=== PATIENT | male | born 1940 | race African-American/Black ===

== ENCOUNTER 2018-05-01 15:00 | Inpatient (IN) | END 2018-05-15 22:10 | DRG 870 ==

== ENCOUNTER 2018-10-30 08:42 | Inpatient (IN) | payer MEDICARE, OTHER ==
[~2018-10-30] VITALS: Ht 180.3 cm; Wt 74.3 kg
[~2018-10-30 08:42] MED LIST: ABIR500T PO; CAR120SR PO; CEFE1FRO IV; CHOL100062 PO; EPLE25TA4 PO; EPO10ESRD SC; HEPA50002 SC; Insulin Glargine SC; Ipratropium 0.02% (Neb) HHN; LEVA1.2523 HHN; METO25TA4 PO; MULTI PO; MUPI22OI2 TOP; Nursing Note XX; Patient Own Medication PO; SCOP1PAT10 TRANSDERM; SENN-120 PO; TERB250T13 PO; VANC750F2 IV; [UNRECOGNIZED DRUG - OTHER] XX
[2018-10-30 08:49] VITALS: Ht 180.3 cm; Wt 74.3 kg
[2018-10-30] MEDS ORDERED: SODIUM CHLORIDE 0.9% 1L BAG IV* STA (08:54)
[2018-10-30] MEDS ORDERED: CEFEPIME 2GM/50 ML (PMX) 50 ML IVPB STA (08:54)
[2018-10-30] MEDS ORDERED: VANCOMYCIN 1 GM (PMX) 250 ML IVPB ONE (09:00)
[2018-10-30] MEDS ORDERED: ACETAMINOPHEN 650MG/20.3ML CUP PEG ONE (09:30)
[2018-10-30] MEDS ORDERED: IBUPROFEN 800 MG TAB PEG ONE (09:30)
[2018-10-30] MEDS ORDERED: GLUC1KIT IJ (10:24)
[2018-10-30] MEDS ORDERED: NOVO3I SC (10:29)
[2018-10-30] MEDS ORDERED: IPRA3AMP29 INHALATION (10:30)
[2018-10-30] MEDS ORDERED: LANT3I SC (10:31)
[2018-10-30] MEDS ORDERED: PANT40TA3 GTB (10:33)
[2018-10-30] MEDS ORDERED: FURO20TA3 GTB (10:33)
[2018-10-30] MEDS ORDERED: PRED5TAB GTB (10:34)
[2018-10-30] MEDS ORDERED: ABIR500T GTB (10:36)
[2018-10-30] MEDS ORDERED: ACET325T45 GTB (10:37)
[2018-10-30] MEDS ORDERED: EPOE3000 SC (10:38)
--- NOTE | 2018-10-30 12:10 | HP ---
Date/Time of Note Date/Time of Note DATE: 10/30/18 TIME: 12:10 Assessment/Plan VTE Prophylaxis Pharmacological prophylaxis: NA/contraindicated Pharm contraindication: anticoag not tolerated Lines/Catheters [facility]from [facility]): Saline Lock Assessment/Plan Hospital Course 78-year-old male with comorbidities including advanced dementia with chronic bedridden status, dysphagia status post G-tube placement, chronic kidney dise ase, diabetes mellitus, osteoarthritis, dyslipidemia, and prostate cancer. The patient lives at a long term facility. The patient was transferred from the SNF because of febrile illness, tachycardia, and tachypnea, who was found to have evidence of underlying sepsis with tachycardia, tachypnea, febrile illness, and lactic acidosis. The patient will be admitted to inpatient setting for fur ther treatment and evaluation. 1. Sepsis with underlying tachypnea, tachycardia, fevers, and lactic acidosis, present on admission, probably secondary to underlying urinary tract infection. Sepsis criteria: tachycardia, tachypnea, fevers, and lactic acidosis. Infectious source: Suspect UTI and aspiration pneumonitis. -Pancultures obtained. -Start empiric antibiotics including coverage for anaerobes because of suspected aspiration. 2. Hypernatremia. -Etiology could free water deficit. -Start free water via G-tube. -Obtain nephrology consult. 3. Acute on chronic kidney injury. -Probably secondary to underlying dehydration. -Nephrology to follow the patient. -Continue IV hydration. 4. Diabetes mellitus type 2. -Continue sliding scale insulin along with basal insulin. -Hemoglobin A1C 6.8. 5. Nomocytic anemia. -Etiology unclear. -Trend H&H. 6. Dysphagia. -Aspiration precautions. 7. Dyslipidemia. -Obtain lipid panel. 8. Prostate cancer. -Continue Zytiga. Plan: The patient will be admitted to inpatient telemetry floor. The patient will be started on G-tube feedings. The patient will be started on DVT prophylaxis . The patient will remain a full code. Activities will be bedrest. The rest of the patient's management will be based on the clinical course, inputs from consultants, and the results of diagnostic studies. Based on the patient's clinical presentation, he most probably requires at least 2 Midnights' stay for further management and evaluation of his clinical presentation. The patient was seen in collaboration with Dr. Trevino Result Diagram: 10/30/18 0900 10/30/18 0900 Results 24hrs Laboratory Tests Test 10/30/18 08:53 10/30/18 08:54 10/30/18 09:00 10/30/18 09:01 POC Venous 2.4 *H Lactate Blood Gas Blood arterial Specimen Source Arterial Blood 10/30/2018 9:54:5 Date Drawn 4 AM Arterial Blood pH 7.464 H (Temp corrected) Arterial Blood 51.7 H pCO2 (Temp correct) Arterial Blood 84.2 pO2 (Temp corrected) Arterial Blood 36.3 H HCO3 Arterial Blood 11.3 H Base Excess Arterial Blood 95.8 Oxygen Saturation Jay Test N/A Arterial Blood LB Gas Puncture Site Arterial 0.3 Blood Carboxyhemo globin Arterial Blood 0.5 Methemoglobin Blood Gas A-a O2 69.0 H Differential Oxyhemoglobin 95.0 Percent Blood Gas 37.0 Temperature Blood Gas NASAL CANNULA Modality FiO2 30.0 Blood Gas MDA Notified Whom Blood Gas 10/30/2018 9:57:2 Notified Time 8 AM White Blood Count 8.1 # Red Blood Count 2.86 L Hemoglobin 7.7 L Hematocrit 26.7 L Mean Corpuscular 93.4 Volume Mean Corpuscular 26.9 L Hemoglobin Mean Corpuscular 28.8 L Hemoglobin Concen t Red Cell 16.4 H Distribution Width Platelet Count 159 # Mean Platelet 13.0 #H Volume Immature 0.500 H Granulocytes % Neutrophils % Lymphocytes % Monocytes % Eosinophils % Basophils % Nucleated Red 0.2 H Blood Cells % Immature 0.040 H Granulocytes # Neutrophils # Lymphocytes # Monocytes # Eosinophils # Basophils # Nucleated Red Blood Cells # Prothrombin Time 15.6 #H Prothrombin Time 1.2 Ratio INR International 1.23 Normalized Ratio Activated 33.3 Partial Thrombopl ast Time Urine Color YELLOW Urine Clarity CLOUDY A Urine pH 5.0 Urine Specific 1.016 [place] Urine Ketones NEGATIVE Urine Nitrite NEGATIVE Urine Bilirubin NEGATIVE Urine 1+ H Urobilinogen Urine Leukocyte 3+ H Esterase Urine Microscopic 16 H RBC Urine Microscopic > 182 H WBC Urine Amorphous FEW A Crystals Urine Bacteria FEW A Urine Hemoglobin 1+ H Urine Glucose NEGATIVE Urine Total 1+ H Protein Sodium Level 162 *H Potassium Level 3.1 L Chloride Level 122 H Carbon Dioxide 38 H Level Anion Gap 2 L Blood Urea 51 H Nitrogen Creatinine 1.52 H Est Glomerular Filtrat Rate mL/min Glucose Level 188 Calcium Level 9.5 Total Bilirubin 0.0 L Direct Bilirubin 0.00 Indirect 0.0 Bilirubin Aspartate Amino 22 Transf (AST/SGOT) Alanine < 6 L Aminotransferase (ALT/SGPT) Alkaline 130 H Phosphatase Troponin I 0.070 Total Protein 7.1 Albumin 3.1 L Globulin 4.00 H Albumin/Globulin 0.77 Ratio Amylase Level 68 Lipase 123 B-Type 866 H Natriuretic Peptide Test 10/30/18 10:54 POC Venous 1.5 Lactate HPI/ROS Admit Date/Time Admit Date/Time Hx of Present Illness This is a 77-year-old male with comorbidities including diabetes mellitus type 2, advanced Alzheimer's dementia, dysphagia status post G-tube placement, dyslipidemia, osteoarthritis, and prostate cancer who is a shelter resident. The patient was recently admitted to [facility], where he was intubated for acute respiratory distress. The patient was brought to the emergency room at [facility] because of fevers and tachypnea at the long term facility. The patient is nonverbal and is unable to obtain meaningful data from the patient. The patient's daughter was at the bedside. The patient's daughter denied any reported nausea, vomiting, or diarrhea. In the emergency room, the patient was noticed to have lactic acidosis; the patient also had underlying tachycardia and tachypnea. The patient was also noticed to be febrile with highest temperature of 101.2 F. The patient's influ kyle A and B screen was negative. The patient's chest x-ray was showing mildly increased interstitial changes in the lung bases along with calcified aorta. The patient was treated with a single dose of IV cefepime and IV vancomycin in the emergency room. ROS Subjective hx not possible: pt non-verbal PMH/Family/Social Past Medical History 1. Diabetes mellitus type 2. 2. Advanced Alzheimer's dementia. 3. Dysphagia status post G-tube placement. 4. Dyslipidemia. 5. Osteoarthritis, and prostate cancer. 6. Chronic bedridden status. 7. Prostate cancer. Coded Allergies: No Known Allergy (Unverified , 10/30/18) Past Surgical History G-tube placement. Family History Significant Family History: no pertinent family hx Social History Alcohol Use: none Smoking Status: Former smoker Drug Use: none Exam/Review of Systems Vital Signs Vitals Vital Signs Date Temp Pulse Resp B/P (MAP) Pulse Ox O2 O2 Flow FiO2 Time Delivery Rate 10/30/18 101 18 102/75 99 Nasal 2.0 10:16 (84) Cannula 10/30/18 101.0 09:21 Exam Exam General: Adequately build 78 year-old male lying in bed in mild to moderate respiratory distress. HEENT: Normocephalic, atraumatic. Eyes: Anicteric sclerae, conjunctivae clear. ENT: Nasal septum midline, oral mucosa is dry. Neck supple. Respiratory: Bilaterally diminished breath sounds. Bilateral coarse breath sounds. Cardiovascular: S1, S2 heard. Tachycardia. Abdomen: Soft, nontender, and nondistended. Bowel sounds positive in all [address] Left upper quadrant G-tube site clean, dry, and intact. Genitourinary: Deferred. Extremities: No cyanosis, no clubbing. Peripheral pulses palpable. Neurologic: The patient is encephalopathic. NADIA SHINE NP Oct 30, 2018 12:10
[2018-10-30] MEDS ORDERED: ACETAMINOPHEN 325 MG TAB PO PRN (12:30)
[2018-10-30] MEDS ORDERED: VANCOMYCIN IV PER PHARMACY XX SCH (12:30)
[2018-10-30] MEDS ORDERED: NACL 0.9% 3 ML SYG IV SCH (12:30)
[2018-10-30] MEDS ORDERED: ONDANSETRON 4 MG INJ IV PRN ×2 (12:30)
--- NOTE | 2018-10-30 14:21 | CONS ---
DATE OF ADMISSION: 10/30/2018 DATE OF CONSULTATION: 10/30/2018 REASON FOR CONSULTATION: Acute kidney injury, hyponatremia. PHYSICIAN REQUESTING CONSULTATION: Dr. Henderson . HISTORY OF PRESENT ILLNESS: This is a 78-year-old male with a past medical history of hypertension, history of diabetes, history of advanced Alzheimer dementia, history of dysphagia, status post PEG, h istory of bedridden state who presents to [facility] Emergency Room with shortness of breath. The patient was sent from a detention facility to [facility]. Up on arrival, the patient had a chest x-ray, which showed findings of increased interstitial changes, c alcified aorta. The patient was also febrile with a temperature of 101. In the emergency room, the patient had laboratory data drawn, which also showed a sodium of 162, BUN of 51, creatinine 1.52. In the emergency room, the patient was started on IV fluids, antibiotic therapy. In terms of the patient's renal history, the patient's previous baseline creatinine in May 2018 was 0.79 mg/dL. The patient, himself, is unable to provide history. History was obtained by reviewi hospital records and speaking to hospital staff. PAST MEDICAL HISTORY: As stated above. 1. Advanced Alzheimer dementia. 2. History of dysphagia. 3. History of anemia. 4. History of diabetes. 5. History of hypertension. PAST SURGICAL HISTORY: Status post PEG placement. FAMILY HISTORY: Unknown. SOCIAL HISTORY: Lives at a skilled nurse facility. MEDICATIONS: The patient's medications have been reviewed. ALLERGIES: NO KNOWN DRUG ALLERGIES. REVIEW OF SYSTEMS: Unable to do adequate review of systems, as patient is altered. Pertinent positi ves as obtained by reviewing medical records, speaking to hospital staff, stated in HPI, otherwise ne gative. PHYSICAL EXAMINATION: VITAL SIGNS: Blood pressure is 115/54, respirations 18, pulse 94, temperature 100.3. GENERAL: The patient is frail, weak, cachectic. HEENT: Head is normocephalic. Pupils are reactive to light. NECK: Supple. HEART: Regular rate. LUNGS: Show diminished breath sounds at the base. ABDOMEN: Soft, nontender to palpation. No rebound or guarding. Positive PEG. EXTREMITIES: Negative for clubbing, cyanosis. No edema. DERMATOLOGIC: No rashes. MUSCULOSKELETAL: No joint effusions. NEUROLOGIC: Limited exam due to lack of patient cooperation. LABORATORY DATA: From 10/30 was reviewed. CBC was reviewed. ASSESSMENT AND PLAN: This is a 78-year-old male who presents with: 1. Nonoliguric acute kidney injury with previously normal baseline creatinine. Etiology of acute ki dney injury (ROBBIE) is secondary to hemodynamics, volume depletion, possible sepsis. The patient's ini tial urinalysis does show evidence of pyuria, hematuria, and proteinuria. Recommendation at this poi nt is to do a full evaluation. We will check a renal ultrasound to rule out obstruction. We will co ntinue the patient on aggressive intravenous (IV) hydration. We will repeat a renal panel. We will follow up urine culture if there is evidence of urinary tract infection (UTI). Otherwise, continue c urrent treatment plan, supportive care, and renally dose all medications. Lower suspicion for acute glomerulonephritis or vasculitis at this time due to patient's clinical presentation. 2. Hypernatremia. The patient has a free water deficit of approximately 4.5 liters. Etiology is li jd due to insensible losses. The possibility of diabetes insipidus is a consideration, although, l ess likely. Plan is to do a full evaluation. We will check urine sodium, urine osmolarity. We will start the patient on free water flushes. We will continue hypertonic fluid and monitor closely. 3. Hypokalemia. Replete with potassium chloride. 4. Metabolic alkalosis. Etiology is likely secondary to acute kidney injury and diuretic use. Plan is to continue the patient on intravenous (IV) fluids. We will monitor bicarbonate levels closely. 5. Anemia. Continue to monitor hemoglobin and hematocrit levels. 6. Mineral bone disorder. Monitor calcium and phosphorus levels. 7. Sepsis, possibly secondary to urinary tract infection (UTI), pneumonia. Continue broad-spectrum antibiotics. Follow up with cultures. Continue pressor support. 8. Dysphagia, status post percutaneous endoscopic gastrostomy (PEG). Continue tube feeding. 9. Acute encephalopathy on advanced Alzheimer dementia. 10. Diabetes. Continue Accu-Cheks, insulin sliding scale. 11. History of prostate cancer. 12. History of dyslipidemia. Thank you, Santiago, for this interesting consult. It will be a pleasure to follow patient with you t hroughout the hospital course. Dictated By: KACY CUETO/NTS Conf#: [id number] DID#: [id number]
[2018-10-30] MEDS: INSULIN ASPART [NOVOLOG] 3 ML PEN SC SCH ×2 (14:30→20:30)
[2018-10-30] MEDS: LEVALBUTEROL (NEB) 0.63 MG/3 ML AMP HHN SCH ×2 (14:32→20:42)
[2018-10-30] MEDS ORDERED: GLUCAGON 1 MG INJ IM PRN (15:00)
[2018-10-30] MEDS ORDERED: GLUCOSE GEL 15 GRAM TUBE PO PRN ×2 (15:00)
[2018-10-30] MEDS ORDERED: DEXTROSE 50% 50 ML SYRINGE IV PRN ×2 (15:00)
[2018-10-30] MEDS ORDERED: GLUCOSE GEL 15 GRAM TUBE BUCCAL PRN (15:00)
[2018-10-30] MEDS: SOD CHLORIDE 0.45% 1,000 ML IV SCH (15:03)
--- NOTE | 2018-10-30 16:41 | CONS ---
DATE OF ADMISSION: 10/30/2018 DATE OF CONSULTATION: 10/30/2018 TYPE OF CONSULTATION: Infectious disease. REASON FOR CONSULTATION: Antibiotic management. HISTORY OF PRESENT ILLNESS: Taran Perez is a 78-year-old male with numerous comorbidities. He has: 1. Advanced dementia. 2. Bedridden status. 3. Dysphagia with G-tube placement. 4. Chronic renal disease. 5. Diabetes mellitus. 6. Osteoarthritis. 7. Dyslipidemia. 8. Prostate cancer. He was transferred from a [facility] facility with febrile illness, tachycardia and tachypnea. He was found to have underlying sepsis with tachycardia, tachypnea, febrile illness. He has a G-tube in place. On admission, his white count 8.1, H and H of 7.7 and 26.7, platelet count is 59,000. BU N and creatinine is 51/1.52. He was recently admitted to the hospital where he was intubated for acu te respiratory distress. He was brought to the emergency room here because of fever and tachycardia. He is nonverbal. In the emergency room, he had lactic acidosis which was elevated. He was tachyca rdic and tachypneic, temperature of 101.2. Influenza A and B was negative. Chest x-ray showed mild increased interstitial changes in the lung bases along with calcified aorta. He was given 1 dose of cefepime and vancomycin. His diagnosis was diabetes with advanced Alzheimer disease with dementia, d ysphagia status post G-tube, prostate cancer, dyslipidemia. PHYSICAL EXAMINATION: GENERAL: He is adequately built 78-year-old male. VITAL SIGNS: T-max 101. SKIN: Without generalized rash. HEENT: Within normal limits. NECK: Supple. LYMPH NODES: None palpable. CHEST: Decreased breath sounds at the bases. HEART: Without murmur or gallop. He is tachycardic. ABDOMEN: Soft, nontender without organosplenomegaly or masses. G-tube in place in the left upper qu adrant, dry and intact. EXTREMITIES: Without cyanosis, clubbing or edema. RECTAL AND GENITAL: Deferred. NEUROLOGIC: No focal neurological abnormality. HOSPITAL COURSE: The patient was also seen by Dr. Xiong for acute kidney injury with a temperature of 101, 100.3. As noted, white count was 8.1. BUN and creatinine was 63/1.47. He was dehydrated w ith a sodium of 161. Microbiology: Influenza A and B are negative. He is on Zosyn. He was on vanc omycin and cefepime. I will dictate my findings to the hospitalist and Dr. Xiong. Dictated By: NIKKIE NÚÑEZ MD, JD/SAMANTHA Conf#: [id number] DID#: [id number] CC: LESLEY RAMIREZ MD;*End*
[2018-10-30] MEDS: PIPER-TAZO 3.375 GM IV (PMX) 100 ML IVPB SCH (17:57)
[2018-10-30 19:19] VITALS: PULSE 82
[2018-10-30 19:46] VITALS: BP 129/63; PULSE 84; RESP 18
[2018-10-30 20:00] VITALS: PULSE 88
[2018-10-30] MEDS ORDERED: INSULIN GLARGINE [LANTus] (100 UNITS/ML) SYG SC SCH (20:00)
[2018-10-30 23:11] VITALS: BP 114/58; PULSE 97; RESP 18
[2018-10-31] VITALS (12 sets, daily range): BP systolic 115–141; BP diastolic 55–77; PULSE 93–105; RESP 18–20
[2018-10-31] MEDS ORDERED: PENDING SANTYL ORDER FOR WOUND CARE XX PRN (01:00)
[2018-10-31] MEDS: PIPER-TAZO 3.375 GM IV (PMX) 100 ML IVPB SCH ×4 (01:02→17:11)
[2018-10-31] MEDS: SOD CHLORIDE 0.45% 1,000 ML IV SCH ×3 (01:03→17:31)
[2018-10-31] MEDS: LEVALBUTEROL (NEB) 0.63 MG/3 ML AMP HHN SCH ×4 (02:33→20:44)
[2018-10-31] MEDS: VANCOMYCIN HCL 1.25 GM in SOD CHLORIDE 0.9% 250 ML IVPB SCH (05:56)
--- NOTE | 2018-10-31 06:10 | ERD ---
ER Documentation Chief Complaint Chief Complaint MILD SOB WITH LOW 02 SATS FROM [facility]. FEVER NO COUGH HPI This is a 78-year-old male that presented to the emergency department from his significant facility, chronic bedbound status, with a known history of diabetes mellitus osteoarthritis dyslipidemia and prostate carcinoma. The patient has a G-tube and indwelling Wynn catheter. He been transferred via EMS today to [facility] after an episode of hypoxia. Nursing staff indicated that the patient's pulse oximetry had dropped to 80%. They also indicated that the patient had been experiencing a fever for the past several hours. The patient is unable to provide any further history. Patient did not receive any antipyretics prior to arrival. ROS All systems reviewed and are negative except as per history of present illness. Medications Home Meds Reported Medications Epoetin freddy* (Epogen*) 3,000 Unit/1 Ml Vial, 6000 UNITS SC Q MON,WED,FRI, VIAL 10/30/18 Acetaminophen* (Acetaminophen*) 325 Mg Tablet, 650 MG GTB Q6H PRN for MILD PAIN(1-3)OR ELEVATED TEMP, #30 TAB 10/30/18 Abiraterone Acetate (Zytiga) 500 Mg Tablet, 1000 MG GTB DAILY, TAB 10/30/18 Prednisone* (Prednisone*) 5 Mg Tab, 5 MG GTB DAILY, TAB 10/30/18 Pantoprazole* (Protonix*) 40 Mg Tablet.dr, 40 MG GTB BID, TAB 10/30/18 Furosemide* (Furosemide*) 20 Mg Tablet, 20 MG GTB DAILY PRN for HOLD FOR SBP<110, #60 TAB 10/30/18 Insulin Glargine* (Lantus*) 100 Unit/Ml Soln, 20 UNIT SC QHS, #1 VIAL 10/30/18 Ipratropium-Albuterol (Ipratropium-Albuterol) 0.5-3 Mg/3 Ml Ampul.neb, 3 ML INHALATION TID, #30 VIAL FOR 10 DAYS,END DATE 11/05/18 10/30/18 Glucagon,Human Recombinant (Glucagon Emergency Kit) 1 Mg Kit, 1 MG IJ NEEDED PRN for IF BLOOD GLUCOSE<70, KIT 10/30/18 Discontinued Reported Medications Insulin Aspart* (Novolog Insulin Pen*) 100 Unit/Ml Soln, 0 SC .SLIDING SCALE AC, EA IF BS<70 CALL MD. IF BS 150-199=2 UNITS, 200-249=3 UNITS, 250-299=5 UNITS, 300-349=7 UNITS, IF BS>349=10 UNITS,IF BS GREATER THAN 400, CALL MD. 10/30/18 Abiraterone Acetate (Zytiga) 500 Mg Tablet, 1000 MG PO DAILY, TAB 05/01/18 Multivitamins* (Theragran*) 1 Tab Tab, 1 TAB PO DAILY, TAB 05/01/18 Metoprolol Tartrate* (Lopressor*) 25 Mg Tablet, 50 MG PO BID, #60 TAB 05/01/18 Eplerenone (EPLERENONE) 25 Mg Tablet, 25 MG PO DAILY, #30 TAB 05/01/18 Diltiazem Hcl (Diltiazem) 120 Mg Capsr, 30 MG PO BID, #30 CAP 05/01/18 Cholecalciferol* (Vitamin D3*) 1,000 Unit Tablet, 1000 UNIT PO DAILY, TAB 05/01/18 Discontinued Scripts [Nursing Note] 1 EA EA No Conflict Check, 1 EA XX NOTE for 30 Days Prov:GARY PETERSON 05/15/18 [* Miscellaneous Pharmacy Order] 1 EA EACH No Conflict Check, 0 EA XX .ONCE for 30 Days Prov:GARY PETERSON 05/15/18 [Patient Own Medication] 1 EA EA No Conflict Check, 2 EA PO DAILY Prov:GARY PETERSON 05/15/18 Mupirocin* (Bactroban*) 2% -22 Gram Oint...g., 1 APPLIC TOP BID for 3 Days Prov:GARY PETERSON 05/15/18 [Insulin Glargine] 100 UNITS/ML SOLN No Conflict Check, 16 UNITS SC DAILY for 30 Days Prov:GARY PETERSON 05/15/18 Scopolamine (Transderm-Scop) 1 Each Patch.td.3, 1 PATCH TRANSDERM Q72H for 30 Days Prov:GARY PETERSON 05/15/18 Sennosides* (Senna Lax*) 8.6 Mg Tablet, 1 TAB PO QHS for 30 Days, TAB Prov:GARY PETERSON 05/15/18 Heparin Sodium,Porcine (Heparin Sodium) 5,000 Unit/1 Ml Vial, 5000 UNIT SC Q8H for 30 Days, VIAL Prov:GARY PETERSON. 05/15/18 Epoetin Freddy (Epogen) 10,000 Units/Ml Soln, 90351 UNITS SC MoWeFr@17 for 30 Days Prov:GARY PETERSON. 05/15/18 Levalbuterol Hcl* (Xopenex*) 1.25 Mg/0.5 Ml Vial.neb, 1.25 MG HHN Q6H RESP THERAPY for 30 Days Prov:GARY PETERSON. 05/15/18 [Ipratropium 0.02% (Neb)] 0.5 MG/2.5 ML NEBU No Conflict Check, 0.5 MG HHN Q4H RESP THERAPY PRN for SHORTNESS OF BREATH for 30 Days Prov:GARY PETERSON . 05/15/18 [Ipratropium 0.02% (Neb)] 0.5 MG/2.5 ML NEBU No Conflict Check, 0.5 MG HHN Q6H RESP THERAPY for 30 Days Prov:GARY PETERSON . 05/15/18 Vancomycin/0.9 % Sod Chloride (Vanco 750 mg/150 ml-0.9% NaCl) 750 Mg/150 Ml Froz.piggy, 750 MG IV Q12 for 12 Days Prov:GARY PETERSON . 05/15/18 Terbinafine Hcl* (Terbinafine Hcl*) 250 Mg Tablet, 250 MG PO BID for 5 Days, TAB Prov:GARY PETERSON. 05/15/18 Cefepime Hcl/Dextrose, Iso-Osm (Cefepime 1 Gm Injection) 1 Gm/50 Ml Froz.piggy, 1 GM IV Q12 for 10 Days Prov:GARY PETERSON. 05/15/18 Allergies Allergies: Coded Allergies: No Known Allergy (Unverified , 10/30/18) PMhx/Soc History of Surgery: Yes (hip replacement, prostate removed) Anesthesia Reaction: No Hx Neurological Disorder: Yes (dementia) Hx Respiratory Disorders: Yes Hx Cardiac Disorders: Yes (hypertension) Hx Psychiatric Problems: No Hx Miscellaneous Medical Probl: No Hx Alcohol Use: No Hx Substance Use: No Hx Tobacco Use: Yes Smoking Status: Former smoker Physical Exam Vitals Vital Signs Date p Pulse Resp B/P (MAP) Pulse Ox O2 O2 Flow FiO2 Time Delivery Rate 10/30/18 100.3 96 18 112/59 99 Nasal 4.0 12:00 (76) Cannula 10/30/18 101 18 102/75 99 Nasal 2.0 10:16 (84) Cannula 10/30/18 3.0 09:59 10/30/18 2.0 09:34 10/30/18 101.0 09:21 10/30/18 101.0 09:16 10/30/18 Nasal 2 09:06 Cannula 10/30/18 101.2 117 24 93/61 (72) 88 08:49 Physical Exam Constitutional:Well-developed. Debilitated bedbound male HEENT:Normocephalic. Atraumatic.Pupils were equal round reactive to light. Very dry mucous membranes.No tonsillar exudates. Neck: No nuchal rigidity. No lymphadenopathy. No posterior cervical spine tenderness or step-offs. Respiratory: Not using accessory muscles of respiration. Diminished breath sounds bilaterally. No rhonchi. No rales. No wheezing. Cardiovascular: Tachycardic with regular rhythm.No murmurs. No rubs were appreciated.S1, S2 normal. Distal pulses are palpable 2+ bilaterally. GI: Abdomen was soft. Nontender. G-tube present non Distended. No pulsatile abdominal masses or bruits. No rebound. No guarding. Bowel sounds were present and normal. Muscle skeletal: Muscle atrophy of the upper and lower extremities bilaterally. Patient unable to move the bilateral lower extremities against gravity this is the patient's baseline Skin: Diaphoretic. Warm to the touch. No petechia, no purpura. No lesions on the palms or the soles of the feet. No maculopapular rash. NEURO: Patient opens eyes spontaneously. Patient does not withdraw to pain. Patient is aphasic Result Diagram: 10/30/18 0900 10/30/18 1259 Results 24 hrs Laboratory Tests Test 10/30/18 08:53 10/30/18 08:54 10/30/18 09:00 10/30/18 09:01 POC Venous 2.4 mmol/L Lactate Blood Gas Blood arterial Specimen Source Arterial Blood 10/30/2018 9:54: Date Drawn 54 AM Arterial Blood 7.464 pH (Temp corrected) Arterial Blood 51.7 mmhg pCO2 (Temp correct) Arterial Blood 84.2 mmHG pO2 (Temp corrected) Arterial Blood 36.3 mmol/L HCO3 Arterial Blood 11.3 mmol/L Base Excess Arterial Blood 95.8 mmHG Oxygen Saturatio n Jay Test N/A Arterial Blood LB Gas Puncture Site Arterial 0.3 % Blood Carboxyhem oglobin Arterial Blood 0.5 % Methemoglobin Blood Gas A-a O2 69.0 mmHg Differential Oxyhemoglobin 95.0 % Percent Blood Gas 37.0 C Temperature Blood Gas NASAL CANNULA Modality FiO2 30.0 % Blood Gas MDA Notified Whom Blood Gas 10/30/2018 9:57: Notified Time 28 AM White Blood 8.1 10^3/ul Count Red Blood Count 2.86 10^6/ul Hemoglobin 7.7 g/dl Hematocrit 26.7 % Mean Corpuscular 93.4 fl Volume Mean Corpuscular 26.9 pg Hemoglobin Mean Corpuscular 28.8 g/dl Hemoglobin Annabelle nt Red Cell 16.4 % Distribution Width Platelet Count 159 10^3/UL Mean Platelet 13.0 fl Volume Immature 0.500 % Granulocytes % Neutrophils % % Lymphocytes % % Monocytes % % Eosinophils % % Basophils % % Nucleated Red 0.2 /100WBC Blood Cells % Immature 0.040 10^3/ul Granulocytes # Neutrophils # 10^3/ul Lymphocytes # 10^3/ul Monocytes # 10^3/ul Eosinophils # 10^3/ul Basophils # 10^3/ul Nucleated Red 10^3/ul Blood Cells # Prothrombin Time 15.6 Sec Prothrombin Time 1.2 Ratio INR 1.23 International Normalized Ratio Activated 33.3 Sec Partial Thrombop last Time Urine Color YELLOW Urine Clarity CLOUDY Urine pH 5.0 Urine Specific 1.016 [place] Urine Ketones NEGATIVE mg/dL Urine Nitrite NEGATIVE mg/dL Urine Bilirubin NEGATIVE mg/dL Urine 1+ mg/dL Urobilinogen Urine Leukocyte 3+ Franc[place]a/ul Esterase Urine 16 /HPF Microscopic RBC Urine > 182 /HPF Microscopic WBC Urine Amorphous FEW /HPF Crystals Urine Bacteria FEW /HPF Urine Hemoglobin 1+ mg/dL Urine Osmolality 422 mOsm/kg Urine Random 76.67 mg/dl Creatinine Urine Random < 13 mmol/L Sodium Urine Glucose NEGATIVE mg/dL Urine Total 39.0 mg/dl Protein Sodium Level 162 mmol/L Potassium Level 3.1 mmol/L Chloride Level 122 mmol/L Carbon Dioxide 38 mmol/L Level Anion Gap 2 Blood Urea 51 mg/dl Nitrogen Creatinine 1.52 mg/dl Est Glomerular mL/min Filtrat Rate mL/min Glucose Level 188 mg/dl Hemoglobin A1c 6.8 % Calcium Level 9.5 mg/dl Magnesium Level 3.0 mg/dl Total Bilirubin 0.0 mg/dl Direct Bilirubin 0.00 mg/dl Indirect 0.0 mg/dl Bilirubin Aspartate Amino 22 IU/L Transf (AST/SGOT ) Alanine < 6 IU/L Aminotransferase (ALT/SGPT) Alkaline 130 IU/L Phosphatase Troponin I 0.070 ng/ml Total Protein 7.1 g/dl Albumin 3.1 g/dl Globulin 4.00 g/dl Albumin/Globulin 0.77 Ratio Amylase Level 68 U/L Lipase 123 U/L B-Type 866 PG/ML Natriuretic Peptide Test 10/30/18 10:54 POC Venous 1.5 mmol/L Lactate Current Medications Medications Dose Sig/Ayesha Start Time Status Last (Trade) Ordered Route PRN Stop Time Admin Dose Reason Admin Sodium 2,230 ml BOLUS OVER 2 10/30/18 DC 10/30/18 Chloride HOURS STAT 08:54 09:16 (NS) IV* 10/30/18 08:56 Cefepime HCl 50 ml @ ONCE STAT 10/30/18 DC 10/30/18 100 mls/hr IVPB 08:54 09:16 10/30/18 09:23 Vancomycin 250 ml @ ONCE ONCE 10/30/18 DC 10/30/18 HCl 125 mls/hr IVPB 09:00 09:22 10/30/18 10:59 650 mg ONCE ONCE 10/30/18 DC 10/30/18 Acetaminophen PEG 09:30 09:16 (Tylenol 10/30/18 09:31 Liquid) Ibuprofen 800 mg ONCE ONCE 10/30/18 DC 10/30/18 (Motrin) PEG 09:30 09:21 10/30/18 09:31 Procedures/MDM Patient's infectious symptoms have not stabilized and the patient is at risk of rapid decompensation. The patient will be admitted for careful hydration, antibiotic therapy, and infectious source control. Severe Sepsis Assessment: Infectious Source:pyleonephritis End organ damage indicated by: Lactate > 2.0 mmol/L Hypotension( SBP < 90 or >40 mmHG drop or MAP < 65) Acute Resp Failure (sat < 92% w/o oxygen) Severe Sepsis Managment: Blood Cultures X 2 before broad spectrum antibiotics initiated within 3 hours of recognition. 30 ml/kg NS bolus Completed Initial Lactate: 2.4 Repeat Lactate pending I considered further perfusion assessment with CVP measurement, SCVO2, bedside ultrasound volume assessment, passive leg raise, trial of further fluid bolus. And preceded with IV fluids. I obtained a 1 view chest radiograph ordered and reviewed by myself and radiologist indicated the following: Mild increased interstitial changes in the lung bases. Calcified aorta consistent with atherosclerotic disease. 12 Lead EKG tracing ordered and reviewed by myself showed: Sinus tachycardia 111 bpm and no arrhythmia. MN interval normal. QRS duration normal. No ST segment elevation No ST segment depression. No changes consistent with acute ischemia. The patient was hyponatremic with a serum sodium of 161 which I felt was a result of severe clinical dehydration will receive IV fluids for correction. The patient was hyperkalemic without ketosis The patient had a urinary tract infection was treated with vancomycin and ceftriaxone. The patient was anemic with hemoglobin of 7.7 but did not experience any active upper or lower gastrointestinal bleeding at this time. Fecal occult blood test was negative. Type and screen was obtained. The patient was given antipyretics when he arrived through his PEG tube. Fever resolved. Patient had acute kidney injury thought to be secondary to prerenal azotemia which will be corrected with IV hydration and the patient did have a consult placed to Dr. Xiong who cannula came to the bedside to evaluate the patient The patient initially arrived he was hypoxic. However this appeared to be worsened by position. The patient was repositioned to sit upright on the gurney and placed on low flow supplemental oxygen 2 L nasal cannula patient improved to 99% pulse oximetry. Patient will be admitted in serious condition to the hospitalist. Patient will go to the telemetry service. Critical Care: Time: 80 minutes Treatments/Evaluations: Close monitoring and treatment of unstable vital signs, cardiorespiratory, and neurologic status, while maintaining tight balance of fluid, respiratory, and cardiac interventions. Time does not include performing any of the above billable procedures. Departure Diagnosis: Primary Impression: Sepsis due to gram-negative UTI Additional Impressions: Hypernatremia Lactic acidosis Condition: Serious LEILA CAZARES MD Oct 31, 2018 06:09
[2018-10-31] MEDS: INSULIN ASPART [NOVOLOG] 3 ML PEN SC SCH ×3 (06:21→17:48)
[2018-10-31] MEDS ORDERED: POTASSIUM CHLORIDE 20 MEQ POWDER FOR ORAL SOLN GTB ONE (10:00)
--- NOTE | 2018-10-31 10:07 | PN ---
DATE: 10/31/2018 SUBJECTIVE: The patient remains confused, lethargic overnight. No other acute events noted. OBJECTIVE: VITAL SIGNS: Blood pressure is 122/77, respiration 18, pulse 99, temperature 98.2. HEENT: Head is normocephalic. NECK: Supple. HEART: Regular rate. LUNGS: Show diminished breath sounds at the base. ABDOMEN: Soft, nontender to palpation without rebound or guarding. EXTREMITIES: Negative for clubbing, cyanosis, no edema. DERMATOLOGIC: No rashes. MUSCULOSKELETAL: No joint effusion. NEUROLOGIC: No change in exam. MEDICATIONS: Reviewed. LABORATORY DATA: Shows sodium of 162, potassium 3.4, BUN 36, creatinine 1.22. White count 6.0, hemo globin 6.9, platelet count is 135. The patient's blood cultures have been reviewed, shows gram-negat gideon rods. ASSESSMENT AND PLAN: 1. Nonoliguric acute kidney injury with previously normal baseline creatinine. Etiology of acute ki dney injury is secondary to volume depletion, sepsis, hemodynamics. The patient's renal function has been improving with IV hydration. Plan is to continue current medical management. Continue aggress gideon IV hydration. Will increase rate of IV fluids to 125 mL per hour. Otherwise, continue current t reatment plan. Continue to renally dose all meds, avoid nephrotoxins. Continue antibiotic therapy. 2. Hypernatremia. The patient has partial diabetes insipidus. The patient's urine osmolarity is in appropriately low for current level of hypernatremia. This may be due to underlying acute kidney inj ury. Plan is to continue free water flushes. We will increase rate to 400 mL q.4h. We will increas e rate of IV hypotonic fluids. We will monitor serial sodium levels closely. If sodium levels do no t improve, will consider giving a course of DDAVP. 3. Hypokalemia. We will replete with potassium chloride. 4. Metabolic alkalosis secondary to acute kidney injury. Continue to monitor. 5. Anemia. Monitor hemoglobin and hematocrit levels. 6. Mineral bone disorder. Monitor calcium and phosphorus levels. 7. Sepsis, secondary to urinary tract infection, bacteremia and pneumonia. Continue broad-spectrum antibiotics. 8. Dysphagia, status post percutaneous endoscopic gastrostomy. Continue tube feeding. Continue stefanie e water flushes. 9. Acute encephalopathy and advanced Alzheimer dementia. 10. Diabetes, continue Accu-Cheks and sliding scale. 11. History of prostate cancer. 12. Dyslipidemia. Dictated By: KACY CUETO/SAMANTHA Conf#: [id number] DID#: [id number]
[2018-10-31] MEDS: ACETAMINOPHEN 325 MG TAB GTB PRN ×2 (13:45→21:23)
--- NOTE | 2018-10-31 13:48 | CONS ---
Assessment/Plan Assessment/Plan Hospital Course (Demo Recall) Patient is lethargic in no distress looks comfortable, family at bedside. Temperature 98.5. T-max yesterday 101.2. WBC 6 H&H 7.6 and 27 platelets 135 neutrophils 83.1 BUN 56 creatinine 1.22 Microbiology: Urine and blood culture growing gram-negative rods Indwelling: PEG, Wynn Antimicrobials: Vancomycin, Zosyn Physical examination: This is a chronically ill wasted elderly -[place] man who is lethargic in no distress. Head atraumatic normocephalic neck is supple chest rise symmetrical breath sounds diminished bases. Heart: S1-S2. Abdomen soft bowel sounds present. Extremities with bilateral feet chronic wounds Assessment: 1. Severe sepsis with gram-negative hanna bacteremia likely secondary to #2 2. Gram-negative hanna UTI 3. Multiple decubitus 4. Acute on chronic encephalopathy 5. Dysphagia 6. Prostate cancer Plan: Patient is clinically stable, fevers resolving, continue on current antibiotics, local wound care and await for final cultures Consultation Date/Type/Reason Admit Date/Time Oct 30, 2018 at 12:17 Initial Consult Date Type of Consult id Date/Time of Note DATE: 10/31/18 TIME: 13:48 Exam/Review of Systems Exam Vitals Vital Signs Date Temp Pulse Resp B/P (MAP) Pulse Ox O2 O2 Flow FiO2 Time Delivery Rate 10/31/18 101 12:04 10/31/18 98.5 20 125/61 96 11:35 (82) 10/31/18 Nasal 4.0 09:28 Cannula 10/30/18 36 20:39 Intake and Output 10/30/18 10/30/18 10/31/18 1414:59 22:59 06:59 IntakeIntake Total 2480 ml 700 ml OutputOutput Total 250 ml 1600 ml BalanceBalance 2230 ml -900 ml Results Result Diagram: 10/31/18 1046 10/31/18 0542 Results 24hrs Laboratory Tests Test 10/30/18 22:31 10/30/18 23:59 10/31/18 03:35 10/31/18 05:42 Bedside Glucose 128 143 142 White Blood Count 6.0 # Red Blood Count 2.57 L Hemoglobin 6.9 *L Hematocrit 24.1 L Mean Corpuscular 93.8 Volume Mean Corpuscular 26.8 L Hemoglobin Mean Corpuscular 28.6 L Hemoglobin Concent Red Cell 16.6 H Distribution Width Platelet Count 135 L Mean Platelet Volume 13.7 H Immature 0.500 H Granulocytes % Neutrophils % 83.1 H Segmented 68 Neutrophils % (Manual) Band Neutrophils % 15 H (Manual) Lymphocytes % 10.1 L Lymphocytes % 10 L (Manual) Monocytes % 3.5 Monocytes % (Manual) 1 Eosinophils % 2.8 Eosinophils % 5 (Manual) Basophils % 0.0 Basophils % (Manual) 1 Nucleated Red Blood 0.0 Cells % Immature 0.030 Granulocytes # Neutrophils # 5.0 Neutrophils # 4.1 (Manual) Band Neutrophils # 0.9 H Lymphocytes (Manual) 0.6 L Lymphocytes # 0.6 L Monocytes # 0.2 L Monocytes # (Manual) 0.0 L Eosinophils # 0.2 Basophils # 0.0 Basophils # (Manual) 0.0 Nucleated Red Blood 0.0 Cells # Pathologist YES Review (Hematology) Platelet Estimate DECREASED Giant Platelets 3 H Polychromasia 3+ Anisocytosis 2+ Microcytosis 2+ Sodium Level 162 *H Potassium Level 3.4 L Chloride Level 120 H Carbon Dioxide Level 36 H Anion Gap 6 Blood Urea Nitrogen 56 H Creatinine 1.22 Est Glomerular Filtrat Rate mL/min Glucose Level 132 # Calcium Level 8.6 Phosphorus Level 2.9 Magnesium Level 2.7 H Triglycerides Level 171 H Cholesterol Level 111 LDL Cholesterol, 52 Calculated HDL Cholesterol 25 L Cholesterol/HDL 4.4 Ratio Test 10/31/18 05:43 10/31/18 05:55 10/31/18 10:46 10/31/18 12:14 Lactic Acid Level 1.1 Bedside Glucose 152 134 Hemoglobin 7.6 L Hematocrit 27.0 L Medications Medication Current Medications Piperacillin Sod/ Tazobactam Sod 100 ml @ 200 mls/hr Q6 IVPB Last administered on 10/31/18at 11:31; Admin Dose 200 MLS/HR; Start 10/30/18 at 18:00 Vancomycin HCl (Vanco Iv Per Pharmacy) VANCOMYCIN PER PHARMACY PER PROTOCOL XX ; Start 10/30/18 at 12:30 IV Flush (NS 3 ml) 3 ml PER PROTOCOL IV ; Start 10/30/18 at 12:30 Ondansetron HCl (Zofran Inj) 4 mg Q6H PRN IV NAUSEA/VOMITING; Start 10/30/18 at 12:30 Acetaminophen (Tylenol Tab) 650 mg Q6H PRN GTB .PAIN 1-3 OR TEMP; Start 10/30/18 at 12:30 Levalbuterol (Xopenex Neb) 0.63 mg Q6H RESP THERAPY HHN Last administered on 10/31/18at 08:16; Admin Dose 0.63 MG; Start 10/30/18 at 14:00 Sodium Chloride 1,000 ml @ 125 mls/hr Q8H IV Last administered on 10/31/18at 11:24; Admin Dose 125 MLS/HR; Start 10/30/18 at 13:30 Miscellaneous Information 1 ea NOTE XX ; Start 10/30/18 at 15:00 Glucose (Glutose) 15 gm Q15M PRN PO DECREASED GLUCOSE; Start 10/30/18 at 15:00 Glucose (Glutose) 22.5 gm Q15M PRN PO DECREASED GLUCOSE; Start 10/30/18 at 15:00 Dextrose (D50w Syringe) 25 ml Q15M PRN IV DECREASED GLUCOSE; Start 10/30/18 at 15:00 Dextrose (D50w Syringe) 50 ml Q15M PRN IV DECREASED GLUCOSE; Start 10/30/18 at 15:00 Glucagon (Glucagen) 1 mg Q15M PRN IM DECREASED GLUCOSE; Start 10/30/18 at 15:00 Glucose (Glutose) 15 gm Q15M PRN BUCCAL DECREASED GLUCOSE; Start 10/30/18 at 15:00 Vancomycin HCl 1.25 gm/Sodium Chloride 250 ml @ 83.333 mls/ hr Q24H IVPB Last administered on 10/31/18at 05:56; Admin Dose 83.333 MLS/HR; Start 10/31/18 at 06:00 [facility]isc[facility] This patient pritchard... PRN PRN XX WOUND CARE; Start 10/31/18 at 01:00 Insulin Aspart (Novolog Insulin Pen) NOVOLOG *MILD* ALGORI... Q6 SC Last administered on 10/31/18at 06:21; Admin Dose 1 UNIT; Start 10/31/18 at 06:00 JAME DAN NP Oct 31, 2018 13:48
--- NOTE | 2018-10-31 17:36 | PN ---
Date/Time of Note Date/Time of Note DATE: 10/31/18 TIME: 17:32 Assessment/Plan VTE Prophylaxis Risk score (from Ns)>0 risk: 10 SCD applied (from Ns): Yes Pharmacological prophylaxis: NA/contraindicated Pharm contraindication: anticoag not tolerated Lines/Catheters IV C[facility]ter Type (from [facility] Saline Lock Urinary Cath still in place: Yes Reason Cath still needed: other (indicate) Assessment/Plan Hospital Course SUBJECTIVE: Remains on low-flow O2. Continues to have significant oral secretions. OBJECTIVE: Physical Exam General: Adequately build 78 year-old male lying in bed in mild to moderate respiratory distress. HEENT: Normocephalic, atraumatic. Eyes: Anicteric sclerae, conjunctivae clear. ENT: Nasal septum midline, oral mucosa is dry. Neck supple. Respiratory: Bilaterally diminished breath sounds. Bilateral coarse breath sounds. Cardiovascular: S1, S2 heard. Tachycardia. Abdomen: Soft, nontender, and nondistended. Bowel sounds positive in all 4 quadrants. Left upper quadrant G-tube site clean, dry, and intact. Genitourinary: Deferred. Extremities: No cyanosis, no clubbing. Peripheral pulses palpable. Neurologic: The patient is awake and alert. Confused. Labs & Vitals per chart ASSESSMENT & PLAN 78-year-old male with comorbidities including advanced dementia with chronic be dridden status, dysphagia status post G-tube placement, chronic kidney disease, diabetes mellitus, osteoarthritis, dyslipidemia, and prostate cancer. The patient lives at a [facility] facility. The patient was transferred from the SNF because of febrile illness, tachycardia, and tachypnea, who was found to have evidence of underlying sepsis with tachycardia, tachypnea, febrile illness, and lactic acidosis. The patient was admitted to inpatient setting for further treatment and evaluation. 1. Sepsis with underlying tachypnea, tachycardia, fevers, and lactic acidosis, present on admission, probably secondary to underlying urinary tract infection. Sepsis criteria: tachycardia, tachypnea, fevers, and lactic acidosis. Infectious source: Suspect UTI and aspiration pneumonitis. -Pancultures obtained. -On empiric antibiotics including coverage for anaerobes because of suspected aspiration. 2. Hypernatremia. -Etiology could free water deficit. -Continue free water via G-tube. -Nephrology following. 3. Acute on chronic kidney injury. -Probably secondary to underlying dehydration. -Nephrology to follow the patient. -Continue IV hydration. 4. Diabetes mellitus type 2. -Continue sliding scale insulin along with basal insulin. -Hemoglobin A1C 6.8. 5. Normocytic anemia. -Etiology unclear. -Trend H&H. 6. Dysphagia. -Aspiration precautions. 7. Dyslipidemia. -Lipid panel noted. 8. Prostate cancer. -Continue Zytiga. 9. Fluids, electrolytes, and nutrition. -G-tube feeds. 10. DVT prophylaxis. -Bilateral SCDs. 11. Plan. -Continue antimicrobials. -Await final cultures. The patient was seen in collaboration with Dr. Trevino Result Diagram: 10/31/18 1046 10/31/18 1416 Results 24hrs Laboratory Tests Test 10/30/18 22:31 10/30/18 23:59 10/31/18 03:35 10/31/18 05:42 Bedside Glucose 128 143 142 White Blood Count 6.0 # Red Blood Count 2.57 L Hemoglobin 6.9 *L Hematocrit 24.1 L Mean Corpuscular 93.8 Volume Mean Corpuscular 26.8 L Hemoglobin Mean Corpuscular 28.6 L Hemoglobin Concent Red Cell 16.6 H Distribution Width Platelet Count 135 L Mean Platelet Volume 13.7 H Immature 0.500 H Granulocytes % Neutrophils % 83.1 H Segmented 68 Neutrophils % (Manual) Band Neutrophils % 15 H (Manual) Lymphocytes % 10.1 L Lymphocytes % 10 L (Manual) Monocytes % 3.5 Monocytes % (Manual) 1 Eosinophils % 2.8 Eosinophils % 5 (Manual) Basophils % 0.0 Basophils % (Manual) 1 Nucleated Red Blood 0.0 Cells % Immature 0.030 Granulocytes # Neutrophils # 5.0 Neutrophils # 4.1 (Manual) Band Neutrophils # 0.9 H Lymphocytes (Manual) 0.6 L Lymphocytes # 0.6 L Monocytes # 0.2 L Monocytes # (Manual) 0.0 L Eosinophils # 0.2 Basophils # 0.0 Basophils # (Manual) 0.0 Nucleated Red Blood 0.0 Cells # Pathologist YES Review (Hematology) Platelet Estimate DECREASED Giant Platelets 3 H Polychromasia 3+ Anisocytosis 2+ Microcytosis 2+ Sodium Level 162 *H Potassium Level 3.4 L Chloride Level 120 H Carbon Dioxide Level 36 H Anion Gap 6 Blood Urea Nitrogen 56 H Creatinine 1.22 Est Glomerular Filtrat Rate mL/min Glucose Level 132 # Calcium Level 8.6 Phosphorus Level 2.9 Magnesium Level 2.7 H Triglycerides Level 171 H Cholesterol Level 111 LDL Cholesterol, 52 Calculated HDL Cholesterol 25 L Cholesterol/HDL 4.4 Ratio Test 10/31/18 05:43 10/31/18 05:55 10/31/18 10:46 10/31/18 12:14 Lactic Acid Level 1.1 Bedside Glucose 152 134 Hemoglobin 7.6 L Hematocrit 27.0 L Test 10/31/18 14:16 10/31/18 17:10 Sodium Level 162 *H Potassium Level 3.4 L Chloride Level 126 H Carbon Dioxide Level 35 H Anion Gap 1 L Blood Urea Nitrogen 45 #H Creatinine 1.36 H Est Glomerular Filtrat Rate mL/min Glucose Level 129 Calcium Level 9.3 Bedside Glucose 136 Exam/Review of Systems Exam Vitals Vital Signs Date Temp Pulse Resp B/P (MAP) Pulse Ox O2 O2 Flow FiO2 Time Delivery Rate 10/31/18 101 16:02 10/31/18 100.3 18 118/57 94 15:20 (77) 10/31/18 4.0 14:50 10/31/18 Nasal 14:50 Cannula 10/30/18 36 20:39 Intake and Output 10/30/18 10/30/18 10/31/18 1515:00 23:00 07:00 IntakeIntake Total 2480 ml 700 ml OutputOutput Total 250 ml 1600 ml BalanceBalance 2230 ml -900 ml Results Results 24hrs Laboratory Tests Test 10/30/18 22:31 10/30/18 23:59 10/31/18 03:35 10/31/18 05:42 Bedside Glucose 128 143 142 White Blood Count 6.0 # Red Blood Count 2.57 L Hemoglobin 6.9 *L Hematocrit 24.1 L Mean Corpuscular 93.8 Volume Mean Corpuscular 26.8 L Hemoglobin Mean Corpuscular 28.6 L Hemoglobin Concent Red Cell 16.6 H Distribution Width Platelet Count 135 L Mean Platelet Volume 13.7 H Immature 0.500 H Granulocytes % Neutrophils % 83.1 H Segmented 68 Neutrophils % (Manual) Band Neutrophils % 15 H (Manual) Lymphocytes % 10.1 L Lymphocytes % 10 L (Manual) Monocytes % 3.5 Monocytes % (Manual) 1 Eosinophils % 2.8 Eosinophils % 5 (Manual) Basophils % 0.0 Basophils % (Manual) 1 Nucleated Red Blood 0.0 Cells % Immature 0.030 Granulocytes # Neutrophils # 5.0 Neutrophils # 4.1 (Manual) Band Neutrophils # 0.9 H Lymphocytes (Manual) 0.6 L Lymphocytes # 0.6 L Monocytes # 0.2 L Monocytes # (Manual) 0.0 L Eosinophils # 0.2 Basophils # 0.0 Basophils # (Manual) 0.0 Nucleated Red Blood 0.0 Cells # Pathologist YES Review (Hematology) Platelet Estimate DECREASED Giant Platelets 3 H Polychromasia 3+ Anisocytosis 2+ Microcytosis 2+ Sodium Level 162 *H Potassium Level 3.4 L Chloride Level 120 H Carbon Dioxide Level 36 H Anion Gap 6 Blood Urea Nitrogen 56 H Creatinine 1.22 Est Glomerular Filtrat Rate mL/min Glucose Level 132 # Calcium Level 8.6 Phosphorus Level 2.9 Magnesium Level 2.7 H Triglycerides Level 171 H Cholesterol Level 111 LDL Cholesterol, 52 Calculated HDL Cholesterol 25 L Cholesterol/HDL 4.4 Ratio Test 10/31/18 05:43 10/31/18 05:55 10/31/18 10:46 10/31/18 12:14 Lactic Acid Level 1.1 Bedside Glucose 152 134 Hemoglobin 7.6 L Hematocrit 27.0 L Test 10/31/18 14:16 10/31/18 17:10 Sodium Level 162 *H Potassium Level 3.4 L Chloride Level 126 H Carbon Dioxide Level 35 H Anion Gap 1 L Blood Urea Nitrogen 45 #H Creatinine 1.36 H Est Glomerular Filtrat Rate mL/min Glucose Level 129 Calcium Level 9.3 Bedside Glucose 136 Medications Medication Current Medications Piperacillin Sod/ Tazobactam Sod 100 ml @ 200 mls/hr Q6 IVPB Last administered on 10/31/18at 17:11; Admin Dose 200 MLS/HR; Start 10/30/18 at 18:00 Vancomycin HCl (Vanco Iv Per Pharmacy) VANCOMYCIN PER PHARMACY PER PROTOCOL XX ; Start 10/30/18 at 12:30 IV Flush (NS 3 ml) 3 ml PER PROTOCOL IV ; Start 10/30/18 at 12:30 Ondansetron HCl (Zofran Inj) 4 mg Q6H PRN IV NAUSEA/VOMITING; Start 10/30/18 at 12:30 Acetaminophen (Tylenol Tab) 650 mg Q6H PRN GTB .PAIN 1-3 OR TEMP Last administered on 10/31/18at 13:45; Admin Dose 650 MG; Start 10/30/18 at 12:30 Levalbuterol (Xopenex Neb) 0.63 mg Q6H RESP THERAPY HHN Last administered on 10/31/18at 14:50; Admin Dose 0.63 MG; Start 10/30/18 at 14:00 Sodium Chloride 1,000 ml @ 125 mls/hr Q8H IV Last administered on 10/31/18at 11:24; Admin Dose 125 MLS/HR; Start 10/30/18 at 13:30 Miscellaneous Information 1 ea NOTE XX ; Start 10/30/18 at 15:00 Glucose (Glutose) 15 gm Q15M PRN PO DECREASED GLUCOSE; Start 10/30/18 at 15:00 Glucose (Glutose) 22.5 gm Q15M PRN PO DECREASED GLUCOSE; Start 10/30/18 at 15:00 Dextrose (D50w Syringe) 25 ml Q15M PRN IV DECREASED GLUCOSE; Start 10/30/18 at 15:00 Dextrose (D50w Syringe) 50 ml Q15M PRN IV DECREASED GLUCOSE; Start 10/30/18 at 15:00 Glucagon (Glucagen) 1 mg Q15M PRN IM DECREASED GLUCOSE; Start 10/30/18 at 15:00 Glucose (Glutose) 15 gm Q15M PRN BUCCAL DECREASED GLUCOSE; Start 10/30/18 at 15:00 Vancomycin HCl 1.25 gm/Sodium Chloride 250 ml @ 83.333 mls/ hr Q24H IVPB Last administered on 10/31/18at 05:56; Admin Dose 83.333 MLS/HR; Start 10/31/18 at 06:00 Miscellaneous Information (Pending [facility] Order For Wound Care) This patient pritchard... PRN PRN XX WOUND CARE; Start 10/31/18 at 01:00 Insulin Aspart (Novolog Insulin Pen) NOVOLOG *MILD* ALGORI... Q6 SC Last administered on 10/31/18at 06:21; Admin Dose 1 UNIT; Start 10/31/18 at 06:00 NADIA SHINE NP Oct 31, 2018 17:36
[2018-11-01] VITALS (11 sets, daily range): BP systolic 128–143; BP diastolic 63–75; PULSE 87–97; RESP 18–23
[2018-11-01] MEDS: PIPER-TAZO 3.375 GM IV (PMX) 100 ML IVPB SCH ×4 (00:28→17:12)
[2018-11-01] MEDS: SOD CHLORIDE 0.45% 1,000 ML IV SCH ×4 (00:42→16:21)
[2018-11-01] MEDS: LEVALBUTEROL (NEB) 0.63 MG/3 ML AMP HHN SCH ×4 (01:21→20:08)
[2018-11-01] MEDS ORDERED: ACCU-CHEK XX SCH (02:00)
[2018-11-01] MEDS: VANCOMYCIN HCL 1.25 GM in SOD CHLORIDE 0.9% 250 ML IVPB SCH (05:28)
[2018-11-01] MEDS: INSULIN ASPART [NOVOLOG] 3 ML PEN SC SCH ×4 (06:00→17:18)
[2018-11-01] MEDS: ACETAMINOPHEN 325 MG TAB GTB PRN (06:47)
[2018-11-01] MEDS ORDERED: POTASSIUM CHLORIDE 20 MEQ POWDER FOR ORAL SOLN GTB ONE ×3 (07:30→21:00)
--- NOTE | 2018-11-01 08:50 | PN ---
Date/Time of Note Date/Time of Note DATE: 11/01/18 TIME: 08:45 Assessment/Plan VTE Pro[place]axis [place] [facility] [place] risk: 9 [place] [facility] [place] Yes Pharmacological prophylaxis: NA/contraindicated Pharm contraindication: anticoag not tolerated Lines/Catheters IV C[facility] Type (from [facility]): Saline Lock Urinary Cath still in place: Yes Reason Cath still needed: other (indicate) Assessment/Plan Hospital Course SUBJECTIVE: Remains on low-flow O2. OBJECTIVE: Physical Exam General: Adequately build 78 year-old male lying in bed in mild to moderate respiratory distress. HEENT: Normocephalic, atraumatic. Eyes: Anicteric sclerae, conjunctivae clear. ENT: Nasal septum midline, oral mucosa is dry. Neck supple. Respiratory: Bilaterally diminished breath sounds. Bilateral coarse breath sounds. Cardiovascular: S1, S2 heard. Tachycardia. Abdomen: Soft, nontender, and nondistended. Bowel sounds positive in all 4 quadrants. Left upper quadrant G-tube site clean, dry, and intact. Genitourinary: Deferred. Extremities: No cyanosis, no clubbing. Peripheral pulses palpable. Neurologic: The patient is awake and alert. Confused. Labs & Vitals per chart ASSESSMENT & PLAN 78-year-old male with comorbidities including advanced dementia with chronic bedridden status, dysphagia status post G-tube placement, chronic kidney disease, diabetes mellitus, osteoarthritis, dyslipidemia, and prostate cancer. The patient lives at a nursing home facility. The patient was transferred from the SNF because of febrile illness, tachycardia, and tachypnea, who was found to have evidence of underlying sepsis with tachycardia, tachypnea, febrile illness, and lactic acidosis. The patient was admitted to inpatient setting for further treatment and evaluation. 1. Sepsis with underlying tachypnea, tachycardia, fevers, and lactic acidosis, present on admission, probably secondary to underlying urinary tract infection. Sepsis criteria: tachycardia, tachypnea, fevers, and lactic acidosis. Infectious source: UTI and suspect aspiration pneumonitis. -Pancultures obtained. -On empiric antibiotics including coverage for anaerobes because of suspected aspiration. 2. UTI. -Urine culture positive for Gram-negative rods with colony count greater than 100,000 CFU per millimeter. -Await final cultures. 3. Gram-negative bacteremia. -Continue empiric antimicrobials -Await final cultures. 4. Hypernatremia. -Etiology could free water deficit. -Continue free water via G-tube. -Nephrology following. 5. Acute on chronic kidney injury. -Probably secondary to underlying dehydration. -Nephrology to follow the patient. -Continue IV hydration. 6. Diabetes mellitus type 2. -Continue sliding scale insulin along with basal insulin. -Hemoglobin A1C 6.8. 7. Normocytic anemia. -Etiology unclear. -Trend H&H. -Obtain stool for OB. -Transfuse blood products as indicated. 8. Dysphagia. -Aspiration precautions. 9. Dyslipidemia. -Lipid panel noted. 10. Prostate cancer. -Continue Zytiga. 11. Fluids, electrolytes, and nutrition. -G-tube feeds. 12. DVT prophylaxis. -Bilateral SCDs. 13. Plan. -Continue antimicrobials. -Await final cultures. -Replete electrolytes. -Repeat H&H. If repeat H&H remains low, transfuse blood products. The patient was seen in collaboration with Dr. rTevino Result Diagram: 11/01/18 0539 11/01/18 0539 Results 24hrs Laboratory Tests Test 10/31/18 10:46 10/31/18 12:14 10/31/18 14:16 10/31/18 17:10 Hemoglobin 7.6 L Hematocrit 27.0 L Bedside Glucose 134 136 Sodium Level 162 *H Potassium Level 3.4 L Chloride Level 126 H Carbon Dioxide Level 35 H Anion Gap 1 L Blood Urea Nitrogen 45 #H Creatinine 1.36 H Est Glomerular Filtrat Rate mL/min Glucose Level 129 Calcium Level 9.3 Test 11/01/18 00:27 11/01/18 05:32 11/01/18 05:39 Bedside Glucose 105 115 White Blood Count 3.5 #L Red Blood Count 2.49 L Hemoglobin 6.6 *L Hematocrit 23.7 L Mean Corpuscular 95.2 Volume Mean Corpuscular 26.5 L Hemoglobin Mean Corpuscular 27.8 L Hemoglobin Concent Red Cell 16.4 H Distribution Width Platelet Count 124 L Mean Platelet Volume 13.7 H Immature 0.600 H Granulocytes % Neutrophils % 61.4 Lymphocytes % 26.5 Monocytes % 6.6 Eosinophils % 4.6 Basophils % 0.3 Nucleated Red Blood 0.0 Cells % Immature 0.020 Granulocytes # Neutrophils # 2.1 Lymphocytes # 0.9 Monocytes # 0.2 L Eosinophils # 0.2 Basophils # 0.0 Nucleated Red Blood 0.0 Cells # Sodium Level 158 H Potassium Level 2.9 *L Chloride Level 121 H Carbon Dioxide Level 33 H Anion Gap 4 L Blood Urea Nitrogen 36 H Creatinine 1.14 Est Glomerular Filtrat Rate mL/min Glucose Level 108 Calcium Level 8.5 Phosphorus Level 2.6 Magnesium Level 2.5 Exam/Review of Systems Exam Vitals Vital Signs Date Temp Pulse Resp B/P (MAP) Pulse Ox O2 O2 Flow FiO2 Time Delivery Rate 11/01/18 89 08:10 11/01/18 98.6 20 135/63 92 07:48 (87) 11/01/18 Nasal 4.0 07:30 Cannula 10/30/18 36 20:39 Intake and Output 10/31/18 10/31/18 11/01/18 1515:00 23:00 07:00 IntakeIntake Total 1500 ml 1500 ml OutputOutput Total 950 ml 800 ml BalanceBalance 550 ml 700 ml Results Results 24hrs Laboratory Tests Test 10/31/18 10:46 10/31/18 12:14 10/31/18 14:16 10/31/18 17:10 Hemoglobin 7.6 L Hematocrit 27.0 L Bedside Glucose 134 136 Sodium Level 162 *H Potassium Level 3.4 L Chloride Level 126 H Carbon Dioxide Level 35 H Anion Gap 1 L Blood Urea Nitrogen 45 #H Creatinine 1.36 H Est Glomerular Filtrat Rate mL/min Glucose Level 129 Calcium Level 9.3 Test 11/01/18 00:27 11/01/18 05:32 11/01/18 05:39 Bedside Glucose 105 115 White Blood Count 3.5 #L Red Blood Count 2.49 L Hemoglobin 6.6 *L Hematocrit 23.7 L Mean Corpuscular 95.2 Volume Mean Corpuscular 26.5 L Hemoglobin Mean Corpuscular 27.8 L Hemoglobin Concent Red Cell 16.4 H Distribution Width Platelet Count 124 L Mean Platelet Volume 13.7 H Immature 0.600 H Granulocytes % Neutrophils % 61.4 Lymphocytes % 26.5 Monocytes % 6.6 Eosinophils % 4.6 Basophils % 0.3 Nucleated Red Blood 0.0 Cells % Immature 0.020 Granulocytes # Neutrophils # 2.1 Lymphocytes # 0.9 Monocytes # 0.2 L Eosinophils # 0.2 Basophils # 0.0 Nucleated Red Blood 0.0 Cells # Sodium Level 158 H Potassium Level 2.9 *L Chloride Level 121 H Carbon Dioxide Level 33 H Anion Gap 4 L Blood Urea Nitrogen 36 H Creatinine 1.14 Est Glomerular Filtrat Rate mL/min Glucose Level 108 Calcium Level 8.5 Phosphorus Level 2.6 Magnesium Level 2.5 Medications Medication Current Medications Piperacillin Sod/ Tazobactam Sod 100 ml @ 200 mls/hr Q6 IVPB Last administered on 11/01/18at 05:28; Admin Dose 200 MLS/HR; Start 10/30/18 at 18:00 Vancomycin HCl (Vanco Iv Per Pharmacy) VANCOMYCIN PER PHARMACY PER PROTOCOL XX ; Start 10/30/18 at 12:30 IV Flush (NS 3 ml) 3 ml PER PROTOCOL IV ; Start 10/30/18 at 12:30 Ondansetron HCl (Zofran Inj) 4 mg Q6H PRN IV NAUSEA/VOMITING; Start 10/30/18 at 12:30 Acetaminophen (Tylenol Tab) 650 mg Q6H PRN GTB .PAIN 1-3 OR TEMP Last administered on 11/01/18at 06:47; Admin Dose 650 MG; Start 10/30/18 at 12:30 Levalbuterol (Xopenex Neb) 0.63 mg Q6H RESP THERAPY HHN Last administered on 11/01/18at 07:45; Admin Dose 0.63 MG; Start 10/30/18 at 14:00 Sodium Chloride 1,000 ml @ 125 mls/hr Q8H IV Last administered on 11/01/18at 00:42; Admin Dose 125 MLS/HR; Start 10/30/18 at 13:30 Miscellaneous Information 1 ea NOTE XX ; Start 10/30/18 at 15:00 Glucose (Glutose) 15 gm Q15M PRN PO DECREASED GLUCOSE; Start 10/30/18 at 15:00 Glucose (Glutose) 22.5 gm Q15M PRN PO DECREASED GLUCOSE; Start 10/30/18 at 15:00 Dextrose (D50w Syringe) 25 ml Q15M PRN IV DECREASED GLUCOSE; Start 10/30/18 at 15:00 Dextrose (D50w Syringe) 50 ml Q15M PRN IV DECREASED GLUCOSE; Start 10/30/18 at 15:00 Glucagon (Glucagen) 1 mg Q15M PRN IM DECREASED GLUCOSE; Start 10/30/18 at 15:00 Glucose (Glutose) 15 gm Q15M PRN BUCCAL DECREASED GLUCOSE; Start 10/30/18 at 15:00 Vancomycin HCl 1.25 gm/Sodium Chloride 250 ml @ 83.333 mls/ hr Q24H IVPB Last administered on 11/01/18at 05:28; Admin Dose 83.333 MLS/HR; Start 10/31/18 at 06:00 Miscellaneous Information (Pending [facility] Order For Wound Care) This patient pritchard... PRN PRN XX WOUND CARE; Start 10/31/18 at 01:00 Insulin Aspart (Novolog Insulin Pen) NOVOLOG *MILD* ALGORI... Q6 SC Last administered on 10/31/18at 06:21; Admin Dose 1 UNIT; Start 10/31/18 at 06:00 Potassium Chloride (Potassium Chloride Pwd/Soln) 40 meq ONCE ONCE GTB ; Start 11/01/18 at 21:00; Stop 11/01/18 at 21:01 NADIA SHINE NP Nov 01, 2018 08:50
[2018-11-01] MEDS ORDERED: METHYLPREDNISOLONE 125 MG INJ IV ONE (10:00)
--- NOTE | 2018-11-01 11:28 | CONS ---
Assessment/Plan Assessment/Plan Assessment/Plan (Daily) 1. Nonoliguric acute kidney injury with previously normal baseline creatinine. Etiology of acute kidney injury (ROBBIE) is secondary to hemodynamics, volume depletion, possible sepsis. Improving with ivf. check LEVI 2. Hypernatremia. The patient has a free water deficit of approximately 4.5 liters. Etiology is likely due to insensible losses. cont hypotonic saline. 3. Hypokalemia. Replete with potassium chloride. 4. Metabolic alkalosis. Etiology is likely secondary to acute kidney injury and diuretic use. Plan is to continue the patient on intravenous (IV) fluids. We will monitor bicarbonate levels closely. 5. Anemia. Continue to monitor hemoglobin and hematocrit levels. 6. Mineral bone disorder. Monitor calcium and phosphorus levels. 7. Sepsis, possibly secondary to urinary tract infection (UTI), pneumonia. Continue broad-spectrum antibiotics. Follow up with cultures. 8. Dysphagia, status post percutaneous endoscopic gastrostomy (PEG). Continue tube feeding. 9. Acute encephalopathy on advanced Alzheimer dementia. 10. Diabetes. Continue Accu-Cheks, insulin sliding scale. 11. History of prostate cancer. 12. History of dyslipidemia. Consultation Date/Type/Reason Admit Date/Time Oct 30, 2018 at 12:17 Initial Consult Date Date/Time of Note DATE: 11/01/18 TIME: 11:25 24 HR Interval Summary Free Text/Dictation overnight events reviewed had low grade fever tolerating ivf d/w rn gen nad cv rrr pulm ctab abd soft, nd, nt +bs ext: no edema Exam/Review of Systems Exam Vitals Vital Signs Date Temp Pulse Resp B/P (MAP) Pulse Ox O2 O2 Flow FiO2 Time Delivery Rate 11/01/18 98.2 93 20 128/68 99 11:24 (88) 11/01/18 Nasal 4.0 07:30 Cannula 10/30/18 36 20:39 Intake and Output 10/31/18 10/31/18 11/01/18 1515:00 23:00 07:00 IntakeIntake Total 1500 ml 1500 ml OutputOutput Total 950 ml 800 ml BalanceBalance 550 ml 700 ml Results Result Diagram: 11/01/18 0539 11/01/18 0539 Results 24hrs Laboratory Tests Test 10/31/18 12:14 10/31/18 14:16 10/31/18 17:10 11/01/18 00:27 Bedside Glucose 134 136 105 Sodium Level 162 *H Potassium Level 3.4 L Chloride Level 126 H Carbon Dioxide Level 35 H Anion Gap 1 L Blood Urea Nitrogen 45 #H Creatinine 1.36 H Est Glomerular Filtrat Rate mL/min Glucose Level 129 Calcium Level 9.3 Test 11/01/18 05:32 11/01/18 05:39 11/01/18 05:40 11/01/18 11:02 Bedside Glucose 115 White Blood Count 3.5 #L Pending Red Blood Count 2.49 L Pending Hemoglobin 6.6 *L Pending Hematocrit 23.7 L Pending Mean Corpuscular 95.2 Pending Volume Mean Corpuscular 26.5 L Pending Hemoglobin Mean Corpuscular 27.8 L Pending Hemoglobin Concent Red Cell 16.4 H Pending Distribution Width Platelet Count 124 L Pending Mean Platelet Volume 13.7 H Pending Immature 0.600 H Granulocytes % Neutrophils % 61.4 Lymphocytes % 26.5 Monocytes % 6.6 Eosinophils % 4.6 Basophils % 0.3 Nucleated Red Blood 0.0 Cells % Immature 0.020 Granulocytes # Neutrophils # 2.1 Lymphocytes # 0.9 Monocytes # 0.2 L Eosinophils # 0.2 Basophils # 0.0 Nucleated Red Blood 0.0 Cells # Sodium Level 158 H Potassium Level 2.9 *L Chloride Level 121 H Carbon Dioxide Level 33 H Anion Gap 4 L Blood Urea Nitrogen 36 H Creatinine 1.14 Est Glomerular Filtrat Rate mL/min Glucose Level 108 Calcium Level 8.5 Phosphorus Level 2.6 Magnesium Level 2.5 Iron Level < 10 L Total Iron Binding 147 L Capacity Percent Iron Saturation Ferritin 1130.0 H Medications Medication Current Medications Piperacillin Sod/ Tazobactam Sod 100 ml @ 200 mls/hr Q6 IVPB Last administered on 11/01/18at 05:28; Admin Dose 200 MLS/HR; Start 10/30/18 at 18:00 Vancomycin HCl (Vanco Iv Per Pharmacy) VANCOMYCIN PER PHARMACY PER PROTOCOL XX ; Start 10/30/18 at 12:30 IV Flush (NS 3 ml) 3 ml PER PROTOCOL IV ; Start 10/30/18 at 12:30 Ondansetron HCl (Zofran Inj) 4 mg Q6H PRN IV NAUSEA/VOMITING; Start 10/30/18 at 12:30 Acetaminophen (Tylenol Tab) 650 mg Q6H PRN GTB .PAIN 1-3 OR TEMP Last administered on 11/01/18at 06:47; Admin Dose 650 MG; Start 10/30/18 at 12:30 Levalbuterol (Xopenex Neb) 0.63 mg Q6H RESP THERAPY HHN Last administered on 11/01/18at 07:45; Admin Dose 0.63 MG; Start 10/30/18 at 14:00 Sodium Chloride 1,000 ml @ 125 mls/hr Q8H IV Last administered on 11/01/18at 00:42; Admin Dose 125 MLS/HR; Start 10/30/18 at 13:30 Miscellaneous Information 1 ea NOTE XX ; Start 10/30/18 at 15:00 Glucose (Glutose) 15 gm Q15M PRN PO DECREASED GLUCOSE; Start 10/30/18 at 15:00 Glucose (Glutose) 22.5 gm Q15M PRN PO DECREASED GLUCOSE; Start 10/30/18 at 15:00 Dextrose (D50w Syringe) 25 ml Q15M PRN IV DECREASED GLUCOSE; Start 10/30/18 at 15:00 Dextrose (D50w Syringe) 50 ml Q15M PRN IV DECREASED GLUCOSE; Start 10/30/18 at 15:00 Glucagon (Glucagen) 1 mg Q15M PRN IM DECREASED GLUCOSE; Start 10/30/18 at 15:00 Glucose (Glutose) 15 gm Q15M PRN BUCCAL DECREASED GLUCOSE; Start 10/30/18 at 15:00 Vancomycin HCl 1.25 gm/Sodium Chloride 250 ml @ 83.333 mls/ hr Q24H IVPB Last administered on 11/01/18at 05:28; Admin Dose 83.333 MLS/HR; Start 10/31/18 at 06:00 Miscellaneous Information (Pending [facility] Order For Wound Care) This patient pritchard... PRN PRN XX WOUND CARE; Start 10/31/18 at 01:00 Insulin Aspart (Novolog Insulin Pen) NOVOLOG *MILD* ALGORI... Q6 SC Last administered on 10/31/18at 06:21; Admin Dose 1 UNIT; Start 10/31/18 at 06:00 Potassium Chloride (Potassium Chloride Pwd/Soln) 40 meq ONCE ONCE GTB ; Start 11/01/18 at 21:00; Stop 11/01/18 at 21:01 MARIAH DASILVA MD Nov 01, 2018 11:28
[2018-11-02] VITALS (11 sets, daily range): BP systolic 130–153; BP diastolic 71–82; PULSE 86–96; RESP 17–22
[2018-11-02] MEDS: PIPER-TAZO 3.375 GM IV (PMX) 100 ML IVPB SCH ×3 (00:04→11:47)
[2018-11-02] MEDS: INSULIN ASPART [NOVOLOG] 3 ML PEN SC SCH ×4 (00:10→16:18)
[2018-11-02] MEDS: LEVALBUTEROL (NEB) 0.63 MG/3 ML AMP HHN SCH ×4 (01:30→20:01)
[2018-11-02] MEDS: SOD CHLORIDE 0.45% 1,000 ML IV SCH ×3 (06:12→16:17)
[2018-11-02] MEDS: VANCOMYCIN HCL 1.25 GM in SOD CHLORIDE 0.9% 250 ML IVPB SCH (07:26)
[2018-11-02] MEDS ORDERED: SOD CHLORIDE 0.9% 250 ML IV* ONE (11:01)
--- NOTE | 2018-11-02 12:30 | CONS ---
Assessment/Plan Assessment/Plan Assessment/Plan (Daily) 1. Nonoliguric acute kidney injury with previously normal baseline creatinine. Etiology of acute kidney injury (ROBBIE) is secondary to hemodynamics, volume depletion, possible sepsis. Improving with ivf. 2. Hypernatremia. The patient has a free water deficit of approximately 4.5 liters. Etiology is likely due to insensible losses. cont hypotonic saline. 3. Hypokalemia. Replaced 4. Metabolic alkalosis. Etiology is likely secondary to acute kidney injury and diuretic use. improving. 5. Anemia. Continue to monitor hemoglobin and hematocrit levels. 6. Mineral bone disorder. Monitor calcium and phosphorus levels. 7. Sepsis, possibly secondary to urinary tract infection (UTI), bacteremia, pneumonia. Continue broad-spectrum antibiotics. Follow up with cultures. 8. Dysphagia, status post percutaneous endoscopic gastrostomy (PEG). Continue tube feeding. 9. Acute encephalopathy on advanced Alzheimer dementia. 10. Diabetes. Continue Accu-Cheks, insulin sliding scale. 11. History of prostate cancer. 12. History of dyslipidemia. Consultation Date/Type/Reason Admit Date/Time Oct 30, 2018 at 12:17 Initial Consult Date Date/Time of Note DATE: 11/02/18 TIME: 12:28 24 HR Interval Summary Free Text/Dictation low grade fever last night d/w rn gen nad cv rrr pulm ctab abd soft, nd, nt +bs ext: no edema Exam/Review of Systems Exam Vitals Vital Signs Date Temp Pulse Resp B/P (MAP) Pulse Ox O2 O2 Flow FiO2 Time Delivery Rate 11/02/18 86 12:00 11/02/18 98.0 22 141/76 100 11:35 (97) 11/02/18 Nasal 3.0 08:00 Cannula 10/30/18 36 20:39 Intake and Output 11/01/18 11/01/18 11/02/18 1515:00 23:00 07:00 IntakeIntake Total 1350 ml 1600 ml OutputOutput Total 980 ml BalanceBalance 1350 ml 620 ml Results Result Diagram: 11/02/18 1034 11/02/18 0526 Results 24hrs Laboratory Tests Test 11/01/18 15:00 11/01/18 16:39 11/01/18 17:12 11/02/18 00:02 Stool Occult Blood NEGATIVE Potassium Level 3.8 Bedside Glucose 217 222 H Test 11/02/18 05:26 11/02/18 06:02 11/02/18 10:34 11/02/18 11:47 White Blood Count 3.9 L 4.6 L Red Blood Count 2.50 L 2.41 L Hemoglobin 6.7 *L 6.4 *L Hematocrit 22.9 L 21.9 L Mean Corpuscular 91.6 90.9 Volume Mean Corpuscular 26.8 L 26.6 L Hemoglobin Mean Corpuscular 29.3 L 29.2 L Hemoglobin Concent Red Cell 15.6 H 15.4 H Distribution Width Platelet Count 134 L 123 L Mean Platelet Volume 13.8 H 12.9 H Immature 0.800 H 0.700 H Granulocytes % Neutrophils % 76.3 Segmented 52 Neutrophils % (Manual) Band Neutrophils % 29 H (Manual) Lymphocytes % 16.1 Lymphocytes % 18 (Manual) Monocytes % 6.7 Monocytes % (Manual) 1 Eosinophils % 0.2 Basophils % 0.0 Nucleated Red Blood 0.0 0.0 Cells % Immature 0.030 0.030 Granulocytes # Neutrophils # 3.5 Neutrophils # 2.1 (Manual) Band Neutrophils # 1.1 H Lymphocytes (Manual) 0.7 L Lymphocytes # 0.7 L Monocytes # 0.3 Monocytes # (Manual) 0.0 L Eosinophils # 0.0 Basophils # 0.0 Nucleated Red Blood 0.0 Cells # Platelet Estimate NORMAL Giant Platelets 3 H Hypochromasia 2+ Anisocytosis 1+ Microcytosis 1+ Sodium Level 152 H Potassium Level 3.7 Chloride Level 119 H Carbon Dioxide Level 28 Anion Gap 5 Blood Urea Nitrogen 29 H Creatinine 0.90 Est Glomerular Filtrat Rate mL/min Glucose Level 160 Calcium Level 9.3 Phosphorus Level 2.6 Magnesium Level 2.3 Vancomycin Level 13.8 Trough Bedside Glucose 182 159 Medications Medication Current Medications Piperacillin Sod/ Tazobactam Sod 100 ml @ 200 mls/hr Q6 IVPB Last administered on 11/02/18at 11:47; Admin Dose 200 MLS/HR; Start 10/30/18 at 18:00 Vancomycin HCl (Vanco Iv Per Pharmacy) VANCOMYCIN PER PHARMACY PER PROTOCOL XX ; Start 10/30/18 at 12:30 IV Flush (NS 3 ml) 3 ml PER PROTOCOL IV ; Start 10/30/18 at 12:30 Ondansetron HCl (Zofran Inj) 4 mg Q6H PRN IV NAUSEA/VOMITING; Start 10/30/18 at 12:30 Acetaminophen (Tylenol Tab) 650 mg Q6H PRN GTB .PAIN 1-3 OR TEMP Last administered on 11/01/18 06:47; Admin Dose 650 MG; Start 10/30/18 at 12:30 Levalbuterol (Xopenex Neb) 0.63 mg Q6H RESP THERAPY HHN Last administered on 11/02/18 07:55; Admin Dose 0.63 MG; Start 10/30/18 at 14:00 Sodium Chloride 1,000 ml @ 125 mls/hr Q8H IV Last administered on 11/02/18 06:12; Admin Dose 125 MLS/HR; Start 10/30/18 at 13:30 Miscellaneous Information 1 ea NOTE XX ; Start 10/30/18 at 15:00 Glucose (Glutose) 15 gm Q15M PRN PO DECREASED GLUCOSE; Start 10/30/18 at 15:00 Glucose (Glutose) 22.5 gm Q15M PRN PO DECREASED GLUCOSE; Start 10/30/18 at 15:00 Dextrose (D50w Syringe) 25 ml Q15M PRN IV DECREASED GLUCOSE; Start 10/30/18 at 15:00 Dextrose (D50w Syringe) 50 ml Q15M PRN IV DECREASED GLUCOSE; Start 10/30/18 at 15:00 Glucagon (Glucagen) 1 mg Q15M PRN IM DECREASED GLUCOSE; Start 10/30/18 at 15:00 Glucose (Glutose) 15 gm Q15M PRN BUCCAL DECREASED GLUCOSE; Start 10/30/18 at 15:00 Vancomycin HCl 1.25 gm/Sodium Chloride 250 ml @ 83.333 mls/ hr Q24H IVPB Last administered on 11/02/18 07:26; Admin Dose 83.333 MLS/HR; Start 10/31/18 at 06:00 Miscellaneous [facility] This patient pritchard... PRN PRN XX WOUND CARE; Start 10/31/18 at 01:00 Insulin Aspart (Novolog Insulin Pen) NOVOLOG *MILD* ALGORI... Q6 SC Last administered on 11/02/18at 11:59; Admin Dose 1 UNIT; Start 10/31/18 at 06:00 MARIAH DASILAV MD Nov 02, 2018 12:30
--- NOTE | 2018-11-02 13:10 | CONS ---
Assessment/Plan Assessment/Plan Hospital Course (Demo Recall) Awake looks comfortable no fevers overnight. T-max 99.5 yesterday. WBC 4.6 H&H 6.4 and 21.9 platelets 123 neutrophils 76.3 BUN 29 creatinine 0.90 Microbiology: Urine culture grew Acinetobacter Melinda and VRE, blood culture growing Morganella and gram-positive cocci Indwelling: PEG, Wynn Antimicrobials: Vancomycin, Zosyn Physical examination: This is a chronically ill wasted elderly -[place] man who is awake in no distress. Head atraumatic normocephalic neck is supple chest rise symmetrical breath sounds diminished bases. Heart: S1-S2. Abdomen soft bowel sounds present. Extremities with bilateral feet chronic wounds Assessment: 1. Severe sepsis with gram-negative hanna bacteremia likely secondary to #2 2. Polymicrobial UTI 3. Multiple decubitus 4. Acute on chronic encephalopathy 5. Dysphagia 6. Prostate cancer Plan: Patient is clinically improving, no fevers, change antibiotics to Zyvox and cefepime, repeat blood cultures, continue local wound care Consultation Date/Type/Reason Admit Date/Time Oct 30, 2018 at 12:17 Initial Consult Date Type of Consult id Date/Time of Note DATE: 11/02/18 TIME: 13:07 Exam/Review of Systems Exam Vitals Vital Signs Date Temp Pulse Resp B/P (MAP) Pulse Ox O2 O2 Flow FiO2 Time Delivery Rate 11/02/18 86 12:00 11/02/18 98.0 22 141/76 100 11:35 (97) 11/02/18 Nasal 3.0 08:00 Cannula 10/30/18 36 20:39 Intake and Output 11/01/18 11/01/18 11/02/18 1515:00 23:00 07:00 IntakeIntake Total 1350 ml 1600 ml OutputOutput Total 980 ml BalanceBalance 1350 ml 620 ml Results Result Diagram: 11/02/18 1034 11/02/18 0526 Results 24hrs Laboratory Tests Test 11/01/18 15:00 11/01/18 16:39 11/01/18 17:12 11/02/18 00:02 Stool Occult Blood NEGATIVE Potassium Level 3.8 Bedside Glucose 217 222 H Test 11/02/18 05:26 11/02/18 06:02 11/02/18 10:34 4/21/19 11:47 White Blood Count 3.9 L 4.6 L Red Blood Count 2.50 L 2.41 L Hemoglobin 6.7 *L 6.4 *L Hematocrit 22.9 L 21.9 L Mean Corpuscular 91.6 90.9 Volume Mean Corpuscular 26.8 L 26.6 L Hemoglobin Mean Corpuscular 29.3 L 29.2 L Hemoglobin Concent Red Cell 15.6 H 15.4 H Distribution Width Platelet Count 134 L 123 L Mean Platelet Volume 13.8 H 12.9 H Immature 0.800 H 0.700 H Granulocytes % Neutrophils % 76.3 Segmented 52 Neutrophils % (Manual) Band Neutrophils % 29 H (Manual) Lymphocytes % 16.1 Lymphocytes % 18 (Manual) Monocytes % 6.7 Monocytes % (Manual) 1 Eosinophils % 0.2 Basophils % 0.0 Nucleated Red Blood 0.0 0.0 Cells % Immature 0.030 0.030 Granulocytes # Neutrophils # 3.5 Neutrophils # 2.1 (Manual) Band Neutrophils # 1.1 H Lymphocytes (Manual) 0.7 L Lymphocytes # 0.7 L Monocytes # 0.3 Monocytes # (Manual) 0.0 L Eosinophils # 0.0 Basophils # 0.0 Nucleated Red Blood 0.0 Cells # Platelet Estimate NORMAL Giant Platelets 3 H Hypochromasia 2+ Anisocytosis 1+ Microcytosis 1+ Sodium Level 152 H Potassium Level 3.7 Chloride Level 119 H Carbon Dioxide Level 28 Anion Gap 5 Blood Urea Nitrogen 29 H Creatinine 0.90 Est Glomerular Filtrat Rate mL/min Glucose Level 160 Calcium Level 9.3 Phosphorus Level 2.6 Magnesium Level 2.3 Vancomycin Level 13.8 Trough Bedside Glucose 182 159 Medications Medication Current Medications Piperacillin Sod/ Tazobactam Sod 100 ml @ 200 mls/hr Q6 IVPB Last administered on 11/02/18at 11:47; Admin Dose 200 MLS/HR; Start 10/30/18 at 18:00 Vancomycin HCl (Vanco Iv Per Pharmacy) VANCOMYCIN PER PHARMACY PER PROTOCOL XX ; Start 10/30/18 at 12:30 IV Flush (NS 3 ml) 3 ml PER PROTOCOL IV ; Start 10/30/18 at 12:30 Ondansetron HCl (Zofran Inj) 4 mg Q6H PRN IV NAUSEA/VOMITING; Start 10/30/18 at 12:30 Acetaminophen (Tylenol Tab) 650 mg Q6H PRN GTB .PAIN 1-3 OR TEMP Last administered on 11/01/18 06:47; Admin Dose 650 MG; Start 10/30/18 at 12:30 Levalbuterol (Xopenex Neb) 0.63 mg Q6H RESP THERAPY HHN Last administered on 11/02/18at 07:55; Admin Dose 0.63 MG; Start 10/30/18 at 14:00 Sodium Chloride 1,000 ml @ 125 mls/hr Q8H IV Last administered on 11/02/18at 06:12; Admin Dose 125 MLS/HR; Start 10/30/18 at 13:30 Miscellaneous Information 1 ea NOTE XX ; Start 10/30/18 at 15:00 Glucose (Glutose) 15 gm Q15M PRN PO DECREASED GLUCOSE; Start 10/30/18 at 15:00 Glucose (Glutose) 22.5 gm Q15M PRN PO DECREASED GLUCOSE; Start 10/30/18 at 15:00 Dextrose (D50w Syringe) 25 ml Q15M PRN IV DECREASED GLUCOSE; Start 10/30/18 at 15:00 Dextrose (D50w Syringe) 50 ml Q15M PRN IV DECREASED GLUCOSE; Start 10/30/18 at 15:00 Glucagon (Glucagen) 1 mg Q15M PRN IM DECREASED GLUCOSE; Start 10/30/18 at 15:00 Glucose (Glutose) 15 gm Q15M PRN BUCCAL DECREASED GLUCOSE; Start 10/30/18 at 15:00 Vancomycin HCl 1.25 gm/Sodium Chloride 250 ml @ 83.333 mls/ hr Q24H IVPB Last administered on 11/02/18at 07:26; Admin Dose 83.333 MLS/HR; Start 10/31/18 at 06:00 Miscellaneous [facility] This patient pritchard... PRN PRN XX WOUND CARE; Start 10/31/18 at 01:00 Insulin Aspart (Novolog Insulin Pen) NOVOLOG *MILD* ALGORI... Q6 SC Last administered on 11/02/18at 11:59; Admin Dose 1 UNIT; Start 10/31/18 at 06:00 JAME DAN NP Nov 02, 2018 13:10
--- NOTE | 2018-11-02 13:20 | PN ---
Date/Time of Note Date/Time of Note DATE: 11/02/18 TIME: 13:17 Assessment/Plan VTE Prophylaxis Risk score (from Ns)>0 risk: 6 SCD applied (from Ns): Yes Pharmacological prophylaxis: NA/contraindicated Pharm contraindication: anticoag not tolerated Lines/Catheters IV C[facility] Type (from [facility] Saline Lock Urinary Cath still in place: Yes Reason Cath still needed: other (indicate) Assessment/Plan Hospital Course SUBJECTIVE: Remains on low-flow O2. Remains afebrile. OBJECTIVE: Physical Exam General: Adequately build 78 year-old male lying in bed in mild to moderate respiratory distress. HEENT: Normocephalic, atraumatic. Eyes: Anicteric sclerae, conjunctivae clear. ENT: Nasal septum midline, oral mucosa is dry. Neck supple. Respiratory: Bilaterally diminished breath sounds. Bilateral coarse breath sounds. Expiratory wheezing. Cardiovascular: S1, S2 heard. Tachycardia. Abdomen: Soft, nontender, and nondistended. Bowel sounds positive in all 4 quadrants. Left upper quadrant G-tube site clean, dry, and intact. Genitourinary: Deferred. Extremities: No cyanosis, no clubbing. Peripheral pulses palpable. Neurologic: The patient is awake and alert. Confused. Labs & Vitals per chart ASSESSMENT & PLAN 78-year-old male with comorbidities including advanced dementia with chronic bedridden status, dysphagia status post G-tube placement, chronic kidney disease, diabetes mellitus, osteoarthritis, dyslipidemia, and prostate cancer. The [facility] a [facility]. The patient was transferred from the SNF because of febrile illness, tachycardia, and tachypnea, who was fou nd to have evidence of underlying sepsis with tachycardia, tachypnea, febrile illness, and lactic acidosis. The patient was admitted to inpatient setting for further treatment and evaluation. 1. Sepsis with underlying tachypnea, tachycardia, fevers, and lactic acidosis, present on admission, probably secondary to underlying urinary tract infection. Sepsis criteria: tachycardia, tachypnea, fevers, and lactic acidosis. Infectious source: UTI and suspect aspiration pneumonitis. -Continue antimicrobials as per ID. 2. UTI. -Urine culture positive for Acinetobacter baumannii and VRE. -Continue antimicrobials as per ID. 3. Morganella morganii bacteremia -Continue antimicrobials as per ID. 4. Hypernatremia. -Etiology could free water deficit. -Continue free water via G-tube. -Nephrology following. 5. Acute on chronic kidney injury. -Probably secondary to underlying dehydration. -Nephrology to follow the patient. -Continue IV hydration. 6. Diabetes mellitus type 2. -Continue sliding scale insulin along with basal insulin. -Hemoglobin A1C 6.8. 7. Normocytic anemia. -Etiology unclear. -Trend H&H. -Obtain stool for OB. -Transfuse blood products as indicated. 8. Dysphagia. -Aspiration precautions. 9. Dyslipidemia. -Lipid panel noted. 10. Prostate cancer. -Continue Zytiga. 11. Fluids, electrolytes, and nutrition. -G-tube feeds. 12. DVT prophylaxis. -Bilateral SCDs. 13. Plan. -Continue antimicrobials as per ID. -Await clinical improvement The patient was seen in collaboration with Dr. Trevino Result Diagram: 11/02/18 1034 11/02/18 0526 Results 24hrs Laboratory Tests Test 11/01/18 15:00 11/01/18 16:39 11/01/18 17:12 11/02/18 00:02 Stool Occult Blood NEGATIVE Potassium Level 3.8 Bedside Glucose 217 222 H Test 11/02/18 05:26 11/02/18 06:02 11/02/18 10:34 11/02/18 11:47 White Blood Count 3.9 L 4.6 L Red Blood Count 2.50 L 2.41 L Hemoglobin 6.7 *L 6.4 *L Hematocrit 22.9 L 21.9 L Mean Corpuscular 91.6 90.9 Volume Mean Corpuscular 26.8 L 26.6 L Hemoglobin Mean Corpuscular 29.3 L 29.2 L Hemoglobin Concent Red Cell 15.6 H 15.4 H Distribution Width Platelet Count 134 L 123 L Mean Platelet Volume 13.8 H 12.9 H Immature 0.800 H 0.700 H Granulocytes % Neutrophils % 76.3 Segmented 52 Neutrophils % (Manual) Band Neutrophils % 29 H (Manual) Lymphocytes % 16.1 Lymphocytes % 18 (Manual) Monocytes % 6.7 Monocytes % (Manual) 1 Eosinophils % 0.2 Basophils % 0.0 Nucleated Red Blood 0.0 0.0 Cells % Immature 0.030 0.030 Granulocytes # Neutrophils # 3.5 Neutrophils # 2.1 (Manual) Band Neutrophils # 1.1 H Lymphocytes (Manual) 0.7 L Lymphocytes # 0.7 L Monocytes # 0.3 Monocytes # (Manual) 0.0 L Eosinophils # 0.0 Basophils # 0.0 Nucleated Red Blood 0.0 Cells # Platelet Estimate NORMAL Giant Platelets 3 H Hypochromasia 2+ Anisocytosis 1+ Microcytosis 1+ Sodium Level 152 H Potassium Level 3.7 Chloride Level 119 H Carbon Dioxide Level 28 Anion Gap 5 Blood Urea Nitrogen 29 H Creatinine 0.90 Est Glomerular Filtrat Rate mL/min Glucose Level 160 Calcium Level 9.3 Phosphorus Level 2.6 Magnesium Level 2.3 Vancomycin Level 13.8 Trough Bedside Glucose 182 159 Exam/Review of Systems Exam Vitals Vital Signs Date Temp Pulse Resp B/P (MAP) Pulse Ox O2 O2 Flow FiO2 Time Delivery Rate 11/02/18 86 12:00 11/02/18 98.0 22 141/76 100 11:35 (97) 11/02/18 Nasal 3.0 08:00 Cannula 10/30/18 36 20:39 Intake and Output 11/01/18 11/01/18 11/02/18 1414:59 22:59 06:59 IntakeIntake Total 1350 ml 1600 ml OutputOutput Total 980 ml BalanceBalance 1350 ml 620 ml Results Results 24hrs Laboratory Tests Test 11/01/18 15:00 11/01/18 16:39 11/01/18 17:12 11/02/18 00:02 Stool Occult Blood NEGATIVE Potassium Level 3.8 Bedside Glucose 217 222 H Test 11/02/18 05:26 11/02/18 06:02 11/02/18 10:34 11/02/18 11:47 White Blood Count 3.9 L 4.6 L Red Blood Count 2.50 L 2.41 L Hemoglobin 6.7 *L 6.4 *L Hematocrit 22.9 L 21.9 L Mean Corpuscular 91.6 90.9 Volume Mean Corpuscular 26.8 L 26.6 L Hemoglobin Mean Corpuscular 29.3 L 29.2 L Hemoglobin Concent Red Cell 15.6 H 15.4 H Distribution Width Platelet Count 134 L 123 L Mean Platelet Volume 13.8 H 12.9 H Immature 0.800 H 0.700 H Granulocytes % Neutrophils % 76.3 Segmented 52 Neutrophils % (Manual) Band Neutrophils % 29 H (Manual) Lymphocytes % 16.1 Lymphocytes % 18 (Manual) Monocytes % 6.7 Monocytes % (Manual) 1 Eosinophils % 0.2 Basophils % 0.0 Nucleated Red Blood 0.0 0.0 Cells % Immature 0.030 0.030 Granulocytes # Neutrophils # 3.5 Neutrophils # 2.1 (Manual) Band Neutrophils # 1.1 H Lymphocytes (Manual) 0.7 L Lymphocytes # 0.7 L Monocytes # 0.3 Monocytes # (Manual) 0.0 L Eosinophils # 0.0 Basophils # 0.0 Nucleated Red Blood 0.0 Cells # Platelet Estimate NORMAL Giant Platelets 3 H Hypochromasia 2+ Anisocytosis 1+ Microcytosis 1+ Sodium Level 152 H Potassium Level 3.7 Chloride Level 119 H Carbon Dioxide Level 28 Anion Gap 5 Blood Urea Nitrogen 29 H Creatinine 0.90 Est Glomerular Filtrat Rate mL/min Glucose Level 160 Calcium Level 9.3 Phosphorus Level 2.6 Magnesium Level 2.3 Vancomycin Level 13.8 Trough Bedside Glucose 182 159 Medications Medication Current Medications IV Flush (NS 3 ml) 3 ml PER PROTOCOL IV ; Start 10/30/18 at 12:30 Ondansetron HCl (Zofran Inj) 4 mg Q6H PRN IV NAUSEA/VOMITING; Start 10/30/18 at 12:30 Acetaminophen (Tylenol Tab) 650 mg Q6H PRN GTB .PAIN 1-3 OR TEMP Last administered on 11/01/18at 06:47; Admin Dose 650 MG; Start 10/30/18 at 12:30 Levalbuterol (Xopenex Neb) 0.63 mg Q6H RESP THERAPY HHN Last administered on 11/02/18at 07:55; Admin Dose 0.63 MG; Start 10/30/18 at 14:00 Sodium Chloride 1,000 ml @ 125 mls/hr Q8H IV Last administered on 11/02/18at 06:12; Admin Dose 125 MLS/HR; Start 10/30/18 at 13:30 Miscellaneous Information 1 ea NOTE XX ; Start 10/30/18 at 15:00 Glucose (Glutose) 15 gm Q15M PRN PO DECREASED GLUCOSE; Start 10/30/18 at 15:00 Glucose (Glutose) 22.5 gm Q15M PRN PO DECREASED GLUCOSE; Start 10/30/18 at 15:00 Dextrose (D50w Syringe) 25 ml Q15M PRN IV DECREASED GLUCOSE; Start 10/30/18 at 15:00 Dextrose (D50w Syringe) 50 ml Q15M PRN IV DECREASED GLUCOSE; Start 10/30/18 at 15:00 Glucagon (Glucagen) 1 mg Q15M PRN IM DECREASED GLUCOSE; Start 10/30/18 at 15:00 Glucose (Glutose) 15 gm Q15M PRN BUCCAL DECREASED GLUCOSE; Start 10/30/18 at 15:00 Miscellaneous Information (Pending [facility] Order For Wound Care) This patient pritchard... PRN PRN XX WOUND CARE; Start 10/31/18 at 01:00 Insulin Aspart (Novolog Insulin Pen) NOVOLOG *MILD* ALGORI... Q6 SC Last administered on 11/02/18at 11:59; Admin Dose 1 UNIT; Start 10/31/18 at 06:00 Cefepime HCl 50 ml @ 100 mls/hr Q12 IVPB ; Start 11/02/18 at 13:30; Status UNV Linezolid (Zyvox) 600 mg BID PO ; Start 11/02/18 at 13:30; Status UNV NADIA SHINE NP Nov 02, 2018 13:20
[2018-11-02] MEDS: ZYVOX 600 MG TAB PO SCH ×2 (14:52→22:04)
[2018-11-02] MEDS: METHYLPREDNISOLONE 40 MG INJ IV SCH ×2 (14:52→22:04)
[2018-11-02] MEDS: CEFEPIME 1GM/50 ML (PMX) 50 ML IVPB SCH ×2 (14:52→21:59)
[2018-11-03] VITALS (12 sets, daily range): BP systolic 134–172; BP diastolic 64–85; PULSE 89–98; RESP 18–20
[2018-11-03] MEDS: SOD CHLORIDE 0.45% 1,000 ML IV SCH (00:33)
[2018-11-03] MEDS: INSULIN ASPART [NOVOLOG] 3 ML PEN SC SCH ×4 (00:46→17:23)
[2018-11-03] MEDS: LEVALBUTEROL (NEB) 0.63 MG/3 ML AMP HHN SCH ×4 (01:37→21:49)
[2018-11-03] MEDS: METHYLPREDNISOLONE 40 MG INJ IV SCH ×2 (06:05→20:18)
--- NOTE | 2018-11-03 07:22 | PN ---
Date/Time of Note Date/Time of Note DATE: 11/03/18 TIME: 07:21 Assessment/Plan VTE Prophylaxis Risk score (from Ns)>0 risk: 7 SCD applied (from Ns): Yes Pharmacological prophylaxis: NA/contraindicated Pharm contraindication: anticoag not tolerated Lines/Catheters IV C[facility]ter Type [facility]from [facility]): Saline Lock Urinary Cath still in place: Yes Reason Cath still needed: other (indicate) Assessment/Plan Hospital Course SUBJECTIVE: Remains on low-flow O2. Remains afebrile. OBJECTIVE: Physical Exam General: Adequately build 78 year-old male lying in bed in mild to moderate respiratory distress. HEENT: Normocephalic, atraumatic. Eyes: Anicteric sclerae, conjunctivae clear. ENT: Nasal septum midline, oral mucosa is dry. Neck supple. Respiratory: Bilaterally diminished breath sounds. Bilateral coarse breath sounds. Expiratory wheezing, minimal. Cardiovascular: S1, S2 heard. Tachycardia. Abdomen: Soft, nontender, and nondistended. Bowel sounds positive in all 4 quadrants. Left upper quadrant G-tube site clean, dry, and intact. Genitourinary: Deferred. Extremities: No cyanosis, no clubbing. Peripheral pulses palpable. Neurologic: The patient is awake and alert. Confused. Labs & Vitals per chart ASSESSMENT & PLAN 78-year-old male with comorbidities including advanced dementia with chronic be dridden status, dysphagia status post G-tube placement, chronic kidney disease, diabetes mellitus, osteoarthritis, dyslipidemia, and prostate cancer. The patient lives at a [facility] facility. The patient was transferred from the SNF because of febrile illness, tachycardia, and tachypnea, who was found to have evidence of underlying sepsis with tachycardia, tachypnea, febrile illness, and lactic acidosis. The patient was admitted to inpatient setting for further treatment and evaluation. 1. Sepsis with underlying tachypnea, tachycardia, fevers, and lactic acidosis, present on admission, probably secondary to underlying urinary tract infection. Sepsis criteria: tachycardia, tachypnea, fevers, and lactic acidosis. Infectious source: UTI and suspect aspiration pneumonitis. -Continue antimicrobials as per ID. 2. UTI. -Urine culture positive for Acinetobacter baumannii and VRE. -Continue antimicrobials as per ID. 3. Morganella morganii bacteremia. -Continue antimicrobials as per ID. 4. Hypernatremia. -Etiology could free water deficit. -Continue free water via G-tube. -Nephrology following. 5. Acute on chronic kidney injury. -Probably secondary to underlying dehydration. -Nephrology to follow the patient. -Continue IV hydration. 6. Diabetes mellitus type 2. -Continue sliding scale insulin along with basal insulin. -Hemoglobin A1C 6.8. 7. Normocytic anemia. -Etiology unclear. -Trend H&H. -Stool for OB X 1 negative. -Transfuse blood products as indicated. 8. Dysphagia. -Aspiration precautions. 9. Dyslipidemia. -Lipid panel noted. 10. Prostate cancer. 11. Moderate protein calorie malnutrition. -Continue tube feeding recommendations as per RD. 12. Fluids, electrolytes, and nutrition. -G-tube feeds. 13. DVT prophylaxis. -Bilateral SCDs. 14. Plan. -Continue antimicrobials as per ID. -Await clinical improvement The patient was seen in collaboration with Dr. Silverman. Result Diagram: 11/03/1861811/03/18618 Results 24hrs Laboratory Tests Test 11/02/18 10:34 11/02/18 11:47 11/02/18 16:18 11/03/18 00:32 White Blood Count 4.6 L Red Blood Count 2.41 L Hemoglobin 6.4 *L Hematocrit 21.9 L Mean Corpuscular 90.9 Volume Mean Corpuscular 26.6 L Hemoglobin Mean Corpuscular 29.2 L Hemoglobin Concent Red Cell 15.4 H Distribution Width Platelet Count 123 L Mean Platelet Volume 12.9 H Immature 0.700 H Granulocytes % Neutrophils % 76.3 Lymphocytes % 16.1 Monocytes % 6.7 Eosinophils % 0.2 Basophils % 0.0 Nucleated Red Blood 0.0 Cells % Immature 0.030 Granulocytes # Neutrophils # 3.5 Lymphocytes # 0.7 L Monocytes # 0.3 Eosinophils # 0.0 Basophils # 0.0 Nucleated Red Blood 0.0 Cells # Bedside Glucose 159 140 259 H Test 11/03/18 06:04 11/03/18 06:19 Bedside Glucose 250 H White Blood Count 5.6 # Red Blood Count 3.28 #L Hemoglobin 8.8 #L Hematocrit 27.9 #L Mean Corpuscular 85.1 Volume Mean Corpuscular 26.8 L Hemoglobin Mean Corpuscular 31.5 L Hemoglobin Concent Red Cell 16.7 H Distribution Width Platelet Count 159 # Mean Platelet Volume 12.9 H Immature 0.400 Granulocytes % Neutrophils % Lymphocytes % Monocytes % Eosinophils % Basophils % Nucleated Red Blood 0.0 Cells % Immature 0.020 Granulocytes # Neutrophils # Lymphocytes # Monocytes # Eosinophils # Basophils # Nucleated Red Blood Cells # Sodium Level 148 H Potassium Level 3.5 Chloride Level 114 H Carbon Dioxide Level 31 Anion Gap 3 L Blood Urea Nitrogen 24 H Creatinine 0.74 Est Glomerular Filtrat Rate mL/min Glucose Level 257 H Calcium Level 9.4 Exam/Review of Systems Exam Vitals Vital Signs Date Temp Pulse Resp B/P (MAP) Pulse Ox O2 O2 Flow FiO2 Time Delivery Rate 11/03/18 98.7 93 19 172/80 100 04:05 (110) 11/03/18 3.0 01:38 11/03/18 Nasal 01:37 Cannula 10/30/18 36 20:39 Intake and Output 11/02/18 11/02/18 11/03/18 1515:00 23:00 07:00 IntakeIntake Total 2000 ml 1600 ml OutputOutput Total 3500 ml 7400 ml BalanceBalance -1500 ml -5800 ml Results Results 24hrs Laboratory Tests Test 11/02/18 10:34 11/02/18 11:47 11/02/18 16:18 11/03/18 00:32 White Blood Count 4.6 L Red Blood Count 2.41 L Hemoglobin 6.4 *L Hematocrit 21.9 L Mean Corpuscular 90.9 Volume Mean Corpuscular 26.6 L Hemoglobin Mean Corpuscular 29.2 L Hemoglobin Concent Red Cell 15.4 H Distribution Width Platelet Count 123 L Mean Platelet Volume 12.9 H Immature 0.700 H Granulocytes % Neutrophils % 76.3 Lymphocytes % 16.1 Monocytes % 6.7 Eosinophils % 0.2 Basophils % 0.0 Nucleated Red Blood 0.0 Cells % Immature 0.030 Granulocytes # Neutrophils # 3.5 Lymphocytes # 0.7 L Monocytes # 0.3 Eosinophils # 0.0 Basophils # 0.0 Nucleated Red Blood 0.0 Cells # Bedside Glucose 159 140 259 H Test 11/03/18 06:04 11/03/18 06:19 Bedside Glucose 250 H White Blood Count 5.6 # Red Blood Count 3.28 #L Hemoglobin 8.8 #L Hematocrit 27.9 #L Mean Corpuscular 85.1 Volume Mean Corpuscular 26.8 L Hemoglobin Mean Corpuscular 31.5 L Hemoglobin Concent Red Cell 16.7 H Distribution Width Platelet Count 159 # Mean Platelet Volume 12.9 H Immature 0.400 Granulocytes % Neutrophils % Lymphocytes % Monocytes % Eosinophils % Basophils % Nucleated Red Blood 0.0 Cells % Immature 0.020 Granulocytes # Neutrophils # Lymphocytes # Monocytes # Eosinophils # Basophils # Nucleated Red Blood Cells # Sodium Level 148 H Potassium Level 3.5 Chloride Level 114 H Carbon Dioxide Level 31 Anion Gap 3 L Blood Urea Nitrogen 24 H Creatinine 0.74 Est Glomerular Filtrat Rate mL/min Glucose Level 257 H Calcium Level 9.4 Medications Medication Current Medications IV Flush (NS 3 ml) 3 ml PER PROTOCOL IV ; Start 10/30/18 at 12:30 Ondansetron HCl (Zofran Inj) 4 mg Q6H PRN IV NAUSEA/VOMITING; Start 10/30/18 at 12:30 Acetaminophen (Tylenol Tab) 650 mg Q6H PRN GTB .PAIN 1-3 OR TEMP Last administered on 11/01/18at 06:47; Admin Dose 650 MG; Start 10/30/18 at 12:30 Levalbuterol (Xopenex Neb) 0.63 mg Q6H RESP THERAPY HHN Last administered on 11/03/18at 01:37; Admin Dose 0.63 MG; Start 10/30/18 at 14:00 Sodium Chloride 1,000 ml @ 125 mls/hr Q8H IV Last administered on 11/03/18at 00:33; Admin Dose 125 MLS/HR; Start 10/30/18 at 13:30 Miscellaneous Information 1 ea NOTE XX ; Start 10/30/18 at 15:00 Glucose (Glutose) 15 gm Q15M PRN PO DECREASED GLUCOSE; Start 10/30/18 at 15:00 Glucose (Glutose) 22.5 gm Q15M PRN PO DECREASED GLUCOSE; Start 10/30/18 at 15:00 Dextrose (D50w Syringe) 25 ml Q15M PRN IV DECREASED GLUCOSE; Start 10/30/18 at 15:00 Dextrose (D50w Syringe) 50 ml Q15M PRN IV DECREASED GLUCOSE; Start 10/30/18 at 15:00 Glucagon (Glucagen) 1 mg Q15M PRN IM DECREASED GLUCOSE; Start 10/30/18 at 15:00 Glucose (Glutose) 15 gm Q15M PRN BUCCAL DECREASED GLUCOSE; Start 10/30/18 at 15:00 Miscellaneous Information (Pending Santyl Order For Wound Care) This patient pritchard... PRN PRN XX WOUND CARE; Start 10/31/18 at 01:00 Insulin Aspart (Novolog Insulin Pen) NOVOLOG *MILD* ALGORI... Q6 SC Last administered on 11/03/18 06:11; Admin Dose 3 UNIT; Start 10/31/18 at 06:00 Cefepime HCl 50 ml @ 100 mls/hr Q12 IVPB Last administered on 11/02/18at 21:59; Admin Dose 100 MLS/HR; Start 11/02/18 at 13:30 Linezolid (Zyvox) 600 mg BID PO Last administered on 11/02/18at 22:04; Admin Dose 600 MG; Start 11/02/18 at 13:30 Methylprednisolone Sodium Succinate (Solu-Medrol) 40 mg Q8 IV Last administered on 11/03/18 06:05; Admin Dose 40 MG; Start 11/02/18 at 14:00 NADIA SHINE NP Nov 03, 2018 07:22
[2018-11-03] MEDS: CEFEPIME 1GM/50 ML (PMX) 50 ML IVPB SCH ×2 (08:22→20:22)
[2018-11-03] MEDS: ZYVOX 600 MG TAB PO SCH ×2 (08:26→20:18)
[2018-11-03] MEDS ORDERED: hydrALAzine 20 MG INJ IV PRN (08:30)
[2018-11-03] MEDS: AMLODIPINE 10 MG TAB GTB SCH (09:22)
--- NOTE | 2018-11-03 09:25 | PN ---
DATE: 11/03/2018 SUBJECTIVE: The patient was noted to have copious amount of urinary output approximately over 3 lite rs. No other events noted. No hemoptysis, hematemesis, hematochezia. OBJECTIVE: VITAL SIGNS: Blood pressure is 166/85, respirations 20, pulse 91, temperature 98.3. I's and O's were reviewed. HEENT: Head is normocephalic. NECK: Supple. HEART: Regular rate. LUNGS: Show diminished breath sounds at the base. ABDOMEN: Soft, nontender to palpation. No rebound or guarding. EXTREMITIES: Negative for clubbing, cyanosis. Trace edema. DERMATOLOGIC: No rashes. MUSCULOSKELETAL: No joint effusion. NEUROLOGIC: No change in exam. MEDICATIONS: Reviewed. LABORATORY DATA: Shows sodium 148, potassium 2.8, BUN 24, creatinine 0.74. White count 5.6, hemoglo bin 8.8, platelet count is 159. ASSESSMENT AND PLAN: 1. Nonoliguric acute kidney injury with previously normal baseline creatinine. Etiology of acute ki dney injury is secondary to hemodynamics, volume depletion, sepsis. Patient's renal function has imp roved with IV fluids. Discontinue IV fluids and continue to monitor closely. 2. Hypernatremia. The patient has a free water deficit approximately 2 liters. The patient's sodiu m levels have been improving with free water flushes. Will continue to monitor closely. Discontinue hypertonic fluid. 3. Hypokalemia. Continue to monitor and replete. 4. Metabolic alkalosis, resolving. 5. Anemia. Monitor hemoglobin and hematocrit levels. 6. Mineral bone disorder, monitor calcium and phosphorus levels. 7. Sepsis, secondary to urinary tract infection, bacteremia and pneumonia. Continue broad-spectrum antibiotics. 8. Dysphagia, status post PEG, continue tube feeding. 9. Acute encephalopathy on advanced Alzheimer dementia. Continue to monitor. 10. Diabetes. Continue current insulin regimen. 11. History of prostate cancer. 12. Dyslipidemia. Dictated By: KACY DILLARD DO NR/NTS Conf#: [id number] DID#: [id number] CC: HIRAM EDEN MD;*EndCC*
--- NOTE | 2018-11-03 14:27 | CONS ---
Assessment/Plan Assessment/Plan Hospital Course (Demo Recall) Patient is laying comfortably in bed no fevers. WBC 5.6 platelets 159 BUN 24 creatinine 0.74 Microbiology: Blood culture growing Morganella morganii and staph aureus, urine culture grew VRE and AcinetobacterIndwelling: PEG, Wynn Antimicrobials: Zyvox, cefepime Physical examination: This is a chronically ill wasted elderly -[place] man who is awake in no distress. Head atraumatic normocephalic neck is supple chest rise symmetrical breath sounds diminished bases. Heart: S1-S2. Abdomen soft bowel sounds present. Extremities with bilateral feet chronic wounds Assessment: 1. Severe sepsis with gram-negative hanna bacteremia likely secondary to #2 2. Polymicrobial UTI 3. Multiple decubitus 4. Acute on chronic encephalopathy 5. Dysphagia 6. Prostate cancer Plan: Patient is stable, WBC trending down, repeat blood cultures pending, will order 2D echo Consultation Date/Type/Reason Admit Date/Time Oct 30, 2018 at 12:17 Initial Consult Date Type of Consult id Date/Time of Note DATE: 11/03/18 TIME: 14:26 Exam/Review of Systems Exam Vitals Vital Signs Date Temp Pulse Resp B/P (MAP) Pulse Ox O2 O2 Flow FiO2 Time Delivery Rate 11/03/18 91 12:00 11/03/18 98.8 20 134/64 98 11:56 (87) 11/03/18 Nasal 3.0 08:07 Cannula 10/30/18 36 20:39 Intake and Output 11/02/18 11/02/18 11/03/18 1515:00 23:00 07:00 IntakeIntake Total 2000 ml 1600 ml OutputOutput Total 3500 ml 7400 ml BalanceBalance -1500 ml -5800 ml Results Result Diagram: 11/03/1861811/03/18618 Results 24hrs Laboratory Tests Test 11/02/18 16:18 11/03/18 00:32 11/03/18 06:04 11/03/18 06:19 Bedside Glucose 140 259 H 250 H White Blood Count 5.6 # Red Blood Count 3.28 #L Hemoglobin 8.8 #L Hematocrit 27.9 #L Mean Corpuscular 85.1 Volume Mean Corpuscular 26.8 L Hemoglobin Mean Corpuscular 31.5 L Hemoglobin Concent Red Cell 16.7 H Distribution Width Platelet Count 159 # Mean Platelet Volume 12.9 H Immature 0.400 Granulocytes % Neutrophils % Segmented 93 H Neutrophils % (Manual) Lymphocytes % Lymphocytes % 6 L (Manual) Monocytes % Monocytes % (Manual) 1 Eosinophils % Basophils % Nucleated Red Blood 1 H Cells % Immature 0.020 Granulocytes # Neutrophils # Lymphocytes (Manual) 0.3 L Lymphocytes # Monocytes # Monocytes # (Manual) 0.0 L Eosinophils # Basophils # Nucleated Red Blood Cells # Platelet Estimate NORMAL Giant Platelets 1 H Polychromasia 3+ Anisocytosis 1+ Microcytosis 1+ Sodium Level 148 H Potassium Level 3.5 Chloride Level 114 H Carbon Dioxide Level 31 Anion Gap 3 L Blood Urea Nitrogen 24 H Creatinine 0.74 Est Glomerular Filtrat Rate mL/min Glucose Level 257 H Calcium Level 9.4 Phosphorus Level 2.9 Magnesium Level 2.1 Test 11/03/18 11:19 Bedside Glucose 239 H Medications Medication Current Medications IV Flush (NS 3 ml) 3 ml PER PROTOCOL IV ; Start 10/30/18 at 12:30 Ondansetron HCl (Zofran Inj) 4 mg Q6H PRN IV NAUSEA/VOMITING; Start 10/30/18 at 12:30 Acetaminophen (Tylenol Tab) 650 mg Q6H PRN GTB .PAIN 1-3 OR TEMP Last administered on 11/01/18at 06:47; Admin Dose 650 MG; Start 10/30/18 at 12:30 Levalbuterol (Xopenex Neb) 0.63 mg Q6H RESP THERAPY HHN Last administered on 11/03/18at 08:07; Admin Dose 0.63 MG; Start 10/30/18 at 14:00 Miscellaneous Information 1 ea NOTE XX ; Start 10/30/18 at 15:00 Glucose (Glutose) 15 gm Q15M PRN PO DECREASED GLUCOSE; Start 10/30/18 at 15:00 Glucose (Glutose) 22.5 gm Q15M PRN PO DECREASED GLUCOSE; Start 10/30/18 at 15:00 Dextrose (D50w Syringe) 25 ml Q15M PRN IV DECREASED GLUCOSE; Start 10/30/18 at 15:00 Dextrose (D50w Syringe) 50 ml Q15M PRN IV DECREASED GLUCOSE; Start 10/30/18 at 15:00 Glucagon (Glucagen) 1 mg Q15M PRN IM DECREASED GLUCOSE; Start 10/30/18 at 15:00 Glucose (Glutose) 15 gm Q15M PRN BUCCAL DECREASED GLUCOSE; Start 10/30/18 at 1 5:00 Miscellaneous Information (Pending [facility] Order For Wound Care) This patient pritchard... PRN PRN XX WOUND CARE; Start 10/31/18 at 01:00 Insulin Aspart (Novolog Insulin Pen) NOVOLOG *MILD* ALGORI... Q6 SC Last administered on 11/03/18at 11:30; Admin Dose 3 UNIT; Start 10/31/18 at 06:00 Cefepime HCl 50 ml @ 100 mls/hr Q12 IVPB Last administered on 11/03/18at 08:22; Admin Dose 100 MLS/HR; Start 11/02/18 at 13:30 Linezolid (Zyvox) 600 mg BID PO Last administered on 11/03/18at 08:26; Admin Dose 600 MG; Start 11/02/18 at 13:30 Hydralazine HCl (Apresoline) 10 mg Q6H PRN IV SBP>160; Start 11/03/18 at 08:30 Amlodipine Besylate (Norvasc) 10 mg DAILY GTB Last administered on 11/03/18at 09:22; Admin Dose 10 MG; Start 11/03/18 at 09:00 Methylprednisolone Sodium Succinate (Solu-Medrol) 40 mg Q12 IV ; Start 11/03/18 at 21:00 JAME DAN NP Nov 03, 2018 14:27
[2018-11-04] VITALS (11 sets, daily range): BP systolic 106–158; BP diastolic 59–89; PULSE 81–101; RESP 19–20
[2018-11-04] MEDS: INSULIN ASPART [NOVOLOG] 3 ML PEN SC SCH ×5 (01:57→23:49)
[2018-11-04] MEDS: LEVALBUTEROL (NEB) 0.63 MG/3 ML AMP HHN SCH ×4 (02:23→20:55)
[2018-11-04] MEDS: METHYLPREDNISOLONE 40 MG INJ IV SCH (08:52)
[2018-11-04] MEDS: CEFEPIME 1GM/50 ML (PMX) 50 ML IVPB SCH ×2 (08:53→20:30)
[2018-11-04] MEDS: AMLODIPINE 10 MG TAB GTB SCH (08:54)
[2018-11-04] MEDS: ZYVOX 600 MG TAB PO SCH ×2 (08:54→20:31)
[2018-11-04] MEDS ORDERED: POTASSIUM CHLORIDE 20 MEQ POWDER FOR ORAL SOLN GTB ONE (09:00)
--- NOTE | 2018-11-04 09:02 | PN ---
DATE: 11/04/2018 SUBJECTIVE: The patient continues to have copious amounts of urinary output, over 3 liters. No othe r events noted. No hemoptysis, hematemesis or hematochezia. OBJECTIVE: VITAL SIGNS: Blood pressure is 158/77, respirations 20, pulse 91, temperature 98.1. HEENT: Head is normocephalic. NECK: Supple. HEART: Regular rate. LUNGS: Show diminished breath sounds at the base. ABDOMEN: Soft, nontender to palpation without rebound or guarding. EXTREMITIES: Negative for clubbing, cyanosis, no edema. DERMATOLOGIC: No rashes. MUSCULOSKELETAL: No joint effusion. NEUROLOGIC: No change in exam. MEDICATIONS: Reviewed. LABORATORY DATA: From 11/04/2018 was reviewed. ASSESSMENT AND PLAN: 1. Nonoliguric acute kidney injury with previously normal baseline creatinine. Etiology of acute ki dney injury is secondary to hemodynamics, volume depletion, and sepsis. The patient's renal function has improved with IV fluids and treatment of underlying sepsis. Continue current treatment plans, s upportive care, renally dose all medicines. 2. Hypernatremia. The patient has a partial diabetes insipidus. Unclear if this is a nephrogenic o r central. The patient has urinary output greater than 3 liters despite severe dehydration. Plan is to give a trial of DDAVP. We will repeat urine sodium, urine osmolarity levels. Continue free wate r flushes and monitor serum sodium levels closely. 3. Hypokalemia. We will replete with potassium chloride. 4. Metabolic alkalosis. Etiology is multifactorial secondary to hypokalemia, acute kidney injury. Plan is to replete with potassium chloride. Continue to monitor closely. 5. Anemia. Monitor hemoglobin and hematocrit levels. 6. Mineral bone disorder. Monitor calcium and phosphorus levels. 7. Sepsis secondary to urinary tract infection, bacteremia and pneumonia. Continue broad-spectrum a ntibiotics. 8. Dysphagia, status post PEG. Continue tube feeding. 9. Acute encephalopathy and advanced Alzheimer's dementia. Continue to monitor. 10. Diabetes. Continue current insulin regimen. We would recommend to obtain euglycemia, which ana cristina l help prevent free water losses. 11. History of prostate cancer. 12. Dyslipidemia. Dictated By: KACY CUETO/SAMANTHA Conf#: [id number] DID#: [id number] CC: NIKKIE NÚÑEZ MD; HIRAM EDEN MD;*End*
[2018-11-04] MEDS ORDERED: DESMOPRESSIN 4 MCG INJ IV ONE (09:30)
--- NOTE | 2018-11-04 11:59 | CONS ---
Assessment/Plan Assessment/Plan Hospital Course (Demo Recall) all noted, no acute events, no fevers Microbiology: Blood culture growing Morganella morganii and staph aureus, urine culture grew VRE and AcinetobacterIndwelling: PEG, Wynn Antimicrobials: Zyvox, cefepime Physical examination: This is a chronically ill wasted elderly -[place] man who is awake in no distress. Head atraumatic normocephalic neck is supple chest rise symmetrical breath sounds diminished bases. Heart: S1-S2. Abdomen soft bowel sounds present. Extremities with bilateral feet chronic wounds Assessment: 1. Severe sepsis with gram-negative hanna bacteremia likely secondary to #2 2. Polymicrobial UTI 3. Multiple decubitus 4. Acute on chronic encephalopathy 5. Dysphagia 6. Prostate cancer Plan: Stable, repeat bld cx neg, continue abx, await for 2D ECHO, renal rec-s noted Consultation Date/Type/Reason Admit Date/Time Oct 30, 2018 at 12:17 Initial Consult Date Type of Consult id Date/Time of Note DATE: 11/04/18 TIME: 11:58 Exam/Review of Systems Exam Vitals Vital Signs Date Temp Pulse Resp B/P (MAP) Pulse Ox O2 O2 Flow FiO2 Time Delivery Rate 11/04/18 98.3 92 20 139/63 100 11:08 (88) 11/04/18 Nasal 3.0 08:04 Cannula 11/04/18 32 02:31 Intake and Output 11/03/18 11/03/18 11/04/18 1515:00 23:00 07:00 IntakeIntake Total 50 ml 1650 ml OutputOutput Total 2400 ml 1100 ml BalanceBalance 50 ml -750 ml -1100 ml Results Result Diagram: 11/04/18 0500 11/04/18 0500 Results 24hrs Laboratory Tests Test 11/03/18 17:13 11/03/18 23:37 11/04/18 05:00 11/04/18 06:52 Bedside Glucose 265 H 235 H 286 H White Blood Count 9.6 # Red Blood Count 3.34 L Hemoglobin 9.0 L Hematocrit 28.5 L Mean Corpuscular 85.3 Volume Mean Corpuscular 26.9 L Hemoglobin Mean Corpuscular 31.6 L Hemoglobin Concent Red Cell 15.8 H Distribution Width Platelet Count 173 Mean Platelet Volume 13.0 H Immature 0.600 H Granulocytes % Neutrophils % 91.2 H Lymphocytes % 5.4 L Monocytes % 2.7 Eosinophils % 0.0 Basophils % 0.1 Nucleated Red Blood 0.0 Cells % Immature 0.060 H Granulocytes # Neutrophils # 8.7 H Lymphocytes # 0.5 L Monocytes # 0.3 Eosinophils # 0.0 Basophils # 0.0 Nucleated Red Blood 0.0 Cells # Sodium Level 149 H Potassium Level 3.4 L Chloride Level 111 H Carbon Dioxide Level 34 H Anion Gap 4 L Blood Urea Nitrogen 26 H Creatinine 0.71 Est Glomerular Filtrat Rate mL/min Glucose Level 255 H Calcium Level 9.5 Phosphorus Level 2.9 Magnesium Level 2.2 Test 11/04/18 09:03 Bedside Glucose 232 H Medications Medication Current Medications IV Flush (NS 3 ml) 3 ml PER PROTOCOL IV ; Start 10/30/18 at 12:30 Ondansetron HCl (Zofran Inj) 4 mg Q6H PRN IV NAUSEA/VOMITING; Start 10/30/18 at 12:30 Acetaminophen (Tylenol Tab) 650 mg Q6H PRN GTB .PAIN 1-3 OR TEMP Last administered on 11/01/18at 06:47; Admin Dose 650 MG; Start 10/30/18 at 12:30 Levalbuterol (Xopenex Neb) 0.63 mg Q6H RESP THERAPY HHN Last administered on 11/04/18at 07:58; Admin Dose 0.63 MG; Start 10/30/18 at 14:00 Miscellaneous Information 1 ea NOTE XX ; Start 10/30/18 at 15:00 Glucose (Glutose) 15 gm Q15M PRN PO DECREASED GLUCOSE; Start 10/30/18 at 15:00 Glucose (Glutose) 22.5 gm Q15M PRN PO DECREASED GLUCOSE; Start 10/30/18 at 15:00 Dextrose (D50w Syringe) 25 ml Q15M PRN IV DECREASED GLUCOSE; Start 10/30/18 at 15:00 Dextrose (D50w Syringe) 50 ml Q15M PRN IV DECREASED GLUCOSE; Start 10/30/18 at 15:00 Glucagon (Glucagen) 1 mg Q15M PRN IM DECREASED GLUCOSE; Start 10/30/18 at 15:00 Glucose (Glutose) 15 gm Q15M PRN BUCCAL DECREASED GLUCOSE; Start 10/30/18 at 15:00 Miscellaneous Information (Pending Santyl Order For Wound Care) This patient pritchard... PRN PRN XX WOUND CARE; Start 10/31/18 at 01:00 Insulin Aspart (Novolog Insulin Pen) NOVOLOG *MILD* ALGORI... Q6 SC Last administered on 11/04/18at 07:11; Admin Dose 4 UNIT; Start 10/31/18 at 06:00 Cefepime HCl 50 ml @ 100 mls/hr Q12 IVPB Last administered on 11/04/18 08:53; Admin Dose 100 MLS/HR; Start 11/02/18 at 13:30 Linezolid (Zyvox) 600 mg BID PO Last administered on 11/04/18 08:54; Admin Dose 600 MG; Start 11/02/18 at 13:30 Hydralazine HCl (Apresoline) 10 mg Q6H PRN IV SBP>160; Start 11/03/18 at 08:30 Amlodipine Besylate (Norvasc) 10 mg DAILY GTB Last administered on 11/04/18at 08:54; Admin Dose 10 MG; Start 11/03/18 at 09:00 Methylprednisolone Sodium Succinate (Solu-Medrol) 40 mg Q12 IV Last administered on 11/04/18 08:52; Admin Dose 40 MG; Start 11/03/18 at 21:00 Insulin Glargine (Lantus) 11 units DAILY@0800 SC ; Start 11/04/18 at 12:00 JAME DAN NP Nov 04, 2018 11:59
[2018-11-04] MEDS: INSULIN GLARGINE [LANTus] (100 UNITS/ML) SYG SC SCH (12:56)
--- NOTE | 2018-11-04 13:02 | RADRPT ---
Echocardiogram Report Patient Name: JULIANA WILLSPatient ID: [id number] : 1940 (78y 6m)Study Date: 11/04/2018 7:46:14 AM Gender: MAccession #: [id number] Tech: Emily Tan RDCS Location: [id number] Ref.Physician: JAME DAN Height(Cm): BSA: Weight(Kg): Quality: AdequateAccount #: Procedures: Echocardiographic Report: Transthoracic echocardiogram with complete 2D, M-Mode, and doppler examination. Indications: R/O vegetations. Measurements: 2D/M Mode Doppler Measurement Value Normal Range Measurement Value Normal Range LVIDd 2D 4.7 [ 4.2 - 5.8 ] cm AV Peak Ron 1.5 [ 100.0 - 170.0 ] cm/sec LVIDs 2D 3.6 [ 2.5 - 4.0 ] cm AV Peak PG 9.0 [ 2.0 - 9.0 ] mmHg LVPWd 2D 1.4 [ 0.6 - 1.0 ] cm AI Peak PG 81.0 mmHg IVSd 2D 1.4 [ 0.6 - 1.0 ] cm AI Peak Ron 4.5 cm/sec AoR Diam 2D 3.5 [ 2.6 - 3.4 ] cm AI PHT 447.0 msec EDV 2D 101.0 [ 62.0 - 150.0 ] ml LVOT Peak Ron 1.0 [ 70.0 - 110.0 ] cm/sec ESV 2D 53.7 [ 21.0 - 61.0 ] ml LVOT Peak PG 4.0 [ 2.0 - 6.0 ] mmHg EF 2D 46.8 [ 52.0 - 72.0 ] percent MV E Peak Ron 0.7 [ 60.0 - 130.0 ] cm/sec LA Dimen 2D 2.9 [ 3.0 - 4.0 ] cm MV A Peak Ron 1.1 [ 100.0 - 120.0 ] cm/sec MV E/A 0.6 [ 0.8 - 1.5 ] ratio MV Decel Time 130 [ 104 - 258 ] msec Lat E` Ron 0.1 [ 10.0 - 15.0 ] cm/sec Lateral E/E` 11.0 [ 1.0 - 2.0 ] ratio MV E/A 0.6 [ 0.8 - 1.5 ] ratio TR Peak Ron 2.6 [ 100.0 - 280.0 ] cm/sec TR Peak PG 26.0 mmHg RVSP 29.0 [ 10.0 - 36.0 ] mmHg RA Pressure 3.0 mmHg Findings: Left Ventricle: Lower limits of normal systolic function. Normal left ventricular cavity size. Mild concentric left ventricular hypertrophy. Ejection fraction is visually estimated at 55 %. Tissue Doppler/Mitral Doppler indices are consistent with impaired relaxation (Stage I diastolic dysfunction). Right Ventricle: Normal right ventricular size. Normal right ventricular systolic function. Left Atrium: The left atrium is normal in size. Right Atrium: The right atrium is normal in size. Mitral Valve: Normal appearance of the mitral valve. Mild mitral valve regurgitation. Aortic Valve: No hemodynamically significant aortic stenosis by doppler. Aortic cusps appear mildly calcified. Mild aortic valve regurgitation. Tricuspid Valve: Normal appearance of the tricuspid valve. Estimated peak PA systolic pressure 29 mmHg. There is trace tricuspid regurgitation. Pulmonic Valve: Pulmonic valve not well visualized. Pericardium: Normal pericardium with no significant pericardial effusion. Aorta: Normal aortic root. IVC: Normal size and normal respiratory collapse consistent with normal right atrial pressure. Conclusions: Lower limits of normal systolic function. Normal left ventricular cavity size. Mild concentric left ventricular hypertrophy. Ejection fraction is visually estimated at 55 %. Tissue Doppler/Mitral Doppler indices are consistent with impaired relaxation (Stage I diastolic dysfunction). Normal right ventricular size. Normal right ventricular systolic function. The left atrium is normal in size. The right atrium is normal in size. No hemodynamically significant aortic stenosis by doppler. Mild aortic valve regurgitation. Mild mitral valve regurgitation. There is trace tricuspid regurgitation. Normal pericardium with no significant pericardial effusion. Electronically Signed By: Seth Carpenter 2018-11-04 13:01:46 PDT
--- NOTE | 2018-11-04 13:47 | PN ---
Date/Time of Note Date/Time of Note DATE: 11/04/18 TIME: 13:42 Assessment/Plan VTE Prophylaxis Risk score (from Ns)>0 risk: 7 SCD applied (from Ns): Yes Pharmacological prophylaxis: heparin Lines/Catheters IV Catheter Type (from Nrsg): Saline Lock Urinary Cath still in place: Yes Reason Cath still needed: urinary retention Assessment/Plan Hospital Course 78 yo male with dementia presented with sepsis, found to have GNR bacteremia, hypernatremia, ROBBIE Hypernatremia: - Appears to have DI - DDAVP, FW per nephrology MRSA and morganella bactermias: - Abx per ID - TTE without evidence of vegetation DMII: - Basal/bolus insulin Anemia of chronic inflammation ROBBIE: - resolved Hypercapneic respiratory failure: - stable Dc plan pending management of sepsis Result Diagram: 11/04/18 0500 11/04/18 0500 Results 24hrs Laboratory Tests Test 11/03/18 17:13 11/03/18 23:37 11/04/18 05:00 11/04/18 06:52 Bedside Glucose 265 H 235 H 286 H White Blood Count 9.6 # Red Blood Count 3.34 L Hemoglobin 9.0 L Hematocrit 28.5 L Mean Corpuscular 85.3 Volume Mean Corpuscular 26.9 L Hemoglobin Mean Corpuscular 31.6 L Hemoglobin Concent Red Cell 15.8 H Distribution Width Platelet Count 173 Mean Platelet Volume 13.0 H Immature 0.600 H Granulocytes % Neutrophils % 91.2 H Lymphocytes % 5.4 L Monocytes % 2.7 Eosinophils % 0.0 Basophils % 0.1 Nucleated Red Blood 0.0 Cells % Immature 0.060 H Granulocytes # Neutrophils # 8.7 H Lymphocytes # 0.5 L Monocytes # 0.3 Eosinophils # 0.0 Basophils # 0.0 Nucleated Red Blood 0.0 Cells # Sodium Level 149 H Potassium Level 3.4 L Chloride Level 111 H Carbon Dioxide Level 34 H Anion Gap 4 L Blood Urea Nitrogen 26 H Creatinine 0.71 Est Glomerular Filtrat Rate mL/min Glucose Level 255 H Calcium Level 9.5 Phosphorus Level 2.9 Magnesium Level 2.2 Test 11/04/18 09:03 11/04/18 12:46 Bedside Glucose 232 H 259 H Subjective 24 Hr Interval Summary Free Text/Dictation HD stable Appears very comfortable Denies complaints Exam/Review of Systems Exam Vitals Vital Signs Date Temp Pulse Resp B/P (MAP) Pulse Ox O2 O2 Flow FiO2 Time Delivery Rate 11/04/18 92 12:00 11/04/18 98.3 20 139/63 100 11:08 (88) 11/04/18 Nasal 3.0 08:04 Cannula 11/04/18 32 02:31 Intake and Output 11/03/18 11/03/18 11/04/18 1414:59 22:59 06:59 IntakeIntake Total 50 ml 1650 ml OutputOutput Total 2400 ml 1100 ml BalanceBalance 50 ml -750 ml -1100 ml Exam Awake and alert, interactive Disoriented, dementia Breathing comfortably No distress RRR G tube No edema Constitutional: alert, oriented, well developed Psych: no complaints, nl mood/affect Head: normocephalic, atraumatic Eyes: nl conjunctiva, EOMI, nl lids, nl sclera, PERRL ENMT: nl external ears & nose, nl lips & teeth, nl nasal mucosa & septum Neck: supple, non-tender Respiratory: clear to auscultation, normal air movement Cardiovascular: regular rate and rhythm, nl pulses Gastrointestinal: soft, nl liver, spleen, non-tender Musculoskeletal: nl extremities to inspection, nl gait and stance Extremities: normal pulses Neurological: PIPE WASHER II-XII intact, nl mental status, nl speech, nl strength Skin: nl turgor; No rash or lesions Lymph: nl lymph nodes Results Results 24hrs Laboratory Tests Test 11/03/18 17:13 11/03/18 23:37 11/04/18 05:00 11/04/18 06:52 Bedside Glucose 265 H 235 H 286 H White Blood Count 9.6 # Red Blood Count 3.34 L Hemoglobin 9.0 L Hematocrit 28.5 L Mean Corpuscular 85.3 Volume Mean Corpuscular 26.9 L Hemoglobin Mean Corpuscular 31.6 L Hemoglobin Concent Red Cell 15.8 H Distribution Width Platelet Count 173 Mean Platelet Volume 13.0 H Immature 0.600 H Granulocytes % Neutrophils % 91.2 H Lymphocytes % 5.4 L Monocytes % 2.7 Eosinophils % 0.0 Basophils % 0.1 Nucleated Red Blood 0.0 Cells % Immature 0.060 H Granulocytes # Neutrophils # 8.7 H Lymphocytes # 0.5 L Monocytes # 0.3 Eosinophils # 0.0 Basophils # 0.0 Nucleated Red Blood 0.0 Cells # Sodium Level 149 H Potassium Level 3.4 L Chloride Level 111 H Carbon Dioxide Level 34 H Anion Gap 4 L Blood Urea Nitrogen 26 H Creatinine 0.71 Est Glomerular Filtrat Rate mL/min Glucose Level 255 H Calcium Level 9.5 Phosphorus Level 2.9 Magnesium Level 2.2 Test 11/04/18 09:03 11/04/18 12:46 Bedside Glucose 232 H 259 H Medications Medication Current Medications IV Flush (NS 3 ml) 3 ml PER PROTOCOL IV ; Start 10/30/18 at 12:30 Ondansetron HCl (Zofran Inj) 4 mg Q6H PRN IV NAUSEA/VOMITING; Start 10/30/18 at 12:30 Acetaminophen (Tylenol Tab) 650 mg Q6H PRN GTB .PAIN 1-3 OR TEMP Last administered on 11/01/18at 06:47; Admin Dose 650 MG; Start 10/30/18 at 12:30 Levalbuterol (Xopenex Neb) 0.63 mg Q6H RESP THERAPY HHN Last administered on 11/04/18at 07:58; Admin Dose 0.63 MG; Start 10/30/18 at 14:00 Miscellaneous Information 1 ea NOTE XX ; Start 10/30/18 at 15:00 Glucose (Glutose) 15 gm Q15M PRN PO DECREASED GLUCOSE; Start 10/30/18 at 15:00 Glucose (Glutose) 22.5 gm Q15M PRN PO DECREASED GLUCOSE; Start 10/30/18 at 15:00 Dextrose (D50w Syringe) 25 ml Q15M PRN IV DECREASED GLUCOSE; Start 10/30/18 at 15:00 Dextrose (D50w Syringe) 50 ml Q15M PRN IV DECREASED GLUCOSE; Start 10/30/18 at 15:00 Glucagon (Glucagen) 1 mg Q15M PRN IM DECREASED GLUCOSE; Start 10/30/18 at 15:00 Glucose (Glutose) 15 gm Q15M PRN BUCCAL DECREASED GLUCOSE; Start 10/30/18 at 15:00 Miscellaneous Information ([facility] This patient pritchard... PRN PRN XX WOUND CARE; Start 10/31/18 at 01:00 Insulin Aspart (Novolog Insulin Pen) NOVOLOG *MILD* ALGORI... Q6 SC Last administered on 11/04/18 12:55; Admin Dose 3 UNIT; Start 10/31/18 at 06:00 Cefepime HCl 50 ml @ 100 mls/hr Q12 IVPB Last administered on 11/04/18 08:53; Admin Dose 100 MLS/HR; Start 11/02/18 at 13:30 Linezolid (Zyvox) 600 mg BID PO Last administered on 11/04/18 08:54; Admin Dose 600 MG; Start 11/02/18 at 13:30 Hydralazine HCl (Apresoline) 10 mg Q6H PRN IV SBP>160; Start 11/03/18 at 08:30 Amlodipine Besylate (Norvasc) 10 mg DAILY GTB Last administered on 11/04/18 08:54; Admin Dose 10 MG; Start 11/03/18 at 09:00 Insulin Glargine (Lantus) 11 units DAILY@0800 SC Last administered on 11/04/18 12:56; Admin Dose 11 UNITS; Start 11/04/18 at 12:00 PATRICIA MUÑOZ MD Nov 04, 2018 13:47
--- NOTE | 2018-11-04 16:53 | CONS ---
Assessment/Plan Assessment/Plan Assessment/Plan (Daily) Diabetic ulcer left lower extremity DM2 with peripheral neuropathy Dry gangrene PAD Knee contractures Dementia Bed bound Plan: Patient was seen and evaluated at bedside. Provided nursing recommendations for daily dressing changes. Daily irrigation with dakins, santyl to wound sites, betadine 4x4 gauze, and wrap with kerlix. Wound cultures to be obtained of left foot ulcer site. Recommend daily offloading with prevelon soft boots and pillows. X-rays and non-invasive studies ordered. Recommend vascular evaluation. Patient with previous positive blood culture of MRSA and morganella. Repeat blood cultures negative. Appreciate abx recommendations per ID. Consultation Date/Type/Reason Admit Date/Time Oct 30, 2018 at 12:17 Date/Time of Note DATE: 11/04/18 TIME: 16:53 Hx of Present Illness 78-year-old male with comorbidities including advanced Alzheimers dementia with chronic bedridden status, dysphagia status post G-tube placement, chronic kidney disease, diabetes mellitus, osteoarthritis, dyslipidemia, and prostate cancer. [facility]. The patient was transferred from the SNF because of febrile illness, tachycardia, and tachypnea, who was found to have evidence of underlying sepsis with tachycardia, tachypnea, febrile illness, and lactic acidosis. Patient is a poor historian unknown period of time of wound presentation. ROS unable to obtain Past Medical History advanced dementia with chronic bedridden status, dysphagia status post G-tube placement, chronic kidney disease, diabetes mellitus, osteoarthritis, dyslipidemia, and prostate cancer. Home Meds Reported Medications Epoetin freddy* (Epogen*) 3,000 Unit/1 Ml Vial, 6000 UNITS SC Q MON,WED,SAT, VIAL 10/30/18 Acetaminophen* (Acetaminophen*) 325 Mg Tablet, 650 MG GTB Q6H PRN for MILD PAIN (1-3)OR ELEVATED TEMP, #30 TAB 10/30/18 Abiraterone Acetate (Zytiga) 500 Mg Tablet, 1000 MG GTB DAILY, TAB 10/30/18 Prednisone* (Prednisone*) 5 Mg Tab, 5 MG GTB DAILY, TAB 10/30/18 Pantoprazole* (Protonix*) 40 Mg Tablet.dr, 40 MG GTB BID, TAB 10/30/18 Furosemide* (Furosemide*) 20 Mg Tablet, 20 MG GTB DAILY PRN for HOLD FOR SBP<110, #60 TAB 10/30/18 Insulin Glargine* (Lantus*) 100 Unit/Ml Soln, 20 UNIT SC QHS, #1 VIAL 10/30/18 Ipratropium-Albuterol (Ipratropium-Albuterol) 0.5-3 Mg/3 Ml Ampul.neb, 3 ML INHALATION TID, #30 VIAL FOR 10 DAYS,END DATE 11/05/18 10/30/18 Glucagon,Human Recombinant (Glucagon Emergency Kit) 1 Mg Kit, 1 MG IJ NEEDED PRN for IF BLOOD GLUCOSE<70, KIT 10/30/18 Discontinued Reported Medications Insulin Aspart* (Novolog Insulin Pen*) 100 Unit/Ml Soln, 0 SC .SLIDING SCALE AC, EA IF BS<70 CALL MD. IF BS 150-199=2 UNITS, 200-249=3 UNITS, 250-299=5 UNITS, 300-349=7 UNITS, IF BS>349=10 UNITS,IF BS GREATER THAN 400, CALL MD. 10/30/18 Abiraterone Acetate (Zytiga) 500 Mg Tablet, 1000 MG PO DAILY, TAB 05/01/18 Multivitamins* (Theragran*) 1 Tab Tab, 1 TAB PO DAILY, TAB 05/01/18 Metoprolol Tartrate* (Lopressor*) 25 Mg Tablet, 50 MG PO BID, #60 TAB 05/01/18 Eplerenone (EPLERENONE) 25 Mg Tablet, 25 MG PO DAILY, #30 TAB 05/01/18 Diltiazem Hcl (Diltiazem) 120 Mg Capsr, 30 MG PO BID, #30 CAP 05/01/18 Cholecalciferol* (Vitamin D3*) 1,000 Unit Tablet, 1000 UNIT PO DAILY, TAB 05/01/18 Discontinued Scripts [Nursing Note] 1 EA EA No Conflict Check, 1 EA XX NOTE for 30 Days Prov:GARY PETERSON 05/15/18 [* Miscellaneous Pharmacy Order] 1 EA EACH No Conflict Check, 0 EA XX .ONCE for 30 Days Prov:GARY PETERSON 05/15/18 [Patient Own Medication] 1 EA EA No Conflict Check, 2 EA PO DAILY Prov:GARY PETERSON 05/15/18 Mupirocin* (Bactroban*) 2% -22 Gram Oint...g., 1 APPLIC TOP BID for 3 Days Prov:GARY PETERSON 05/15/18 [Insulin Glargine] 100 UNITS/ML SOLN No Conflict Check, 16 UNITS SC DAILY for 30 Days Prov:GARY PETERSON 05/15/18 Scopolamine (Transderm-Scop) 1 Each Patch.td.3, 1 PATCH TRANSDERM Q72H for 30 Days Prov:DIXIE PETERSONAbran 05/15/18 Sennosides* (Senna Lax*) 8.6 Mg Tablet, 1 TAB PO QHS for 30 Days, TAB Prov:DIXIE PETERSONAbran 05/15/18 Heparin Sodium,Porcine (Heparin Sodium) 5,000 Unit/1 Ml Vial, 5000 UNIT SC Q8H for 30 Days, VIAL Prov:DIXIE PETERSONAbran 05/15/18 Epoetin Freddy (Epogen) 10,000 Units/Ml Soln, 00346 UNITS SC MoWeFr@17 for 30 Days Prov:DIXIE PETERSONAbran 05/15/18 Levalbuterol Hcl* (Xopenex*) 1.25 Mg/0.5 Ml Vial.neb, 1.25 MG HHN Q6H RESP THERAPY for 30 Days Prov:DIXIE PETERSONAbran 05/15/18 [Ipratropium 0.02% (Neb)] 0.5 MG/2.5 ML NEBU No Conflict Check, 0.5 MG HHN Q4H RESP THERAPY PRN for SHORTNESS OF BREATH for 30 Days Prov:DIXIE PETERSONAbran 05/15/18 [Ipratropium 0.02% (Neb)] 0.5 MG/2.5 ML NEBU No Conflict Check, 0.5 MG HHN Q6H RESP THERAPY for 30 Days Prov:DIXIE PETERSONAbran 05/15/18 Vancomycin/0.9 % Sod Chloride (Vanco 750 mg/150 ml-0.9% NaCl) 750 Mg/150 Ml Froz.piggy, 750 MG IV Q12 for 12 Days Prov:DIXIE PETERSONAbran Cass05/15/18 Terbinafine Hcl* (Terbinafine Hcl*) 250 Mg Tablet, 250 MG PO BID for 5 Days, TAB Prov:GARY PETERSON. 05/15/18 Cefepime Hcl/Dextrose, Iso-Osm (Cefepime 1 Gm Injection) 1 Gm/50 Ml Froz.piggy, 1 GM IV Q12 for 10 Days Prov:GARY PETERSON. 05/15/18 Medications Current Medications IV Flush (NS 3 ml) 3 ml PER PROTOCOL IV ; Start 10/30/18 at 12:30 Ondansetron HCl (Zofran Inj) 4 mg Q6H PRN IV NAUSEA/VOMITING; Start 10/30/18 at 12:30 Acetaminophen (Tylenol Tab) 650 mg Q6H PRN GTB .PAIN 1-3 OR TEMP Last administered on 11/01/18at 06:47; Admin Dose 650 MG; Start 10/30/18 at 12:30 Levalbuterol (Xopenex Neb) 0.63 mg Q6H RESP THERAPY HHN Last administered on 11/04/18at 14:19; Admin Dose 0.63 MG; Start 10/30/18 at 14:00 Miscellaneous Information 1 ea NOTE XX ; Start 10/30/18 at 15:00 Glucose (Glutose) 15 gm Q15M PRN PO DECREASED GLUCOSE; Start 10/30/18 at 15:00 Glucose (Glutose) 22.5 gm Q15M PRN PO DECREASED GLUCOSE; Start 10/30/18 at 15:00 Dextrose (D50w Syringe) 25 ml Q15M PRN IV DECREASED GLUCOSE; Start 10/30/18 at 15:00 Dextrose (D50w Syringe) 50 ml Q15M PRN IV DECREASED GLUCOSE; Start 10/30/18 at 15:00 Glucagon (Glucagen) 1 mg Q15M PRN IM DECREASED GLUCOSE; Start 10/30/18 at 15:00 Glucose (Glutose) 15 gm Q15M PRN BUCCAL DECREASED GLUCOSE; Start 10/30/18 at 15:00 Miscellaneous Information (Pending [facility] Order For Wound Care) This patient pritchard... PRN PRN XX WOUND CARE; Start 10/31/18 at 01:00 Insulin Aspart (Novolog Insulin Pen) NOVOLOG *MILD* ALGORI... Q6 SC Last administered on 11/04/18at 12:55; Admin Dose 3 UNIT; Start 10/31/18 at 06:00 Cefepime HCl 50 ml @ 100 mls/hr Q12 IVPB Last administered on 11/04/18at 08:53; Admin Dose 100 MLS/HR; Start 11/02/18 at 13:30 Linezolid (Zyvox) 600 mg BID PO Last administered on 11/04/18at 08:54; Admin Dose 600 MG; Start 11/02/18 at 13:30 Hydralazine HCl (Apresoline) 10 mg Q6H PRN IV SBP>160; Start 11/03/18 at 08:30 Amlodipine Besylate (Norvasc) 10 mg DAILY GTB Last administered on 11/04/18at 08:54; Admin Dose 10 MG; Start 11/03/18 at 09:00 Insulin Glargine (Lantus) 11 units DAILY@0800 SC Last administered on 11/04/18at 12:56; Admin Dose 11 UNITS; Start 11/04/18 at 12:00 Allergies: Coded Allergies: No Known Allergy (Unverified , 10/30/18) Past Surgical History G-tube placement Family History Significant Family History: no pertinent family hx Social History Alcohol Use: none Smoking Status: Former smoker Drug Use: none Exam/Review of Systems Exam Vitals Vital Signs Date Temp Pulse Resp B/P (MAP) Pulse Ox O2 O2 Flow FiO2 Time Delivery Rate 11/04/18 98.1 96 20 106/59 100 15:28 (75) 11/04/18 Nasal 3.0 14:21 Cannula 11/04/18 32 02:31 Intake and Output 11/03/18 11/03/18 11/04/18 1515:00 23:00 07:00 IntakeIntake Total 50 ml 1650 ml OutputOutput Total 2400 ml 1100 ml BalanceBalance 50 ml -750 ml -1100 ml Exam Unable to palpate pedal pulses Absent protective sensations Left lateral malleolar ulcer 3.5 x 3.5 x 0.3cm with undermining tissue to the periphery. No purulence appreciated to the wound site. No proximal streaking. Unable to probe to bone Left lateral foot with dry gangrene 5 x 2cm with indeterminate depth Mycotic toe nails Knee contractures noted. Results Result Diagram: 11/04/18 0500 11/04/18 1356 Results 24hrs Laboratory Tests Test 11/03/18 17:13 11/03/18 23:37 11/04/18 05:00 11/04/18 06:52 Bedside Glucose 265 H 235 H 286 H White Blood Count 9.6 # Red Blood Count 3.34 L Hemoglobin 9.0 L Hematocrit 28.5 L Mean Corpuscular 85.3 Volume Mean Corpuscular 26.9 L Hemoglobin Mean Corpuscular 31.6 L Hemoglobin Concent Red Cell 15.8 H Distribution Width Platelet Count 173 Mean Platelet Volume 13.0 H Immature 0.600 H Granulocytes % Neutrophils % 91.2 H Lymphocytes % 5.4 L Monocytes % 2.7 Eosinophils % 0.0 Basophils % 0.1 Nucleated Red Blood 0.0 Cells % Immature 0.060 H Granulocytes # Neutrophils # 8.7 H Lymphocytes # 0.5 L Monocytes # 0.3 Eosinophils # 0.0 Basophils # 0.0 Nucleated Red Blood 0.0 Cells # Sodium Level 149 H Potassium Level 3.4 L Chloride Level 111 H Carbon Dioxide Level 34 H Anion Gap 4 L Blood Urea Nitrogen 26 H Creatinine 0.71 Est Glomerular Filtrat Rate mL/min Glucose Level 255 H Calcium Level 9.5 Phosphorus Level 2.9 Magnesium Level 2.2 Test 11/04/18 09:03 11/04/18 12:46 11/04/18 13:56 Bedside Glucose 232 H 259 H Sodium Level 144 Potassium Level 3.8 Chloride Level 110 Carbon Dioxide Level 32 H Anion Gap 2 L Blood Urea Nitrogen 25 H Creatinine 0.67 Est Glomerular Filtrat Rate mL/min Glucose Level 249 H Calcium Level 9.6 Medications Medication Current Medications IV Flush (NS 3 ml) 3 ml PER PROTOCOL IV ; Start 10/30/18 at 12:30 Ondansetron HCl (Zofran Inj) 4 mg Q6H PRN IV NAUSEA/VOMITING; Start 10/30/18 at 12:30 Acetaminophen (Tylenol Tab) 650 mg Q6H PRN GTB .PAIN 1-3 OR TEMP Last administered on 11/01/18at 06:47; Admin Dose 650 MG; Start 10/30/18 at 12:30 Levalbuterol (Xopenex Neb) 0.63 mg Q6H RESP THERAPY HHN Last administered on 11/04/18at 14:19; Admin Dose 0.63 MG; Start 10/30/18 at 14:00 Miscellaneous Information 1 ea NOTE XX ; Start 10/30/18 at 15:00 Glucose (Glutose) 15 gm Q15M PRN PO DECREASED GLUCOSE; Start 10/30/18 at 15:00 Glucose (Glutose) 22.5 gm Q15M PRN PO DECREASED GLUCOSE; Start 10/30/18 at 15:00 Dextrose (D50w Syringe) 25 ml Q15M PRN IV DECREASED GLUCOSE; Start 10/30/18 at 15:00 Dextrose (D50w Syringe) 50 ml Q15M PRN IV DECREASED GLUCOSE; Start 10/30/18 at 15:00 Glucagon (Glucagen) 1 mg Q15M PRN IM DECREASED GLUCOSE; Start 10/30/18 at 15:00 Glucose (Glutose) 15 gm Q15M PRN BUCCAL DECREASED GLUCOSE; Start 10/30/18 at 15:00 Miscellaneous Information (Pending [facility] Order For Wound Care) This patient pritchard... PRN PRN XX WOUND CARE; Start 10/31/18 at 01:00 Insulin Aspart (Novolog Insulin Pen) NOVOLOG *MILD* ALGORI... Q6 SC Last administered on 11/04/18 12:55; Admin Dose 3 UNIT; Start 10/31/18 at 06:00 Cefepime HCl 50 ml @ 100 mls/hr Q12 IVPB Last administered on 11/04/18 08:53; Admin Dose 100 MLS/HR; Start 11/02/18 at 13:30 Linezolid (Zyvox) 600 mg BID PO Last administered on 11/04/18 08:54; Admin Dose 600 MG; Start 11/02/18 at 13:30 Hydralazine HCl (Apresoline) 10 mg Q6H PRN IV SBP>160; Start 11/03/18 at 08:30 Amlodipine Besylate (Norvasc) 10 mg DAILY GTB Last administered on 11/04/18 08:54; Admin Dose 10 MG; Start 11/03/18 at 09:00 Insulin Glargine (Lantus) 11 units DAILY@0800 SC Last administered on 11/04/18 12:56; Admin Dose 11 UNITS; Start 11/04/18 at 12:00 REINA CASEY DPCass Nov 04, 2018 16:53
[2018-11-04] MEDS ORDERED: COLLAGENASE 5 GM (UD JAR) TOP ONE (17:15)
[2018-11-05] VITALS (12 sets, daily range): BP systolic 105–149; BP diastolic 65–79; PULSE 72–101; RESP 18–20
[2018-11-05] MEDS: LEVALBUTEROL (NEB) 0.63 MG/3 ML AMP HHN SCH ×4 (02:02→19:29)
[2018-11-05] MEDS: INSULIN ASPART [NOVOLOG] 3 ML PEN SC SCH ×4 (05:56→23:13)
[2018-11-05] MEDS ORDERED: POTASSIUM CHLORIDE 20 MEQ POWDER FOR ORAL SOLN GTB ONE (08:30)
[2018-11-05] MEDS: COLLAGENASE 5 GM (UD JAR) TOP SCH (08:30)
[2018-11-05] MEDS: ZYVOX 600 MG TAB PO SCH ×2 (08:31→21:12)
[2018-11-05] MEDS: AMLODIPINE 10 MG TAB GTB SCH (08:31)
[2018-11-05] MEDS: CEFEPIME 1GM/50 ML (PMX) 50 ML IVPB SCH ×2 (08:31→21:13)
[2018-11-05] MEDS: DAKINS 0.0125%(1/40) 473 ML SOLUTION TP SCH (08:46)
[2018-11-05] MEDS: INSULIN GLARGINE [LANTus] (100 UNITS/ML) SYG SC SCH (08:48)
--- NOTE | 2018-11-05 08:59 | PN ---
DATE: 11/05/2018 SUBJECTIVE: The patient overnight was noted to be stable. Urinary output improved after being given DDAVP. Sodium levels have been improving. No other events noted. OBJECTIVE: VITAL SIGNS: Blood pressure is 139/71, pulse 87, respirations 20, temperature 98.8. HEENT: Head is normocephalic. NECK: Supple. HEART: Regular rate. LUNGS: Show diminished breath sounds at the base. ABDOMEN: Soft, nontender to palpation. No rebound or guarding. EXTREMITIES: Negative for clubbing, cyanosis, no edema. DERMATOLOGIC: No rashes. MUSCULOSKELETAL: No joint effusion. NEUROLOGIC: No change in exam. MEDICATIONS: The patient's medications have been reviewed. LABORATORY DATA: Reviewed. ASSESSMENT AND PLAN: 1. Nonoliguric acute kidney injury with previously normal baseline creatinine. Etiology of acute ki dney injury is secondary to hemodynamics, volume depletion, sepsis. Renal function has improved with IV fluids and antibiotic therapy. Plan at this point, continue current treatment plan, supportive c are, renally dose all meds. 2. Hypernatremia. Etiology is felt to be impart due to diabetes insipidus, partial. Unclear if thi s is a nephrogenic or central. The patient was given a course of DDAVP yesterday with a decrease in urinary output and improvement in sodium levels. Plan is to continue DDAVP. We will repeat urine st udies, monitor sodium levels closely. 3. Hypokalemia. We will replete with potassium chloride. 4. Metabolic alkalosis secondary to hyperkalemia, acute kidney injury. Continue to monitor. 5. Mineral bone disorder, monitor calcium and phosphorus levels. 6. Anemia. Continue to monitor hemoglobin and hematocrit levels. 7. Sepsis secondary to urinary tract infection, bacteremia, pneumonia. Continue current broad spect rum antibiotics. 8. Dysphagia, status post PEG. Continue tube feeding. 9. Acute encephalopathy on advanced Alzheimer's dementia. Continue to monitor. 10. Diabetes. Continue current insulin regimen. Recommend to obtain euglycemia which will help pre vent urinary free water losses. 11. History of prostate cancer. 12. Dyslipidemia. Dictated By: KACY DILLARD DO NR/NTS Conf#: [id number] DID#: [id number] CC: PATRICIA MUÑOZ MD; HIRAM EDEN MD; NIKKIE NÚÑEZ MD;*EndCC*
--- NOTE | 2018-11-05 10:17 | PN ---
Date/Time of Note Date/Time of Note DATE: 11/05/18 TIME: 10:16 Assessment/Plan VTE Prophylaxis Risk score (from Nsg)>0 risk: 7 SCD applied (from Nsg): Yes Pharmacological prophylaxis: LMWH Lines/Catheters IV Catheter Type (from Nrsg): Peripheral IV Urinary Cath still in place: Yes Reason Cath still needed: other (indicate) Assessment/Plan Hospital Course SUBJECTIVE: No acute overnight episodes. OBJECTIVE: Vital signs-see below PHYSICAL EXAM: Constitutional: Chronically ill looking, elderly male, not in acute distress but HEENT: Head atraumatic and normocephalic. Eyes: Extraocular muscles intact. Anicteric sclerae. Pupils equal bilaterally, reactive to light. NECK: Supple without lymph node. CHEST: Clear and good breath sounds equally. No wheezing. No rhonchi. HEART: S1, S2. Regular rate and rhythm. ABDOMEN: With G-tube. Soft with no rebound tenderness. Bowel sounds were present. EXTREMITIES: Full range of motion in all the extremities. No cyanosis, clubbing or edema. NEUROLOGIC: Alert and oriented x2, mildly confused. No focal deficit. No sensory deficit. PSYCHOSOCIAL: In a good mood. No signs of depression. INTEGUMENTARY: Left foot ulcer/dry gangrene. ASSESSMENT AND PLAN:78 yo male with dementia presented with sepsis, found to have uti, hypernatremia, ROBBIE.. Hypernatremia: - Appears to have DI - DDAVP, FW per nephrology VRE/acinectobacter UTI - Abx per ID S/p sepsis w/MRSA and morganella bactermias: source:UTI - TTE without evidence of vegetation DMII: - Basal/bolus insulin Left lower extremity diabetic ulcer -Arterial study noted, significant stenosis noted on superficial femoral artery. Vascular consult with Dr. Saturnino nowak. -Appreciate podiatry recommendations. -Continue wound care. Anemia of chronic inflammation -H&H now stable. Essential hypertension -Stable. Continue antihypertensives ROBBIE: - resolved s/p Hypercapneic respiratory failure: - stable Dysphagia, G-tube feeding -On appropriate tube feedings Prophylaxis: Lovenox/Prevacid Dc plan pending antibiotics, vascular recommendations. Downgrade to medical surgical floor. Patient was seen in collaboration with Dr. Silverman. Result Diagram: 11/05/18 0510 11/05/18 0510 Results 24hrs Laboratory Tests Test 11/04/18 12:46 11/04/18 13:56 11/04/18 18:11 11/04/18 23:20 Bedside Glucose 259 H 243 H 197 Sodium Level 144 Potassium Level 3.8 Chloride Level 110 Carbon Dioxide Level 32 H Anion Gap 2 L Blood Urea Nitrogen 25 H Creatinine 0.67 Est Glomerular Filtrat Rate mL/min Glucose Level 249 H Calcium Level 9.6 Test 11/05/18 05:10 11/05/18 05:55 11/05/18 08:28 White Blood Count 8.2 Red Blood Count 3.25 L Hemoglobin 8.5 L Hematocrit 27.5 L Mean Corpuscular 84.6 Volume Mean Corpuscular 26.2 L Hemoglobin Mean Corpuscular 30.9 L Hemoglobin Concent Red Cell 15.4 H Distribution Width Platelet Count 188 Mean Platelet Volume 12.4 H Immature 1.500 H Granulocytes % Neutrophils % 73.6 Lymphocytes % 17.9 Monocytes % 6.5 Eosinophils % 0.4 Basophils % 0.1 Nucleated Red Blood 0.0 Cells % Immature 0.120 H Granulocytes # Neutrophils # 6.0 Lymphocytes # 1.5 Monocytes # 0.5 Eosinophils # 0.0 Basophils # 0.0 Nucleated Red Blood 0.0 Cells # Sodium Level 144 Potassium Level 3.3 L Chloride Level 107 Carbon Dioxide Level 34 H Anion Gap 3 L Blood Urea Nitrogen 25 H Creatinine 0.64 Est Glomerular Filtrat Rate mL/min Glucose Level 137 # Calcium Level 9.2 Phosphorus Level 2.4 L Magnesium Level 2.0 Bedside Glucose 140 142 Exam/Review of Systems Exam Vitals Vital Signs Date Temp Pulse Resp B/P (MAP) Pulse Ox O2 O2 Flow FiO2 Time Delivery Rate 11/05/18 86 08:24 11/05/18 18 96 Nasal 3.0 08:22 Cannula 11/05/18 98.8 139/71 07:29 (93) 11/04/18 32 02:31 Intake and Output 11/04/18 11/04/18 11/05/18 1515:00 23:00 07:00 IntakeIntake Total 1600 ml OutputOutput Total 1000 ml 1000 ml BalanceBalance 600 ml -1000 ml Results Results 24hrs Laboratory Tests Test 11/04/18 12:46 11/04/18 13:56 11/04/18 18:11 11/04/18 23:20 Bedside Glucose 259 H 243 H 197 Sodium Level 144 Potassium Level 3.8 Chloride Level 110 Carbon Dioxide Level 32 H Anion Gap 2 L Blood Urea Nitrogen 25 H Creatinine 0.67 Est Glomerular Filtrat Rate mL/min Glucose Level 249 H Calcium Level 9.6 Test 11/05/18 05:10 11/05/18 05:55 11/05/18 08:28 White Blood Count 8.2 Red Blood Count 3.25 L Hemoglobin 8.5 L Hematocrit 27.5 L Mean Corpuscular 84.6 Volume Mean Corpuscular 26.2 L Hemoglobin Mean Corpuscular 30.9 L Hemoglobin Concent Red Cell 15.4 H Distribution Width Platelet Count 188 Mean Platelet Volume 12.4 H Immature 1.500 H Granulocytes % Neutrophils % 73.6 Lymphocytes % 17.9 Monocytes % 6.5 Eosinophils % 0.4 Basophils % 0.1 Nucleated Red Blood 0.0 Cells % Immature 0.120 H Granulocytes # Neutrophils # 6.0 Lymphocytes # 1.5 Monocytes # 0.5 Eosinophils # 0.0 Basophils # 0.0 Nucleated Red Blood 0.0 Cells # Sodium Level 144 Potassium Level 3.3 L Chloride Level 107 Carbon Dioxide Level 34 H Anion Gap 3 L Blood Urea Nitrogen 25 H Creatinine 0.64 Est Glomerular Filtrat Rate mL/min Glucose Level 137 # Calcium Level 9.2 Phosphorus Level 2.4 L Magnesium Level 2.0 Bedside Glucose 140 142 Medications Medication Current Medications IV Flush (NS 3 ml) 3 ml PER PROTOCOL IV ; Start 10/30/18 at 12:30 Ondansetron HCl (Zofran Inj) 4 mg Q6H PRN IV NAUSEA/VOMITING; Start 10/30/18 at 12:30 Acetaminophen (Tylenol Tab) 650 mg Q6H PRN GTB .PAIN 1-3 OR TEMP Last administered on 11/01/18at 06:47; Admin Dose 650 MG; Start 10/30/18 at 12:30 Levalbuterol (Xopenex Neb) 0.63 mg Q6H RESP THERAPY HHN Last administered on 11/05/18at 08:22; Admin Dose 0.63 MG; Start 10/30/18 at 14:00 Miscellaneous Information 1 ea NOTE XX ; Start 10/30/18 at 15:00 Glucose (Glutose) 15 gm Q15M PRN PO DECREASED GLUCOSE; Start 10/30/18 at 15:00 Glucose (Glutose) 22.5 gm Q15M PRN PO DECREASED GLUCOSE; Start 10/30/18 at 15:00 Dextrose (D50w Syringe) 25 ml Q15M PRN IV DECREASED GLUCOSE; Start 10/30/18 at 15:00 Dextrose (D50w Syringe) 50 ml Q15M PRN IV DECREASED GLUCOSE; Start 10/30/18 at 15:00 Glucagon (Glucagen) 1 mg Q15M PRN IM DECREASED GLUCOSE; Start 10/30/18 at 15:00 Glucose (Glutose) 15 gm Q15M PRN BUCCAL DECREASED GLUCOSE; Start 10/30/18 at 15:00 Miscellaneous Information (Pending Santyl Order For Wound Care) This patient pritchard... PRN PRN XX WOUND CARE; Start 10/31/18 at 01:00 Insulin Aspart (Novolog Insulin Pen) NOVOLOG *MILD* ALGORI... Q6 SC Last ad ministered on 11/04/18 23:49; Admin Dose 2 UNIT; Start 10/31/18 at 06:00 Cefepime HCl 50 ml @ 100 mls/hr Q12 IVPB Last administered on 11/05/18 08:31; Admin Dose 100 MLS/HR; Start 11/02/18 at 13:30 Linezolid (Zyvox) 600 mg BID PO Last administered on 11/05/18 08:31; Admin Dose 600 MG; Start 11/02/18 at 13:30 Hydralazine HCl (Apresoline) 10 mg Q6H PRN IV SBP>160; Start 11/03/18 at 08:30 Amlodipine Besylate (Norvasc) 10 mg DAILY GTB Last administered on 11/05/18 08:31; Admin Dose 10 MG; Start 11/03/18 at 09:00 Insulin Glargine (Lantus) 11 units DAILY@0800 SC Last administered on 11/05/18 08:48; Admin Dose 11 UNITS; Start 11/04/18 at 12:00 Collagenase (Santyl) 1 applic DAILY TOP Last administered on 11/05/18 08:30; Admin Dose 1 APPLIC; Start 11/05/18 at 09:00 Sodium Hypochlorite (Dakins Diluted (40)) 1 applic DAILY TP Last administered on 11/05/18 08:46; Admin Dose 1 APPLIC; Start 11/05/18 at 09:00 Desmopressin Acetate (Ddavp) 2 mcg ONCE ONCE IV ; Start 11/05/18 at 10:30; Stop 11/05/18 at 10:31 NARCISO AVILEZ NP Nov 05, 2018 10:17
[2018-11-05] MEDS ORDERED: DESMOPRESSIN 4 MCG INJ IV ONE (10:30)
--- NOTE | 2018-11-05 15:13 | CONS ---
DATE OF ADMISSION: 10/30/2018 DATE OF CONSULTATION: 11/05/2018 TYPE OF CONSULTATION: Vascular. REFERRING PHYSICIAN: Shelby Avilez NP and Goyo Marsh MD REASON FOR CONSULTATION: Left foot ulcerations with peripheral arterial disease. HISTORY OF PRESENT ILLNESS: This is a 78-year-old severely demented gentleman. He has Alzheimer's. He is bedridden. He has been in a group home facility. He has G-tube for feeding. He came in because of fevers and has some evidence of sepsis. He was found to have wounds on the left foot. H e had an arterial duplex done to suggest an SFA stenosis on the left. I was asked to evaluate him. He is unfortunately severely contracted at the knee and hip. He cannot straighten it out at all. He is verbal, but not in a purposeful manner. He does not really respond to questioning. PAST MEDICAL HISTORY: Again significant for advanced dementia. He has some mild chronic kidney dise ase, diabetes, arthritis, hyperlipidemia, prostate cancer. MEDICATIONS PRIOR TO ADMISSION: Consist of: 1. Epogen. 2. Tylenol. 3. Zytiga. 4. Prednisone. 5. Protonix. 6. Lasix. 7. Lantus. 8. Ipratropium and albuterol combination inhaler. 9. insulin. 10. Theragran. 11. Lopressor. 12. Diltiazem. 13. Eplerenone. 14. Vitamin D3. 15. Subcutaneous Lovenox. 16. Prevacid. 17. DDAVP. 18. Dakin's solution applied to the foot. 19. Cefepime intravenous antibiotics. 20. Hydralazine p.r.n. ALLERGIES: HE HAS NO KNOWN DRUG ALLERGIES. SOCIAL HISTORY: Unknown, but from the chart he is actually a former smoker. PAST SURGICAL HISTORY: Significant for a G-tube placement. FAMILY HISTORY: Unavailable. REVIEW OF SYSTEMS: Unavailable currently. He does not able to verbally respond to any purposeful qu estioning. He does not appear to be in any pain. PHYSICAL EXAMINATION: GENERAL: He is an elderly -Spanish gentleman. He is in no distress. He is severely demente d. He is contracted at the knee and hip. I tried straining his legs out and he really cannot get pa ss about 30 degrees at the hip and knee level, so he got severe chronic contracture of the hips and k nees. VITAL SIGNS: He has been afebrile. His blood pressure is 141/72, heart rate is 92, respiratory rate is 20, 95% sat on 2-liter nasal cannula. PERIPHERAL VASCULAR: He has 2+ carotid, radial and brachial pulses bilaterally. LUNGS: Clear. HEART: Regular rate and rhythm. ABDOMEN: Soft, nontender, nondistended. EXTREMITIES: He has 2+ femoral pulses bilaterally. I do not feel popliteal, DP or PT pulses in eith er lower extremity. He has got some extensive necrosis in the left lateral foot I think ____ on one side. I do not see any purulent drainage. There does not appear to be any active necrotizing type o f infection, nothing that would cause sepsis. He has got an open wound on the lateral foot with dry gangrene and the lateral malleolar wound. It is quite large about 3.5 cm, but really nothing. I do not see any pus coming out. There is no odor. The right foot does not appear to have any wounds. Hood alvarado has got some buttock wounds as well. The pictures are in the chart. LABORATORY VALUES: Looked fairly normal. His white count is normal, hemoglobin is 9. Creatinine is 0.6. DIAGNOSTIC DATA: His arterial duplex does show on the left likely has SFA stenosis or occlusion. It is limited study, but the waveforms drop, go from biphasic to monophasic at the mid SFA. Tibial ves sels are to be evaluated. Probably, he has some chronic tibial disease as well. IMPRESSION: Left foot dry gangrene. I did not see anything that would cause sepsis. He is not a ca ndidate for revascularization. He is severely contracted and nonambulatory. There was a concern for sepsis from this necrotic foot being the source, then ____ an above knee amputation. I would not re commend that at present. I think palliative wound care and may be a consideration for hospice placem ent would be more in order. I am available if there are any further issues, but I am not planning an y revascularization at this point. Dictated By: FABIOLA EDOUARD/SAMANTAH Conf#: [id number] DID#: [id number] CC: GOOY MARSH MD; SHELBY AVILEZ NP; REINA CASEY DPM; HIRAM EDEN MD;*EndCC*
--- NOTE | 2018-11-05 15:53 | CONS ---
Assessment/Plan Assessment/Plan Hospital Course (Demo Recall) Awake, noncommunicative, looks comfortable Microbiology: Blood culture growing Morganella morganii and MRSA, urine culture grew VRE and AcinetobacterIndwelling: PEG, Wynn Antimicrobials: Zyvox, cefepime Physical examination: This is a chronically ill wasted elderly -[place]an man who is awake in no distress. Head atraumatic normocephalic neck is supple chest rise symmetrical breath sounds diminished bases. Heart: S1-S2. Abdomen soft bowel sounds present. Extremities with bilateral feet chronic wounds Assessment: 1. Severe sepsis with bacteremia likely secondary to #2,3 2. Polymicrobial UTI 3. Multiple decubitus 4. Acute on chronic encephalopathy 5. Dysphagia 6. Prostate cancer Plan: Remains stable, repeat bld cx neg, no vegetations per 2D ECHO, continue abx to complete 2 weeks Consultation Date/Type/Reason Admit Date/Time Oct 30, 2018 at 12:17 Initial Consult Date Type of Consult id Date/Time of Note DATE: 11/05/18 TIME: 15:51 Exam/Review of Systems Exam Vitals Vital Signs Date Temp Pulse Resp B/P (MAP) Pulse Ox O2 O2 Flow FiO2 Time Delivery Rate 11/05/18 98.0 98 20 125/65 98 15:43 (85) 11/05/18 Nasal 3.0 14:49 Cannula 11/04/18 32 02:31 Intake and Output 11/04/18 11/04/18 11/05/18 1515:00 23:00 07:00 IntakeIntake Total 1600 ml OutputOutput Total 1000 ml 1000 ml BalanceBalance 600 ml -1000 ml Results Result Diagram: 11/05/18 0510 11/05/18 0510 Results 24hrs Laboratory Tests Test 11/04/18 18:11 11/04/18 23:20 11/05/18 05:10 11/05/18 05:55 Bedside Glucose 243 H 197 140 White Blood Count 8.2 Red Blood Count 3.25 L Hemoglobin 8.5 L Hematocrit 27.5 L Mean Corpuscular 84.6 Volume Mean Corpuscular 26.2 L Hemoglobin Mean Corpuscular 30.9 L Hemoglobin Concent Red Cell 15.4 H Distribution Width Platelet Count 188 Mean Platelet Volume 12.4 H Immature 1.500 H Granulocytes % Neutrophils % 73.6 Lymphocytes % 17.9 Monocytes % 6.5 Eosinophils % 0.4 Basophils % 0.1 Nucleated Red Blood 0.0 Cells % Immature 0.120 H Granulocytes # Neutrophils # 6.0 Lymphocytes # 1.5 Monocytes # 0.5 Eosinophils # 0.0 Basophils # 0.0 Nucleated Red Blood 0.0 Cells # Sodium Level 144 Potassium Level 3.3 L Chloride Level 107 Carbon Dioxide Level 34 H Anion Gap 3 L Blood Urea Nitrogen 25 H Creatinine 0.64 Est Glomerular Filtrat Rate mL/min Glucose Level 137 # Calcium Level 9.2 Phosphorus Level 2.4 L Magnesium Level 2.0 Test 11/05/18 08:28 11/05/18 10:45 11/05/18 12:21 Bedside Glucose 142 127 Urine Color STRAW Urine Clarity CLEAR Urine pH 8.0 Urine Specific 1.010 [place] Urine Ketones NEGATIVE Urine Nitrite NEGATIVE Urine Bilirubin NEGATIVE Urine Urobilinogen NEGATIVE Urine Leukocyte TRACE A Esterase Urine Microscopic 10 H RBC Urine Microscopic 9 H WBC Urine Bacteria FEW A Urine Yeast MANY A (Budding) Urine Hemoglobin NEGATIVE Urine Osmolality 396 Urine Random 18.40 L Creatinine Urine Random Sodium 129 H Urine Glucose NEGATIVE Urine Total Protein 56.0 H Medications Medication Current Medications IV Flush (NS 3 ml) 3 ml PER PROTOCOL IV ; Start 10/30/18 at 12:30 Ondansetron HCl (Zofran Inj) 4 mg Q6H PRN IV NAUSEA/VOMITING; Start 10/30/18 at 12:30 Acetaminophen (Tylenol Tab) 650 mg Q6H PRN GTB .PAIN 1-3 OR TEMP Last administered on 11/01/18at 06:47; Admin Dose 650 MG; Start 10/30/18 at 12:30 Levalbuterol (Xopenex Neb) 0.63 mg Q6H RESP THERAPY HHN Last administered on 11/05/18at 14:47; Admin Dose 0.63 MG; Start 10/30/18 at 14:00 Miscellaneous Information 1 ea NOTE XX ; Start 10/30/18 at 15:00 Glucose (Glutose) 15 gm Q15M PRN PO DECREASED GLUCOSE; Start 10/30/18 at 15:00 Glucose (Glutose) 22.5 gm Q15M PRN PO DECREASED GLUCOSE; Start 10/30/18 at 15:00 Dextrose (D50w Syringe) 25 ml Q15M PRN IV DECREASED GLUCOSE; Start 10/30/18 at 15:00 Dextrose (D50w Syringe) 50 ml Q15M PRN IV DECREASED GLUCOSE; Start 10/30/18 at 15:00 Glucagon (Glucagen) 1 mg Q15M PRN IM DECREASED GLUCOSE; Start 10/30/18 at 15:00 Glucose (Glutose) 15 gm Q15M PRN BUCCAL DECREASED GLUCOSE; Start 10/30/18 at 15:00 Miscellaneous Information (Pending Santyl Order For Wound Care) This patient pritchard... PRN PRN XX WOUND CARE; Start 10/31/18 at 01:00 Insulin Aspart (Novolog Insulin Pen) NOVOLOG *MILD* ALGORI... Q6 SC Last administered on 11/04/18 23:49; Admin Dose 2 UNIT; Start 10/31/18 at 06:00 Cefepime HCl 50 ml @ 100 mls/hr Q12 IVPB Last administered on 11/05/18 08:31; Admin Dose 100 MLS/HR; Start 11/02/18 at 13:30 Linezolid (Zyvox) 600 mg BID PO Last administered on 11/05/18 08:31; Admin Dose 600 MG; Start 11/02/18 at 13:30 Hydralazine HCl (Apresoline) 10 mg Q6H PRN IV SBP>160; Start 11/03/18 at 08:30 Amlodipine Besylate (Norvasc) 10 mg DAILY GTB Last administered on 11/05/18 08:31; Admin Dose 10 MG; Start 11/03/18 at 09:00 Insulin Glargine (Lantus) 11 units DAILY@0800 SC Last administered on 11/05/18 08:48; Admin Dose 11 UNITS; Start 11/04/18 at 12:00 Collagenase (Santyl) 1 applic DAILY TOP Last administered on 11/05/18 08:30; Admin Dose 1 APPLIC; Start 11/05/18 at 09:00 Sodium Hypochlorite (Dakins Diluted ()) 1 applic DAILY TP Last administered on 11/05/18 08:46; Admin Dose 1 APPLIC; Start 11/05/18 at 09:00 Enoxaparin Sodium (Lovenox) 40 mg DAILY SC ; Start 11/06/18 at 09:00 Lansoprazole (Prevacid) 15 mg DAILY@06 GTB ; Start 11/06/18 at 06:00 JAME DAN NP Nov 05, 2018 15:53
--- NOTE | 2018-11-05 21:24 | CONS ---
Assessment/Plan Assessment/Plan Assessment/Plan (Daily) Diabetic ulcer left lower extremity DM2 with peripheral neuropathy Dry gangrene PAD Knee contractures Dementia Bed bound Plan: Patient was seen and evaluated at bedside. Provided nursing recommendations for daily dressing changes. Daily irrigation with dakins, santyl to wound sites, betadine 4x4 gauze, and wrap with kerlix. Wound cultures currently showing no growth. Recommend daily offloading with prevelon soft boots and pillows. X-rays did not appreciate signs of osteomyelits and non-invasive studies reviewed. Appreciate vascular evaluation. Patient with previous positive blood culture of MRSA and morganella. Repeat blood cultures negative. Appreciate abx recommendations per ID. Consultation Date/Type/Reason Admit Date/Time Oct 30, 2018 at 12:17 Initial Consult Date Date/Time of Note DATE: 11/05/18 TIME: 21:24 24 HR Interval Summary Free Text/Dictation No acute events overnight. Exam/Review of Systems Exam Vitals Vital Signs Date Temp Pulse Resp B/P (MAP) Pulse Ox O2 O2 Flow FiO2 Time Delivery Rate 11/05/18 Nasal 3.0 20:30 Cannula 11/05/18 98.8 101 20 145/78 97 20:00 (100) 11/04/18 32 02:31 Intake and Output 11/04/18 11/04/18 11/05/18 1515:00 23:00 07:00 IntakeIntake Total 1600 ml OutputOutput Total 1000 ml 1000 ml BalanceBalance 600 ml -1000 ml Exam Unable to palpate pedal pulses Absent protective sensations Left lateral malleolar ulcer 3.5 x 3.5 x 0.3cm with undermining tissue to the periphery. No purulence appreciated to the wound site. No proximal streaking. Unable to probe to bone Left lateral foot with dry gangrene 5 x 2cm with indeterminate depth Mycotic toe nails Knee contractures noted. Non invasive arterial sutdies IMPRESSION: Evidence of a significant stenosis between the left proximal and middle superficial femoral artery with change from biphasic to monophasic waveforms. No evidence of a significant stenosis in the bilateral common femoral artery and right superficial femoral artery. Foot X-ray IMPRESSION: 1. No acute fractures dislocations or erosions or plain imaging evidence of osteomyelitis. 2. Degenerative changes as above. 3. Findings suggestive of disuse osteoporosis. 4. Recommend reference to the left ankle Report same day. Ankle X-ray IMPRESSION: 1. No acute fracture dislocation or plain imaging evidence of osteomyelitis. 2. Soft tissue changes along the lateral left ankle consistent with a wound/ulceration. No foreign body. 3. Disuse osteoporosis. Results Result Diagram: 11/05/18 0510 11/05/18 1550 Results 24hrs Laboratory Tests Test 11/04/18 23:20 11/05/18 05:10 11/05/18 05:55 11/05/18 08:28 Bedside Glucose 197 140 142 White Blood Count 8.2 Red Blood Count 3.25 L Hemoglobin 8.5 L Hematocrit 27.5 L Mean Corpuscular 84.6 Volume Mean Corpuscular 26.2 L Hemoglobin Mean Corpuscular 30.9 L Hemoglobin Concent Red Cell 15.4 H Distribution Width Platelet Count 188 Mean Platelet Volume 12.4 H Immature 1.500 H Granulocytes % Neutrophils % 73.6 Lymphocytes % 17.9 Monocytes % 6.5 Eosinophils % 0.4 Basophils % 0.1 Nucleated Red Blood 0.0 Cells % Immature 0.120 H Granulocytes # Neutrophils # 6.0 Lymphocytes # 1.5 Monocytes # 0.5 Eosinophils # 0.0 Basophils # 0.0 Nucleated Red Blood 0.0 Cells # Sodium Level 144 Potassium Level 3.3 L Chloride Level 107 Carbon Dioxide Level 34 H Anion Gap 3 L Blood Urea Nitrogen 25 H Creatinine 0.64 Est Glomerular Filtrat Rate mL/min Glucose Level 137 # Calcium Level 9.2 Phosphorus Level 2.4 L Magnesium Level 2.0 Test 11/05/18 10:45 11/05/18 12:21 11/05/18 15:50 11/05/18 17:07 Urine Color STRAW Urine Clarity CLEAR Urine pH 8.0 Urine Specific 1.010 [place] Urine Ketones NEGATIVE Urine Nitrite NEGATIVE Urine Bilirubin NEGATIVE Urine Urobilinogen NEGATIVE Urine Leukocyte TRACE A Esterase Urine Microscopic 10 H RBC Urine Microscopic 9 H WBC Urine Bacteria FEW A Urine Yeast MANY A (Budding) Urine Hemoglobin NEGATIVE Urine Osmolality 396 Urine Random 18.40 L Creatinine Urine Random Sodium 129 H Urine Glucose NEGATIVE Urine Total Protein 56.0 H Bedside Glucose 127 127 Sodium Level 143 Potassium Level 3.6 Chloride Level 107 Carbon Dioxide Level 32 H Anion Gap 4 L Blood Urea Nitrogen 23 H Creatinine 0.64 Est Glomerular Filtrat Rate mL/min Glucose Level 123 Calcium Level 9.3 Test 11/05/18 18:13 Bedside Glucose 116 Medications Medication Current Medications IV Flush (NS 3 ml) 3 ml PER PROTOCOL IV ; Start 10/30/18 at 12:30 Ondansetron HCl (Zofran Inj) 4 mg Q6H PRN IV NAUSEA/VOMITING; Start 10/30/18 at 12:30 Acetaminophen (Tylenol Tab) 650 mg Q6H PRN GTB .PAIN 1-3 OR TEMP Last administered on 11/01/18at 06:47; Admin Dose 650 MG; Start 10/30/18 at 12:30 Levalbuterol (Xopenex Neb) 0.63 mg Q6H RESP THERAPY HHN Last administered on 11/05/18at 19:29; Admin Dose 0.63 MG; Start 10/30/18 at 14:00 Miscellaneous Information 1 ea NOTE XX ; Start 10/30/18 at 15:00 Glucose (Glutose) 15 gm Q15M PRN PO DECREASED GLUCOSE; Start 10/30/18 at 15:00 Glucose (Glutose) 22.5 gm Q15M PRN PO DECREASED GLUCOSE; Start 10/30/18 at 15:00 Dextrose (D50w Syringe) 25 ml Q15M PRN IV DECREASED GLUCOSE; Start 10/30/18 at 15:00 Dextrose (D50w Syringe) 50 ml Q15M PRN IV DECREASED GLUCOSE; Start 10/30/18 at 15:00 Glucagon (Glucagen) 1 mg Q15M PRN IM DECREASED GLUCOSE; Start 10/30/18 at 15:00 Glucose (Glutose) 15 gm Q15M PRN BUCCAL DECREASED GLUCOSE; Start 10/30/18 at 15:00 Miscellaneous Information (Pending [facility] Order For Wound Care) This patient pritchard... PRN PRN XX WOUND CARE; Start 10/31/18 at 01:00 Insulin Aspart (Novolog Insulin Pen) NOVOLOG *MILD* ALGORI... Q6 SC Last administered on 11/04/18at 23:49; Admin Dose 2 UNIT; Start 10/31/18 at 06:00 Cefepime HCl 50 ml @ 100 mls/hr Q12 IVPB Last administered on 11/05/18at 21:13; Admin Dose 100 MLS/HR; Start 11/02/18 at 13:30 Linezolid (Zyvox) 600 mg BID PO Last administered on 11/05/18at 21:12; Admin Dose 600 MG; Start 11/02/18 at 13:30 Hydralazine HCl (Apresoline) 10 mg Q6H PRN IV SBP>160; Start 11/03/18 at 08:30 Amlodipine Besylate (Norvasc) 10 mg DAILY GTB Last administered on 11/05/18 08:31; Admin Dose 10 MG; Start 11/03/18 at 09:00 Insulin Glargine (Lantus) 11 units DAILY@0800 SC Last administered on 11/05/18at 08:48; Admin Dose 11 UNITS; Start 11/04/18 at 12:00 Collagenase (Santyl) 1 applic DAILY TOP Last administered on 11/05/18 08:30; Admin Dose 1 APPLIC; Start 11/05/18 at 09:00 Sodium Hypochlorite (Dakins Diluted (1/40)) 1 applic DAILY TP Last administered on 11/05/18 08:46; Admin Dose 1 APPLIC; Start 11/05/18 at 09:00 Enoxaparin Sodium (Lovenox) 40 mg DAILY SC ; Start 11/06/18 at 09:00 Lansoprazole (Prevacid) 15 mg DAILY@06 GTB ; Start 11/06/18 at 06:00 REINA CASEY DPM Nov 05, 2018 21:24
[2018-11-06] MEDS: LEVALBUTEROL (NEB) 0.63 MG/3 ML AMP HHN SCH ×4 (01:53→19:40)
[2018-11-06 02:00] VITALS: BP 132/69; PULSE 97; RESP 20
[2018-11-06] MEDS: LANSOPRAZOLE 15 MG CAP GTB SCH (05:23)
[2018-11-06] MEDS: INSULIN ASPART [NOVOLOG] 3 ML PEN SC SCH ×3 (05:25→18:00)
[2018-11-06 07:53] VITALS: BP 135/81; PULSE 94; RESP 18
[2018-11-06] MEDS: DAKINS 0.0125%(1/40) 473 ML SOLUTION TP SCH (09:00)
[2018-11-06] MEDS: COLLAGENASE 5 GM (UD JAR) TOP SCH (09:00)
[2018-11-06] MEDS: ZYVOX 600 MG TAB GTB SCH ×2 (09:01→20:58)
[2018-11-06] MEDS: AMLODIPINE 10 MG TAB GTB SCH (09:01)
[2018-11-06] MEDS: CEFEPIME 1GM/50 ML (PMX) 50 ML IVPB SCH ×2 (09:01→20:58)
[2018-11-06] MEDS: ENOXAPARIN 40 MG/0.4 ML SYG SC SCH (09:06)
[2018-11-06] MEDS: INSULIN GLARGINE [LANTus] (100 UNITS/ML) SYG SC SCH (09:06)
--- NOTE | 2018-11-06 09:41 | PN ---
DATE: 11/06/2018 SUBJECTIVE: The patient is stable, was transferred from telemetry to med/surg. No other events note d. OBJECTIVE: VITAL SIGNS: Blood pressure is 135/81, respirations 18, pulse 94, temperature 98.4. HEENT: Head is normocephalic. NECK: Supple. HEART: Regular rate. LUNGS: Show diminished breath sounds at the base. ABDOMEN: Soft, nontender to palpation without rebound or guarding. EXTREMITIES: Negative for clubbing, cyanosis, no edema. DERMATOLOGIC: No rashes. MUSCULOSKELETAL: No joint effusion. NEUROLOGIC: No change in exam. MEDICATIONS: Reviewed. LABORATORY DATA: Reviewed. Urine osmolarity and sodium levels have been reviewed. ASSESSMENT AND PLAN: 1. Nonoliguric acute kidney injury with previously normal baseline creatinine. Etiology of acute ki dney injury is secondary to hemodynamics, volume depletion, sepsis. Renal function has improved with IV fluids. At this point, continue current treatment plan, supportive care, renally dose all medici nazia. 2. Hypernatremia, resolved. Etiology was initially felt to be secondary to partial diabetes insipid us, possibly due to acute kidney injury. The patient was given a trial of DDAVP without any signific ant change in urinary osmolarity. This is suggestive of possible central source of diabetes insipidu s. However, the patient has clinically improved. We will hold DDAVP. We will deescalate free water flushes and monitor. 3. Hypokalemia. Continue to monitor and replete as needed. 4. Mineral bone disorder, monitor calcium and phosphorus levels. 5. Anemia. Continue to monitor hemoglobin and hematocrit levels. 6. Sepsis, secondary to urinary tract infection, bacteremia and pneumonia. Continue current antibio tic regimen. 7. Dysphagia, status post PEG. Continue tube feeding. 8. Acute encephalopathy and advanced Alzheimer's dementia. Continue to monitor. 9. Diabetes. Continue current insulin regimen. 10. History of prostate cancer. 11. Dyslipidemia. Dictated By: KACY DILLARD DO NR/NTS Conf#: [id number] DID#: [id number] CC: FABIOLA TORRES MD; HIRAM EDEN MD; PATRICIA MUÑOZ MD;*EndCC*
--- NOTE | 2018-11-06 11:51 | PN ---
Date/Time of Note Date/Time of Note DATE: 11/06/18 TIME: 11:47 Assessment/Plan VTE Prophylaxis Risk score (from Ns)>0 risk: 9 SCD applied (from Nsg): Yes Pharmacological prophylaxis: LMWH Lines/Catheters IV Catheter Type (from Nrsg): Saline Lock Urinary Cath still in place: Yes Reason Cath still needed: other (indicate) Assessment/Plan Hospital Course SUBJECTIVE: No acute overnight episodes. OBJECTIVE: Vital signs-see below PHYSICAL EXAM: Constitutional: Chronically ill looking, elderly male, not in acute distress but HEENT: Head atraumatic and normocephalic. Eyes: Extraocular muscles intact. Anicteric sclerae. Pupils equal bilaterally, reactive to light. NECK: Supple without lymph node. CHEST: Clear and good breath sounds equally. No wheezing. No rhonchi. HEART: S1, S2. Regular rate and rhythm. ABDOMEN: With G-tube. Soft with no rebound tenderness. Bowel sounds were present. EXTREMITIES: CONTRACTED extremities. No cyanosis, clubbing or edema. NEUROLOGIC: Alert and oriented x2, mildly confused. No focal deficit. No sensory deficit. PSYCHOSOCIAL: In a good mood. No signs of depression. INTEGUMENTARY: Left foot ulcer/dry gangrene. ASSESSMENT AND PLAN:78 yo male with dementia presented with sepsis, found to have uti, hypernatremia, ROBBIE.. Hypernatremia: - Appears to have DI -Resolved - DDAVP, FW per nephrology VRE/acinectobacter UTI - Abx per ID S/p sepsis w/MRSA and morganella bactermias: source:UTI -repeat cs negative--needs total 2 weeks IV per ID -TTE without evidence of vegetation DMII: - Basal/bolus insulin Left lower extremity diabetic ulcer -Arterial study noted, significant stenosis noted on superficial femoral artery. Appreciate vascular recommendation, not a surgical / revascularization candidate. -Appreciate podiatry recommendations. -Continue wound care. Anemia of chronic inflammation -H&H now stable. Essential hypertension -Stable. Continue antihypertensives ROBBIE: - resolved s/p Hypercapneic respiratory failure: - stable Dysphagia, G-tube feeding -On appropriate tube feedings Prophylaxis: Lovenox/Prevacid Dc plan to half-way with a total 2 weeks IV abx per ID recs. Patient was seen in collaboration with Dr. Silverman. Result Diagram: 11/06/18 0502 11/06/18 0502 Results 24hrs Laboratory Tests Test 11/05/18 12:21 11/05/18 15:50 11/05/18 17:07 11/05/18 18:13 Bedside Glucose 127 127 116 Sodium Level 143 Potassium Level 3.6 Chloride Level 107 Carbon Dioxide Level 32 H Anion Gap 4 L Blood Urea Nitrogen 23 H Creatinine 0.64 Est Glomerular Filtrat Rate mL/min Glucose Level 123 Calcium Level 9.3 Test 11/05/18 23:13 11/06/18 05:02 11/06/18 05:24 11/06/18 09:00 Bedside Glucose 128 137 133 White Blood Count 8.2 Red Blood Count 3.74 L Hemoglobin 9.8 L Hematocrit 31.5 L Mean Corpuscular 84.2 Volume Mean Corpuscular 26.2 L Hemoglobin Mean Corpuscular 31.1 L Hemoglobin Concent Red Cell 15.6 H Distribution Width Platelet Count 225 Mean Platelet Volume 11.8 H Immature 1.800 H Granulocytes % Neutrophils % 69.7 Lymphocytes % 20.3 Monocytes % 6.6 Eosinophils % 1.5 Basophils % 0.1 Nucleated Red Blood 0.0 Cells % Immature 0.150 H Granulocytes # Neutrophils # 5.7 Lymphocytes # 1.7 Monocytes # 0.5 Eosinophils # 0.1 Basophils # 0.0 Nucleated Red Blood 0.0 Cells # Sodium Level 139 Potassium Level 3.5 Chloride Level 102 Carbon Dioxide Level 33 H Anion Gap 4 L Blood Urea Nitrogen 22 H Creatinine 0.59 L Est Glomerular Filtrat Rate mL/min Glucose Level 116 Calcium Level 9.0 Phosphorus Level 2.7 Magnesium Level 2.0 Exam/Review of Systems Exam Vitals Vital Signs Date Temp Pulse Resp B/P (MAP) Pulse Ox O2 O2 Flow FiO2 Time Delivery Rate 11/06/18 Nasal 3.0 08:00 Cannula 11/06/18 98.4 94 18 135/81 100 07:53 (99) 11/04/18 32 02:31 Intake and Output 11/05/18 11/05/18 11/06/18 1515:00 23:00 07:00 IntakeIntake Total 1600 ml 50 ml 1600 ml OutputOutput Total 300 ml 1200 ml BalanceBalance 1600 ml -250 ml 400 ml Results Results 24hrs Laboratory Tests Test 11/05/18 12:21 11/05/18 15:50 11/05/18 17:07 11/05/18 18:13 Bedside Glucose 127 127 116 Sodium Level 143 Potassium Level 3.6 Chloride Level 107 Carbon Dioxide Level 32 H Anion Gap 4 L Blood Urea Nitrogen 23 H Creatinine 0.64 Est Glomerular Filtrat Rate mL/min Glucose Level 123 Calcium Level 9.3 Test 11/05/18 23:13 11/06/18 05:02 11/06/18 05:24 11/06/18 09:00 Bedside Glucose 128 137 133 White Blood Count 8.2 Red Blood Count 3.74 L Hemoglobin 9.8 L Hematocrit 31.5 L Mean Corpuscular 84.2 Volume Mean Corpuscular 26.2 L Hemoglobin Mean Corpuscular 31.1 L Hemoglobin Concent Red Cell 15.6 H Distribution Width Platelet Count 225 Mean Platelet Volume 11.8 H Immature 1.800 H Granulocytes % Neutrophils % 69.7 Lymphocytes % 20.3 Monocytes % 6.6 Eosinophils % 1.5 Basophils % 0.1 Nucleated Red Blood 0.0 Cells % Immature 0.150 H Granulocytes # Neutrophils # 5.7 Lymphocytes # 1.7 Monocytes # 0.5 Eosinophils # 0.1 Basophils # 0.0 Nucleated Red Blood 0.0 Cells # Sodium Level 139 Potassium Level 3.5 Chloride Level 102 Carbon Dioxide Level 33 H Anion Gap 4 L Blood Urea Nitrogen 22 H Creatinine 0.59 L Est Glomerular Filtrat Rate mL/min Glucose Level 116 Calcium Level 9.0 Phosphorus Level 2.7 Magnesium Level 2.0 Medications Medication Current Medications IV Flush (NS 3 ml) 3 ml PER PROTOCOL IV ; Start 10/30/18 at 12:30 Ondansetron HCl (Zofran Inj) 4 mg Q6H PRN IV NAUSEA/VOMITING; Start 10/30/18 at 12:30 Acetaminophen (Tylenol Tab) 650 mg Q6H PRN GTB .PAIN 1-3 OR TEMP Last administered on 11/01/18at 06:47; Admin Dose 650 MG; Start 10/30/18 at 12:30 Levalbuterol (Xopenex Neb) 0.63 mg Q6H RESP THERAPY HHN Last administered on 11/06/18at 07:46; Admin Dose 0.63 MG; Start 10/30/18 at 14:00 Miscellaneous Information 1 ea NOTE XX ; Start 10/30/18 at 15:00 Glucose (Glutose) 15 gm Q15M PRN PO DECREASED GLUCOSE; Start 10/30/18 at 15:00 Glucose (Glutose) 22.5 gm Q15M PRN PO DECREASED GLUCOSE; Start 10/30/18 at 15:00 Dextrose (D50w Syringe) 25 ml Q15M PRN IV DECREASED GLUCOSE; Start 10/30/18 at 15:00 Dextrose (D50w Syringe) 50 ml Q15M PRN IV DECREASED GLUCOSE; Start 10/30/18 at 15:00 Glucagon (Glucagen) 1 mg Q15M PRN IM DECREASED GLUCOSE; Start 10/30/18 at 15:00 Glucose (Glutose) 15 gm Q15M PRN BUCCAL DECREASED GLUCOSE; Start 10/30/18 at 15:00 Miscellaneous Information (Pending Santyl Order For Wound Care) This patient pritchard... PRN PRN XX WOUND CARE; Start 10/31/18 at 01:00 Insulin Aspart (Novolog Insulin Pen) NOVOLOG *MILD* ALGORI... Q6 SC Last administered on 11/04/18at 23:49; Admin Dose 2 UNIT; Start 10/31/18 at 06:00 Cefepime HCl 50 ml @ 100 mls/hr Q12 IVPB Last administered on 11/06/18 09:01; Admin Dose 100 MLS/HR; Start 11/02/18 at 13:30 Hydralazine HCl (Apresoline) 10 mg Q6H PRN IV SBP>160; Start 11/03/18 at 08:30 Amlodipine Besylate (Norvasc) 10 mg DAILY GTB Last administered on 11/06/18at 09:01; Admin Dose 10 MG; Start 11/03/18 at 09:00 Insulin Glargine (Lantus) 11 units DAILY@0800 SC Last administered on 11/06/18 09:06; Admin Dose 11 UNITS; Start 11/04/18 at 12:00 Collagenase (Santyl) 1 applic DAILY TOP Last administered on 11/06/18at 09:00; Admin Dose 1 APPLIC; Start 11/05/18 at 09:00 Sodium Hypochlorite (Dakins Diluted (40)) 1 applic DAILY TP Last administered on 11/05/18at 08:46; Admin Dose 1 APPLIC; Start 11/05/18 at 09:00 Enoxaparin Sodium (Lovenox) 40 mg DAILY SC Last administered on 11/06/18at 09:06; Admin Dose 40 MG; Start 11/06/18 at 09:00 Lansoprazole (Prevacid) 15 mg DAILY@06 GTB Last administered on 11/06/18at 05:23; Admin Dose 15 MG; Start 11/06/18 at 06:00 Linezolid (Zyvox) 600 mg BID GTB Last administered on 11/06/18at 09:01; Admin Dose 600 MG; Start 11/06/18 at 09:00 NARCISO AVILEZ NP Nov 06, 2018 11:50
--- NOTE | 2018-11-06 14:17 | CONS ---
Assessment/Plan Assessment/Plan Hospital Course (Demo Recall) Awake, noncommunicative, looks comfortable Microbiology: Blood culture growing Morganella morganii and MRSA, urine culture grew VRE and AcinetobacterIndwelling: PEG, Wynn Antimicrobials: Zyvox, cefepime Physical examination: This is a chronically ill wasted elderly -[place] man who is awake in no distress. Head atraumatic normocephalic neck is supple chest rise symmetrical breath sounds diminished bases. Heart: S1-S2. Abdomen soft bowel sounds present. Extremities with bilateral feet chronic wounds Assessment: 1. Severe sepsis with bacteremia likely secondary to #2,3 2. Polymicrobial UTI 3. Multiple decubitus 4. Acute on chronic encephalopathy 5. Dysphagia 6. Prostate cancer Plan: Remains stable, okay to discharge on IV vancomycin and cefepime to complete 2 weeks for bacteremia, last day of antibiotics November 2. Discussed with daughter at bedside Discussed with staff Consultation Date/Type/Reason Admit Date/Time Oct 30, 2018 at 12:17 Initial Consult Date Type of Consult id Date/Time of Note DATE: 11/06/18 TIME: 14:10 Exam/Review of Systems Exam Vitals Vital Signs Date Temp Pulse Resp B/P (MAP) Pulse Ox O2 O2 Flow FiO2 Time Delivery Rate 11/06/18 Nasal 3.0 08:00 Cannula 11/06/18 98.4 94 18 135/81 100 07:53 (99) 11/04/18 32 02:31 Intake and Output 11/05/18 11/05/18 11/06/18 1515:00 23:00 07:00 IntakeIntake Total 1600 ml 50 ml 1600 ml OutputOutput Total 300 ml 1200 ml BalanceBalance 1600 ml -250 ml 400 ml Results Result Diagram: 11/06/18 0502 11/06/18 0502 Results 24hrs Laboratory Tests Test 11/05/18 15:50 11/05/18 17:07 11/05/18 18:13 11/05/18 23:13 Sodium Level 143 Potassium Level 3.6 Chloride Level 107 Carbon Dioxide Level 32 H Anion Gap 4 L Blood Urea Nitrogen 23 H Creatinine 0.64 Est Glomerular Filtrat Rate mL/min Glucose Level 123 Calcium Level 9.3 Bedside Glucose 127 116 128 Test 11/06/18 05:02 11/06/18 05:24 11/06/18 09:00 11/06/18 12:31 White Blood Count 8.2 Red Blood Count 3.74 L Hemoglobin 9.8 L Hematocrit 31.5 L Mean Corpuscular 84.2 Volume Mean Corpuscular 26.2 L Hemoglobin Mean Corpuscular 31.1 L Hemoglobin Concent Red Cell 15.6 H Distribution Width Platelet Count 225 Mean Platelet Volume 11.8 H Immature 1.800 H Granulocytes % Neutrophils % 69.7 Lymphocytes % 20.3 Monocytes % 6.6 Eosinophils % 1.5 Basophils % 0.1 Nucleated Red Blood 0.0 Cells % Immature 0.150 H Granulocytes # Neutrophils # 5.7 Lymphocytes # 1.7 Monocytes # 0.5 Eosinophils # 0.1 Basophils # 0.0 Nucleated Red Blood 0.0 Cells # Sodium Level 139 Potassium Level 3.5 Chloride Level 102 Carbon Dioxide Level 33 H Anion Gap 4 L Blood Urea Nitrogen 22 H Creatinine 0.59 L Est Glomerular Filtrat Rate mL/min Glucose Level 116 Calcium Level 9.0 Phosphorus Level 2.7 Magnesium Level 2.0 Bedside Glucose 137 133 148 Medications Medication Current Medications IV Flush (NS 3 ml) 3 ml PER PROTOCOL IV ; Start 10/30/18 at 12:30 Ondansetron HCl (Zofran Inj) 4 mg Q6H PRN IV NAUSEA/VOMITING; Start 10/30/18 at 12:30 Acetaminophen (Tylenol Tab) 650 mg Q6H PRN GTB .PAIN 1-3 OR TEMP Last administered on 11/01/18at 06:47; Admin Dose 650 MG; Start 10/30/18 at 12:30 Levalbuterol (Xopenex Neb) 0.63 mg Q6H RESP THERAPY HHN Last administered on 11/06/18at 07:46; Admin Dose 0.63 MG; Start 10/30/18 at 14:00 Miscellaneous Information 1 ea NOTE XX ; Start 10/30/18 at 15:00 Glucose (Glutose) 15 gm Q15M PRN PO DECREASED GLUCOSE; Start 10/30/18 at 15:00 Glucose (Glutose) 22.5 gm Q15M PRN PO DECREASED GLUCOSE; Start 10/30/18 at 15:00 Dextrose (D50w Syringe) 25 ml Q15M PRN IV DECREASED GLUCOSE; Start 10/30/18 at 15:00 Dextrose (D50w Syringe) 50 ml Q15M PRN IV DECREASED GLUCOSE; Start 10/30/18 at 15:00 Glucagon (Glucagen) 1 mg Q15M PRN IM DECREASED GLUCOSE; Start 10/30/18 at 15:00 Glucose (Glutose) 15 gm Q15M PRN BUCCAL DECREASED GLUCOSE; Start 10/30/18 at 15:00 Miscellaneous Information (Pending Santyl Order For Wound Care) This patient pritchard... PRN PRN XX WOUND CARE; Start 10/31/18 at 01:00 Insulin Aspart (Novolog Insulin Pen) NOVOLOG *MILD* ALGORI... Q6 SC Last administered on 11/06/18 13:16; Admin Dose 1 UNIT; Start 10/31/18 at 06:00 Cefepime HCl 50 ml @ 100 mls/hr Q12 IVPB Last administered on 11/06/18 09:01; Admin Dose 100 MLS/HR; Start 11/02/18 at 13:30 Hydralazine HCl (Apresoline) 10 mg Q6H PRN IV SBP>160; Start 11/03/18 at 08:30 Amlodipine Besylate (Norvasc) 10 mg DAILY GTB Last administered on 11/06/18 09:01; Admin Dose 10 MG; Start 11/03/18 at 09:00 Insulin Glargine (Lantus) 11 units DAILY@0800 SC Last administered on 11/06/18 09:06; Admin Dose 11 UNITS; Start 11/04/18 at 12:00 Collagenase (Santyl) 1 applic DAILY TOP Last administered on 11/06/18 09:00; Admin Dose 1 APPLIC; Start 11/05/18 at 09:00 Sodium Hypochlorite (Dakins Diluted ()) 1 applic DAILY TP Last administered on 11/05/18 08:46; Admin Dose 1 APPLIC; Start 11/05/18 at 09:00 Enoxaparin Sodium (Lovenox) 40 mg DAILY SC Last administered on 11/06/18 09:06; Admin Dose 40 MG; Start 11/06/18 at 09:00 Lansoprazole (Prevacid) 15 mg DAILY@06 GTB Last administered on 11/06/18 05:23; Admin Dose 15 MG; Start 11/06/18 at 06:00 Linezolid (Zyvox) 600 mg BID GTB Last administered on 4/25/19at 09:01; Admin Dose 600 MG; Start 11/06/18 at 09:00 JAME DAN NP Nov 06, 2018 14:16
[2018-11-06] MEDS ORDERED: VANCOMYCIN IV PER PHARMACY XX SCH (14:30)
[2018-11-06 14:55] VITALS: BP 105/61; PULSE 96; RESP 18
[2018-11-06] MEDS ORDERED: VANCOMYCIN HCL 1.5 GM in SOD CHLORIDE 0.9% 250 ML IVPB SCH (16:00)
--- NOTE | 2018-11-06 16:10 | QN ---
Documentation Comment As per cardiology, there is planning for possible hamstring tenotomy and likely need angiogram. At this time, we will stop DC planning and will have podiatry interventions. NARCISO AVILEZ NP Nov 06, 2018 16:10
[2018-11-06 20:00] VITALS: BP 139/62; PULSE 99; RESP 19
[2018-11-07 02:00] VITALS: BP 142/73; PULSE 97; RESP 18
[2018-11-07] MEDS: LEVALBUTEROL (NEB) 0.63 MG/3 ML AMP HHN SCH ×4 (03:03→20:47)
[2018-11-07] MEDS: VANCOMYCIN 750 MG (PMX) 250 ML IVPB SCH ×2 (04:23→17:46)
[2018-11-07] MEDS: LANSOPRAZOLE 15 MG CAP GTB SCH (05:19)
[2018-11-07] MEDS: INSULIN ASPART [NOVOLOG] 3 ML PEN SC SCH ×4 (05:37→17:58)
[2018-11-07 07:51] VITALS: BP 135/81; PULSE 102; RESP 19
[2018-11-07] MEDS: ENOXAPARIN 40 MG/0.4 ML SYG SC SCH (08:21)
[2018-11-07] MEDS: ZYVOX 600 MG TAB GTB SCH (08:21)
[2018-11-07] MEDS: AMLODIPINE 10 MG TAB GTB SCH (08:22)
[2018-11-07] MEDS: CEFEPIME 1GM/50 ML (PMX) 50 ML IVPB SCH ×2 (08:26→21:26)
[2018-11-07] MEDS: INSULIN GLARGINE [LANTus] (100 UNITS/ML) SYG SC SCH (08:34)
--- NOTE | 2018-11-07 10:04 | PN ---
DATE: 11/07/2018 SUBJECTIVE: The patient is stable, no events noted. No fevers, chills, nausea, vomiting. OBJECTIVE: VITAL SIGNS: Blood pressure is 135/81, pulse 102, temperature 98.8, respiration 19. HEENT: Head is normocephalic. NECK: Supple. HEART: Regular rate. LUNGS: Show diminished breath sounds at the base. ABDOMEN: Soft, nontender to palpation without rebound or guarding. EXTREMITIES: Negative for clubbing, cyanosis, no edema. DERMATOLOGIC: No rashes. MUSCULOSKELETAL: No joint effusions. NEUROLOGIC: No change in exam. MEDICATIONS: Have been reviewed. LABORATORY DATA: Has been reviewed. ASSESSMENT AND PLAN: 1. Nonoliguric acute kidney injury with previously normal baseline creatinine. Etiology is secondar y to hemodynamics. Renal function is improved. Continue current treatment plan, supportive care, re pascual dose all meds. 2. Hyponatremia, resolved. Continue to monitor, continue free water flushes. 3. Hypokalemia. Continue to monitor and replete as needed. 4. Mineral bone disorder, monitor calcium and phosphorus levels. 5. Anemia. Monitor hemoglobin and hematocrit levels. 6. Sepsis secondary to urinary tract infection bacteremia and pneumonia. Patient completing antibio tic course. 7. Dysphagia, status post PEG. C Continue tube feeding. 8. Acute encephalopathy on advanced dementia. Continue to monitor. 9. Diabetes. Continue current insulin regimen. 10. History of prostate cancer. 11. Dyslipidemia. Dictated By: KACY CUETO/NTS Conf#: [id number] DID#: [id number] CC: HIRAM EDEN MD;*EndCC*
--- NOTE | 2018-11-07 11:49 | PDOCDIS ---
Discharge Instructions CONDITION [id number] Patient Condition: [id number] Stable HOME CARE INSTRUCTIONS: [id number] Your diet recommendation is: [id number] TUBE FEEDING DIABETOSOURCE FOLLOW UP/APPOINTMENTS Follow-up Plan Discharge to residential facility. Patient to follow-up with [facility] amputation prevention clinic next week to schedule surgery for knee release/tenotomy with Dr. Matamoros/NARCISO Burton NP Nov 07, 2018 11:49
[2018-11-07] MEDS ORDERED: LANS-6 GTB (11:51)
[2018-11-07] MEDS ORDERED: AMLO-147 GTB (11:51)
--- NOTE | 2018-11-07 11:57 | DS ---
Date/Time of Note Date/Time of Note DATE: 11/07/18 TIME: 11:55 Discharge Summary Admission/Discharge Info Admit Date/Time Oct 30, 2018 at 12:17 Discharge Date/Time Discharge Diagnosis Hypernatremia:s/p DDAVP.Resolved VRE/acinectobacter UTI.s/p tx S/p sepsis w/MRSA and morganella bactermias: source:UTI DMII: Left lower extremity diabetic ulcer Anemia of chronic inflammation Essential hypertension ROBBIE: s/p Hypercapneic respiratory failure: Dysphagia, G-tube feeding Patient Condition: Stable Consults ,nephro /Maria Fernanda,Podiatry ,vascular Hospital Course 78 yo male with dementia presented with sepsis, found to have uti, hypernatremia, ROBBIE.. Hyponatremia appeared to have the DI and was treated with DDAVP per nephrology. Sodium level improved back to normal. Hospitalization was also noted for worsening left lower extremity diabetic ulcer with MRSA/Morganella bacteremia for which patient was appropriately treated with antimicrobial recommended by infectious disease team. He was also noted for VRE/Acinetobacter UTI which was treated with Zyvox. Patient was appropriately managed for diabetes with basal/bolus insulin. Hospitalization was also notable for acute kidney injury which was resolved. He also had hypercapnic respiratory failure secondary to sepsis and remained stable without need for supplemental oxygen. Patient was continued on appropriate G-tube feeding. In regards to worsening left lower extremity ulceration/gangrene and cellulitis, patient was also noted for SFA stenosis. Patient was also evaluated by vascular team. Patient family wished to proceed with available option which would be a knee release/tenotomy. According to podiatry and vascular, this can be done as outpatient sometimes later in the next week. As such, we have decided to [facility] with family approval and to bring him back to amputation prevention clinic next week for elective procedure. Patient's vital signs, labs stable. ID recommended continuation of IV cefepime and vancomycin for a total 2 weeks for which we also recommended a m idline insertion prior to discharge. Approximately 60-minute was spent not coordinating the discharge on this patient. Patient was seen in collaboration with Dr. Silverman. Home Meds Reported Medications Epoetin freddy* (Epogen*) 3,000 Unit/1 Ml Vial, 6000 UNITS SC Q MON,WED,FRI, VIAL 10/30/18 Acetaminophen* (Acetaminophen*) 325 Mg Tablet, 650 MG GTB Q6H PRN for MILD PAIN(1-3)OR ELEVATED TEMP, #30 TAB 10/30/18 Abiraterone Acetate (Zytiga) 500 Mg Tablet, 1000 MG GTB DAILY, TAB 10/30/18 Prednisone* (Prednisone*) 5 Mg Tab, 5 MG GTB DAILY, TAB 10/30/18 Pantoprazole* (Protonix*) 40 Mg Tablet.dr, 40 MG GTB BID, TAB 10/30/18 Furosemide* (Furosemide*) 20 Mg Tablet, 20 MG GTB DAILY PRN for HOLD FOR SBP<110, #60 TAB 10/30/18 Insulin Glargine* (Lantus*) 100 Unit/Ml Soln, 20 UNIT SC QHS, #1 VIAL 10/30/18 Ipratropium-Albuterol (Ipratropium-Albuterol) 0.5-3 Mg/3 Ml Ampul.neb, 3 ML INHALATION TID, #30 VIAL FOR 10 DAYS,END DATE 11/05/18 10/30/18 Glucagon,Human Recombinant (Glucagon Emergency Kit) 1 Mg Kit, 1 MG IJ NEEDED PRN for IF BLOOD GLUCOSE<70, KIT 10/30/18 Follow-up Plan [facility]charge to [facility] facility. Patient to follow-up with [facility] amputation prevention clinic next week to schedule surgery for knee release/tenotomy with Dr. Matamoros/ Primary Care Provider Care Physician No Primary Pending Labs Laboratory Tests Test 11/06/18 12:31 11/06/18 18:08 11/07/18 00:28 11/07/18 05:06 Bedside 148 110 136 Glucose mg/dL (70-220) mg/dL (70-220) mg/dL (70-220) White Blood 9.8 Count 10^3/ul (4.8-1 0.8) Red Blood 3.61 Count 10^6/ul (4.70- 6.10) Hemoglobin 9.7 g/dl (14.0-18. 0) Hematocrit 30.6 % (42.0-52.0) Mean 84.8 Corpuscular fl (82.0-101.0 Volume ) Mean 26.9 Corpuscular pg (29.0-33.0) Hemoglobin Mean 31.7 Corpuscular g/dl (32.0-37. Hemoglobin Conc 0) ent Red Cell 15.4 Distribution % (11.5-14.5) Width Platelet Count 269 10^3/UL (140-4 15) Mean Platelet 11.9 Volume fl (7.4-10.4) Immature 1.900 Granulocytes % % (0.001-0.429 ) Neutrophils % 77.5 % (39.0-77.0) Lymphocytes % 13.4 % (15.0-51.0) Monocytes % 5.5 % (0.0-11.0) Eosinophils % 1.5 % (0.0-7.0) Basophils % 0.2 % (0.0-2.0) Nucleated Red 0.0 Blood Cells % /100WBC (0.0-0 .0) Immature 0.190 Granulocytes # 10^3/ul (0.0-0 .031) Neutrophils # 7.6 10^3/ul (1.6-7 .5) Lymphocytes # 1.3 10^3/ul (0.8-2 .9) Monocytes # 0.5 10^3/ul (0.3-0 .9) Eosinophils # 0.2 10^3/ul (0.0-0 .5) Basophils # 0.0 10^3/ul (0.0-0 .1) Nucleated Red 0.0 Blood Cells # 10^3/ul (0.0-0 .0) Sodium Level 141 mmol/L (135-14 4) Potassium 4.0 Level mmol/L (3.5-5. 1) Chloride Level 103 mmol/L (97-110 ) Carbon Dioxide 31 Level mmol/L (21-31) Anion Gap 7 (5-13) Blood Urea 19 Nitrogen mg/dl (7-20) Creatinine 0.71 mg/dl (0.61-1. 24) Est Glomerular mL/min (>60) Filtrat Rate mL/min Glucose Level 113 mg/dl (70-220) Calcium Level 9.6 mg/dl (8.4-10. 2) Phosphorus 3.3 Level mg/dl (2.5-4.9 ) Magnesium 2.1 Level mg/dl (1.7-2.5 ) Test 11/07/18 05:36 11/07/18 08:20 Bedside 125 126 Glucose mg/dL (70-220) mg/dL (70-220) NARCISO AVILEZ V. SOFTWARE COMPUTER SPECIALIST Nov 07, 2018 11:57
--- NOTE | 2018-11-07 14:26 | CONS ---
Assessment/Plan Assessment/Plan Hospital Course (Demo Recall) No events overnight, patient looks comfortable, afebrile Microbiology: Blood culture growing Morganella morganii and MRSA, urine culture grew VRE and AcinetobacterIndwelling: PEG, Wynn Antimicrobials: Vancomycin, cefepime Physical examination: This is a chronically ill wasted elderly -[place] man who is awake in no distress. Head atraumatic normocephalic neck is supple chest rise symmetrical breath sounds diminished bases. Heart: S1-S2. Abdomen soft bowel sounds present. Extremities with bilateral feet chronic wounds Assessment: 1. Severe sepsis with bacteremia likely secondary to #2,3 2. Polymicrobial UTI 3. Multiple decubitus 4. Acute on chronic encephalopathy 5. Dysphagia 6. Prostate cancer Plan: Remains stable, okay to discharge on IV vancomycin and cefepime to complete 2 weeks for bacteremia, last day of antibiotics November 2. Discussed with daughter at bedside Discussed with staff Consultation Date/Type/Reason Admit Date/Time Oct 30, 2018 at 12:17 Initial Consult Date Type of Consult id Date/Time of Note DATE: 11/07/18 TIME: 14:25 Exam/Review of Systems Exam Vitals Vital Signs Date Temp Pulse Resp B/P (MAP) Pulse Ox O2 O2 Flow FiO2 Time Delivery Rate 11/07/18 97 18 99 Nasal 3.0 13:59 Cannula 11/07/18 98.8 135/81 07:51 (99) 11/04/18 32 02:31 Intake and Output 11/06/18 11/06/18 11/07/18 1515:00 23:00 07:00 IntakeIntake Total 50 ml 1500 ml 750 ml OutputOutput Total 1900 ml BalanceBalance 50 ml -400 ml 750 ml Results Result Diagram: 11/07/18 0506 11/07/18 0506 Results 24hrs Laboratory Tests Test 11/06/18 18:08 11/07/18 00:28 11/07/18 05:06 11/07/18 05:36 Bedside Glucose 110 136 125 White Blood Count 9.8 Red Blood Count 3.61 L Hemoglobin 9.7 L Hematocrit 30.6 L Mean Corpuscular 84.8 Volume Mean Corpuscular 26.9 L Hemoglobin Mean Corpuscular 31.7 L Hemoglobin Concent Red Cell 15.4 H Distribution Width Platelet Count 269 Mean Platelet Volume 11.9 H Immature 1.900 H Granulocytes % Neutrophils % 77.5 H Lymphocytes % 13.4 L Monocytes % 5.5 Eosinophils % 1.5 Basophils % 0.2 Nucleated Red Blood 0.0 Cells % Immature 0.190 H Granulocytes # Neutrophils # 7.6 H Lymphocytes # 1.3 Monocytes # 0.5 Eosinophils # 0.2 Basophils # 0.0 Nucleated Red Blood 0.0 Cells # Sodium Level 141 Potassium Level 4.0 Chloride Level 103 Carbon Dioxide Level 31 Anion Gap 7 Blood Urea Nitrogen 19 Creatinine 0.71 Est Glomerular Filtrat Rate mL/min Glucose Level 113 Calcium Level 9.6 Phosphorus Level 3.3 Magnesium Level 2.1 Test 11/07/18 08:20 11/07/18 12:09 Bedside Glucose 126 115 Medications Medication Current Medications IV Flush (NS 3 ml) 3 ml PER PROTOCOL IV ; Start 10/30/18 at 12:30 Ondansetron HCl (Zofran Inj) 4 mg Q6H PRN IV NAUSEA/VOMITING; Start 10/30/18 at 12:30 Acetaminophen (Tylenol Tab) 650 mg Q6H PRN GTB .PAIN 1-3 OR TEMP Last administered on 11/01/18at 06:47; Admin Dose 650 MG; Start 10/30/18 at 12:30 Levalbuterol (Xopenex Neb) 0.63 mg Q6H RESP THERAPY HHN Last administered on 11/07/18at 13:59; Admin Dose 0.63 MG; Start 10/30/18 at 14:00 Miscellaneous Information 1 ea NOTE XX ; Start 10/30/18 at 15:00 Glucose (Glutose) 15 gm Q15M PRN PO DECREASED GLUCOSE; Start 10/30/18 at 15:00 Glucose (Glutose) 22.5 gm Q15M PRN PO DECREASED GLUCOSE; Start 10/30/18 at 15:00 Dextrose (D50w Syringe) 25 ml Q15M PRN IV DECREASED GLUCOSE; Start 10/30/18 at 15:00 Dextrose (D50w Syringe) 50 ml Q15M PRN IV DECREASED GLUCOSE; Start 10/30/18 at 15:00 Glucagon (Glucagen) 1 mg Q15M PRN IM DECREASED GLUCOSE; Start 10/30/18 at 15:00 Glucose (Glutose) 15 gm Q15M PRN BUCCAL DECREASED GLUCOSE; Start 10/30/18 at 15:00 Miscellaneous Information (Pending Santyl Order For Wound Care) This patient pritchard... PRN PRN XX WOUND CARE; Start 10/31/18 at 01:00 Insulin Aspart (Novolog Insulin Pen) NOVOLOG *MILD* ALGORI... Q6 SC Last administered on 11/06/18 13:16; Admin Dose 1 UNIT; Start 10/31/18 at 06:00 Cefepime HCl 50 ml @ 100 mls/hr Q12 IVPB Last administered on 11/07/18 08:26; Admin Dose 100 MLS/HR; Start 11/02/18 at 13:30 Hydralazine HCl (Apresoline) 10 mg Q6H PRN IV SBP>160; Start 11/03/18 at 08:30 Amlodipine Besylate (Norvasc) 10 mg DAILY GTB Last administered on 11/06/18 09:01; Admin Dose 10 MG; Start 11/03/18 at 09:00 Insulin Glargine (Lantus) 11 units DAILY@0800 SC Last administered on 11/07/18 08:34; Admin Dose 11 UNITS; Start 11/04/18 at 12:00 Collagenase (Santyl) 1 applic DAILY TOP Last administered on 11/06/18 09:00; Admin Dose 1 APPLIC; Start 11/05/18 at 09:00 Sodium Hypochlorite (Dakins Diluted (40)) 1 applic DAILY TP Last administered on 11/05/18 08:46; Admin Dose 1 APPLIC; Start 11/05/18 at 09:00 Enoxaparin Sodium (Lovenox) 40 mg DAILY SC Last administered on 11/06/18 09:06; Admin Dose 40 MG; Start 11/06/18 at 09:00 Lansoprazole (Prevacid) 15 mg DAILY@06 GTB Last administered on 11/06/18 05:23; Admin Dose 15 MG; Start 11/06/18 at 06:00 Vancomycin HCl (Vanco Iv Per Pharmacy) VANCOMYCIN PER PHARMACY PER PROTOCOL XX ; Start 11/06/18 at 14:30 Vancomycin/Sodium Chloride 250 ml @ 125 mls/hr Q12H IVPB Last administered on 11/07/18at 04:23; Admin Dose 125 MLS/HR; Start 11/07/18 at 05:00 JAME DAN [employer] Nov 07, 2018 14:26
[2018-11-07] MEDS: DAKINS 0.0125%(1/40) 473 ML SOLUTION TP SCH (14:44)
[2018-11-07] MEDS: COLLAGENASE 5 GM (UD JAR) TOP SCH (14:44)
[2018-11-07 15:10] VITALS: BP 147/73; PULSE 103; RESP 18
[2018-11-07 20:06] VITALS: BP 132/62; PULSE 102; RESP 19
[2018-11-08] MEDS: INSULIN ASPART [NOVOLOG] 3 ML PEN SC SCH ×4 (00:31→17:57)
[2018-11-08] MEDS: LEVALBUTEROL (NEB) 0.63 MG/3 ML AMP HHN SCH ×4 (01:53→21:22)
[2018-11-08 01:55] VITALS: BP 119/68; PULSE 103; RESP 19
[2018-11-08] MEDS: VANCOMYCIN 750 MG (PMX) 250 ML IVPB SCH ×2 (05:12→17:12)
[2018-11-08] MEDS: LANSOPRAZOLE 15 MG CAP GTB SCH (06:19)
[2018-11-08 08:15] VITALS: BP 140/68; PULSE 100; RESP 18
[2018-11-08] MEDS: INSULIN GLARGINE [LANTus] (100 UNITS/ML) SYG SC SCH (08:28)
[2018-11-08] MEDS: ENOXAPARIN 40 MG/0.4 ML SYG SC SCH (08:28)
[2018-11-08] MEDS: AMLODIPINE 10 MG TAB GTB SCH (09:13)
[2018-11-08] MEDS: CEFEPIME 1GM/50 ML (PMX) 50 ML IVPB SCH ×2 (09:13→20:22)
[2018-11-08] MEDS: COLLAGENASE 5 GM (UD JAR) TOP SCH (09:14)
[2018-11-08] MEDS: DAKINS 0.0125%(1/40) 473 ML SOLUTION TP SCH (09:14)
[2018-11-08] MEDS: ACETAMINOPHEN 325 MG TAB GTB PRN (09:18)
--- NOTE | 2018-11-08 09:43 | PN ---
DATE: 11/08/2018 SUBJECTIVE: The patient is stable, no events noted. OBJECTIVE: VITAL SIGNS: Blood pressure is 140/68, respiration 18, pulse 100, temperature 97.6. HEENT: Head is normocephalic. NECK: Supple. HEART: Regular rate. LUNGS: Show diminished breath sounds at the base. ABDOMEN: Soft, nontender to palpation without rebound or guarding. EXTREMITIES: Negative for clubbing, cyanosis, no edema. DERMATOLOGIC: No rashes. MUSCULOSKELETAL: No joint effusion. NEUROLOGIC: No change in exam. MEDICATIONS: The patient's medications have been reviewed. LABORATORY DATA: Has been reviewed. ASSESSMENT AND PLAN: 1. Nonoliguric acute kidney injury with previously normal baseline creatinine. Etiology of acute ki dney injury is secondary to hemodynamics. Renal function is improved. Continue current treatment pl an, supportive care, renally dose all medication. 2. Hyponatremia, resolved. 3. Hyperkalemia, resolved. 4. Mineral bone disorder, monitor calcium and phosphorus levels. 5. Anemia. Monitor hemoglobin and hematocrit levels. 6. Sepsis secondary to urinary tract infection, bacteremia and pneumonia. The patient is completing antibiotic course. 7. Dysphagia. Continue tube feeding. 8. Acute encephalopathy and advanced dementia. 9. Diabetes. Continue current insulin regimen. 10. History of prostate cancer. 11. Dyslipidemia. Dictated By: KACY DILLARD DO NR/NTS Conf#: [id number] DID#: [id number] CC: PATRICIA MUÑOZ MD; FABIOLA TORRES MD; HIRAM EDEN MD;*EndCC*
--- NOTE | 2018-11-08 11:43 | PN ---
Date/Time of Note Date/Time of Note DATE: 11/08/18 TIME: 11:39 Assessment/Plan VTE Prophylaxis Risk score (from Ns)>0 risk: 7 SCD applied (from Ns): Yes Pharmacological prophylaxis: heparin Lines/Catheters IV [facility]ter [facility] (from [facility] Mid Line Urinary Cath still in place: Yes Reason Cath still needed: urinary retention (Known history of prostate cancer) Assessment/Plan Problems: (1) Sepsis due to gram-negative UTI Status: Acute Comment: On antibiotics and responding nicely. Continue with treatment. (2) MRSA (methicillin resistant Staphylococcus aureus) colonization Status: Acute Comment: This is a known issue and the patient is on isolation. Case management attempting to find appropriate placement for him at this time. This is the issue that keeps him in the acute care setting (3) Primary degenerative dementia of the Alzheimer type, senile onset Status: Chronic Comment: Noted (4) Osteoarthritis Status: Chronic Comment: Noted. Please note this patient is nonambulatory both due to this and the metastatic prostate cancer to bone Qualifiers: Osteoarthritis location: unspecified site Osteoarthritis type: primary Qualified Codes: M19.91 - Primary osteoarthritis, unspecified site (5) Diabetes mellitus type 2 in nonobese Status: Chronic Comment: Adequate control in a controlled environment with controlled diet (6) Hyperlipidemia Status: Chronic Comment: Noted. Qualifiers: Hyperlipidemia type: pure hypercholesterolemia Qualified Codes: E78.00 - Pure hypercholesterolemia, unspecified (7) Essential hypertension Status: Chronic Comment: Adequate control (8) Prostate cancer metastatic to bone Status: Chronic Comment: Noted. And on therapeutic Result Diagram: 11/07/18 0506 11/07/18 0506 Results 24hrs Laboratory Tests Test 11/07/18 12:09 11/07/18 17:56 11/08/18 00:24 11/08/18 06:11 Bedside Glucose 115 81 146 152 Test 11/08/18 08:05 Bedside Glucose 180 Subjective 24 Hr Interval Summary Free Text/Dictation Patient sleeping but easily aroused but has a baseline organic brain syndrome Constitutional: no complaints Respiratory: no complaints Cardiovascular: no complaints Exam/Review of Systems Exam Vitals Vital Signs Date Temp Pulse Resp B/P (MAP) Pulse Ox O2 O2 Flow FiO2 Time Delivery Rate 11/08/18 Nasal 2.0 10:59 Cannula 11/08/18 97.6 100 18 140/68 99 08:15 (92) Intake and Output 11/07/18 11/07/18 11/08/18 1414:59 22:59 06:59 IntakeIntake Total 50 ml 300 ml 250 ml OutputOutput Total 1925 ml 800 ml BalanceBalance -1875 ml -500 ml 250 ml Exam Pleasant -[place] elderly male Neck: supple, non-tender Respiratory: clear to auscultation, normal air movement Cardiovascular: regular rate and rhythm, nl pulses Gastrointestinal: soft, nl liver, spleen, non-tender Extremities: normal pulses Results Results 24hrs Laboratory Tests Test 11/07/18 12:09 11/07/18 17:56 11/08/18 00:24 11/08/18 06:11 Bedside Glucose 115 81 146 152 Test 11/08/18 08:05 Bedside Glucose 180 Medications Medication Current Medications IV Flush (NS 3 ml) 3 ml PER PROTOCOL IV ; Start 10/30/18 at 12:30 Ondansetron HCl (Zofran Inj) 4 mg Q6H PRN IV NAUSEA/VOMITING; Start 10/30/18 at 12:30 Acetaminophen (Tylenol Tab) 650 mg Q6H PRN GTB .PAIN 1-3 OR TEMP Last administered on 11/08/18at 09:18; Admin Dose 650 MG; Start 10/30/18 at 12:30 Levalbuterol (Xopenex Neb) 0.63 mg Q6H RESP THERAPY HHN Last administered on 11/08/18at 07:43; Admin Dose 0.63 MG; Start 10/30/18 at 14:00 Miscellaneous Information 1 ea NOTE XX ; Start 10/30/18 at 15:00 Glucose (Glutose) 15 gm Q15M PRN PO DECREASED GLUCOSE; Start 10/30/18 at 15:00 Glucose (Glutose) 22.5 gm Q15M PRN PO DECREASED GLUCOSE; Start 10/30/18 at 15:00 Dextrose (D50w Syringe) 25 ml Q15M PRN IV DECREASED GLUCOSE; Start 10/30/18 at 15:00 Dextrose (D50w Syringe) 50 ml Q15M PRN IV DECREASED GLUCOSE; Start 10/30/18 at 15:00 Glucagon (Glucagen) 1 mg Q15M PRN IM DECREASED GLUCOSE; Start 10/30/18 at 15:00 Glucose (Glutose) 15 gm Q15M PRN BUCCAL DECREASED GLUCOSE; Start 10/30/18 at 15:00 Miscellaneous Information (Pending Santyl Order For Wound Care) This patient pritcahrd... PRN PRN XX WOUND CARE; Start 10/31/18 at 01:00 Insulin Aspart (Novolog Insulin Pen) NOVOLOG *MILD* ALGORI... Q6 SC Last administered on 11/08/18 06:21; Admin Dose 1 UNIT; Start 10/31/18 at 06:00 Cefepime HCl 50 ml @ 100 mls/hr Q12 IVPB Last administered on 11/08/18 09:13; Admin Dose 100 MLS/HR; Start 11/02/18 at 13:30 Hydralazine HCl (Apresoline) 10 mg Q6H PRN IV SBP>160; Start 11/03/18 at 08:30 Amlodipine Besylate (Norvasc) 10 mg DAILY GTB Last administered on 11/08/18 09:13; Admin Dose 10 MG; Start 11/03/18 at 09:00 Insulin Glargine (Lantus) 11 units DAILY@0800 SC Last administered on 11/08/18 08:28; Admin Dose 11 UNITS; Start 11/04/18 at 12:00 Collagenase (Santyl) 1 applic DAILY TOP Last administered on 11/08/18 09:14; Admin Dose 1 APPLIC; Start 11/05/18 at 09:00 Sodium Hypochlorite (Dakins Diluted (1/40)) 1 applic DAILY TP Last administered on 11/08/18 09:14; Admin Dose 1 APPLIC; Start 11/05/18 at 09:00 Enoxaparin Sodium (Lovenox) 40 mg DAILY SC Last administered on 11/08/18 08:28; Admin Dose 40 MG; Start 11/06/18 at 09:00 Lansoprazole (Prevacid) 15 mg DAILY@06 GTB Last administered on 11/08/18 06:19; Admin Dose 15 MG; Start 11/06/18 at 06:00 Vancomycin HCl (Vanco Iv Per Pharmacy) VANCOMYCIN PER PHARMACY PER PROTOCOL XX ; Start 11/06/18 at 14:30 Vancomycin/Sodium Chloride 250 ml @ 125 mls/hr Q12H IVPB Last administered on 11/08/18at 05:12; Admin Dose 125 MLS/HR; Start 11/07/18 at 05:00 ZEENAT MCCARTHY MD Nov 08, 2018 11:43
[2018-11-08 14:37] VITALS: BP 122/57; PULSE 106; RESP 18
--- NOTE | 2018-11-08 15:46 | CONS ---
Assessment/Plan Assessment/Plan Hospital Course (Demo Recall) ID PROGRESS NOTE CURRENT ABX=Day # => Vanco IV + Cefepime 24H INTERVAL SUMMARY * Lethargic, vss, nad, no fevers * chart reviewed * Microbiology: Blood culture growing Morganella morganii and MRSA, urine culture grew VRE and AcinetobacterIndwelling: PEG, Wynn PHYSICAL EXAMINATION: GENERAL:VSS, NAD HEENT: Unremarkable NECK: Supple, trachea midline. CHEST: Rise symmetrical, without dyspnea on observation HEART: Pulse RRR ABDOMEN: Soft, ND EXTREMITIES: Warm, moves all extremities ID ASSESSMENT 78 yo M admit with: 1. Severe sepsis with bacteremia likely secondary to #2,3 2. Polymicrobial UTI 3. Multiple decubitus 4. Acute on chronic encephalopathy 5. Dysphagia 6. Prostate cancer INVASIVES: ABX ALLERGY: KNDA CURRENT ABX: => > Vanco IV + Cefepime ID RECOMMENDATIONS 1. CONTINUE CURRENT ABX => NOVEMBER DC on IV vancomycin and cefepime to complete 2 weeks for bacteremia, last day of antibiotics November 2. . Consultation Date/Type/Reason Admit Date/Time Oct 30, 2018 at 12:17 Initial Consult Date Date/Time of Note DATE: 11/08/18 TIME: 15:46 Exam/Review of Systems Exam Vitals Vital Signs Date Temp Pulse Resp B/P (MAP) Pulse Ox O2 O2 Flow FiO2 Time Delivery Rate 11/08/18 98.3 106 18 122/57 100 14:37 (78) 11/08/18 Nasal 2.0 13:43 Cannula Intake and Output 11/07/18 11/07/18 11/08/18 1515:00 23:00 07:00 IntakeIntake Total 50 ml 300 ml 250 ml OutputOutput Total 1925 ml 800 ml BalanceBalance -1875 ml -500 ml 250 ml Results Result Diagram: 11/07/18 0506 11/07/18 0506 Results 24hrs Laboratory Tests Test 11/07/18 17:56 11/08/18 00:24 11/08/18 06:11 11/08/18 08:05 Bedside Glucose 81 146 152 180 Test 11/08/18 12:20 Bedside Glucose 130 Medications Medication Current Medications IV Flush (NS 3 ml) 3 ml PER PROTOCOL IV ; Start 10/30/18 at 12:30 Ondansetron HCl (Zofran Inj) 4 mg Q6H PRN IV NAUSEA/VOMITING; Start 10/30/18 at 12:30 Acetaminophen (Tylenol Tab) 650 mg Q6H PRN GTB .PAIN 1-3 OR TEMP Last administered on 11/08/18 09:18; Admin Dose 650 MG; Start 10/30/18 at 12:30 Levalbuterol (Xopenex Neb) 0.63 mg Q6H RESP THERAPY HHN Last administered on 11/08/18 13:43; Admin Dose 0.63 MG; Start 10/30/18 at 14:00 Miscellaneous Information 1 ea NOTE XX ; Start 10/30/18 at 15:00 Glucose (Glutose) 15 gm Q15M PRN PO DECREASED GLUCOSE; Start 10/30/18 at 15:00 Glucose (Glutose) 22.5 gm Q15M PRN PO DECREASED GLUCOSE; Start 10/30/18 at 15:00 Dextrose (D50w Syringe) 25 ml Q15M PRN IV DECREASED GLUCOSE; Start 10/30/18 at 15:00 Dextrose (D50w Syringe) 50 ml Q15M PRN IV DECREASED GLUCOSE; Start 10/30/18 at 15:00 Glucagon (Glucagen) 1 mg Q15M PRN IM DECREASED GLUCOSE; Start 10/30/18 at 15:00 Glucose (Glutose) 15 gm Q15M PRN BUCCAL DECREASED GLUCOSE; Start 10/30/18 at 15:00 Miscellaneous Information (Pending [facility] Order For Wound Care) This patient pritchard... PRN PRN XX WOUND CARE; Start 10/31/18 at 01:00 Insulin Aspart (Novolog Insulin Pen) NOVOLOG *MILD* ALGORI... Q6 SC Last administered on 11/08/18 06:21; Admin Dose 1 UNIT; Start 10/31/18 at 06:00 Cefepime HCl 50 ml @ 100 mls/hr Q12 IVPB Last administered on 11/08/18 09:13; Admin Dose 100 MLS/HR; Start 11/02/18 at 13:30 Hydralazine HCl (Apresoline) 10 mg Q6H PRN IV SBP>160; Start 11/03/18 at 08:30 Amlodipine Besylate (Norvasc) 10 mg DAILY GTB Last administered on 11/08/18 09:13; Admin Dose 10 MG; Start 11/03/18 at 09:00 Insulin Glargine (Lantus) 11 units DAILY@0800 SC Last administered on 11/08/18at 08:28; Admin Dose 11 UNITS; Start 11/04/18 at 12:00 Collagenase (Santyl) 1 applic DAILY TOP Last administered on 11/08/18 09:14; Admin Dose 1 APPLIC; Start 11/05/18 at 09:00 Sodium Hypochlorite (Dakins Diluted ()) 1 applic DAILY TP Last administered on 11/08/18at 09:14; Admin Dose 1 APPLIC; Start 11/05/18 at 09:00 Enoxaparin Sodium (Lovenox) 40 mg DAILY SC Last administered on 11/08/18at 08:28; Admin Dose 40 MG; Start 11/06/18 at 09:00 Lansoprazole (Prevacid) 15 mg DAILY@06 GTB Last administered on 11/08/18at 06:19; Admin Dose 15 MG; Start 11/06/18 at 06:00 Vancomycin HCl (Vanco Iv Per Pharmacy) VANCOMYCIN PER PHARMACY PER PROTOCOL XX ; Start 11/06/18 at 14:30 Vancomycin/Sodium Chloride 250 ml @ 125 mls/hr Q12H IVPB Last administered on 11/08/18at 05:12; Admin Dose 125 MLS/HR; Start 11/07/18 at 05:00 TJ FORBES NP Nov 08, 2018 15:46
[2018-11-08 19:53] VITALS: BP 133/60; PULSE 97; RESP 18
[2018-11-08 20:00] VITALS: BP 133/60; PULSE 97; RESP 18
[2018-11-09] MEDS: LEVALBUTEROL (NEB) 0.63 MG/3 ML AMP HHN SCH ×4 (01:49→20:41)
[2018-11-09 02:00] VITALS: BP 140/66; PULSE 72; RESP 18
[2018-11-09] MEDS: LANSOPRAZOLE 15 MG CAP GTB SCH (05:40)
[2018-11-09] MEDS: INSULIN ASPART [NOVOLOG] 3 ML PEN SC SCH ×4 (05:41→17:25)
[2018-11-09] MEDS: VANCOMYCIN 750 MG (PMX) 250 ML IVPB SCH (06:24)
[2018-11-09 07:57] VITALS: BP 129/62; PULSE 96; RESP 18
--- NOTE | 2018-11-09 08:35 | PN ---
DATE: 11/09/2018 SUBJECTIVE: The patient is stable, no events overnight. OBJECTIVE: VITAL SIGNS: Blood pressure is 129/62, pulse 96, respirations 18, temperature 98.5. HEENT: Head is normocephalic. NECK: Supple. HEART: Regular rate. LUNGS: Show diminished breath sounds at the base. ABDOMEN: Soft, nontender to palpation without rebound or guarding. EXTREMITIES: Negative for clubbing, cyanosis, no edema. DERMATOLOGIC: No rashes. MUSCULOSKELETAL: No joint effusion. NEUROLOGIC: No change in exam. MEDICATIONS: Reviewed. LABORATORY DATA: Reviewed. ASSESSMENT AND PLAN: 1. Nonoliguric acute kidney injury with previously normal baseline creatinine. Etiology of acute ki dney injury is secondary to hemodynamics. Renal function is improved. Continue to monitor. 2. Mineral bone disorder, monitor calcium and phosphorus levels. 3. Anemia. Monitor hemoglobin and hematocrit levels. 4. Sepsis secondary to urinary tract infection and bacteremia. The patient is completing antibiotic course. We will continue. 5. Dysphagia. Continue tube feeding. 6. Acute encephalopathy and dementia, etiology is toxic metabolic. Continue to monitor. 7. Diabetes. Continue current insulin regimen. 8. History of prostate cancer. 9. Dyslipidemia. We will sign off. Please reconsult as needed. Dictated By: KACY DILLARD DO NR/NTS Conf#: [id number] DID#: [id number] CC: FABIOLA TORRES MD; PATRICIA MUÑOZ MD; HIRAM EDEN MD;*EndCC*
[2018-11-09] MEDS: INSULIN GLARGINE [LANTus] (100 UNITS/ML) SYG SC SCH (10:04)
[2018-11-09] MEDS: ENOXAPARIN 40 MG/0.4 ML SYG SC SCH (10:05)
[2018-11-09] MEDS: CEFEPIME 1GM/50 ML (PMX) 50 ML IVPB SCH ×2 (10:05→20:19)
[2018-11-09] MEDS: AMLODIPINE 10 MG TAB GTB SCH (10:06)
[2018-11-09] MEDS: COLLAGENASE 5 GM (UD JAR) TOP SCH (10:06)
[2018-11-09] MEDS: DAKINS 0.0125%(1/40) 473 ML SOLUTION TP SCH (10:07)
--- NOTE | 2018-11-09 10:14 | PN ---
Date/Time of Note Date/Time of Note DATE: 11/09/18 TIME: 10:09 Assessment/Plan VTE Prophylaxis [place] [facility] [place]: 7 [place]CD applied [place] [facility] [place] Yes Pharmacological prophylaxis: heparin Lines/Catheters IV [facility]ter Type (from [facility] Mid Line Urinary Cath still in place: Yes Reason Cath still needed: urinary retention, skin wounds contaminated by urine Assessment/Plan Problems: (1) Vancomycin resistant enterococcus culture positive Status: Acute Comment: On antibiotic therapy with the guidance of infectious disease. (2) UTI (urinary tract infection) due to Enterococcus Status: Acute Comment: As above on antibiotic therapy. Please note the urine culture also grew out gram-negative (3) Sepsis due to gram-negative UTI Status: Acute Comment: Responding nicely to antibiotic therapy (4) MRSA (methicillin resistant Staphylococcus aureus) colonization Status: Acute Comment: Noted. Attempting to find appropriate placement (5) Primary degenerative dementia of the Alzheimer type, senile onset Status: Chronic Comment: Noted. Patient will not be capable of independent living and lacks capacity for medical decision-making (6) Diabetes mellitus type 2 in nonobese Status: Chronic Comment: Adequate control (7) Essential hypertension Status: Chronic Comment: Adequate control (8) Prostate cancer metastatic to bone Status: Chronic Comment: Noted Result Diagram: 11/07/18 0506 11/09/18 0427 Results 24hrs Laboratory Tests Test 11/08/18 12:20 11/08/18 17:53 11/09/18 00:32 11/09/18 04:27 Bedside Glucose 130 142 102 Blood Urea 15 Nitrogen Creatinine 0.61 Vancomycin Level 17.3 Trough Test 11/09/18 05:34 11/09/18 06:02 11/09/18 10:02 Bedside Glucose 139 150 Lab Scanned BLOOD TRANSFUSIO Report N Subjective 24 Hr Interval Summary Free Text/Dictation He is slightly more awake today able to say hello but not anything else Exam/Review of Systems Exam Vitals Vital Signs Date Temp Pulse Resp B/P (MAP) Pulse Ox O2 O2 Flow FiO2 Time Delivery Rate 11/09/18 98.5 96 18 129/62 100 07:57 (84) 11/09/18 2.0 07:44 11/09/18 Nasal 07:44 Cannula Intake and Output 11/08/18 11/08/18 11/09/18 1515:00 23:00 07:00 IntakeIntake Total 50 ml 1500 ml OutputOutput Total 1800 ml 900 ml BalanceBalance -1750 ml 600 ml Respiratory: clear to auscultation, normal air movement Cardiovascular: nl pulses Gastrointestinal: soft, nl liver, spleen, non-tender Results Results 24hrs Laboratory Tests Test 11/08/18 12:20 11/08/18 17:53 11/09/18 00:32 11/09/18 04:27 Bedside Glucose 130 142 102 Blood Urea 15 Nitrogen Creatinine 0.61 Vancomycin Level 17.3 Trough Test 11/09/18 05:34 11/09/18 06:02 11/09/18 10:02 Bedside Glucose 139 150 Lab Scanned BLOOD TRANSFUSIO Report N Medications Medication Current Medications IV Flush (NS 3 ml) 3 ml PER PROTOCOL IV ; Start 10/30/18 at 12:30 Ondansetron HCl (Zofran Inj) 4 mg Q6H PRN IV NAUSEA/VOMITING; Start 10/30/18 at 12:30 Acetaminophen (Tylenol Tab) 650 mg Q6H PRN GTB .PAIN 1-3 OR TEMP Last administered on 11/08/18at 09:18; Admin Dose 650 MG; Start 10/30/18 at 12:30 Levalbuterol (Xopenex Neb) 0.63 mg Q6H RESP THERAPY HHN Last administered on 11/09/18at 07:44; Admin Dose 0.63 MG; Start 10/30/18 at 14:00 Miscellaneous Information 1 ea NOTE XX ; Start 10/30/18 at 15:00 Glucose (Glutose) 15 gm Q15M PRN PO DECREASED GLUCOSE; Start 10/30/18 at 15:00 Glucose (Glutose) 22.5 gm Q15M PRN PO DECREASED GLUCOSE; Start 10/30/18 at 15:00 Dextrose (D50w Syringe) 25 ml Q15M PRN IV DECREASED GLUCOSE; Start 10/30/18 at 15:00 Dextrose (D50w Syringe) 50 ml Q15M PRN IV DECREASED GLUCOSE; Start 10/30/18 at 15:00 Glucagon (Glucagen) 1 mg Q15M PRN IM DECREASED GLUCOSE; Start 10/30/18 at 15:00 Glucose (Glutose) 15 gm Q15M PRN BUCCAL DECREASED GLUCOSE; Start 10/30/18 at 15:00 Miscellaneous Information (Pending Santyl Order For Wound Care) This patient pritchard... PRN PRN XX WOUND CARE; Start 10/31/18 at 01:00 Insulin Aspart (Novolog Insulin Pen) NOVOLOG *MILD* ALGORI... Q6 SC Last administered on 11/08/18 17:57; Admin Dose 1 UNIT; Start 10/31/18 at 06:00 Cefepime HCl 50 ml @ 100 mls/hr Q12 IVPB Last administered on 11/09/18 10:05; Admin Dose 100 MLS/HR; Start 11/02/18 at 13:30 Hydralazine HCl (Apresoline) 10 mg Q6H PRN IV SBP>160; Start 11/03/18 at 08:30 Amlodipine Besylate (Norvasc) 10 mg DAILY GTB Last administered on 11/09/18 10:06; Admin Dose 10 MG; Start 11/03/18 at 09:00 Insulin Glargine (Lantus) 11 units DAILY@0800 SC Last administered on 11/09/18 10:04; Admin Dose 11 UNITS; Start 11/04/18 at 12:00 Collagenase (Santyl) 1 applic DAILY TOP Last administered on 11/09/18 10:06; Admin Dose 1 APPLIC; Start 11/05/18 at 09:00 Sodium Hypochlorite (Dakins Diluted (40)) 1 applic DAILY TP Last administered on 11/09/18 10:07; Admin Dose 1 APPLIC; Start 11/05/18 at 09:00 Enoxaparin Sodium (Lovenox) 40 mg DAILY SC Last administered on 11/09/18 10:05; Admin Dose 40 MG; Start 11/06/18 at 09:00 Lansoprazole (Prevacid) 15 mg DAILY@06 GTB Last administered on 11/09/18 05:40; Admin Dose 15 MG; Start 11/06/18 at 06:00 Vancomycin HCl (Vanco Iv Per Pharmacy) VANCOMYCIN PER PHARMACY PER PROTOCOL XX ; Start 11/06/18 at 14:30 Vancomycin/Sodium Chloride 250 ml @ 125 mls/hr Q12H IVPB Last administered on 11/09/18 06:24; Admin Dose 125 MLS/HR; Start 11/07/18 at 05:00 ZEENAT MCCARTHY MD Nov 09, 2018 10:14
--- NOTE | 2018-11-09 12:55 | CONS ---
Assessment/Plan Assessment/Plan Hospital Course (Demo Recall) ID PROGRESS NOTE CURRENT ABX=Day # => Vanco IV + Cefepime 11/07/18 0506 11/09/18426 24H INTERVAL SUMMARY * 78 yo M w/dementia --- looks comfortable, lethargic, vss, nad, no fevers * No new issues overnight * Microbiology: Blood culture growing Morganella morganii and MRSA, urine culture grew VRE and AcinetobacterIndwelling: PEG, Wynn PHYSICAL EXAMINATION: GENERAL:VSS, NAD HEENT: Unremarkable NECK: Supple, trachea midline. CHEST: Rise symmetrical, without dyspnea on observation HEART: Pulse RRR ABDOMEN: Soft, ND EXTREMITIES: Warm, moves all extremities ID ASSESSMENT 78 yo M admit with: 1. Severe sepsis with bacteremia likely secondary to #2,3 2. Polymicrobial UTI 3. Multiple decubitus 4. Acute on chronic encephalopathy 5. Dysphagia 6. Prostate cancer INVASIVES: ABX ALLERGY: KNDA CURRENT ABX: => > Vanco IV + Cefepime ID RECOMMENDATIONS 1. CONTINUE CURRENT ABX => NOVEMBER DC on IV vancomycin and cefepime to complete 2 weeks for bacteremia, last day of antibiotics November 2. . Consultation Date/Type/Reason Admit Date/Time Oct 30, 2018 at 12:17 Initial Consult Date Date/Time of Note DATE: 11/09/18 TIME: 12:54 Exam/Review of Systems Exam Vitals Vital Signs Date Temp Pulse Resp B/P (MAP) Pulse Ox O2 O2 Flow FiO2 Time Delivery Rate 11/09/18 98.5 96 18 129/62 100 07:57 (84) 11/09/18 2.0 07:44 11/09/18 Nasal 07:44 Cannula Intake and Output 11/08/18 11/08/18 11/09/18 1515:00 23:00 07:00 IntakeIntake Total 50 ml 1500 ml OutputOutput Total 1800 ml 900 ml BalanceBalance -1750 ml 600 ml Results Result Diagram: 11/07/18 0506 11/09/18426 Results 24hrs Laboratory Tests Test 11/08/18 17:53 11/09/18 00:32 11/09/18 04:27 11/09/18 05:34 Bedside Glucose 142 102 139 Blood Urea 15 Nitrogen Creatinine 0.61 Vancomycin Level 17.3 Trough Test 11/09/18 06:02 11/09/18 10:02 Lab Scanned BLOOD TRANSFUSIO Report N Bedside Glucose 150 Medications Medication Current Medications IV Flush (NS 3 ml) 3 ml PER PROTOCOL IV ; Start 10/30/18 at 12:30 Ondansetron HCl (Zofran Inj) 4 mg Q6H PRN IV NAUSEA/VOMITING; Start 10/30/18 at 12:30 Acetaminophen (Tylenol Tab) 650 mg Q6H PRN GTB .PAIN 1-3 OR TEMP Last administered on 11/08/18at 09:18; Admin Dose 650 MG; Start 10/30/18 at 12:30 Levalbuterol (Xopenex Neb) 0.63 mg Q6H RESP THERAPY HHN Last administered on 11/09/18at 07:44; Admin Dose 0.63 MG; Start 10/30/18 at 14:00 Miscellaneous Information 1 ea NOTE XX ; Start 10/30/18 at 15:00 Glucose (Glutose) 15 gm Q15M PRN PO DECREASED GLUCOSE; Start 10/30/18 at 15:00 Glucose (Glutose) 22.5 gm Q15M PRN PO DECREASED GLUCOSE; Start 10/30/18 at 15:00 Dextrose (D50w Syringe) 25 ml Q15M PRN IV DECREASED GLUCOSE; Start 10/30/18 at 15:00 Dextrose (D50w Syringe) 50 ml Q15M PRN IV DECREASED GLUCOSE; Start 10/30/18 at 15:00 Glucagon (Glucagen) 1 mg Q15M PRN IM DECREASED GLUCOSE; Start 10/30/18 at 15:00 Glucose (Glutose) 15 gm Q15M PRN BUCCAL DECREASED GLUCOSE; Start 10/30/18 at 15:00 Miscellaneous Information (Pending [facility] Order For Wound Care) This patient h a... PRN PRN XX WOUND CARE; Start 10/31/18 at 01:00 Insulin Aspart (Novolog Insulin Pen) NOVOLOG *MILD* ALGORI... Q6 SC Last administered on 11/08/18at 17:57; Admin Dose 1 UNIT; Start 10/31/18 at 06:00 Cefepime HCl 50 ml @ 100 mls/hr Q12 IVPB Last administered on 11/09/18at 10:05; Admin Dose 100 MLS/HR; Start 11/02/18 at 13:30; Stop 11/13/18 at 21:00 Hydralazine HCl (Apresoline) 10 mg Q6H PRN IV SBP>160; Start 11/03/18 at 08:30 Amlodipine Besylate (Norvasc) 10 mg DAILY GTB Last administered on 11/09/18 10:06; Admin Dose 10 MG; Start 11/03/18 at 09:00 Insulin Glargine (Lantus) 11 units DAILY@0800 SC Last administered on 11/09/18 10:04; Admin Dose 11 UNITS; Start 11/04/18 at 12:00 Collagenase (Santyl) 1 applic DAILY TOP Last administered on 11/09/18 10:06; Admin Dose 1 APPLIC; Start 11/05/18 at 09:00 Sodium Hypochlorite (Dakins Diluted ()) 1 applic DAILY TP Last administered on 11/09/18 10:07; Admin Dose 1 APPLIC; Start 11/05/18 at 09:00 Enoxaparin Sodium (Lovenox) 40 mg DAILY SC Last administered on 11/09/18at 10:05; Admin Dose 40 MG; Start 11/06/18 at 09:00 Lansoprazole (Prevacid) 15 mg DAILY@06 GTB Last administered on 11/09/18at 05:40; Admin Dose 15 MG; Start 11/06/18 at 06:00 Vancomycin HCl (Vanco Iv Per Pharmacy) VANCOMYCIN PER PHARMACY PER PROTOCOL XX ; Start 11/06/18 at 14:30; Stop 11/13/18 at 21:00 Vancomycin HCl 100 ml @ 100 mls/hr Q12H IVPB ; Start 11/09/18 at 17:00; Stop 11/13/20 at 16:59 TJ [employer] Nov 09, 2018 12:55
[2018-11-09 15:01] VITALS: BP 147/65; PULSE 96; RESP 20
[2018-11-09] MEDS: VANCOMYCIN 500 MG (PMX) 100 ML IVPB SCH (18:24)
[2018-11-09 19:51] VITALS: BP 130/60; PULSE 94; RESP 18
[2018-11-10] MEDS: LEVALBUTEROL (NEB) 0.63 MG/3 ML AMP HHN SCH ×2 (01:10→08:09)
[2018-11-10 02:00] VITALS: BP 146/73; PULSE 91; RESP 18
[2018-11-10] MEDS: LANSOPRAZOLE 15 MG CAP GTB SCH (05:16)
[2018-11-10] MEDS: VANCOMYCIN 500 MG (PMX) 100 ML IVPB SCH ×2 (05:16→18:50)
[2018-11-10] MEDS: INSULIN ASPART [NOVOLOG] 3 ML PEN SC SCH ×4 (06:00→17:53)
[2018-11-10 07:43] VITALS: BP 153/94; PULSE 99; RESP 20
[2018-11-10] MEDS: CEFEPIME 1GM/50 ML (PMX) 50 ML IVPB SCH ×2 (08:43→20:29)
[2018-11-10] MEDS: AMLODIPINE 10 MG TAB GTB SCH (08:44)
[2018-11-10] MEDS: COLLAGENASE 5 GM (UD JAR) TOP SCH (08:44)
[2018-11-10] MEDS: DAKINS 0.0125%(1/40) 473 ML SOLUTION TP SCH (08:44)
[2018-11-10] MEDS: ENOXAPARIN 40 MG/0.4 ML SYG SC SCH (08:47)
[2018-11-10] MEDS: INSULIN GLARGINE [LANTus] (100 UNITS/ML) SYG SC SCH (08:48)
[2018-11-10] MEDS ORDERED: LEVALBUTEROL (NEB) 0.63 MG/3 ML AMP HHN PRN (10:30)
--- NOTE | 2018-11-10 10:33 | PN ---
Date/Time of Note Date/Time of Note DATE: 11/10/18 TIME: 10:24 Assessment/Plan VTE Prophylaxis Risk score (from Nsg)>0 risk: 8 SCD applied (from Nsg): Yes Pharmacological prophylaxis: LMWH Lines/Catheters IV Catheter Type (from Nrsg): Mid Line Urinary Cath still in place: Yes Reason Cath still needed: other (indicate) Assessment/Plan Hospital Course SUBJECTIVE: No acute overnight episodes. OBJECTIVE: Vital signs-see below PHYSICAL EXAM: Constitutional: Chronically ill looking, elderly male, not in acute distress but HEENT: Head atraumatic and normocephalic. Eyes: Extraocular muscles intact. Anicteric sclerae. Pupils equal bilaterally, reactive to light. NECK: Supple without lymph node. CHEST: Clear and good breath sounds equally. No wheezing. No rhonchi. HEART: S1, S2. Regular rate and rhythm. ABDOMEN: With G-tube. Soft with no rebound tenderness. Bowel sounds were present. EXTREMITIES: CONTRACTED extremities. No cyanosis, clubbing or edema. NEUROLOGIC: Alert and oriented x2, mildly confused. No focal deficit. No sensory deficit. PSYCHOSOCIAL: In a good mood. No signs of depression. INTEGUMENTARY: Left foot ulcer/dry gangrene. ASSESSMENT AND PLAN:78 yo male with dementia presented with sepsis, found to have uti, hypernatremia, ROBBIE.. Hypernatremia: - Appears to have DI -Resolved - DDAVP, FW per nephrology VRE/acinectobacter UTI - Abx per ID S/p sepsis w/MRSA and morganella bactermias: source:UTI -repeat cs negative--needs total 2 weeks IV per ID -TTE without evidence of vegetation DMII: - Basal/bolus insulin Left lower extremity diabetic ulcer -Podiatry/Vascular followong -Arterial study noted, significant stenosis noted on superficial femoral artery. Appreciate vascular recommendation, not a surgical / revascularization candidate. -Possible plan for elective Knee release/tenotomy after DC -Continue wound care. Anemia of chronic inflammation -stable. Essential hypertension -Stable. Continue antihypertensives s/p Hypercapnic respiratory failure: - stable Dysphagia, G-tube feeding -On appropriate tube feedings Prophylaxis: Lovenox/Prevacid Disposition: Due to isolation status, patient is a hospital [facility] a [facility]. He needs to complete antibiotic course until November 13. After that, isolation can be discontinued and hopefully he can be discharged back to his nursing facility. Patient was seen in collaboration with Dr. Fay Result Diagram: 11/07/18 0506 11/09/18 0427 Results 24hrs Laboratory Tests Test 11/09/18 12:56 11/09/18 17:24 11/10/18 00:01 11/10/18 06:03 Bedside Glucose 132 90 92 115 Test 11/10/18 08:41 Bedside Glucose 137 Exam/Review of Systems Exam Vitals Vital Signs Date Temp Pulse Resp B/P (MAP) Pulse Ox O2 O2 Flow FiO2 Time Delivery Rate 11/10/18 2.0 08:10 11/10/18 92 20 96 Nasal 08:10 Cannula 11/10/18 98.4 153/94 07:43 (113) Intake and Output 11/09/18 11/09/18 11/10/18 1515:00 23:00 07:00 IntakeIntake Total 300 ml 1500 ml 1190 ml OutputOutput Total 1100 ml 1200 ml BalanceBalance -800 ml 300 ml 1190 ml Results Results 24hrs Laboratory Tests Test 11/09/18 12:56 11/09/18 17:24 11/10/18 00:01 11/10/18 06:03 Bedside Glucose 132 90 92 115 Test 11/10/18 08:41 Bedside Glucose 137 Medications Medication Current Medications IV Flush (NS 3 ml) 3 ml PER PROTOCOL IV ; Start 10/30/18 at 12:30 Ondansetron HCl (Zofran Inj) 4 mg Q6H PRN IV NAUSEA/VOMITING; Start 10/30/18 at 12:30 Acetaminophen (Tylenol Tab) 650 mg Q6H PRN GTB .PAIN 1-3 OR TEMP Last admini stered on 11/08/18at 09:18; Admin Dose 650 MG; Start 10/30/18 at 12:30 Levalbuterol (Xopenex Neb) 0.63 mg Q6H RESP THERAPY HHN Last administered on 11/10/18at 08:09; Admin Dose 0.63 MG; Start 10/30/18 at 14:00 Miscellaneous Information 1 ea NOTE XX ; Start 10/30/18 at 15:00 Glucose (Glutose) 15 gm Q15M PRN PO DECREASED GLUCOSE; Start 10/30/18 at 15:00 Glucose (Glutose) 22.5 gm Q15M PRN PO DECREASED GLUCOSE; Start 10/30/18 at 15:00 Dextrose (D50w Syringe) 25 ml Q15M PRN IV DECREASED GLUCOSE; Start 10/30/18 at 15:00 Dextrose (D50w Syringe) 50 ml Q15M PRN IV DECREASED GLUCOSE; Start 10/30/18 at 15:00 Glucagon (Glucagen) 1 mg Q15M PRN IM DECREASED GLUCOSE; Start 10/30/18 at 15:00 Glucose (Glutose) 15 gm Q15M PRN BUCCAL DECREASED GLUCOSE; Start 10/30/18 at 15:00 Miscellaneous Information (Pending Santyl Order For Wound Care) This patient pritchard... PRN PRN XX WOUND CARE; Start 10/31/18 at 01:00 Insulin Aspart (Novolog Insulin Pen) NOVOLOG *MILD* ALGORI... Q6 SC Last administered on 11/08/18 17:57; Admin Dose 1 UNIT; Start 10/31/18 at 06:00 Cefepime HCl 50 ml @ 100 mls/hr Q12 IVPB Last administered on 11/10/18 08:43; Admin Dose 100 MLS/HR; Start 11/02/18 at 13:30; Stop 11/13/18 at 21:00 Hydralazine HCl (Apresoline) 10 mg Q6H PRN IV SBP>160; Start 11/03/18 at 08:30 Amlodipine Besylate (Norvasc) 10 mg DAILY GTB Last administered on 11/10/18 08:44; Admin Dose 10 MG; Start 11/03/18 at 09:00 Insulin Glargine (Lantus) 11 units DAILY@0800 SC Last administered on 11/10/18 08:48; Admin Dose 11 UNITS; Start 11/04/18 at 12:00 Collagenase (Santyl) 1 applic DAILY TOP Last administered on 11/10/18 08:44; Admin Dose 1 APPLIC; Start 11/05/18 at 09:00 Sodium Hypochlorite (Dakins Diluted (40)) 1 applic DAILY TP Last administered on 11/10/18 08:44; Admin Dose 1 APPLIC; Start 11/05/18 at 09:00 Enoxaparin Sodium (Lovenox) 40 mg DAILY SC Last administered on 4/29/19at 08:47; Admin Dose 40 MG; Start 11/06/18 at 09:00 Lansoprazole (Prevacid) 15 mg DAILY@06 GTB Last administered on 11/10/18at 05:16; Admin Dose 15 MG; Start 11/06/18 at 06:00 Vancomycin HCl (Vanco Iv Per Pharmacy) VANCOMYCIN PER PHARMACY PER PROTOCOL XX ; Start 11/06/18 at 14:30; Stop 11/13/18 at 21:00 Vancomycin HCl 100 ml @ 100 mls/hr Q12H IVPB Last administered on 11/10/18at 05:16; Admin Dose 100 MLS/HR; Start 11/09/18 at 17:00; Stop 11/13/20 at 16:59 NARCISO AVILEZ NP Nov 10, 2018 10:33
[2018-11-10 14:16] VITALS: BP 140/73; PULSE 100; RESP 20
--- NOTE | 2018-11-10 15:05 | CONS ---
Assessment/Plan Assessment/Plan Hospital Course (Demo Recall) Looks comfortable, no fevers Microbiology: Blood culture growing Morganella morganii and MRSA, urine culture grew VRE and AcinetobacterIndwelling: PEG, Wynn Antimicrobials: Vancomycin, cefepime Physical examination: This is a chronically ill wasted elderly -Greek man who is awake in no distress. Head atraumatic normocephalic neck is supple chest rise symmetrical breath sounds diminished bases. Heart: S1-S2. Abdomen soft bowel sounds present. Extremities with bilateral feet chronic wounds Assessment: 1. Severe sepsis with bacteremia likely secondary to #2,3 2. Polymicrobial UTI 3. Multiple decubitus 4. Acute on chronic encephalopathy 5. Dysphagia 6. Prostate cancer Plan: Remains stable, pending dc arrangements on current abx==> last day November 2. Consultation Date/Type/Reason Admit Date/Time Oct 30, 2018 at 12:17 Initial Consult Date Type of Consult id Date/Time of Note DATE: 11/10/18 TIME: 15:04 Exam/Review of Systems Exam Vitals Vital Signs Date Temp Pulse Resp B/P (MAP) Pulse Ox O2 O2 Flow FiO2 Time Delivery Rate 11/10/18 97.0 100 20 140/73 100 14:16 (95) 11/10/18 2.0 08:10 11/10/18 Nasal 08:10 Cannula Intake and Output 11/09/18 11/09/18 11/10/18 1515:00 23:00 07:00 IntakeIntake Total 300 ml 1500 ml 1190 ml OutputOutput Total 1100 ml 1200 ml BalanceBalance -800 ml 300 ml 1190 ml Results Result Diagram: 11/07/18 0506 11/09/18 0427 Results 24hrs Laboratory Tests Test 11/09/18 17:24 11/10/18 00:01 11/10/18 06:03 11/10/18 08:41 Bedside Glucose 90 92 115 137 Test 11/10/18 13:09 Bedside Glucose 128 Medications Medication Current Medications IV Flush (NS 3 ml) 3 ml PER PROTOCOL IV ; Start 10/30/18 at 12:30 Ondansetron HCl (Zofran Inj) 4 mg Q6H PRN IV NAUSEA/VOMITING; Start 10/30/18 at 12:30 Acetaminophen (Tylenol Tab) 650 mg Q6H PRN GTB .PAIN 1-3 OR TEMP Last administered on 11/08/18 09:18; Admin Dose 650 MG; Start 10/30/18 at 12:30 Miscellaneous Information 1 ea NOTE XX ; Start 10/30/18 at 15:00 Glucose (Glutose) 15 gm Q15M PRN PO DECREASED GLUCOSE; Start 10/30/18 at 15:00 Glucose (Glutose) 22.5 gm Q15M PRN PO DECREASED GLUCOSE; Start 10/30/18 at 15:00 Dextrose (D50w Syringe) 25 ml Q15M PRN IV DECREASED GLUCOSE; Start 10/30/18 at 15:00 Dextrose (D50w Syringe) 50 ml Q15M PRN IV DECREASED GLUCOSE; Start 10/30/18 at 15:00 Glucagon (Glucagen) 1 mg Q15M PRN IM DECREASED GLUCOSE; Start 10/30/18 at 15:00 Glucose (Glutose) 15 gm Q15M PRN BUCCAL DECREASED GLUCOSE; Start 10/30/18 at 15:00 Miscellaneous Information (Pending Santyl Order For Wound Care) This patient pritchard... PRN PRN XX WOUND CARE; Start 10/31/18 at 01:00 Insulin Aspart (Novolog Insulin Pen) NOVOLOG *MILD* ALGORI... Q6 SC Last administered on 11/08/18at 17:57; Admin Dose 1 UNIT; Start 10/31/18 at 06:00 Cefepime HCl 50 ml @ 100 mls/hr Q12 IVPB Last administered on 11/10/18 08:43; Admin Dose 100 MLS/HR; Start 11/02/18 at 13:30; Stop 11/13/18 at 21:00 Hydralazine HCl (Apresoline) 10 mg Q6H PRN IV SBP>160; Start 11/03/18 at 08:30 Amlodipine Besylate (Norvasc) 10 mg DAILY GTB Last administered on 11/10/18 08:44; Admin Dose 10 MG; Start 11/03/18 at 09:00 Insulin Glargine (Lantus) 11 units DAILY@0800 SC Last administered on 11/10/18 08:48; Admin Dose 11 UNITS; Start 11/04/18 at 12:00 Collagenase (Santyl) 1 applic DAILY TOP Last administered on 11/10/18at 08:44; Admin Dose 1 APPLIC; Start 11/05/18 at 09:00 Sodium Hypochlorite (Dakins Diluted ()) 1 applic DAILY TP Last administered on 11/10/18at 08:44; Admin Dose 1 APPLIC; Start 11/05/18 at 09:00 Enoxaparin Sodium (Lovenox) 40 mg DAILY SC Last administered on 11/10/18at 08:47; Admin Dose 40 MG; Start 11/06/18 at 09:00 Lansoprazole (Prevacid) 15 mg DAILY@06 GTB Last administered on 11/10/18at 05:16; Admin Dose 15 MG; Start 11/06/18 at 06:00 Vancomycin HCl (Vanco Iv Per Pharmacy) VANCOMYCIN PER PHARMACY PER PROTOCOL XX ; Start 11/06/18 at 14:30; Stop 11/13/18 at 21:00 Vancomycin HCl 100 ml @ 100 mls/hr Q12H IVPB Last administered on 11/10/18at 05:16; Admin Dose 100 MLS/HR; Start 11/09/18 at 17:00; Stop 11/13/20 at 16:59 Levalbuterol (Xopenex Neb) 0.63 mg Q4H RESP THERAPY PRN HHN SOB/WHEEZING; Start 11/10/18 at 10:30 JAME DAN NP Nov 10, 2018 15:04
[2018-11-10 19:41] VITALS: BP 130/66; PULSE 97; RESP 18
--- NOTE | 2018-11-10 19:55 | PN ---
DATE: 11/10/2018 SUBJECTIVE: The patient is being followed for diabetic ulceration, has severe contractures and poor prognosis given inability to offload, currently using pillows and soft boots, currently being schedul ed for soft tissue releases with vascular surgery. The patient is sleeping. OBJECTIVE: VITAL SIGNS: Temperature 97, pulse is 100, respiratory rate 20, blood pressure is 140/73, pulse ox i s 100%. EXTREMITIES: Warm. The patient is using Prevalon boots. Dressing is clean, dry, intact. Mycotic n ails. Ulceration of left lateral ankle 3.5 x 3.5 x 0.3 cm and left lateral foot with dry gangrene 5 x 2 cm unstageable. Contracture of the knees approximately 90 to 100 degrees bilaterally. LABORATORY DATA: WBC 9.8, hemoglobin 9.7, hematocrit 30.6, platelets 269. DIAGNOSTIC DATA: Knee x-ray: With mild degenerative changes, left knee, calcified arteries consiste nt with atherosclerotic disease, left ankle with no evidence of osteomyelitis. Foot x-ray: With deg enerative changes, disuse osteoporosis. Arterial ultrasound: With evidence of significant stenosis of the left proximal mid superficial femoral artery with change from biphasic to monophasic waveforms , new evidence of significant stenosis in the bilateral common femoral artery and right superficial f emoral artery. ASSESSMENT: 1. Left foot gangrene, dry. 2. Peripheral arterial disease, not candidate for revascularization. 3. Severe bilateral contractures. 4. Diabetes with peripheral neuropathy. 5. Diabetic foot ulceration. 6. Dementia. PLAN: Continue topical antiseptic precautions, possible soft tissue releases with vascular surgery. Prognosis is guarded. Currently high risk for major limb amputation. Further intervention pending OR availability. Dictated By: KATIE MEJIAS DPM RB/SAMANTHA Conf#: [id number] DID#: [id number] CC: FABIOLA TORRES MD; HIRAM EDEN MD; PATRICIA MUÑOZ MD;*End*
[2018-11-11 01:53] VITALS: BP 142/67; PULSE 89; RESP 18
[2018-11-11] MEDS: LANSOPRAZOLE 15 MG CAP GTB SCH (05:48)
[2018-11-11] MEDS: VANCOMYCIN 500 MG (PMX) 100 ML IVPB SCH ×2 (05:48→17:35)
[2018-11-11] MEDS: INSULIN ASPART [NOVOLOG] 3 ML PEN SC SCH ×4 (05:50→17:34)
[2018-11-11 07:42] VITALS: BP 131/67; PULSE 95; RESP 20
[2018-11-11] MEDS: ENOXAPARIN 40 MG/0.4 ML SYG SC SCH (09:35)
[2018-11-11] MEDS: INSULIN GLARGINE [LANTus] (100 UNITS/ML) SYG SC SCH (09:35)
[2018-11-11] MEDS: CEFEPIME 1GM/50 ML (PMX) 50 ML IVPB SCH ×2 (09:35→21:45)
[2018-11-11] MEDS: AMLODIPINE 10 MG TAB GTB SCH (09:36)
[2018-11-11] MEDS: DAKINS 0.0125%(1/40) 473 ML SOLUTION TP SCH (09:36)
[2018-11-11] MEDS: COLLAGENASE 5 GM (UD JAR) TOP SCH (09:36)
[2018-11-11] MEDS ORDERED: POTASSIUM CHLORIDE (SR) 20 MEQ TAB PO STA (10:54)
--- NOTE | 2018-11-11 10:58 | PN ---
Date/Time of Note Date/Time of Note DATE: 11/11/18 TIME: 10:54 Assessment/Plan VTE Prophylaxis Risk score (from Nsg)>0 risk: 7 SCD applied (from Nsg): Yes Pharmacological prophylaxis: LMWH Lines/Catheters IV Catheter Type (from Nrsg): Mid Line Urinary Cath still in place: Yes Reason Cath still needed: other (indicate) Assessment/Plan Hospital Course SUBJECTIVE: No acute overnight episodes. OBJECTIVE: Vital signs-see below PHYSICAL EXAM: Constitutional: Chronically ill looking, elderly male, not in acute distress but HEENT: Head atraumatic and normocephalic. Eyes: Extraocular muscles intact. Anicteric sclerae. Pupils equal bilaterally, reactive to light. NECK: Supple without lymph node. CHEST: Clear and good breath sounds equally. No wheezing. No rhonchi. HEART: S1, S2. Regular rate and rhythm. ABDOMEN: With G-tube. Soft with no rebound tenderness. Bowel sounds were present. EXTREMITIES: CONTRACTED extremities. No cyanosis, clubbing or edema. NEUROLOGIC: Alert and oriented x2, mildly confused. No focal deficit. No sensory deficit. PSYCHOSOCIAL: In a good mood. No signs of depression. INTEGUMENTARY: Left foot ulcer/dry gangrene. ASSESSMENT AND PLAN:78 yo male with dementia presented with sepsis, found to have uti, hypernatremia, ROBBIE.. Hypernatremia: - Appears to have DI -Resolved - DDAVP, FW per nephrology VRE/acinectobacter UTI - Abx per ID until november 13 - repeat cs final pending.. S/p sepsis w/MRSA and morganella bactermias: source:UTI -repeat cs negative--needs total 2 weeks IV per ID (november 13) -TTE without evidence of vegetation DMII: - Basal/bolus insulin Left lower extremity diabetic ulcer -Podiatry/Vascular followong -Arterial study noted, significant stenosis noted on superficial femoral artery. Appreciate vascular recommendation, not a surgical / revascularization candidate. -Possible plan for elective Knee release/tenotomy after DC -Continue wound care. Anemia of chronic inflammation -stable. Essential hypertension -Stable. Continue antihypertensives s/p Hypercapnic respiratory failure: - stable Dysphagia, G-tube feeding -On appropriate tube feedings Prophylaxis: Lovenox/Prevacid Disposition: Due to isolation status, patient is a hospital placed in a [facility]. He needs to complete antibiotic course until November 13. After that, isolation can be discontinued and hopefully he can be discharged back to his nursing facility. Patient was seen in collaboration with Dr. Fay Result Diagram: 11/11/18 0404 11/11/18 0404 Results 24hrs Laboratory Tests Test 11/10/18 13:09 11/10/18 17:52 11/11/18 00:21 11/11/18 04:04 Bedside Glucose 128 127 120 White Blood Count 6.9 # Red Blood Count 3.05 L Hemoglobin 8.2 L Hematocrit 26.5 L Mean Corpuscular 86.9 Volume Mean Corpuscular 26.9 L Hemoglobin Mean Corpuscular 30.9 L Hemoglobin Concent Red Cell 15.9 H Distribution Width Platelet Count 230 Mean Platelet 9.9 Volume Immature 1.000 H Granulocytes % Neutrophils % 67.3 Lymphocytes % 16.8 Monocytes % 12.7 H Eosinophils % 1.9 Basophils % 0.3 Nucleated Red 0.0 Blood Cells % Immature 0.070 H Granulocytes # Neutrophils # 4.7 Lymphocytes # 1.2 Monocytes # 0.9 Eosinophils # 0.1 Basophils # 0.0 Nucleated Red 0.0 Blood Cells # Sodium Level 143 Potassium Level 3.4 L Chloride Level 105 Carbon Dioxide 36 H Level Anion Gap 2 L Blood Urea 15 Nitrogen Creatinine 0.64 Est Glomerular Filtrat Rate mL/min Glucose Level 116 Calcium Level 9.7 Magnesium Level 2.0 Vancomycin Level 16.3 Trough Test 11/11/18 05:28 11/11/18 05:49 11/11/18 09:32 Lab Scanned Report REFERENCE LAB Bedside Glucose 129 150 Exam/Review of Systems Exam Vitals Vital Signs Date Temp Pulse Resp B/P (MAP) Pulse Ox O2 O2 Flow FiO2 Time Delivery Rate 11/11/18 98.9 95 20 131/67 98 07:42 (88) 11/11/18 2.0 05:37 11/10/18 Nasal 23:05 Cannula Intake and Output 11/10/18 11/10/18 11/11/18 1515:00 23:00 07:00 IntakeIntake Total 50 ml 50 ml 100 ml OutputOutput Total 1000 ml 1325 ml 950 ml BalanceBalance -950 ml -1275 ml -850 ml Results Results 24hrs Laboratory Tests Test 11/10/18 13:09 11/10/18 17:52 11/11/18 00:21 11/11/18 04:04 Bedside Glucose 128 127 120 White Blood Count 6.9 # Red Blood Count 3.05 L Hemoglobin 8.2 L Hematocrit 26.5 L Mean Corpuscular 86.9 Volume Mean Corpuscular 26.9 L Hemoglobin Mean Corpuscular 30.9 L Hemoglobin Concent Red Cell 15.9 H Distribution Width Platelet Count 230 Mean Platelet 9.9 Volume Immature 1.000 H Granulocytes % Neutrophils % 67.3 Lymphocytes % 16.8 Monocytes % 12.7 H Eosinophils % 1.9 Basophils % 0.3 Nucleated Red 0.0 Blood Cells % Immature 0.070 H Granulocytes # Neutrophils # 4.7 Lymphocytes # 1.2 Monocytes # 0.9 Eosinophils # 0.1 Basophils # 0.0 Nucleated Red 0.0 Blood Cells # Sodium Level 143 Potassium Level 3.4 L Chloride Level 105 Carbon Dioxide 36 H Level Anion Gap 2 L Blood Urea 15 Nitrogen Creatinine 0.64 Est Glomerular Filtrat Rate mL/min Glucose Level 116 Calcium Level 9.7 Magnesium Level 2.0 Vancomycin Level 16.3 Trough Test 11/11/18 05:28 11/11/18 05:49 11/11/18 09:32 Lab Scanned Report REFERENCE LAB Bedside Glucose 129 150 Medications Medication Current Medications IV Flush (NS 3 ml) 3 ml PER PROTOCOL IV ; Start 10/30/18 at 12:30 Ondansetron HCl (Zofran Inj) 4 mg Q6H PRN IV NAUSEA/VOMITING; Start 10/30/18 at 12:30 Acetaminophen (Tylenol Tab) 650 mg Q6H PRN GTB .PAIN 1-3 OR TEMP Last administered on 11/08/18at 09:18; Admin Dose 650 MG; Start 10/30/18 at 12:30 Miscellaneous Information 1 ea NOTE XX ; Start 10/30/18 at 15:00 Glucose (Glutose) 15 gm Q15M PRN PO DECREASED GLUCOSE; Start 10/30/18 at 15:00 Glucose (Glutose) 22.5 gm Q15M PRN PO DECREASED GLUCOSE; Start 10/30/18 at 15:00 Dextrose (D50w Syringe) 25 ml Q15M PRN IV DECREASED GLUCOSE; Start 10/30/18 at 15:00 Dextrose (D50w Syringe) 50 ml Q15M PRN IV DECREASED GLUCOSE; Start 10/30/18 at 15:00 Glucagon (Glucagen) 1 mg Q15M PRN IM DECREASED GLUCOSE; Start 10/30/18 at 15:00 Glucose (Glutose) 15 gm Q15M PRN BUCCAL DECREASED GLUCOSE; Start 10/30/18 at 15:00 Miscellaneous Information (Pending Santyl Order For Wound Care) This patient pritchard... PRN PRN XX WOUND CARE; Start 10/31/18 at 01:00 Insulin Aspart (Novolog Insulin Pen) NOVOLOG *MILD* ALGORI... Q6 SC Last administered on 11/08/18 17:57; Admin Dose 1 UNIT; Start 10/31/18 at 06:00 Cefepime HCl 50 ml @ 100 mls/hr Q12 IVPB Last administered on 11/11/18 09:35; Admin Dose 100 MLS/HR; Start 11/02/18 at 13:30; Stop 11/13/18 at 21:00 Hydralazine HCl (Apresoline) 10 mg Q6H PRN IV SBP>160; Start 11/03/18 at 08:30 Amlodipine Besylate (Norvasc) 10 mg DAILY GTB Last administered on 11/11/18 09:36; Admin Dose 10 MG; Start 11/03/18 at 09:00 Insulin Glargine (Lantus) 11 units DAILY@0800 SC Last administered on 11/11/18 09:35; Admin Dose 11 UNITS; Start 11/04/18 at 12:00 Collagenase (Santyl) 1 applic DAILY TOP Last administered on 11/11/18 09:36; Admin Dose 1 APPLIC; Start 11/05/18 at 09:00 Sodium Hypochlorite (Dakins Diluted (1/40)) 1 applic DAILY TP Last administered on 11/11/18 09:36; Admin Dose 1 APPLIC; Start 11/05/18 at 09:00 Enoxaparin Sodium (Lovenox) 40 mg DAILY SC Last administered on 11/11/18 09:35 ; Admin Dose 40 MG; Start 11/06/18 at 09:00 Lansoprazole (Prevacid) 15 mg DAILY@06 GTB Last administered on 11/11/18 05:48; Admin Dose 15 MG; Start 11/06/18 at 06:00 Vancomycin HCl (Vanco Iv Per Pharmacy) VANCOMYCIN PER PHARMACY PER PROTOCOL XX ; Start 11/06/18 at 14:30; Stop 11/13/18 at 21:00 Vancomycin HCl 100 ml @ 100 mls/hr Q12H IVPB Last administered on 11/11/18at 05:48; Admin Dose 100 MLS/HR; Start 11/09/18 at 17:00; Stop 11/13/20 at 16:59 Levalbuterol (Xopenex Neb) 0.63 mg Q4H RESP THERAPY PRN HHN SOB/WHEEZING; Start 11/10/18 at 10:30 NARCISO AVILEZ NP Nov 11, 2018 10:58
[2018-11-11] MEDS ORDERED: POTASSIUM CHLORIDE 20 MEQ POWDER FOR ORAL SOLN GTB ONE (11:30)
--- NOTE | 2018-11-11 12:22 | CONS ---
Assessment/Plan Assessment/Plan Hospital Course (Demo Recall) All noted, no acute events over night. Uurine cx 11/10 + C alb Microbiology: Blood culture growing Morganella morganii and MRSA, urine culture grew VRE and AcinetobacterIndwelling: PEG, Wynn Antimicrobials: Vancomycin, cefepime Physical examination: This is a chronically ill wasted elderly -[place] man who is awake in no distress. Head atraumatic normocephalic neck is supple chest rise symmetrical breath sounds diminished bases. Heart: S1-S2. Abdomen soft bowel sounds present. Extremities with bilateral feet chronic wounds Assessment: 1. Severe sepsis with bacteremia likely secondary to #2,3 2. Polymicrobial UTI 3. Multiple decubitus 4. Acute on chronic encephalopathy 5. Dysphagia 6. Prostate cancer Plan: Add Diflucan, continue abx==> last day November 2. Consultation Date/Type/Reason Admit Date/Time Oct 30, 2018 at 12:17 Initial Consult Date Type of Consult id Date/Time of Note DATE: 11/11/18 TIME: 12:20 Exam/Review of Systems Exam Vitals Vital Signs Date Temp Pulse Resp B/P (MAP) Pulse Ox O2 O2 Flow FiO2 Time Delivery Rate 11/11/18 2.0 11:33 11/11/18 98.9 95 20 131/67 98 07:42 (88) 11/10/18 Nasal 23:05 Cannula Intake and Output 11/10/18 11/10/18 11/11/18 1515:00 23:00 07:00 IntakeIntake Total 50 ml 50 ml 100 ml OutputOutput Total 1000 ml 1325 ml 950 ml BalanceBalance -950 ml -1275 ml -850 ml Results Result Diagram: 11/11/18 0404 11/11/18 0404 Results 24hrs Laboratory Tests Test 11/10/18 13:09 11/10/18 17:52 11/11/18 00:21 11/11/18 04:04 Bedside Glucose 128 127 120 White Blood Count 6.9 # Red Blood Count 3.05 L Hemoglobin 8.2 L Hematocrit 26.5 L Mean Corpuscular 86.9 Volume Mean Corpuscular 26.9 L Hemoglobin Mean Corpuscular 30.9 L Hemoglobin Concent Red Cell 15.9 H Distribution Width Platelet Count 230 Mean Platelet 9.9 Volume Immature 1.000 H Granulocytes % Neutrophils % 67.3 Lymphocytes % 16.8 Monocytes % 12.7 H Eosinophils % 1.9 Basophils % 0.3 Nucleated Red 0.0 Blood Cells % Immature 0.070 H Granulocytes # Neutrophils # 4.7 Lymphocytes # 1.2 Monocytes # 0.9 Eosinophils # 0.1 Basophils # 0.0 Nucleated Red 0.0 Blood Cells # Sodium Level 143 Potassium Level 3.4 L Chloride Level 105 Carbon Dioxide 36 H Level Anion Gap 2 L Blood Urea 15 Nitrogen Creatinine 0.64 Est Glomerular Filtrat Rate mL/min Glucose Level 116 Calcium Level 9.7 Magnesium Level 2.0 Vancomycin Level 16.3 Trough Test 11/11/18 05:28 11/11/18 05:49 11/11/18 09:32 11/11/18 11:37 Lab Scanned Report REFERENCE LAB Bedside Glucose 129 150 148 Medications Medication Current Medications IV Flush (NS 3 ml) 3 ml PER PROTOCOL IV ; Start 10/30/18 at 12:30 Ondansetron HCl (Zofran Inj) 4 mg Q6H PRN IV NAUSEA/VOMITING; Start 10/30/18 at 12:30 Acetaminophen (Tylenol Tab) 650 mg Q6H PRN GTB .PAIN 1-3 OR TEMP Last administered on 11/08/18at 09:18; Admin Dose 650 MG; Start 10/30/18 at 12:30 Miscellaneous Information 1 ea NOTE XX ; Start 10/30/18 at 15:00 Glucose (Glutose) 15 gm Q15M PRN PO DECREASED GLUCOSE; Start 10/30/18 at 15:00 Glucose (Glutose) 22.5 gm Q15M PRN PO DECREASED GLUCOSE; Start 10/30/18 at 15:00 Dextrose (D50w Syringe) 25 ml Q15M PRN IV DECREASED GLUCOSE; Start 10/30/18 at 15:00 Dextrose (D50w Syringe) 50 ml Q15M PRN IV DECREASED GLUCOSE; Start 10/30/18 at 15:00 Glucagon (Glucagen) 1 mg Q15M PRN IM DECREASED GLUCOSE; Start 10/30/18 at 15:00 Glucose (Glutose) 15 gm Q15M PRN BUCCAL DECREASED GLUCOSE; Start 10/30/18 at 15:00 Miscellaneous Information (Pending [facility] Order For Wound Care) This patient pritchard... PRN PRN XX WOUND CARE; Start 10/31/18 at 01:00 Insulin Aspart (Novolog Insulin Pen) NOVOLOG *MILD* ALGORI... Q6 SC Last administered on 11/11/18 11:42; Admin Dose 1 UNIT; Start 10/31/18 at 06:00 Cefepime HCl 50 ml @ 100 mls/hr Q12 IVPB Last administered on 11/11/18 09:35; Admin Dose 100 MLS/HR; Start 11/02/18 at 13:30; Stop 11/13/18 at 21:00 Hydralazine HCl (Apresoline) 10 mg Q6H PRN IV SBP>160; Start 11/03/18 at 08:30 Amlodipine Besylate (Norvasc) 10 mg DAILY GTB Last administered on 11/11/18 09:36; Admin Dose 10 MG; Start 11/03/18 at 09:00 Insulin Glargine (Lantus) 11 units DAILY@0800 SC Last administered on 11/11/18 09:35; Admin Dose 11 UNITS; Start 11/04/18 at 12:00 Collagenase (Santyl) 1 applic DAILY TOP Last administered on 11/11/18 09:36; Admin Dose 1 APPLIC; Start 11/05/18 at 09:00 Sodium Hypochlorite (Dakins Diluted (40)) 1 applic DAILY TP Last administered on 11/11/18 09:36; Admin Dose 1 APPLIC; Start 11/05/18 at 09:00 Enoxaparin Sodium (Lovenox) 40 mg DAILY SC Last administered on 11/11/18 09:3 5; Admin Dose 40 MG; Start 11/06/18 at 09:00 Lansoprazole (Prevacid) 15 mg DAILY@06 GTB Last administered on 11/11/18 05:48; Admin Dose 15 MG; Start 11/06/18 at 06:00 Vancomycin HCl (Vanco Iv Per Pharmacy) VANCOMYCIN PER PHARMACY PER PROTOCOL XX ; Start 11/06/18 at 14:30; Stop 11/13/18 at 21:00 Vancomycin HCl 100 ml @ 100 mls/hr Q12H IVPB Last administered on 11/11/18 05:48; Admin Dose 100 MLS/HR; Start 11/09/18 at 17:00; Stop 11/13/20 at 16:59 Levalbuterol (Xopenex Neb) 0.63 mg Q4H RESP THERAPY PRN HHN SOB/WHEEZING; Start 11/10/18 at 10:30 JAME DAN NP Nov 11, 2018 12:22
[2018-11-11] MEDS: FLUCONAZOLE 100 MG TAB GTB SCH (13:30)
[2018-11-11 14:30] VITALS: BP 145/70; PULSE 102; RESP 20
[2018-11-11 20:10] VITALS: BP 115/57; PULSE 96; RESP 18
[2018-11-12 02:15] VITALS: BP 133/63; PULSE 91; RESP 18
[2018-11-12] MEDS: LANSOPRAZOLE 15 MG CAP GTB SCH (05:24)
[2018-11-12] MEDS: VANCOMYCIN 500 MG (PMX) 100 ML IVPB SCH ×2 (05:24→17:00)
[2018-11-12] MEDS: INSULIN ASPART [NOVOLOG] 3 ML PEN SC SCH ×3 (06:00→12:00)
[2018-11-12 07:48] VITALS: BP 117/58; PULSE 93; RESP 17
[2018-11-12] MEDS: CEFEPIME 1GM/50 ML (PMX) 50 ML IVPB SCH (08:12)
[2018-11-12] MEDS: ENOXAPARIN 40 MG/0.4 ML SYG SC SCH (08:13)
[2018-11-12] MEDS: AMLODIPINE 10 MG TAB GTB SCH (08:13)
[2018-11-12] MEDS: FLUCONAZOLE 100 MG TAB GTB SCH (08:13)
[2018-11-12] MEDS: DAKINS 0.0125%(1/40) 473 ML SOLUTION TP SCH (08:14)
[2018-11-12] MEDS: COLLAGENASE 5 GM (UD JAR) TOP SCH (08:15)
[2018-11-12] MEDS: INSULIN GLARGINE [LANTus] (100 UNITS/ML) SYG SC SCH (10:26)
--- NOTE | 2018-11-12 10:30 | QN ---
Documentation Comment Patient with repeat culture Kat. No VRE noted. Patient got complete treatment for VRE. Patient also treated appropriately with leg wound. At this time, MRSA and leg wound is colonized per infectious disease [employer]WARE WASHER Nera and he is completely treated for VRE, as such patient does not need to be in isolation other than standard precautions. NARCISO AVILEZ V. SILVERWARE WASHER November 12, 2018 10:30
--- NOTE | 2018-11-12 11:21 | DS ---
Date/Time of Note Date/Time of Note DATE: 11/12/18 TIME: 11:14 Discharge Summary Admission/Discharge Info Admit Date/Time Oct 30, 2018 at 12:17 Discharge Date/Time Discharge Diagnosis Hypernatremia:s/p DDAVP.Resolved VRE/acinectobacter UTI. Treated S/p sepsis w/MRSA and Morganella bacteremias:source:UTI DMII: Left lower extremity diabetic ulcer Anemia of chronic inflammation Essential hypertension ROBBIE: s/p Hypercapneic respiratory failure: Dysphagia, G-tube feeding Patient Condition: Stable Consults ,nephro /Maria Fernanda,Podiatry ,vascular Procedures 11/04/2018. Ultrasound lower extremity arterial. IMPRESSION: Evidence of a significant stenosis between the left proximal and middle lorenzo perficial femoral artery with change from biphasic to monophasic waveforms. No evidence of a significant stenosis in the bilateral common femoral artery and right superficial femoral artery. 11/05/2018. Left foot x-ray. IMPRESSION: 1. No acute fractures dislocations or erosions or plain imaging evidence of osteomyelitis. 2. Degenerative changes as above. 3. Findings suggestive of disuse osteoporosis. 4. Recommend reference to the left ankle Report same day. 11/03/2018. Echocardiogram Conclusions: Lower limits of normal systolic function. Normal left ventricular cavity size. Mild concentric left ventricular hypertrophy. Ejection fraction is visually estimated at 55 %. Tissue Doppler/Mitral Doppler indices are consistent with impaired relaxation (Stage I diastolic dysfunction). Normal right ventricular size. Normal right ventricular systolic function. The left atrium is normal in size. The right atrium is normal in size. No hemodynamically significant aortic stenosis by doppler. Mild aortic valve regurgitation. Mild mitral valve regurgitation. There is trace tricuspid regurgitation. Normal pericardium with no significant pericardial effusion. Electronically Signed By: Seth Carpenter 2018-11-04 13:01:46 PDT Hospital Course 78 yo male with dementia presented with sepsis, found to have uti, hypernatremia, ROBBIE.. Hyponatremia appeared to have the DI and was treated with DDAVP per nephrology. Sodium level improved back to normal. Hospitalization was also noted for worsening left lower extremity diabetic ulcer with MRSA/Morganella bacteremia for which patient was appropriately treated with antimicrobial recommended by infectious disease team. He was also noted for VRE/Acinetobacter UTI which was treated with Zyvox. Patient was appropriately managed for diabetes with basal/bolus insulin. Hospitalization was also notable for acute kidney injury which was resolved. He also had hypercapnic respiratory failure secondary to sepsis and remained stable without need for supplemental oxygen. Patient was continued on appropriate G-tube feeding. In regards to worsening left lower extremity ulceration/gangrene and cellulitis, patient was also noted for SFA stenosis. Patient was also evaluated by vascular team. Patient family wished to proceed with available option which would be a knee release/tenotomy. According to podiatry and vascular, this can be done as outpatient sometimes later in the next week. As such, we have decided to discharge patient back to the alf facility with family approval and to bring him back to amputation prevention clinic next week for elective proced ure. Patient's vital signs, labs stable. Repeat urine culture with NO VRE identified. Urine culture grew only 10-20,000 CFU Kat albicans for which per guideline, does not need to be treated as such we will stop fluconazole on discharge. 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 He completed antibiotic course of almost with 1 day remaining. Patient is stable for discharge to alf facility with outpatient amputation prevention clinic follow-up w/ and for possible knee release/tenotomy at a later time. Approximately 60-minute was spent not coordinating the discharge on this patient. Patient was seen in collaboration with Dr. Silverman. Home Meds Reported Medications Epoetin freddy* (Epogen*) 3,000 Unit/1 Ml Vial, 6000 UNITS SC Q MON,WED,FRI, VIAL 10/30/18 Acetaminophen* (Acetaminophen*) 325 Mg Tablet, 650 MG GTB Q6H PRN for MILD PAIN(1-3)OR ELEVATED TEMP, #30 TAB 10/30/18 Abiraterone Acetate (Zytiga) 500 Mg Tablet, 1000 MG GTB DAILY, TAB 10/30/18 Prednisone* (Prednisone*) 5 Mg Tab, 5 MG GTB DAILY, TAB 10/30/18 Pantoprazole* (Protonix*) 40 Mg Tablet.dr, 40 MG GTB BID, TAB 10/30/18 Furosemide* (Furosemide*) 20 Mg Tablet, 20 MG GTB DAILY PRN for HOLD FOR SBP<110, #60 TAB 10/30/18 Insulin Glargine* (Lantus*) 100 Unit/Ml Soln, 20 UNIT SC QHS, #1 VIAL 10/30/18 Ipratropium-Albuterol (Ipratropium-Albuterol) 0.5-3 Mg/3 Ml Ampul.neb, 3 ML INHALATION TID, #30 VIAL FOR 10 DAYS,END DATE 11/05/18 10/30/18 Glucagon,Human Recombinant (Glucagon Emergency Kit) 1 Mg Kit, 1 MG IJ NEEDED PRN for IF BLOOD GLUCOSE<70, KIT 10/30/18 Follow-up Plan Discharge to alf facility. Patient to follow-up with [facility] amputation prevention clinic next week to schedule surgery for knee release/tenotomy with Dr. Matamoros/ Primary Care Provider Care Physician No Primary Pending Labs Laboratory Tests Test 11/11/18 11:37 11/11/18 17:34 11/12/18 00:54 11/12/18 06:29 Bedside 148 122 109 114 Glucose mg/dL (70-220) mg/dL (70-220) mg/dL (70-220) mg/dL (70-220) Test 11/12/18 10:25 Bedside 133 Glucose mg/dL (70-220) NARCISO AVILEZ NP November 12, 2018 11:21
--- NOTE | 2018-11-12 11:27 | CONS ---
Assessment/Plan Assessment/Plan Assessment/Plan (Daily) Diabetic ulcer left lower extremity DM2 with peripheral neuropathy Dry gangrene PAD Knee contractures Dementia Bed bound Plan: Patient was seen and evaluated at bedside. Provided nursing recommendations for daily dressing changes. Daily irrigation with dakins, santyl to wound sites, betadine 4x4 gauze, and wrap with kerlix. Wound cultures showing MRSA and corynebacterium. Recommend daily offloading with prevelon soft boots and pillows. Discussed case with Dr. Granda and plan for follow up in wound care clinic and future OR surgical plan for a knee release. Patient is planned for discharge today. Consultation Date/Type/Reason Admit Date/Time Oct 30, 2018 at 12:17 Initial Consult Date Date/Time of Note DATE: 11/12/18 TIME: 11:26 24 HR Interval Summary Free Text/Dictation No acute events overnight Exam/Review of Systems Exam Vitals Vital Signs Date Temp Pulse Resp B/P (MAP) Pulse Ox O2 O2 Flow FiO2 Time Delivery Rate 11/12/18 2.0 08:21 11/12/18 98.2 93 17 117/58 97 07:48 (77) 11/11/18 Nasal 22:00 Cannula Intake and Output 11/11/18 11/11/18 11/12/18 1515:00 23:00 07:00 IntakeIntake Total 50 ml 1350 ml 100 ml OutputOutput Total 1425 ml 1000 ml BalanceBalance 50 ml -75 ml -900 ml Exam Unable to palpate pedal pulses Absent protective sensations Left lateral malleolar ulcer 3.5 x 3.5 x 0.3cm with undermining tissue to the periphery. No purulence appreciated to the wound site. No proximal streaking. Unable to probe to bone Left lateral foot with dry gangrene 5 x 2cm with indeterminate depth Mycotic toe nails Knee contractures noted. Non invasive arterial sutdies IMPRESSION: Evidence of a significant stenosis between the left proximal and middle superficial femoral artery with change from biphasic to monophasic waveforms. No evidence of a significant stenosis in the bilateral common femoral artery and right superficial femoral artery. Foot X-ray IMPRESSION: 1. No acute fractures dislocations or erosions or plain imaging evidence of osteomyelitis. 2. Degenerative changes as above. 3. Findings suggestive of disuse osteoporosis. 4. Recommend reference to the left ankle Report same day. Ankle X-ray IMPRESSION: 1. No acute fracture dislocation or plain imaging evidence of osteomyelitis. 2. Soft tissue changes along the lateral left ankle consistent with a wound/ulceration. No foreign body. 3. Disuse osteoporosis. Results Result Diagram: 11/11/184 11/11/18 0404 Results 24hrs Laboratory Tests Test 11/11/18 11:37 11/11/18 17:34 11/12/18 00:54 11/12/18 06:29 Bedside Glucose 148 122 109 114 Test 11/12/18 10:25 Bedside Glucose 133 Medications Medication Current Medications IV Flush (NS 3 ml) 3 ml PER PROTOCOL IV ; Start 10/30/18 at 12:30 Ondansetron HCl (Zofran Inj) 4 mg Q6H PRN IV NAUSEA/VOMITING; Start 10/30/18 at 12:30 Acetaminophen (Tylenol Tab) 650 mg Q6H PRN GTB .PAIN 1-3 OR TEMP Last administered on 11/08/18at 09:18; Admin Dose 650 MG; Start 10/30/18 at 12:30 Miscellaneous Information 1 ea NOTE XX ; Start 10/30/18 at 15:00 Glucose (Glutose) 15 gm Q15M PRN PO DECREASED GLUCOSE; Start 10/30/18 at 15:00 Glucose (Glutose) 22.5 gm Q15M PRN PO DECREASED GLUCOSE; Start 10/30/18 at 15:00 Dextrose (D50w Syringe) 25 ml Q15M PRN IV DECREASED GLUCOSE; Start 10/30/18 at 15:00 Dextrose (D50w Syringe) 50 ml Q15M PRN IV DECREASED GLUCOSE; Start 10/30/18 at 15:00 Glucagon (Glucagen) 1 mg Q15M PRN IM DECREASED GLUCOSE; Start 10/30/18 at 15:00 Glucose (Glutose) 15 gm Q15M PRN BUCCAL DECREASED GLUCOSE; Start 10/30/18 at 15:00 Miscellaneous Information (Pending [facility] Order For Wound Care) This patient pritchard... PRN PRN XX WOUND CARE; Start 10/31/18 at 01:00 Insulin Aspart (Novolog Insulin Pen) NOVOLOG *MILD* ALGORI... Q6 SC Last administered on 11/11/18at 11:42; Admin Dose 1 UNIT; Start 10/31/18 at 06:00 Cefepime HCl 50 ml @ 100 mls/hr Q12 IVPB Last administered on 11/12/18 08:12; Admin Dose 100 MLS/HR; Start 11/02/18 at 13:30; Stop 11/13/18 at 21:00 Hydralazine HCl (Apresoline) 10 mg Q6H PRN IV SBP>160; Start 11/03/18 at 08:30 Amlodipine Besylate (Norvasc) 10 mg DAILY GTB Last administered on 11/12/18 08:13; Admin Dose 10 MG; Start 11/03/18 at 09:00 Insulin Glargine (Lantus) 11 units DAILY@0800 SC Last administered on 11/12/18 10:26; Admin Dose 11 UNITS; Start 11/04/18 at 12:00 Collagenase (Santyl) 1 applic DAILY TOP Last administered on 11/12/18 08:15; Admin Dose 1 APPLIC; Start 11/05/18 at 09:00 Sodium Hypochlorite (Dakins Diluted (40)) 1 applic DAILY TP Last administered on 11/12/18 08:14; Admin Dose 1 APPLIC; Start 11/05/18 at 09:00 Enoxaparin Sodium (Lovenox) 40 mg DAILY SC Last administered on 11/12/18 08:13; Admin Dose 40 MG; Start 11/06/18 at 09:00 Lansoprazole (Prevacid) 15 mg DAILY@06 GTB Last administered on 11/12/18 05:24; Admin Dose 15 MG; Start 11/06/18 at 06:00 Vancomycin HCl (Vanco Iv Per Pharmacy) VANCOMYCIN PER PHARMACY PER PROTOCOL XX ; Start 11/06/18 at 14:30; Stop 11/13/18 at 21:00 Vancomycin HCl 100 ml @ 100 mls/hr Q12H IVPB Last administered on 11/12/18 05:24; Admin Dose 100 MLS/HR; Start 11/09/18 at 17:00; Stop 11/13/20 at 16:59 Levalbuterol (Xopenex Neb) 0.63 mg Q4H RESP THERAPY PRN HHN SOB/WHEEZING; Start 11/10/18 at 10:30 Fluconazole (Diflucan) 100 mg DAILY GTB Last administered on 11/12/18 08:13; Admin Dose 100 MG; Start 11/11/18 at 12:30 REINA CASEY DPM November 12, 2018 11:27
[2018-11-12] MEDS ORDERED: Vancomycin Iv Per Pharmacy XX (11:33)
--- NOTE | 2018-11-12 11:38 | CONS ---
Assessment/Plan Assessment/Plan Hospital Course (Demo Recall) no acute events over night Microbiology: Blood culture growing Morganella morganii and MRSA, urine culture grew VRE and Acinetobacter Indwelling: PEG, Wynn Antimicrobials: Vancomycin, cefepime Physical examination: This is a chronically ill wasted elderly -[place] man who is awake in no distress. Head atraumatic normocephalic neck is supple chest rise symmetrical breath sounds diminished bases. Heart: S1-S2. Abdomen soft bowel sounds present. Extremities with bilateral feet chronic wounds Assessment: 1. Severe sepsis with bacteremia likely secondary to #2,3 2. S/p polymicrobial UTI 3. Multiple decubitus 4. Acute on chronic encephalopathy 5. Dysphagia 6. Prostate cancer Plan: Stable, completing abx==> last dose tomorrow Consultation Date/Type/Reason Admit Date/Time Oct 30, 2018 at 12:17 Initial Consult Date Type of Consult id Date/Time of Note DATE: 11/12/18 TIME: 11:36 Exam/Review of Systems Exam Vitals Vital Signs Date Temp Pulse Resp B/P (MAP) Pulse Ox O2 O2 Flow FiO2 Time Delivery Rate 11/12/18 2.0 08:21 11/12/18 98.2 93 17 117/58 97 07:48 (77) 11/11/18 Nasal 22:00 Cannula Intake and Output 11/11/18 11/11/18 11/12/18 1515:00 23:00 07:00 IntakeIntake Total 50 ml 1350 ml 100 ml OutputOutput Total 1425 ml 1000 ml BalanceBalance 50 ml -75 ml -900 ml Results Result Diagram: 11/11/18 0404 11/11/18 0404 Results 24hrs Laboratory Tests Test 11/11/18 11:37 11/11/18 17:34 11/12/18 00:54 11/12/18 06:29 Bedside Glucose 148 122 109 114 Test 11/12/18 10:25 Bedside Glucose 133 Medications Medication Current Medications IV Flush (NS 3 ml) 3 ml PER PROTOCOL IV ; Start 10/30/18 at 12:30 Ondansetron HCl (Zofran Inj) 4 mg Q6H PRN IV NAUSEA/VOMITING; Start 10/30/18 at 12:30 Acetaminophen (Tylenol Tab) 650 mg Q6H PRN GTB .PAIN 1-3 OR TEMP Last administered on 11/08/18 09:18; Admin Dose 650 MG; Start 10/30/18 at 12:30 Miscellaneous Information 1 ea NOTE XX ; Start 10/30/18 at 15:00 Glucose (Glutose) 15 gm Q15M PRN PO DECREASED GLUCOSE; Start 10/30/18 at 15:00 Glucose (Glutose) 22.5 gm Q15M PRN PO DECREASED GLUCOSE; Start 10/30/18 at 15:00 Dextrose (D50w Syringe) 25 ml Q15M PRN IV DECREASED GLUCOSE; Start 10/30/18 at 15:00 Dextrose (D50w Syringe) 50 ml Q15M PRN IV DECREASED GLUCOSE; Start 10/30/18 at 15:00 Glucagon (Glucagen) 1 mg Q15M PRN IM DECREASED GLUCOSE; Start 10/30/18 at 15:00 Glucose (Glutose) 15 gm Q15M PRN BUCCAL DECREASED GLUCOSE; Start 10/30/18 at 15:00 Miscellaneous Information (Pending Santyl Order For Wound Care) This patient pritchard... PRN PRN XX WOUND CARE; Start 10/31/18 at 01:00 Insulin Aspart (Novolog Insulin Pen) NOVOLOG *MILD* ALGORI... Q6 SC Last administered on 11/11/18 11:42; Admin Dose 1 UNIT; Start 10/31/18 at 06:00 Cefepime HCl 50 ml @ 100 mls/hr Q12 IVPB Last administered on 11/12/18 08:12; Admin Dose 100 MLS/HR; Start 11/02/18 at 13:30; Stop 11/13/18 at 21:00 Hydralazine HCl (Apresoline) 10 mg Q6H PRN IV SBP>160; Start 11/03/18 at 08:30 Amlodipine Besylate (Norvasc) 10 mg DAILY GTB Last administered on 11/12/18 08:13; Admin Dose 10 MG; Start 11/03/18 at 09:00 Insulin Glargine (Lantus) 11 units DAILY@0800 SC Last administered on 11/12/18 10:26; Admin Dose 11 UNITS; Start 11/04/18 at 12:00 Collagenase (Santyl) 1 applic DAILY TOP Last administered on 11/12/18 08:15; Admin Dose 1 APPLIC; Start 11/05/18 at 09:00 Sodium Hypochlorite (Dakins Diluted (40)) 1 applic DAILY TP Last administered on 11/12/18at 08:14; Admin Dose 1 APPLIC; Start 11/05/18 at 09:00 Enoxaparin Sodium (Lovenox) 40 mg DAILY SC Last administered on 11/12/18at 08:13; Admin Dose 40 MG; Start 11/06/18 at 09:00 Lansoprazole (Prevacid) 15 mg DAILY@06 GTB Last administered on 11/12/18at 05:24; Admin Dose 15 MG; Start 11/06/18 at 06:00 Vancomycin HCl (Vanco Iv Per Pharmacy) VANCOMYCIN PER PHARMACY PER PROTOCOL XX ; Start 11/06/18 at 14:30; Stop 11/13/18 at 21:00 Vancomycin HCl 100 ml @ 100 mls/hr Q12H IVPB Last administered on 11/12/18at 05:24; Admin Dose 100 MLS/HR; Start 11/09/18 at 17:00; Stop 11/13/20 at 16:59 Levalbuterol (Xopenex Neb) 0.63 mg Q4H RESP THERAPY PRN HHN SOB/WHEEZING; Start 11/10/18 at 10:30 JAME DAN NP November 12, 2018 11:38
[2018-11-12 14:07] VITALS: BP 134/64; PULSE 94; RESP 18
== END 2018-11-12 17:15 | DRG 871 ==
LOC: E/R 08:42 → 6WM 12:17 → 2NE 11-05 17:20
PROVIDERS: ADMIT Internal Medicine; ATTEND Internal Medicine
PROC: 30233N1 Transfusion of Nonautologous Red Blood Cells into Peripheral Vein, Percutaneous Approach (ICD-10-PCS; principal; 2018-11-02)
DX: A41.50 Gram-negative sepsis, unspecified (principal); L89.524 Pressure ulcer of left ankle, stage 4; J69.0 Pneumonitis due to inhalation of food and vomit; J96.92 Respiratory failure, unspecified with hypercapnia; L89.153 Pressure ulcer of sacral region, stage 3; E87.0 Hyperosmolality and hypernatremia; N17.9 Acute kidney failure, unspecified; N39.0 Urinary tract infection, site not specified; E87.2 Acidosis; E44.0 Moderate protein-calorie malnutrition; E11.52 Type 2 diabetes mellitus with diabetic peripheral angiopathy with gangrene; E87.3 Alkalosis; I70.262 Atherosclerosis of native arteries of extremities with gangrene, left leg; G93.49 Other encephalopathy; C79.51 Secondary malignant neoplasm of bone; L03.116 Cellulitis of left lower limb; R65.20 Severe sepsis without septic shock; C61 Malignant neoplasm of prostate; D63.8 Anemia in other chronic diseases classified elsewhere; E11.621 Type 2 diabetes mellitus with foot ulcer; E11.42 Type 2 diabetes mellitus with diabetic polyneuropathy; E11.22 Type 2 diabetes mellitus with diabetic chronic kidney disease; E78.5 Hyperlipidemia, unspecified; E87.6 Hypokalemia; G30.9 Alzheimer's disease, unspecified; F02.80 Dementia in other diseases classified elsewhere, unspecified severity, without behavioral disturbance, psychotic disturbance, mood disturbance, and anxiety; I12.9 Hypertensive chronic kidney disease with stage 1 through stage 4 chronic kidney disease, or unspecified chronic kidney disease; M24.562 Contracture, left knee; M24.561 Contracture, right knee; M19.90 Unspecified osteoarthritis, unspecified site; N18.9 Chronic kidney disease, unspecified; R13.10 Dysphagia, unspecified; B35.1 Tinea unguium; B95.2 Enterococcus as the cause of diseases classified elsewhere; B96.89 Other specified bacterial agents as the cause of diseases classified elsewhere; Z16.21 Resistance to vancomycin; Z22.322 Carrier or suspected carrier of Methicillin resistant Staphylococcus aureus; Z93.1 Gastrostomy status; Z74.01 Bed confinement status; Z68.22 Body mass index [BMI] 22.0-22.9, adult; Z87.891 Personal history of nicotine dependence; Z79.4 Long term (current) use of insulin; Z79.02 Long term (current) use of antithrombotics/antiplatelets
CPT/HCPCS: 36415; 36430; 36600; 71045; 73562; 73610; 76775; 80048; 80053; 80061; 80202; 81001; 81003; 82043; 82150; 82270; 82565; 82728; 82803; 82962; 83036; 83540; 83605; 83690; 83735; 83880; 83935; 84100; 84132; 84155; 84300; 84484; 84520; 85014; 85018; 85025; 85610; 85730; 86850; 86900; 86901; 86920; 87070; 87081; 87086; 87400; 93005; 93306; 93922; 94640; 94664; 96365; 96366; 96375; J0692; J1650; J1815; J2543; J2920; J2930; J3370; J7030; J7040; J7050; P9016

== ENCOUNTER 2018-12-01 00:13 | Inpatient (IN) | payer MEDICARE, OTHER ==
[2018-12-01] VITALS (20 sets, daily range): BP systolic 95–127; BP diastolic 56–71; PULSE 70–116; RESP 9–34
[~2018-12-01] VITALS: Ht 177.8 cm; Wt 78.0 kg
[~2018-12-01 00:13] MED LIST changes: +ABIR500T GTB; -ABIR500T PO; +ACET325T45 GTB; +AMLO-147 GTB; -CAR120SR PO; -CEFE1FRO IV; -CHOL100062 PO; -EPLE25TA4 PO; -EPO10ESRD SC; +GLUC1KIT IJ; -HEPA50002 SC; -Insulin Glargine SC; -Ipratropium 0.02% (Neb) HHN; +LANS-6 GTB; +LANT3I SC; -LEVA1.2523 HHN; -METO25TA4 PO; -MULTI PO; -MUPI22OI2 TOP; -Nursing Note XX; -Patient Own Medication PO; -SCOP1PAT10 TRANSDERM; -SENN-120 PO; -TERB250T13 PO; -VANC750F2 IV; +Vancomycin Iv Per Pharmacy XX; -[UNRECOGNIZED DRUG - OTHER] XX
[2018-12-01] MEDS ORDERED: SODIUM CHLORIDE 0.9% 1L BAG IV* STA (00:23)
[2018-12-01] MEDS ORDERED: CEFEPIME 2GM/50 ML (PMX) 50 ML IVPB STA (01:11)
[2018-12-01] MEDS ORDERED: VANCOMYCIN 1 GM (PMX) 250 ML IVPB ONE (01:30)
[2018-12-01] MEDS ORDERED: ONDANSETRON 4 MG INJ IV PRN (02:00)
[2018-12-01] MEDS ORDERED: NACL 0.9% 3 ML SYG IV SCH (02:00)
[2018-12-01] MEDS ORDERED: HEPARIN 5,000 UNIT/1 ML VIAL SC SCH (02:00)
[2018-12-01] MEDS ORDERED: ACETAMINOPHEN 325 MG TAB GTB PRN (02:00)
[2018-12-01] MEDS ORDERED: VANCOMYCIN IV PER PHARMACY XX SCH (02:30)
[2018-12-01] MEDS ORDERED: ACETAMINOPHEN 650 MG SUPP PR ONE (03:00)
--- NOTE | 2018-12-01 03:27 | ERD ---
ER Documentation Chief Complaint Chief Complaint bib ra from shelter for fever, tachycardic, HPI This is a 78-year-old male brought in from shelter via ambulance for fever and tachycardia. Patient has dementia at baseline is a trach to vent patient cannot provide any relevant history. History is per EMS when she shelter transfer sheet. And is obviously limited. ROS All systems reviewed and are negative except as per history of present illness. Medications Home Meds Active Scripts [Vancomycin Iv Per Pharmacy] 1 EA EACH No Conflict Check, 0 EA XX .PER PROTOCOL for 1 Day last dose 11/13 Prov:NARCISO AVILEZ V. [employer]ENDER 11/12/18 Lansoprazole (Heartburn Treatment 24 Hour) 15 Mg Capsule.dr, 15 MG GTB DAILY@06 for 30 Days Prov:NARCISO AVILEZ V. [employer] T[employer]ER 11/07/18 Amlodipine Besylate* (Amlodipine Besylate*) 10 Mg Tablet, 10 MG GTB DAILY for 30 Days, TAB Prov:NARCISO AVILEZ V. [employer] T[employer]ER 11/07/18 Reported Medications Acetaminophen* (Acetaminophen*) 325 Mg Tablet, 650 MG GTB Q6H PRN for MILD PAIN(1-3)OR ELEVATED TEMP, #30 TAB 10/30/18 Abiraterone Acetate (Zytiga) 500 Mg Tablet, 1000 MG GTB DAILY, TAB 10/30/18 Insulin Glargine* (Lantus*) 100 Unit/Ml Soln, 20 UNIT SC QHS, #1 VIAL 10/30/18 Glucagon,Human Recombinant (Glucagon Emergency Kit) 1 Mg Kit, 1 MG IJ NEEDED PRN for IF BLOOD GLUCOSE<70, KIT 10/30/18 Allergies Allergies: Coded Allergies: No Known Allergy (Unverified , 10/30/18) PMhx/Soc History of Surgery: Yes (hip replacement, prostate removed) Anesthesia Reaction: No Hx Neurological Disorder: Yes (dementia) Hx Respiratory Disorders: Yes Hx Cardiac Disorders: Yes (hypertension) Hx Psychiatric Problems: No Hx Miscellaneous Medical Probl: No Hx Alcohol Use: No Hx Substance Use: No Hx Tobacco Use: Yes Smoking Status: Never smoker Physical Exam Vitals Vital Signs Date Temp Pulse Resp B/P (MAP) Pulse Ox O2 O2 Flow FiO2 Time Delivery Rate 12/01/18 Nasal 00:25 Cannula 12/01/18 101.4 129 22 101/61 98 00:24 (74) Physical Exam Const: No acute distress Head: Atraumatic Eyes: Normal Conjunctiva ENT: Normal External Ears, Nose and Mouth. Neck: Full range of motion. No meningismus. Resp: Clear to auscultation bilaterally Cardio: Regular rate and rhythm, no murmurs Abd: Soft, non tender, non distended. Normal bowel sounds Skin: No petechiae or rashes Back: No midline or flank tenderness Ext: No cyanosis, or edema Neur: Awake and alert Psych: Normal Mood and Affect Result Diagram: 12/01/184912/01/1849 Results 24 hrs Laboratory Tests Test 12/01/18 00:30 12/01/18 00:50 12/01/18 00:51 Urine Color YELLOW Urine Clarity CLOUDY Urine pH 7.0 Urine Specific [place] 1.015 Urine Ketones NEGATIVE mg/dL Urine Nitrite NEGATIVE mg/dL Urine Bilirubin NEGATIVE mg/dL Urine Urobilinogen NEGATIVE mg/dL Urine Leukocyte Esterase NEGATIVE [place]/ul Urine Microscopic RBC 2 /HPF Urine Microscopic WBC 3 /HPF Urine Squamous Epithelial Cells FEW /HPF Urine Amorphous Crystals FEW /HPF Urine Hemoglobin NEGATIVE mg/dL Urine Glucose NEGATIVE mg/dL Urine Total Protein 2+ mg/dl White Blood Count 15.4 10^3/ul Red Blood Count 3.35 10^6/ul Hemoglobin 9.2 g/dl Hematocrit 30.3 % Mean Corpuscular Volume 90.4 fl Mean Corpuscular Hemoglobin 27.5 pg Mean Corpuscular 30.4 g/dl Hemoglobin Concent Red Cell Distribution Width 15.8 % Platelet Count 291 10^3/UL Mean Platelet Volume 11.4 fl Immature Granulocytes % 0.500 % Neutrophils % 79.4 % Lymphocytes % 13.4 % Monocytes % 5.9 % Eosinophils % 0.5 % Basophils % 0.3 % Nucleated Red Blood Cells % 0.0 /100WBC Immature Granulocytes # 0.080 10^3/ul Neutrophils # 12.2 10^3/ul Lymphocytes # 2.1 10^3/ul Monocytes # 0.9 10^3/ul Eosinophils # 0.1 10^3/ul Basophils # 0.0 10^3/ul Nucleated Red Blood Cells # 0.0 10^3/ul Prothrombin Time 15.3 Sec Prothrombin Time Ratio 1.2 INR International 1.20 Normalized Ratio Activated Partial Thromboplast 37.8 Sec Time Sodium Level 149 mmol/L Potassium Level 4.3 mmol/L Chloride Level 111 mmol/L Carbon Dioxide Level 34 mmol/L Anion Gap 4 Blood Urea Nitrogen 42 mg/dl Creatinine 1.50 mg/dl Est Glomerular Filtrat mL/min Rate mL/min Glucose Level 185 mg/dl Calcium Level 10.1 mg/dl Total Bilirubin 0.3 mg/dl Direct Bilirubin 0.00 mg/dl Indirect Bilirubin 0.3 mg/dl Aspartate Amino 56 IU/L Transf (AST/SGOT) Alanine 22 IU/L Aminotransferase (ALT/SGPT) Alkaline Phosphatase 84 IU/L Troponin I 0.040 ng/ml Total Protein 6.6 g/dl Albumin 3.0 g/dl Globulin 3.60 g/dl Albumin/Globulin Ratio 0.83 POC Venous Lactate 2.0 mmol/L Current Medications Medications Dose Sig/Ayesha Start Time Status Last (Trade) Ordered Route PRN Stop Time Admin Dose Reason Admin Sodium 1,800 ml BOLUS OVER 2 12/01/18 DC 12/01/18 Chloride HOURS STAT 00:23 00:51 (NS) IV* 12/01/18 00:24 Cefepime HCl 50 ml @ ONCE STAT 12/01/18 DC 100 mls/hr IVPB 01:11 12/01/18 01:40 Vancomycin 250 ml @ ONCE ONCE 12/01/18 HCl 125 mls/hr IVPB 01:30 12/01/18 03:29 IV Flush 3 ml PER 12/01/18 (NS 3 ml) PROTOCOL IV 02:00 Ondansetron 4 mg Q6H PRN 12/01/18 HCl (Zofran IV 02:00 Inj) NAUSEA/VOMITI NG 650 mg Q6H PRN 12/01/18 Acetaminophen GTB .PAIN 02:00 (Tylenol 1-3 OR TEMP Tab) Heparin 5,000 unit Q8H SC 12/01/18 Sodium 02:00 (Porcine) (Heparin (5000 Units/1ml)) Vancomycin VANCOMYCIN PER 12/01/18 HCl (Vanco PER PHARMACY PROTOCOL XX 02:30 Iv Per Pharmacy) Cefepime HCl 50 ml @ Q12 IVPB 12/01/18 100 mls/hr 09:00 Dextrose 1,000 ml @ [id number] IV 12/01/18 80 mls/hr 02:30 650 mg ONCE ONCE 12/01/18 DC Acetaminophen [place] 03:00 (Tylenol 5/20/19 03:01 Supp) Procedures/MDM EKG: Rate/Rhythm: Sinus tachycardia QRS, ST, T-waves: [No changes consistent w/ acute ischemia] Impression: [No evidence of ischemia Chest X-ray 1V Interpreted by me: Soft Tissue: No acute abnormalities Bones: No acute abnormalities Mediastinum/Cardiac Silhouette/Lungs: [No acute abnormalities] Patient's infectious symptoms have not stabilized and the patient is at risk of rapid decompensation. The patient will be admitted for careful hydration, antibiotic therapy, and infectious source control. Severe Sepsis Assessment: Infectious Source: Likely pneumonia End organ damage indicated by: [Lactate > 2.0 mmol/L Severe Sepsis Managment: Blood Cultures X 2 before broad spectrum antibiotics initiated within 3 hours of recognition. Sepsis recognized at 12:51 AM 30 ml/kg NS bolus Completed Initial Lactate: 2.1 Repeat Lactate pending Critical Care: Time: 45 minutes, independent of any separately billable procedural time Treatments/Evaluations: Emergent fluid management, while maintaining close respiratory support. Immediate broad spectrum antibiotic therapy. Simultaneous assessment for possible sources in order to direct therapy. Consideration for invasive and chemical support to prevent respiratory or cardiac collapse. Septic Shock Assessment (1 hour post 30 ml/kg fluid bolus): Hypotension (SBP < 90 or 40 mmHg drop, MAP < 65): [No] Lactic acid > 4.0 [No] Perfusion Reassessment for Septic Shock: Temp is 98.6, pulse 119, respiratory rate is 82, pulse oximetry 96% on vent Heart Exam: [Tachycardic] Lung Exam: [No Crackles] Capillary Refill: [Delayed] Peripheral Pulses: [Radially present] Skin: [Mottled, pale] Accepting Care Team: Current data and ongoing care discussed. Time: 1:30 AM Primary Provider: Dr. Franco Consulting: Deferred to inpatient team Outstanding Data: none Departure Diagnosis: Primary Impression: Sepsis Sepsis type: sepsis due to unspecified organism Qualified Codes: A41.9 - Sepsis, unspecified organism Condition: Serious STEPHEN CHAUIshan December 01, 2018 03:27
--- NOTE | 2018-12-01 04:24 | HP ---
Date/Time of Note Date/Time of Note DATE: 12/01/18 TIME: 04:14 Assessment/Plan VTE Prophylaxis SCD applied (from Nsg): Yes Pharmacological prophylaxis: NA/contraindicated Pharm contraindication: low risk/ambulating Lines/Catheters IV Catheter Type (from Nrsg): Saline Lock Assessment/Plan Hospital Course This is a 78-year-old male being admitted to the ICU floor for: 1. Severe sepsis: Suspect secondary to Possible underlying urinary tract infection, chronic wounds. Await urinalysis results. Culture results. Will check an x-ray of the feet, will have wound culture of the sacrum. Will initiate patient on broad-spectrum antibiotics of Zyvox and cefepime given patient's previous history of multidrug-resistant organisms and VRE. She was also noted to have borderline hypotensive blood pressures. Will monitor the patient closely in the ICU. Will consult ID 2. Hypernatremia. Likely secondary to dehydration, sepsis. Patient did receive fluid boluses in the emergency department. Will initiate the patient on D5 water 80 cc an hour. Will monitor sodium levels. Will consult nephrology Dr. Xiong. 3. Acute on chronic kidney injury: Again likely secondary to underlying dehydration, sepsis. Will hydrate the patient. Renally dose any antibiotics. Monitor renal function. 4 chronic wounds: We will obtain wound cultures, wound care consult. Will consult podiatry regarding foot wound. 5. Diabetes mellitus type 2. Recent hemoglobin A1c of 6.8. Resume patient's home insulin regimen, and sliding scale 6. Chronic normocytic anemia: Stable continue to monitor 7. Dysphagia: Secondary to Alzheimer's disease and history of CVA G-tube feeds, aspiration precautions, Aspiration precautions. 8. Severe Alzheimer's dementia: Continue supportive care, aspiration precautions 9 history of CVA: Likely resulting in chronic debility and bedridden status along with severe Alzheimer's dementia. Supportive care 10. Prostate cancer Continue Zytiga. 11 DVT GI prophylaxis: SCDs, Protonix greater than 35 minutes critical care time was spent on the care management patient. Strategy will be implemented as per the clinical course. Result Diagram: 12/01/184912/01/1849 Results 24hrs Laboratory Tests Test 12/01/18 00:30 12/01/18 00:50 12/01/18 00:51 Urine Color YELLOW Urine Clarity CLOUDY A Urine pH 7.0 Urine Specific [place] 1.015 Urine Ketones NEGATIVE Urine Nitrite NEGATIVE Urine Bilirubin NEGATIVE Urine Urobilinogen NEGATIVE Urine Leukocyte Esterase NEGATIVE Urine Microscopic RBC 2 Urine Microscopic WBC 3 Urine Squamous Epithelial Cells FEW Urine Amorphous Crystals FEW A Urine Hemoglobin NEGATIVE Urine Glucose NEGATIVE Urine Total Protein 2+ H White Blood Count 15.4 #H Red Blood Count 3.35 L Hemoglobin 9.2 L Hematocrit 30.3 L Mean Corpuscular Volume 90.4 Mean Corpuscular Hemoglobin 27.5 L Mean Corpuscular Hemoglobin Concent 30.4 L Red Cell Distribution Width 15.8 H Platelet Count 291 # Mean Platelet Volume 11.4 H Immature Granulocytes % 0.500 H Neutrophils % 79.4 H Lymphocytes % 13.4 L Monocytes % 5.9 Eosinophils % 0.5 Basophils % 0.3 Nucleated Red Blood Cells % 0.0 Immature Granulocytes # 0.080 H Neutrophils # 12.2 H Lymphocytes # 2.1 Monocytes # 0.9 Eosinophils # 0.1 Basophils # 0.0 Nucleated Red Blood Cells # 0.0 Prothrombin Time 15.3 H Prothrombin Time Ratio 1.2 INR International Normalized Ratio 1.20 Activated Partial Thromboplast Time 37.8 H Sodium Level 149 H Potassium Level 4.3 Chloride Level 111 H Carbon Dioxide Level 34 H Anion Gap 4 L Blood Urea Nitrogen 42 H Creatinine 1.50 H Est Glomerular Filtrat Rate mL/min Glucose Level 185 Calcium Level 10.1 Total Bilirubin 0.3 Direct Bilirubin 0.00 Indirect Bilirubin 0.3 Aspartate Amino Transf (AST/SGOT) 56 H Alanine Aminotransferase (ALT/SGPT) 22 Alkaline Phosphatase 84 Troponin I 0.040 Total Protein 6.6 Albumin 3.0 L Globulin 3.60 H Albumin/Globulin Ratio 0.83 POC Venous Lactate 2.0 HPI/ROS Admit Date/Time Admit Date/Time Hx of Present Illness Chief complaint: [facility] to fever possible urine infection This is a 78-year-old male who was brought in from [facility] secondary to fever and urine infection infection. Patient is nonverbal and is chronically bedridden. Patient does have a history of advanced Alzheimer's dementia and history of CVA along with diabetes mellitus. Patient was apparently sent in as he was noted to have a temperature of 102 with a blood pressure of 80/64 and a heart rate of 128 at the nursing facility. Patient's urine was noted to be dirty. Allergies: NKDA Medications: See JAMES VARGHESE Subjective hx not possible: pt critical status (Patient nonverbal) PMH/Family/Social Past Medical History 1. Diabetes mellitus type 2. 2. Advanced Alzheimer's dementia. 3. Dysphagia status post G-tube placement. 4. Dyslipidemia. 5. Osteoarthritis 6. Chronic bedridden status. 7. Prostate cancer. 8. Peripheral artery disease 9. Diabetic ulcer left lower extremity 10. Diabetic neuropathy 11. Multiple decubiti 12. History of CVA 13. 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 Medications Current Medications IV Flush (NS 3 ml) 3 ml PER PROTOCOL IV ; Start 12/01/18 at 02:00 Ondansetron HCl (Zofran Inj) 4 mg Q6H PRN IV NAUSEA/VOMITING; Start 12/01/18 at 02:00 Acetaminophen (Tylenol Tab) 650 mg Q6H PRN GTB .PAIN 1-3 OR TEMP; Start 12/01/18 at 02:00 Heparin Sodium (Porcine) (Heparin (5000 Units/1ml)) 5,000 unit Q8H SC ; Start 12/01/18 at 02:00 Vancomycin HCl (Vanco Iv Per Pharmacy) VANCOMYCIN PER PHARMACY PER PROTOCOL XX ; Start 12/01/18 at 02:30 Cefepime HCl 50 ml @ 100 mls/hr Q12 IVPB ; Start 12/01/18 at 09:00 Dextrose 1,000 ml @ 80 mls/hr [id number] IV ; Start 12/01/18 at 02:30 Coded Allergies: No Known Allergy (Unverified , 10/30/18) Past Surgical History G-tube placement Family History Significant Family History: no pertinent family hx Social History Smoking Status: Former smoker Exam/Review of Systems Vital Signs Vitals Vital Signs Date Temp Pulse Resp B/P (MAP) Pulse Ox O2 O2 Flow FiO2 Time Delivery Rate 12/01/18 101.0 117 31 101/51 99 Nasal 3.5 03:30 (68) Cannula Exam Exam General: Patient currently, he is nonverbal, mucous membranes dry HEENT: Atraumatic, normocephalic. The pupils are equal, round and reactive. Extraocular motor are intact, mucous membranes dry Neck: Supple with full range of motion. No rigidity or meningismus Chest: Nontender Lungs: Clear to auscultation bilaterally no crackles rales or wheezing Heart: Sinus tachycardia Abdomen: Soft , nontender, nondistended , bowel sounds are present. No guarding no rebound tenderness , No masses or organomegaly. No costovertebral temporal angle mass Extremities: He does appear to skin wounds of the left foot, contracted Skin: Warm to touch, skin wound of the left foot, multiple pressure ulcers Neurologic: Weak, nonverbal but he does respond to pain, this is baseline Additional Comments PROCEDURE: DX Chest 1 View CLINICAL INDICATION: Sepsis. TECHNIQUE: AP Portable chest. COMPARISON: None FINDINGS: Normal cardiac and mediastinal configuration. Aortic calcified plaque absent. No CHF or hilar enlargement. Lungs are clear. 4 mm calcified granuloma lateral mid right lung. IMPRESSION: Prior granulomatous disease. No acute cardiopulmonary disease. RPTAT: [facility] Physician Ester Date Time Electronically viewed and signed by Jamila Montenegro Physician on 12/01/2018 02:02 RS/ CC: STEPHEN CHAU [id number] IKER FAM December 01, 2018 04:24
[2018-12-01] MEDS: DEXTROSE 5% 1,000 ML IV SCH ×2 (05:29→15:47)
[2018-12-01] MEDS: HEPARIN 5,000 UNIT/1 ML VIAL SC SCH ×3 (05:46→22:18)
[2018-12-01] MEDS ORDERED: GLUCOSE GEL 15 GRAM TUBE PO PRN ×2 (07:00)
[2018-12-01] MEDS ORDERED: GLUCAGON 1 MG INJ IM PRN (07:00)
[2018-12-01] MEDS ORDERED: GLUCOSE GEL 15 GRAM TUBE BUCCAL PRN (07:00)
[2018-12-01] MEDS ORDERED: DEXTROSE 50% 50 ML SYRINGE IV PRN (07:00)
--- NOTE | 2018-12-01 08:32 | CONS ---
DATE OF ADMISSION: 12/01/2018 DATE OF CONSULTATION: 12/01/2018 TYPE OF CONSULTATION: Nephrology. REASON FOR CONSULTATION: Acute kidney injury. PHYSICIAN REQUESTING CONSULT: Dr. Fam HISTORY OF PRESENT ILLNESS: This is a 78-year-old male with a past medical history of chronic kidney disease, history of hypernatremia, history of diabetes, history of anemia, dysphagia, history of Alz heimer's dementia who presents to [facility] with fevers. The patient resides at a nursing facility. The patient is nonverbal, bedridden. The patient was noted to be altered and be febrile at his nursing facility as a result was brought into the emergency room. Upon arrival, the p atient was hypotensive, systolic pressures in the 80s, tachycardic. In the emergency room, the patie nt had urinalysis, which showed positive pyuria. Chest x-ray was also obtained, which shows prior gr anulation disease. No acute cardiopulmonary disease. The patient was started on IV fluids, antibiot ic therapy and admitted to the intensive care unit. In terms of patient's renal history, the patient has a history of chronic kidney disease with a basel ine creatinine around 1.0 mg/dL. The patient also has a history of hypernatremia. The patient's mos t recent admission in the [facility] was from acute kidney injury, which resolved p rior to this current admission. There are no reports of any hemoptysis, hematemesis or hematochezia. PAST MEDICAL HISTORY: As stated above, history of chronic kidney disease, history of Alzheimer's dem entia, history of diabetes, dyslipidemia, history of arthritis, history of prostate cancer, periphera l arterial disease, history of diabetic neuropathy, history of cerebrovascular accident, history of w ounds. PAST SURGICAL HISTORY: Status post G-tube placement. FAMILY HISTORY: No family history of kidney disease. SOCIAL HISTORY: He does not drink, smoke, actively do drugs. MEDICATIONS: The patient's medications have been reviewed. REVIEW OF SYSTEMS: Unable to do adequate review of systems. The patient is altered. Pertinent posi tives as obtained by reviewing medical records, speaking to hospital staff, stated in HPI, otherwise negative. PHYSICAL EXAMINATION: VITAL SIGNS: Blood pressure is 111/58, respirations 18, pulse 108, temperature 99.9. HEENT: Head is normocephalic. NECK: Supple. HEART: Regular rate. LUNGS: Show diminished breath sounds at the base. ABDOMEN: Soft, nontender to palpation without rebound or guarding. EXTREMITIES: Negative for clubbing, cyanosis, no edema. DERMATOLOGIC: No rashes. MUSCULOSKELETAL: No joint effusion. NEUROLOGIC: No change in exam. LABORATORY DATA: Reviewed. IMAGING STUDIES: Reviewed. ASSESSMENT AND PLAN: This is a 78-year-old male who presents with: 1. Nonoliguric acute kidney injury on top of chronic kidney disease with previous baseline creatinin e around 0.8 to 1.0 mg/dL. Etiology of acute kidney injury is possibly multifactorial secondary to h emodynamics, volume depletion, sepsis. The patient's initial urinalysis was bland, no evidence of ac tive sediment. Proteinuria was noted. Plan at this point is to quantify the patient's proteinuria b y checking a protein/creatinine ratio, albumin/creatinine ratio. We will also check urine electrolyt es, calculate FENa, fraction excretion of urea. We would recommend to continue aggressive IV hydrati on. Continue antibiotic therapy. Maintain MAP above 65. Otherwise, continue supportive care, renal ly dose all medications and avoid nephrotoxins. 2. Hypernatremia. The patient has a free water deficit of approximately 2 liters. We will increase the patient's free water flushes 200 mL q.4h. 3. Alkalosis. Etiology may be secondary to acute kidney injury versus compensatory. Continue to mo nitor. Consider checking ABG. 4. Anemia. Monitor hemoglobin and hematocrit levels. 5. Mineral bone disorder, monitor calcium and phosphorus levels. 6. Severe sepsis, possibly due to chronic wounds, questionable urinary tract infection. The patient is on broad spectrum antibiotics, we will continue. Follow up cultures. 7. Diabetes. Continue current insulin regimen. 8. Dysphagia. Continue tube feeding. 9. Acute encephalopathy on top of chronic Alzheimer's dementia. Continue to monitor. 10. History of cerebrovascular accident. Continue medical management. 11. History of prostate cancer. Thank you, Dr. Fam, for this interesting consult. It will be a pleasure to follow the patient wi th you throughout the hospital course. Dictated By: KACY CUETO/SAMANTHA Conf#: [id number] DID#: [id number] CC: IKER FAM MD;*[facility]*
[2018-12-01] MEDS ORDERED: NON-FORMULARY/PATIENT OWN MED (Abiraterone Acetate (Zytiga) 1,000 MG) XX SCH (09:00)
[2018-12-01] MEDS: LINEZOLID 600 MG/300 ML (PMX) 300 ML IVPB SCH ×2 (09:02→21:17)
[2018-12-01] MEDS: INSULIN ASPART [NOVOLOG] 3 ML PEN SC SCH ×4 (09:14→21:44)
--- NOTE | 2018-12-01 09:29 | PN ---
Date/Time of Note Date/Time of Note DATE: 12/01/18 TIME: 09:25 Assessment/Plan VTE Prophylaxis SCD applied (from Nsg): Yes Pharmacological prophylaxis: heparin Lines/Catheters IV Catheter Type (from Nrsg): Peripheral IV Urinary Cath still in place: Yes Reason Cath still needed: terminal illness/intractable pain Assessment/Plan Hospital Course 78-year-old chronically debilitated male with functional quadriplegia and a history of prior CVA and prostate cancer who was sent to us from halfway facility because of fever and concern for urinary tract infection currently managed as follows: 1. Severe sepsis without septic shock 2. Probable urinary tract infection: -Patient has had multiple episodes of urinary tract infection in the past with different organisms. -Last episode had VRE, Acinetobacter Melinda, Kat albicans 3. Bilateral sacroiliac decubiti 4. Hyponatremia likely related to dehydration 5. ROBBIE on CKD? 6. Chronic debility with functional quadriplegia, history of CVA -Barely verbal at baseline, can respond to name, moans a lot 7. Hypertension 8. Respiratory insufficiency: Chronic?, Not requiring oxygen via nasal cannula 3 L a minute - assessment and plan: -Continue IV antibiotics -Appreciate nephrology inputs, continue serial labs -Dietitian consult and commence tube feedings -Continue all other supportive care, blood pressure and blood sugar management -Patient continues to have long-term poor prognosis, palliative care consult -Infectious disease consultation, wound care consult, supportive care. -Critical care time greater than half hour Result Diagram: 12/01/18 0747 12/01/18 0747 Results 24hrs Laboratory Tests Test 12/01/18 00:30 12/01/18 00:50 12/01/18 00:51 12/01/18 04:19 Urine Color YELLOW Urine Clarity CLOUDY A Urine pH 7.0 Urine Specific 1.015 [place] Urine Ketones NEGATIVE Urine Nitrite NEGATIVE Urine Bilirubin NEGATIVE Urine Urobilinogen NEGATIVE Urine Leukocyte NEGATIVE Esterase Urine Microscopic 2 RBC Urine Microscopic 3 WBC Urine Squamous FEW Epithelial Cells Urine Amorphous FEW A Crystals Urine Hemoglobin NEGATIVE Urine Glucose NEGATIVE Urine Total Protein 2+ H White Blood Count 15.4 #H Red Blood Count 3.35 L Hemoglobin 9.2 L Hematocrit 30.3 L Mean Corpuscular 90.4 Volume Mean Corpuscular 27.5 L Hemoglobin Mean Corpuscular 30.4 L Hemoglobin Concent Red Cell 15.8 H Distribution Width Platelet Count 291 # Mean Platelet Volume 11.4 H Immature 0.500 H Granulocytes % Neutrophils % 79.4 H Lymphocytes % 13.4 L Monocytes % 5.9 Eosinophils % 0.5 Basophils % 0.3 Nucleated Red Blood 0.0 Cells % Immature 0.080 H Granulocytes # Neutrophils # 12.2 H Lymphocytes # 2.1 Monocytes # 0.9 Eosinophils # 0.1 Basophils # 0.0 Nucleated Red Blood 0.0 Cells # Prothrombin Time 15.3 H Prothrombin Time 1.2 Ratio INR International 1.20 Normalized Ratio Activated 37.8 H Partial Thromboplast Time Sodium Level 149 H Potassium Level 4.3 Chloride Level 111 H Carbon Dioxide Level 34 H Anion Gap 4 L Blood Urea Nitrogen 42 H Creatinine 1.50 H Est Glomerular Filtrat Rate mL/min Glucose Level 185 Calcium Level 10.1 Total Bilirubin 0.3 Direct Bilirubin 0.00 Indirect Bilirubin 0.3 Aspartate Amino 56 H Transf (AST/SGOT) Alanine 22 Aminotransferase (AL T/SGPT) Alkaline Phosphatase 84 Troponin I 0.040 Total Protein 6.6 Albumin 3.0 L Globulin 3.60 H Albumin/Globulin 0.83 Ratio POC Venous Lactate 2.0 Lactic Acid Level 1.2 Test 12/01/18 07:47 12/01/18 09:06 White Blood Count 17.1 H Red Blood Count 3.14 L Hemoglobin 8.6 L Hematocrit 29.0 L Mean Corpuscular 92.4 Volume Mean Corpuscular 27.4 L Hemoglobin Mean Corpuscular 29.7 L Hemoglobin Concent Red Cell 16.1 H Distribution Width Platelet Count 275 Mean Platelet Volume 12.2 H Immature 0.500 H Granulocytes % Neutrophils % 81.2 H Lymphocytes % 10.8 L Monocytes % 6.9 Eosinophils % 0.4 Basophils % 0.2 Nucleated Red Blood 0.0 Cells % Immature 0.090 H Granulocytes # Neutrophils # 13.9 H Lymphocytes # 1.8 Monocytes # 1.2 H Eosinophils # 0.1 Basophils # 0.0 Nucleated Red Blood 0.0 Cells # Sodium Level 149 H Potassium Level 4.2 Chloride Level 115 H Carbon Dioxide Level 32 H Anion Gap 2 L Blood Urea Nitrogen 40 H Creatinine 1.44 H Est Glomerular Filtrat Rate mL/min Glucose Level 175 Lactic Acid Level 1.1 Calcium Level 9.6 Magnesium Level 2.1 Total Bilirubin 0.4 Direct Bilirubin 0.00 Indirect Bilirubin 0.4 Aspartate Amino 73 H Transf (AST/SGOT) Alanine 21 Aminotransferase (AL T/SGPT) Alkaline Phosphatase 77 Total Protein 6.5 Albumin 2.9 L Globulin 3.60 H Albumin/Globulin 0.80 Ratio Bedside Glucose 175 Subjective 24 Hr Interval Summary Free Text/Dictation Patient evaluated in the intensive care unit's: -Nursing staff have no new reports Subjective hx not possible: pt non-verbal Exam/Review of Systems Exam Vitals Vital Signs Date Temp Pulse Resp B/P (MAP) Pulse Ox O2 O2 Flow FiO2 Time Delivery Rate 12/01/18 106 08:00 12/01/18 18 111/58 100 06:30 (75) 12/01/18 Nasal 3.0 06:00 Cannula 12/01/18 99.9 05:08 Intake and Output 11/30/18 11/30/18 12/01/18 1515:00 23:00 07:00 IntakeIntake Total 40 ml OutputOutput Total 20 ml BalanceBalance 20 ml Exam Constitutional: Barely verbal, will respond to name, can grunts yes or no in answer to questions, chronically contracted, does not like to be moved, otherwise looks comfortable when he is not stimulated Psych: other (unable to assess) Head: normocephalic, atraumatic Eyes: PERRL, No icteric ENMT: No mucosa pink and moist (dry) Neck: non-tender Respiratory: diminished breath sounds No labored breathing Cardiovascular: regular rate and rhythm, No murmurs/extra sounds Gastrointestinal: soft, non-tender, bowel sounds, other (PEG tube noted with no cellulitis or discharge) Genitourinary -male: Wynn to bedside drainage Extremities: Chronically contracted with complete lower extremity paresis bilaterally?, Chronically flexed at the hip and knees 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 Patient also has approximately 4-1/2 diameter ulcer in the sacrum but also looks like it is healing well, as well as multiple other smaller ulcers diffusely. Please see nursing notes for details.) Results Results 24hrs Laboratory Tests Test 12/01/18 00:30 12/01/18 00:50 12/01/18 00:51 12/01/18 04:19 Urine Color YELLOW Urine Clarity CLOUDY A Urine pH 7.0 Urine Specific 1.015 [place] Urine Ketones NEGATIVE Urine Nitrite NEGATIVE Urine Bilirubin NEGATIVE Urine Urobilinogen NEGATIVE Urine Leukocyte NEGATIVE Esterase Urine Microscopic 2 RBC Urine Microscopic 3 WBC Urine Squamous FEW Epithelial Cells Urine Amorphous FEW A Crystals Urine Hemoglobin NEGATIVE Urine Glucose NEGATIVE Urine Total Protein 2+ H White Blood Count 15.4 #H Red Blood Count 3.35 L Hemoglobin 9.2 L Hematocrit 30.3 L Mean Corpuscular 90.4 Volume Mean Corpuscular 27.5 L Hemoglobin Mean Corpuscular 30.4 L Hemoglobin Concent Red Cell 15.8 H Distribution Width Platelet Count 291 # Mean Platelet Volume 11.4 H Immature 0.500 H Granulocytes % Neutrophils % 79.4 H Lymphocytes % 13.4 L Monocytes % 5.9 Eosinophils % 0.5 Basophils % 0.3 Nucleated Red Blood 0.0 Cells % Immature 0.080 H Granulocytes # Neutrophils # 12.2 H Lymphocytes # 2.1 Monocytes # 0.9 Eosinophils # 0.1 Basophils # 0.0 Nucleated Red Blood 0.0 Cells # Prothrombin Time 15.3 H Prothrombin Time 1.2 Ratio INR International 1.20 Normalized Ratio Activated 37.8 H Partial Thromboplast Time Sodium Level 149 H Potassium Level 4.3 Chloride Level 111 H Carbon Dioxide Level 34 H Anion Gap 4 L Blood Urea Nitrogen 42 H Creatinine 1.50 H Est Glomerular Filtrat Rate mL/min Glucose Level 185 Calcium Level 10.1 Total Bilirubin 0.3 Direct Bilirubin 0.00 Indirect Bilirubin 0.3 Aspartate Amino 56 H Transf (AST/SGOT) Alanine 22 Aminotransferase (AL T/SGPT) Alkaline Phosphatase 84 Troponin I 0.040 Total Protein 6.6 Albumin 3.0 L Globulin 3.60 H Albumin/Globulin 0.83 Ratio POC Venous Lactate 2.0 Lactic Acid Level 1.2 Test 12/01/18 07:47 12/01/18 09:06 White Blood Count 17.1 H Red Blood Count 3.14 L Hemoglobin 8.6 L Hematocrit 29.0 L Mean Corpuscular 92.4 Volume Mean Corpuscular 27.4 L Hemoglobin Mean Corpuscular 29.7 L Hemoglobin Concent Red Cell 16.1 H Distribution Width Platelet Count 275 Mean Platelet Volume 12.2 H Immature 0.500 H Granulocytes % Neutrophils % 81.2 H Lymphocytes % 10.8 L Monocytes % 6.9 Eosinophils % 0.4 Basophils % 0.2 Nucleated Red Blood 0.0 Cells % Immature 0.090 H Granulocytes # Neutrophils # 13.9 H Lymphocytes # 1.8 Monocytes # 1.2 H Eosinophils # 0.1 Basophils # 0.0 Nucleated Red Blood 0.0 Cells # Sodium Level 149 H Potassium Level 4.2 Chloride Level 115 H Carbon Dioxide Level 32 H Anion Gap 2 L Blood Urea Nitrogen 40 H Creatinine 1.44 H Est Glomerular Filtrat Rate mL/min Glucose Level 175 Lactic Acid Level 1.1 Calcium Level 9.6 Magnesium Level 2.1 Total Bilirubin 0.4 Direct Bilirubin 0.00 Indirect Bilirubin 0.4 Aspartate Amino 73 H Transf (AST/SGOT) Alanine 21 Aminotransferase (AL T/SGPT) Alkaline Phosphatase 77 Total Protein 6.5 Albumin 2.9 L Globulin 3.60 H Albumin/Globulin 0.80 Ratio Bedside Glucose 175 Medications Medication Current Medications IV Flush (NS 3 ml) 3 ml PER PROTOCOL IV ; Start 12/01/18 at 02:00 Ondansetron HCl (Zofran Inj) 4 mg Q6H PRN IV NAUSEA/VOMITING; Start 12/01/18 at 02:00 Acetaminophen (Tylenol Tab) 650 mg Q6H PRN GTB .PAIN 1-3 OR TEMP; Start 12/01/18 at 02:00 Cefepime HCl 50 ml @ 100 mls/hr Q12 IVPB ; Start 12/01/18 at 09:00 Dextrose 1,000 ml @ 80 mls/hr [id number] IV Last administered on 12/01/18at 05:29; Admin Dose 80 MLS/HR; Start 12/01/18 at 02:30 Linezolid 300 ml @ 300 mls/hr Q12 IVPB Last administered on 12/01/18at 09:02; Admin Dose 300 MLS/HR; Start 12/01/18 at 09:00 Heparin Sodium (Porcine) (Heparin (5000 Units/1ml)) 5,000 unit Q8H SC Last administered on 12/01/18at 05:46; Admin Dose 5,000 UNIT; Start 12/01/18 at 05:00 Insulin Aspart (Novolog Insulin Pen) NOVOLOG *MILD* ALGORI... Q4 SC Last administered on 12/01/18at 09:14; Admin Dose 1 UNIT; Start 12/01/18 at 09:00 Miscellaneous Information 1 ea NOTE XX ; Start 12/01/18 at 07:00 Glucose (Glutose) 15 gm Q15M PRN PO DECREASED GLUCOSE; Start 12/01/18 at 07:00 Glucose (Glutose) 22.5 gm Q15M PRN PO DECREASED GLUCOSE; Start 12/01/18 at 07:00 Dextrose (D50w Syringe) 25 ml Q15M PRN IV DECREASED GLUCOSE; Start 12/01/18 at 07:00 Dextrose (D50w Syringe) 50 ml Q15M PRN IV DECREASED GLUCOSE; Start 12/01/18 at 07:00 Glucagon (Glucagen) 1 mg Q15M PRN IM DECREASED GLUCOSE; Start 12/01/18 at 07:00 Glucose (Glutose) 15 gm Q15M PRN BUCCAL DECREASED GLUCOSE; Start 12/01/18 at 07:00 Acetaminophen (Tylenol Liquid) 650 mg Q6H PRN GTB MILD PAIN(1-3)OR ELEVATED TEMP; Start 12/01/18 at 07:30 Insulin Glargine (Lantus) 20 units QHS SC ; Start 12/01/18 at 21:00 Miscellaneous Information 1,000 mg DAILY GTB ; Start 12/01/18 at 09:00; Status GARY LENZ December 01, 2018 09:29
--- NOTE | 2018-12-01 11:54 | CONS ---
Assessment/Plan Assessment/Plan Assessment/Plan (Daily) Diabetic ulcer left lower extremity DM2 with peripheral neuropathy Dry gangrene PAD Knee contractures Alzheimer's Dementia Bed bound Plan: Patient was seen and evaluated at bedside. Provided nursing recommendations for daily dressing changes. Daily irrigation with dakins, betadine 4x4 gauze, and wrap with kerlix. Previous wound cultures were MRSA and corynebacterium. Recommend daily offloading with prevelon soft boots and pillows. Discussed case with Dr. Granda and plan for OR surgical knee release and then subsequent angiogram. Patient's daughter wants to pursue limb salvage at this time. Reviewed X-rays and no sign of osteomyelitis. Consultation Date/Type/Reason Admit Date/Time Date/Time of Note DATE: 12/01/18 TIME: 11:54 Hx of Present Illness 78 y/o M patient with hx of CVA, DM2, alzheimers, bed-ridden with knee contractures, presents to the floor with left foot and ankle chronic ulcerations. Patient was admitted for UTI and sepsis. Patient was seen in the past for the same ulceration and he is being planned for a hamstring tenotomy to assist with the knee flexion and attempt to do an angiogram subsequently with vascular surgery. ROS fevers and hypotension, otherwise unremarkable. Past Medical History Alzheimer's, DM2, bed bound, knee contractures. Home Meds Active Scripts [Vancomycin Iv Per Pharmacy] 1 EA EACH No Conflict Check, 0 EA XX .PER PROTOCOL for 1 Day last dose 11/13 Prov:NARCISO AVILEZ NP 11/12/18 Lansoprazole (Heartburn Treatment 24 Hour) 15 Mg Capsule., 15 MG GTB DAILY@06 for 30 Days Prov:NARCISO AVILEZ NP 11/07/18 Amlodipine Besylate* (Amlodipine Besylate*) 10 Mg Tablet, 10 MG GTB DAILY for 30 Days, TAB Prov:NARCISO AVILEZ NP 11/07/18 Reported Medications Acetaminophen* (Acetaminophen*) 325 Mg Tablet, 650 MG GTB Q6H PRN for MILD PAIN(1-3)OR ELEVATED TEMP, #30 TAB 10/30/18 Abiraterone Acetate (Zytiga) 500 Mg Tablet, 1000 MG GTB DAILY, TAB 10/30/18 Insulin Glargine* (Lantus*) 100 Unit/Ml Soln, 20 UNIT SC QHS, #1 VIAL 10/30/18 Glucagon,Human Recombinant (Glucagon Emergency Kit) 1 Mg Kit, 1 MG IJ NEEDED PRN for IF BLOOD GLUCOSE<70, KIT 10/30/18 Medications Current Medications IV Flush (NS 3 ml) 3 ml PER PROTOCOL IV ; Start 12/01/18 at 02:00 Ondansetron HCl (Zofran Inj) 4 mg Q6H PRN IV NAUSEA/VOMITING; Start 12/01/18 at 02:00 Acetaminophen (Tylenol Tab) 650 mg Q6H PRN GTB .PAIN 1-3 OR TEMP; Start 12/01/18 at 02:00 Cefepime HCl 50 ml @ 100 mls/hr Q12 IVPB ; Start 12/01/18 at 09:00 Dextrose 1,000 ml @ 80 mls/hr [id number] IV Last administered on 12/01/18at 05:29; Admin Dose 80 MLS/HR; Start 12/01/18 at 02:30 Linezolid 300 ml @ 300 mls/hr Q12 IVPB Last administered on 12/01/18at 09:02; Admin Dose 300 MLS/HR; Start 12/01/18 at 09:00 Heparin Sodium (Porcine) (Heparin (5000 Units/1ml)) 5,000 unit Q8H SC Last administered on 12/01/18at 05:46; Admin Dose 5,000 UNIT; Start 12/01/18 at 05:00 Insulin Aspart (Novolog Insulin Pen) NOVOLOG *MILD* ALGORI... Q4 SC Last administered on 12/01/18at 09:14; Admin Dose 1 UNIT; Start 12/01/18 at 09:00 Miscellaneous Information 1 ea NOTE XX ; Start 12/01/18 at 07:00 Glucose (Glutose) 15 gm Q15M PRN PO DECREASED GLUCOSE; Start 12/01/18 at 07:00 Glucose (Glutose) 22.5 gm Q15M PRN PO DECREASED GLUCOSE; Start 12/01/18 at 07:00 Dextrose (D50w Syringe) 25 ml Q15M PRN IV DECREASED GLUCOSE; Start 12/01/18 at 07:00 Dextrose (D50w Syringe) 50 ml Q15M PRN IV DECREASED GLUCOSE; Start 12/01/18 at 07:00 Glucagon (Glucagen) 1 mg Q15M PRN IM DECREASED GLUCOSE; Start 12/01/18 at 07:00 Glucose (Glutose) 15 gm Q15M PRN BUCCAL DECREASED GLUCOSE; Start 12/01/18 at 07:00 Acetaminophen (Tylenol Liquid) 650 mg Q6H PRN GTB MILD PAIN(1-3)OR ELEVATED TEMP; Start 12/01/18 at 07:30 Insulin Glargine (Lantus) 20 units QHS SC ; Start 12/01/18 at 21:00 Miscellaneous Information 1,000 mg DAILY GTB ; Start 12/01/18 at 09:00; Status UNV Allergies: Coded Allergies: No Known Allergy (Unverified , 10/30/18) Social History Smoking Status: Former smoker Exam/Review of Systems Exam Vitals Vital Signs Date Temp Pulse Resp B/P (MAP) Pulse Ox O2 O2 Flow FiO2 Time Delivery Rate 12/01/18 106 08:00 12/01/18 18 111/58 100 06:30 (75) 12/01/18 Nasal 3.0 06:00 Cannula 12/01/18 99.9 05:08 Intake and Output 11/30/18 11/30/18 12/01/18 1515:00 23:00 07:00 IntakeIntake Total 40 ml OutputOutput Total 20 ml BalanceBalance 20 ml Exam Unable to palpate pedal pulses Left lateral malleolus ulceration granular in nature which probes to bone 3 x 2 x 0.4cm, no purulence no proximal streaking or erythema Left lateral 5th metatarsal dry stable eschar, no drainage, no proximal streaking, 5 x 1.5cm indeterminate depth Absent protective sensations Pain with palpation to wound sites Knee contractures noted Results Result Diagram: 12/01/18 0747 12/01/18 0747 Results 24hrs Laboratory Tests Test 12/01/18 00:30 12/01/18 00:50 12/01/18 00:51 12/01/18 04:19 Urine Color YELLOW Urine Clarity CLOUDY A Urine pH 7.0 Urine Specific 1.015 [place] Urine Ketones NEGATIVE Urine Nitrite NEGATIVE Urine Bilirubin NEGATIVE Urine Urobilinogen NEGATIVE Urine Leukocyte NEGATIVE Esterase Urine Microscopic 2 RBC Urine Microscopic 3 WBC Urine Squamous FEW Epithelial Cells Urine Amorphous FEW A Crystals Urine Hemoglobin NEGATIVE Urine Glucose NEGATIVE Urine Total Protein 2+ H White Blood Count 15.4 #H Red Blood Count 3.35 L Hemoglobin 9.2 L Hematocrit 30.3 L Mean Corpuscular 90.4 Volume Mean Corpuscular 27.5 L Hemoglobin Mean Corpuscular 30.4 L Hemoglobin Concent Red Cell 15.8 H Distribution Width Platelet Count 291 # Mean Platelet Volume 11.4 H Immature 0.500 H Granulocytes % Neutrophils % 79.4 H Lymphocytes % 13.4 L Monocytes % 5.9 Eosinophils % 0.5 Basophils % 0.3 Nucleated Red Blood 0.0 Cells % Immature 0.080 H Granulocytes # Neutrophils # 12.2 H Lymphocytes # 2.1 Monocytes # 0.9 Eosinophils # 0.1 Basophils # 0.0 Nucleated Red Blood 0.0 Cells # Prothrombin Time 15.3 H Prothrombin Time 1.2 Ratio INR International 1.20 Normalized Ratio Activated 37.8 H Partial Thromboplast Time Sodium Level 149 H Potassium Level 4.3 Chloride Level 111 H Carbon Dioxide Level 34 H Anion Gap 4 L Blood Urea Nitrogen 42 H Creatinine 1.50 H Est Glomerular Filtrat Rate mL/min Glucose Level 185 Calcium Level 10.1 Total Bilirubin 0.3 Direct Bilirubin 0.00 Indirect Bilirubin 0.3 Aspartate Amino 56 H Transf (AST/SGOT) Alanine 22 Aminotransferase (AL T/SGPT) Alkaline Phosphatase 84 Troponin I 0.040 Total Protein 6.6 Albumin 3.0 L Globulin 3.60 H Albumin/Globulin 0.83 Ratio POC Venous Lactate 2.0 Lactic Acid Level 1.2 Test 12/01/18 07:47 12/01/18 09:06 White Blood Count 17.1 H Red Blood Count 3.14 L Hemoglobin 8.6 L Hematocrit 29.0 L Mean Corpuscular 92.4 Volume Mean Corpuscular 27.4 L Hemoglobin Mean Corpuscular 29.7 L Hemoglobin Concent Red Cell 16.1 H Distribution Width Platelet Count 275 Mean Platelet Volume 12.2 H Immature 0.500 H Granulocytes % Neutrophils % 81.2 H Segmented 60 Neutrophils % (Manual) Band Neutrophils % 17 H (Manual) Lymphocytes % 10.8 L Lymphocytes % 13 L (Manual) Reactive Lymphocytes 1 H % (Manual) Monocytes % 6.9 Monocytes % (Manual) 8 Eosinophils % 0.4 Basophils % 0.2 Promyelocytes % 1 H (Manual) Nucleated Red Blood 0.0 Cells % Immature 0.090 H Granulocytes # Neutrophils # 13.9 H Neutrophils # 10.8 H (Manual) Band Neutrophils # 2.9 H Lymphocytes (Manual) 2.2 Lymphocytes # 1.8 Reactive Lymphocytes 0.1 H # Monocytes # 1.2 H Monocytes # (Manual) 1.3 H Eosinophils # 0.1 Basophils # 0.0 Promyelocytes # 0.1 H Nucleated Red Blood 0.0 Cells # Platelet Estimate NORMAL Giant Platelets 7 H Polychromasia 3+ Anisocytosis 1+ Microcytosis 1+ Sodium Level 149 H Potassium Level 4.2 Chloride Level 115 H Carbon Dioxide Level 32 H Anion Gap 2 L Blood Urea Nitrogen 40 H Creatinine 1.44 H Est Glomerular Filtrat Rate mL/min Glucose Level 175 Lactic Acid Level 1.1 Calcium Level 9.6 Magnesium Level 2.1 Total Bilirubin 0.4 Direct Bilirubin 0.00 Indirect Bilirubin 0.4 Aspartate Amino 73 H Transf (AST/SGOT) Alanine 21 Aminotransferase (AL T/SGPT) Alkaline Phosphatase 77 Total Protein 6.5 Albumin 2.9 L Globulin 3.60 H Albumin/Globulin 0.80 Ratio Bedside Glucose 175 Medications Medication Current Medications IV Flush (NS 3 ml) 3 ml PER PROTOCOL IV ; Start 12/01/18 at 02:00 Ondansetron HCl (Zofran Inj) 4 mg Q6H PRN IV NAUSEA/VOMITING; Start 12/01/18 at 02:00 Acetaminophen (Tylenol Tab) 650 mg Q6H PRN GTB .PAIN 1-3 OR TEMP; Start 12/01/18 at 02:00 Cefepime HCl 50 ml @ 100 mls/hr Q12 IVPB ; Start 12/01/18 at 09:00 Dextrose 1,000 ml @ 80 mls/hr [id number] IV Last administered on 12/01/18at 05:29; Admin Dose 80 MLS/HR; Start 12/01/18 at 02:30 Linezolid 300 ml @ 300 mls/hr Q12 IVPB Last administered on 12/01/18at 09:02; Admin Dose 300 MLS/HR; Start 12/01/18 at 09:00 Heparin Sodium (Porcine) (Heparin (5000 Units/1ml)) 5,000 unit Q8H SC Last administered on 12/01/18at 05:46; Admin Dose 5,000 UNIT; Start 12/01/18 at 05:00 Insulin Aspart (Novolog Insulin Pen) NOVOLOG *MILD* ALGORI... Q4 SC Last administered on 12/01/18at 09:14; Admin Dose 1 UNIT; Start 12/01/18 at 09:00 Miscellaneous Information 1 ea NOTE XX ; Start 12/01/18 at 07:00 Glucose (Glutose) 15 gm Q15M PRN PO DECREASED GLUCOSE; Start 12/01/18 at 07:00 Glucose (Glutose) 22.5 gm Q15M PRN PO DECREASED GLUCOSE; Start 12/01/18 at 07:00 Dextrose (D50w Syringe) 25 ml Q15M PRN IV DECREASED GLUCOSE; Start 12/01/18 at 07:00 Dextrose (D50w Syringe) 50 ml Q15M PRN IV DECREASED GLUCOSE; Start 12/01/18 at 07:00 Glucagon (Glucagen) 1 mg Q15M PRN IM DECREASED GLUCOSE; Start 12/01/18 at 07:00 Glucose (Glutose) 15 gm Q15M PRN BUCCAL DECREASED GLUCOSE; Start 12/01/18 at 07:00 Acetaminophen (Tylenol Liquid) 650 mg Q6H PRN GTB MILD PAIN(1-3)OR ELEVATED TEMP; Start 12/01/18 at 07:30 Insulin Glargine (Lantus) 20 units QHS SC ; Start 12/01/18 at 21:00 Miscellaneous Information 1,000 mg DAILY GTB ; Start 12/01/18 at 09:00; Status REINA CROWDER DPM December 01, 2018 11:54
--- NOTE | 2018-12-01 12:03 | CONS ---
Assessment/Plan Assessment/Plan Hospital Course (Demo Recall) Assessment: 1. Sepsis 2. UTI per UA 3. Multiple decubitus 4. Acute on chronic encephalopathy 5. Dysphagia 6. Hx prostate cancer Plan: Continue abx, f/u final cx, podiatry rec-s Consultation Date/Type/Reason Admit Date/Time Requesting Provider: GARY PETERSON Date/Time of Note DATE: 12/01/18 TIME: 12:01 Past Medical History Home Meds Active Scripts [Vancomycin Iv Per Pharmacy] 1 EA EACH No Conflict Check, 0 EA XX .PER PROTOCOL for 1 Day last dose 11/13 Prov:NARCISO AVILEZ V. SEAMER PANTY HOSE 11/12/18 Lansoprazole (Heartburn Treatment 24 Hour) 15 Mg Capsule.dr, 15 MG GTB DAILY@06 for 30 Days Prov:NARCISO AVILEZ V. SEAMER PANTY HOSE 11/07/18 Amlodipine Besylate* (Amlodipine Besylate*) 10 Mg Tablet, 10 MG GTB DAILY for 30 Days, TAB Prov:NARCISO AVILEZ V. SEAMER PANTY HOSE 11/07/18 Reported Medications Acetaminophen* (Acetaminophen*) 325 Mg Tablet, 650 MG GTB Q6H PRN for MILD PAIN(1-3)OR ELEVATED TEMP, #30 TAB 10/30/18 Abiraterone Acetate (Zytiga) 500 Mg Tablet, 1000 MG GTB DAILY, TAB 10/30/18 Insulin Glargine* (Lantus*) 100 Unit/Ml Soln, 20 UNIT SC QHS, #1 VIAL 10/30/18 Glucagon,Human Recombinant (Glucagon Emergency Kit) 1 Mg Kit, 1 MG IJ NEEDED PRN for IF BLOOD GLUCOSE<70, KIT 10/30/18 Medications Current Medications IV Flush (NS 3 ml) 3 ml PER PROTOCOL IV ; Start 12/01/18 at 02:00 Ondansetron HCl (Zofran Inj) 4 mg Q6H PRN IV NAUSEA/VOMITING; Start 12/01/18 at 02:00 Acetaminophen (Tylenol Tab) 650 mg Q6H PRN GTB .PAIN 1-3 OR TEMP; Start 12/01/18 at 02:00 Cefepime HCl 50 ml @ 100 mls/hr Q12 IVPB ; Start 12/01/18 at 09:00 Dextrose 1,000 ml @ 80 mls/hr [id number] IV Last administered on 12/01/18at 05:29; Admin Dose 80 MLS/HR; Start 12/01/18 at 02:30 Linezolid 300 ml @ 300 mls/hr Q12 IVPB Last administered on 12/01/18at 09:02; Admin Dose 300 MLS/HR; Start 12/01/18 at 09:00 Heparin Sodium (Porcine) (Heparin (5000 Units/1ml)) 5,000 unit Q8H SC Last administered on 12/01/18at 05:46; Admin Dose 5,000 UNIT; Start 12/01/18 at 05:00 Insulin Aspart (Novolog Insulin Pen) NOVOLOG *MILD* ALGORI... Q4 SC Last administered on 12/01/18at 09:14; Admin Dose 1 UNIT; Start 12/01/18 at 09:00 Miscellaneous Information 1 ea NOTE XX ; Start 12/01/18 at 07:00 Glucose (Glutose) 15 gm Q15M PRN PO DECREASED GLUCOSE; Start 12/01/18 at 07:00 Glucose (Glutose) 22.5 gm Q15M PRN PO DECREASED GLUCOSE; Start 12/01/18 at 07:00 Dextrose (D50w Syringe) 25 ml Q15M PRN IV DECREASED GLUCOSE; Start 12/01/18 at 07:00 Dextrose (D50w Syringe) 50 ml Q15M PRN IV DECREASED GLUCOSE; Start 12/01/18 at 07:00 Glucagon (Glucagen) 1 mg Q15M PRN IM DECREASED GLUCOSE; Start 12/01/18 at 07:00 Glucose (Glutose) 15 gm Q15M PRN BUCCAL DECREASED GLUCOSE; Start 12/01/18 at 07:00 Acetaminophen (Tylenol Liquid) 650 mg Q6H PRN GTB MILD PAIN(1-3)OR ELEVATED TEMP; Start 12/01/18 at 07:30 Insulin Glargine (Lantus) 20 units QHS SC ; Start 12/01/18 at 21:00 Miscellaneous Information 1,000 mg DAILY GTB ; Start 12/01/18 at 09:00; Status UNV Allergies: Coded Allergies: No Known Allergy (Unverified , 10/30/18) Social History Smoking Status: Former smoker Exam/Review of Systems Exam Vitals Vital Signs Date Temp Pulse Resp B/P (MAP) Pulse Ox O2 O2 Flow FiO2 Time Delivery Rate 12/01/18 105 19 110/60 99 Nasal 11:00 (77) Cannula 12/01/18 3.0 06:00 12/01/18 99.9 05:08 Intake and Output 11/30/18 11/30/18 12/01/18 1515:00 23:00 07:00 IntakeIntake Total 40 ml OutputOutput Total 20 ml BalanceBalance 20 ml Results Result Diagram: 12/01/18 0747 12/01/18 0747 Results 24hrs Laboratory Tests Test 12/01/18 00:30 12/01/18 00:50 12/01/18 00:51 12/01/18 04:19 Urine Color YELLOW Urine Clarity CLOUDY A Urine pH 7.0 Urine Specific 1.015 [place] Urine Ketones NEGATIVE Urine Nitrite NEGATIVE Urine Bilirubin NEGATIVE Urine Urobilinogen NEGATIVE Urine Leukocyte NEGATIVE Esterase Urine Microscopic 2 RBC Urine Microscopic 3 WBC Urine Squamous FEW Epithelial Cells Urine Amorphous FEW A Crystals Urine Hemoglobin NEGATIVE Urine Glucose NEGATIVE Urine Total Protein 2+ H White Blood Count 15.4 #H Red Blood Count 3.35 L Hemoglobin 9.2 L Hematocrit 30.3 L Mean Corpuscular 90.4 Volume Mean Corpuscular 27.5 L Hemoglobin Mean Corpuscular 30.4 L Hemoglobin Concent Red Cell 15.8 H Distribution Width Platelet Count 291 # Mean Platelet Volume 11.4 H Immature 0.500 H Granulocytes % Neutrophils % 79.4 H Lymphocytes % 13.4 L Monocytes % 5.9 Eosinophils % 0.5 Basophils % 0.3 Nucleated Red Blood 0.0 Cells % Immature 0.080 H Granulocytes # Neutrophils # 12.2 H Lymphocytes # 2.1 Monocytes # 0.9 Eosinophils # 0.1 Basophils # 0.0 Nucleated Red Blood 0.0 Cells # Prothrombin Time 15.3 H Prothrombin Time 1.2 Ratio INR International 1.20 Normalized Ratio Activated 37.8 H Partial Thromboplast Time Sodium Level 149 H Potassium Level 4.3 Chloride Level 111 H Carbon Dioxide Level 34 H Anion Gap 4 L Blood Urea Nitrogen 42 H Creatinine 1.50 H Est Glomerular Filtrat Rate mL/min Glucose Level 185 Calcium Level 10.1 Total Bilirubin 0.3 Direct Bilirubin 0.00 Indirect Bilirubin 0.3 Aspartate Amino 56 H Transf (AST/SGOT) Alanine 22 Aminotransferase (AL T/SGPT) Alkaline Phosphatase 84 Troponin I 0.040 Total Protein 6.6 Albumin 3.0 L Globulin 3.60 H Albumin/Globulin 0.83 Ratio POC Venous Lactate 2.0 Lactic Acid Level 1.2 Test 12/01/18 07:47 12/01/18 09:06 White Blood Count 17.1 H Red Blood Count 3.14 L Hemoglobin 8.6 L Hematocrit 29.0 L Mean Corpuscular 92.4 Volume Mean Corpuscular 27.4 L Hemoglobin Mean Corpuscular 29.7 L Hemoglobin Concent Red Cell 16.1 H Distribution Width Platelet Count 275 Mean Platelet Volume 12.2 H Immature 0.500 H Granulocytes % Neutrophils % 81.2 H Segmented 60 Neutrophils % (Manual) Band Neutrophils % 17 H (Manual) Lymphocytes % 10.8 L Lymphocytes % 13 L (Manual) Reactive Lymphocytes 1 H % (Manual) Monocytes % 6.9 Monocytes % (Manual) 8 Eosinophils % 0.4 Basophils % 0.2 Promyelocytes % 1 H (Manual) Nucleated Red Blood 0.0 Cells % Immature 0.090 H Granulocytes # Neutrophils # 13.9 H Neutrophils # 10.8 H (Manual) Band Neutrophils # 2.9 H Lymphocytes (Manual) 2.2 Lymphocytes # 1.8 Reactive Lymphocytes 0.1 H # Monocytes # 1.2 H Monocytes # (Manual) 1.3 H Eosinophils # 0.1 Basophils # 0.0 Promyelocytes # 0.1 H Nucleated Red Blood 0.0 Cells # Platelet Estimate NORMAL Giant Platelets 7 H Polychromasia 3+ Anisocytosis 1+ Microcytosis 1+ Sodium Level 149 H Potassium Level 4.2 Chloride Level 115 H Carbon Dioxide Level 32 H Anion Gap 2 L Blood Urea Nitrogen 40 H Creatinine 1.44 H Est Glomerular Filtrat Rate mL/min Glucose Level 175 Lactic Acid Level 1.1 Calcium Level 9.6 Magnesium Level 2.1 Total Bilirubin 0.4 Direct Bilirubin 0.00 Indirect Bilirubin 0.4 Aspartate Amino 73 H Transf (AST/SGOT) Alanine 21 Aminotransferase (AL T/SGPT) Alkaline Phosphatase 77 Total Protein 6.5 Albumin 2.9 L Globulin 3.60 H Albumin/Globulin 0.80 Ratio Bedside Glucose 175 Medications Medication Current Medications IV Flush (NS 3 ml) 3 ml PER PROTOCOL IV ; Start 12/01/18 at 02:00 Ondansetron HCl (Zofran Inj) 4 mg Q6H PRN IV NAUSEA/VOMITING; Start 12/01/18 at 02:00 Acetaminophen (Tylenol Tab) 650 mg Q6H PRN GTB .PAIN 1-3 OR TEMP; Start 12/01/18 at 02:00 Cefepime HCl 50 ml @ 100 mls/hr Q12 IVPB ; Start 12/01/18 at 09:00 Dextrose 1,000 ml @ 80 mls/hr [id number] IV Last administered on 12/01/18at 05:29; Admin Dose 80 MLS/HR; Start 12/01/18 at 02:30 Linezolid 300 ml @ 300 mls/hr Q12 IVPB Last administered on 12/01/18at 09:02; Admin Dose 300 MLS/HR; Start 12/01/18 at 09:00 Heparin Sodium (Porcine) (Heparin (5000 Units/1ml)) 5,000 unit Q8H SC Last administered on 12/01/18at 05:46; Admin Dose 5,000 UNIT; Start 12/01/18 at 05:00 Insulin Aspart (Novolog Insulin Pen) NOVOLOG *MILD* ALGORI... Q4 SC Last administered on 12/01/18at 09:14; Admin Dose 1 UNIT; Start 12/01/18 at 09:00 Miscellaneous Information 1 ea NOTE XX ; Start 12/01/18 at 07:00 Glucose (Glutose) 15 gm Q15M PRN PO DECREASED GLUCOSE; Start 12/01/18 at 07:00 Glucose (Glutose) 22.5 gm Q15M PRN PO DECREASED GLUCOSE; Start 12/01/18 at 07:00 Dextrose (D50w Syringe) 25 ml Q15M PRN IV DECREASED GLUCOSE; Start 12/01/18 at 07:00 Dextrose (D50w Syringe) 50 ml Q15M PRN IV DECREASED GLUCOSE; Start 12/01/18 at 07:00 Glucagon (Glucagen) 1 mg Q15M PRN IM DECREASED GLUCOSE; Start 12/01/18 at 07:00 Glucose (Glutose) 15 gm Q15M PRN BUCCAL DECREASED GLUCOSE; Start 12/01/18 at 07:00 Acetaminophen (Tylenol Liquid) 650 mg Q6H PRN GTB MILD PAIN(1-3)OR ELEVATED TEMP; Start 12/01/18 at 07:30 Insulin Glargine (Lantus) 20 units QHS SC ; Start 12/01/18 at 21:00 Miscellaneous Information 1,000 mg DAILY GTB ; Start 12/01/18 at 09:00; Status UNV JAME DAN NP December 01, 2018 12:03
[2018-12-01] MEDS: CEFEPIME 2GM/50 ML (PMX) 50 ML IVPB SCH ×2 (15:47→21:17)
[2018-12-01] MEDS ORDERED: PENDING SANTYL ORDER FOR WOUND CARE XX PRN (19:00)
[2018-12-01] MEDS: INSULIN GLARGINE [LANTus] (100 UNITS/ML) SYG SC SCH (21:45)
[2018-12-02] VITALS (11 sets, daily range): BP systolic 95–127; BP diastolic 51–71; PULSE 75–121; RESP 18–30
[2018-12-02] MEDS: ACETAMINOPHEN 650MG/20.3ML CUP GTB PRN (00:43)
[2018-12-02] MEDS: INSULIN ASPART [NOVOLOG] 3 ML PEN SC SCH ×6 (00:53→21:52)
--- NOTE | 2018-12-02 01:05 | CONS ---
DATE OF ADMISSION: 12/01/2018 DATE OF CONSULTATION: 12/01/2018 TYPE OF CONSULTATION: Infectious Disease. REASON FOR CONSULTATION: Antibiotic management. HISTORY OF PRESENT ILLNESS: Taran Perez is a 78-year-old male who was brought in from the detention for fever and tachycardia. The patient is demented, has a trach to vent and he does not give a ny pertinent information. PAST MEDICAL HISTORY: His past problems include: 1. Hip replacement. 2. Prostate surgery. 3. Senile dementia. 4. Hypertension. 5. History of tobacco use in the past. FAMILY HISTORY: Noncontributory. SOCIAL HISTORY: He does not smoke, drink or abuse drugs. ALLERGIES: NONE TO PENICILLIN, SULFA OR FOODS. MEDICATIONS: Per chart. REVIEW OF SYSTEMS: As per HPI. PHYSICAL EXAMINATION: VITAL SIGNS: His temperature was 101.4. SKIN: Without generalized rash. HEENT: Within normal limits. NECK: Supple. LYMPH NODES: None palpable. CHEST: Decreased breath sounds at the bases. HEART: Without murmur or gallop. ABDOMEN: Soft and nontender, without organosplenomegaly or masses. EXTREMITIES: Without cyanosis, clubbing, or edema. RECTAL AND GENITAL: Deferred. NEUROLOGIC: No focal neurological abnormality. ANCILLARY LABORATORY DATA: White count was 15.4, H and H 9.2 and 30.3, platelet count 291,000. BUN and creatinine 42/1.50, sodium was 149, so the patient was somewhat dry, had a leukocytosis. His uri ne was negative for leukocyte esterase or nitrites. IMPRESSION AND PLAN: The patient was started on vancomycin and cefepime. The source of his infectio n was not yet clear. The patient was seen by Dr. Irving, who noted that he had a diabetic ulcer a t the left lower extremity with diabetic neuropathy, dry gangrene, and he recommended irrigation with Dakin solution, Betadine. Previous cultures were MRSA and corynebacterium. Discussed the case with Dr. Matamoros, a vascular surgeon, plan for OR, surgical knee release and then subsequent angiogram. Th e daughter wants to pursue limb salvage. As noted, the patient has a history of numerous problems in cluding CVA, diabetes, knee contractures and is currently on cefepime and linezolid. I do not think the patient has a urinary tract infection, but he does have a significant wound. His chest x-ray [place] ws prior granulomatous disease, no acute cardiopulmonary disease. Foot x-ray, profound osteopenia. Ankle x-ray, soft tissue defect overlying the ankle laterally. No new acute or aggressive appearing osseous abnormalities for which MRI could be considered, profound osteopenia. We will continue him o n current therapy. White count today is 17.1. I will dictate my findings to the hospitalist. Dictated By: NIKKIE NÚÑEZ MD, JD/SAMANTHA Conf#: [id number] DID#: [id number] CC: IKER FAM MD;*EndCC*
[2018-12-02] MEDS: DEXTROSE 5% 1,000 ML IV SCH ×2 (05:54→16:00)
[2018-12-02] MEDS: HEPARIN 5,000 UNIT/1 ML VIAL SC SCH ×3 (06:14→21:50)
--- NOTE | 2018-12-02 06:46 | CONS ---
Assessment/Plan Assessment/Plan Assessment/Plan (Daily) Sepsis Altered mental status secondary to Alzheimer's dementia Nutrition Fluid electrolyte abnormalities Full code Dehydration Decubiti of the sacrum Patient's daughter arrived in the room I had a long discussion with her concerning patient's CODE STATUS. She stated to me that patient always wanted to be kept alive in spite of the fact that he may have a debilitated condition. We had a long discussion about this she became very tearful and I decided not to discuss in more detail but to have another conference with her hopefully new within the next 24 hours. Hopefully will speak to other family members and change CODE STATUS to at least DO NOT RESUSCITATE. However patient is a candidate for hospice care overall notes is extremely poor for survivability over the next 6 months. Consultation Date/Type/Reason Admit Date/Time Date/Time of Note DATE: 12/02/18 TIME: 06:42 Hx of Present Illness 78-year-old male who was admitted to the intensive care unit with urosepsis, altered mental status baseline, fluid and electrolyte abnormalities chronic debility, nonverbal . She was transferred from a senior living facility with fever and urinary tract infection symptoms. She has a history also of Alzheimer 's dementia patient has been stabilized in the intensive care unit and probably be gone to medical surgical floor soon. Cannot obtain patient is demented Past Medical History Medical History: other (Unknown cannot obtain) Home Meds Active Scripts [Vancomycin Iv Per Pharmacy] 1 EA EACH No Conflict Check, 0 EA XX .PER PROTOCOL for 1 Day last dose 11/13 Prov:NARCISO AVILEZ NP 11/12/18 Lansoprazole (Heartburn Treatment 24 Hour) 15 Mg Capsule., 15 MG GTB DAILY@06 for 30 Days Prov:NARCISO AVILEZ NP 11/07/18 Amlodipine Besylate* (Amlodipine Besylate*) 10 Mg Tablet, 10 MG GTB DAILY for 30 Days, TAB Prov:NARCISO AVILEZ NP 11/07/18 Reported Medications Acetaminophen* (Acetaminophen*) 325 Mg Tablet, 650 MG GTB Q6H PRN for MILD PAIN(1-3)OR ELEVATED TEMP, #30 TAB 10/30/18 Abiraterone Acetate (Zytiga) 500 Mg Tablet, 1000 MG GTB DAILY, TAB 10/30/18 Insulin Glargine* (Lantus*) 100 Unit/Ml Soln, 20 UNIT SC QHS, #1 VIAL 10/30/18 Glucagon,Human Recombinant (Glucagon Emergency Kit) 1 Mg Kit, 1 MG IJ NEEDED PRN for IF BLOOD GLUCOSE<70, KIT 10/30/18 Medications Current Medications IV Flush (NS 3 ml) 3 ml PER PROTOCOL IV ; Start 12/01/18 at 02:00 Ondansetron HCl (Zofran Inj) 4 mg Q6H PRN IV NAUSEA/VOMITING; Start 12/01/18 at 02:00 Acetaminophen (Tylenol Tab) 650 mg Q6H PRN GTB .PAIN 1-3 OR TEMP; Start 12/01/18 at 02:00 Cefepime HCl 50 ml @ 100 mls/hr Q12 IVPB Last administered on 12/01/18at 21:17; Admin Dose 100 MLS/HR; Start 12/01/18 at 09:00 Dextrose 1,000 ml @ 80 mls/hr [id number] IV Last administered on 12/02/18at 05:54; Admin Dose 80 MLS/HR; Start 12/01/18 at 02:30 Linezolid 300 ml @ 300 mls/hr Q12 IVPB Last administered on 12/01/18at 21:17; Admin Dose 300 MLS/HR; Start 12/01/18 at 09:00 Heparin Sodium (Porcine) (Heparin (5000 Units/1ml)) 5,000 unit Q8H SC Last administered on 12/02/18at 06:14; Admin Dose 5,000 UNIT; Start 12/01/18 at 05:00 Insulin Aspart (Novolog Insulin Pen) NOVOLOG *MILD* ALGORI... Q4 SC Last administered on 12/02/18at 06:14; Admin Dose 1 UNIT; Start 12/01/18 at 09:00 Miscellaneous Information 1 ea NOTE XX ; Start 12/01/18 at 07:00 Glucose (Glutose) 15 gm Q15M PRN PO DECREASED GLUCOSE; Start 12/01/18 at 07:00 Glucose (Glutose) 22.5 gm Q15M PRN PO DECREASED GLUCOSE; Start 12/01/18 at 07:00 Dextrose (D50w Syringe) 25 ml Q15M PRN IV DECREASED GLUCOSE; Start 12/01/18 at 07:00 Dextrose (D50w Syringe) 50 ml Q15M PRN IV DECREASED GLUCOSE; Start 12/01/18 at 07:00 Glucagon (Glucagen) 1 mg Q15M PRN IM DECREASED GLUCOSE; Start 12/01/18 at 07:00 Glucose (Glutose) 15 gm Q15M PRN BUCCAL DECREASED GLUCOSE; Start 12/01/18 at 07:00 Acetaminophen (Tylenol Liquid) 650 mg Q6H PRN GTB MILD PAIN(1-3)OR ELEVATED TEMP Last administered on 12/02/18at 00:43; Admin Dose 650 MG; Start 12/01/18 at 07:30 Insulin Glargine (Lantus) 20 units QHS SC Last administered on 12/01/18at 21:45; Admin Dose 20 UNITS; Start 12/01/18 at 21:00 Miscellaneous Information 1,000 mg DAILY GTB ; Start 12/01/18 at 09:00; Status UNV Miscellaneous Information (Pending Santyl Order For Wound Care) This patient pritchard... PRN PRN XX WOUND CARE; Start 12/01/18 at 19:00 Chlorhexidine Gluconate (Peridex) 15 ml TID MT ; Start 12/02/18 at 09:00 Allergies: Coded Allergies: No Known Allergy (Unverified , 10/30/18) Social History Alcohol Use: other (Unknown) Smoking Status: Light tobacco smoker (Known) Exam/Review of Systems Exam Vitals Vital Signs Date Temp Pulse Resp B/P (MAP) Pulse Ox O2 O2 Flow FiO2 Time Delivery Rate 12/02/18 107 04:00 12/02/18 98.2 28 95/51 (66) 98 03:21 12/02/18 3.0 01:54 12/01/18 Nasal 21:00 Cannula Intake and Output 12/01/18 12/01/18 12/02/18 1515:00 23:00 07:00 IntakeIntake Total 700 ml 140 ml OutputOutput Total 400 ml 500 ml BalanceBalance 300 ml -360 ml Constitutional: non-verbal, frail, other (Thin frail appearing elderly male, malnourished) Head: normocephalic, atraumatic; No lacerations, No hematomas, No other Eyes: nl conjunctiva, EOMI, nl lids, nl sclera, PERRL ENMT: nl external ears & nose, nl lips & teeth, nl nasal mucosa & septum Neck: supple, non-tender Respiratory: clear to auscultation, normal air movement Cardiovascular: regular rate and rhythm, nl pulses Musculoskeletal: other (Lateral upper extremity contractures) Neurological: INSECT CONTROL INSPECTOR II-XII intact (Cannot follow simple commands, tracks me does not try to mouth words, no purposeful movements), confused, lethargic, other (Unable to answer simple questions) Results Result Diagram: 12/01/18 0747 12/01/18 2310 Results 24hrs Laboratory Tests Test 12/01/18 07:47 12/01/18 09:06 12/01/18 12:29 12/01/18 17:33 White Blood Count 17.1 H Red Blood Count 3.14 L Hemoglobin 8.6 L Hematocrit 29.0 L Mean Corpuscular 92.4 Volume Mean Corpuscular 27.4 L Hemoglobin Mean Corpuscular 29.7 L Hemoglobin Concent Red Cell 16.1 H Distribution Width Platelet Count 275 Mean Platelet Volume 12.2 H Immature 0.500 H Granulocytes % Neutrophils % 81.2 H Segmented 60 Neutrophils % (Manual) Band Neutrophils % 17 H (Manual) Lymphocytes % 10.8 L Lymphocytes % 13 L (Manual) Reactive Lymphocytes 1 H % (Manual) Monocytes % 6.9 Monocytes % (Manual) 8 Eosinophils % 0.4 Basophils % 0.2 Promyelocytes % 1 H (Manual) Nucleated Red Blood 0.0 Cells % Immature 0.090 H Granulocytes # Neutrophils # 13.9 H Neutrophils # 10.8 H (Manual) Band Neutrophils # 2.9 H Lymphocytes (Manual) 2.2 Lymphocytes # 1.8 Reactive Lymphocytes 0.1 H # Monocytes # 1.2 H Monocytes # (Manual) 1.3 H Eosinophils # 0.1 Basophils # 0.0 Promyelocytes # 0.1 H Nucleated Red Blood 0.0 Cells # Platelet Estimate NORMAL Giant Platelets 7 H Polychromasia 3+ Anisocytosis 1+ Microcytosis 1+ Sodium Level 149 H Potassium Level 4.2 Chloride Level 115 H Carbon Dioxide Level 32 H Anion Gap 2 L Blood Urea Nitrogen 40 H Creatinine 1.44 H Est Glomerular Filtrat Rate mL/min Glucose Level 175 Lactic Acid Level 1.1 Calcium Level 9.6 Magnesium Level 2.1 Total Bilirubin 0.4 Direct Bilirubin 0.00 Indirect Bilirubin 0.4 Aspartate Amino 73 H Transf (AST/SGOT) Alanine 21 Aminotransferase (AL T/SGPT) Alkaline Phosphatase 77 Total Protein 6.5 Albumin 2.9 L Globulin 3.60 H Albumin/Globulin 0.80 Ratio Bedside Glucose 175 129 131 Test 12/01/18 18:30 12/01/18 21:15 12/01/18 23:10 12/02/18 00:38 Urine Color YELLOW Urine Clarity CLEAR Urine pH 8.0 Urine Specific 1.012 [place] Urine Ketones NEGATIVE Urine Nitrite NEGATIVE Urine Bilirubin NEGATIVE Urine Urobilinogen NEGATIVE Urine Leukocyte NEGATIVE Esterase Urine Microscopic 1 RBC Urine Microscopic 1 WBC Urine Hemoglobin 1+ H Urine Random 38.64 Creatinine Urine Random Sodium 83 Urine Glucose NEGATIVE Urine Total Protein 92.0 H Bedside Glucose 142 160 Sodium Level 148 H Potassium Level 3.5 Chloride Level 113 H Carbon Dioxide Level 32 H Anion Gap 3 L Blood Urea Nitrogen 32 H Creatinine 1.37 H Est Glomerular Filtrat Rate mL/min Glucose Level 168 Calcium Level 10.0 Phosphorus Level 3.6 Magnesium Level 2.0 Test 12/02/18 05:43 Bedside Glucose 154 Medications Medication Current Medications IV Flush (NS 3 ml) 3 ml PER PROTOCOL IV ; Start 12/01/18 at 02:00 Ondansetron HCl (Zofran Inj) 4 mg Q6H PRN IV NAUSEA/VOMITING; Start 12/01/18 at 02:00 Acetaminophen (Tylenol Tab) 650 mg Q6H PRN GTB .PAIN 1-3 OR TEMP; Start 12/01/18 at 02:00 Cefepime HCl 50 ml @ 100 mls/hr Q12 IVPB Last administered on 12/01/18at 21:17; Admin Dose 100 MLS/HR; Start 12/01/18 at 09:00 Dextrose 1,000 ml @ 80 mls/hr [id number] IV Last administered on 12/02/18at 05:54; Admin Dose 80 MLS/HR; Start 12/01/18 at 02:30 Linezolid 300 ml @ 300 mls/hr Q12 IVPB Last administered on 12/01/18at 21:17; Admin Dose 300 MLS/HR; Start 12/01/18 at 09:00 Heparin Sodium (Porcine) (Heparin (5000 Units/1ml)) 5,000 unit Q8H SC Last administered on 12/02/18at 06:14; Admin Dose 5,000 UNIT; Start 12/01/18 at 05:00 Insulin Aspart (Novolog Insulin Pen) NOVOLOG *MILD* ALGORI... Q4 SC Last administered on 12/02/18at 06:14; Admin Dose 1 UNIT; Start 12/01/18 at 09:00 Miscellaneous Information 1 ea NOTE XX ; Start 12/01/18 at 07:00 Glucose (Glutose) 15 gm Q15M PRN PO DECREASED GLUCOSE; Start 12/01/18 at 07:00 Glucose (Glutose) 22.5 gm Q15M PRN PO DECREASED GLUCOSE; Start 12/01/18 at 07:00 Dextrose (D50w Syringe) 25 ml Q15M PRN IV DECREASED GLUCOSE; Start 12/01/18 at 07:00 Dextrose (D50w Syringe) 50 ml Q15M PRN IV DECREASED GLUCOSE; Start 12/01/18 at 07:00 Glucagon (Glucagen) 1 mg Q15M PRN IM DECREASED GLUCOSE; Start 12/01/18 at 07:00 Glucose (Glutose) 15 gm Q15M PRN BUCCAL DECREASED GLUCOSE; Start 12/01/18 at 07:00 Acetaminophen (Tylenol Liquid) 650 mg Q6H PRN GTB MILD PAIN(1-3)OR ELEVATED TEMP Last administered on 12/02/18at 00:43; Admin Dose 650 MG; Start 12/01/18 at 07:30 Insulin Glargine (Lantus) 20 units QHS SC Last administered on 12/01/18at 21:45; Admin Dose 20 UNITS; Start 12/01/18 at 21:00 Miscellaneous Information 1,000 mg DAILY GTB ; Start 12/01/18 at 09:00; Status UNV Miscellaneous Information (Pending [facility] Order For Wound Care) This patient pritchard... PRN PRN XX WOUND CARE; Start 12/01/18 at 19:00 Chlorhexidine Gluconate (Peridex) 15 ml TID MT ; Start 12/02/18 at 09:00 ANDRA ZAMORANO December 02, 2018 06:46
[2018-12-02] MEDS: CHLORHEXIDINE GLUCONATE 15 ML UD CUP MT SCH ×3 (09:00→21:24)
[2018-12-02] MEDS: LINEZOLID 600 MG/300 ML (PMX) 300 ML IVPB SCH ×2 (09:00→21:23)
[2018-12-02] MEDS: CEFEPIME 2GM/50 ML (PMX) 50 ML IVPB SCH ×2 (09:14→21:23)
[2018-12-02] MEDS ORDERED: POTASSIUM CHLORIDE 20 MEQ POWDER FOR ORAL SOLN GTB ONE (09:30)
--- NOTE | 2018-12-02 09:50 | PN ---
DATE: 12/02/2018 SUBJECTIVE: The patient was transferred from intensive care unit to telemetry. No other acute event s noted overnight. No hemoptysis, hematemesis or hematochezia. OBJECTIVE: VITAL SIGNS: Blood pressure is 118/67, respirations 20, pulse 78, temperature 98.0. HEENT: Head is normocephalic. NECK: Supple. HEART: Regular rate. LUNGS: Show diminished breath sounds at the base. ABDOMEN: Soft, nontender to palpation without rebound or guarding. EXTREMITIES: Negative for clubbing, cyanosis, no edema. DERMATOLOGIC: No rashes. MUSCULOSKELETAL: No joint effusion. NEUROLOGIC: No change in exam. MEDICATIONS: Reviewed. LABORATORY DATA: Reviewed. Urinalysis was reviewed. The patient has a protein creatinine ratio of approximately 2.5 grams per gram of creatinine. ASSESSMENT AND PLAN: 1. Nonoliguric acute kidney injury on top of chronic kidney disease with previous baseline creatinin e of 0.8 to 1.0 mg/dL. Etiology of acute kidney injury is multifactorial secondary to hemodynamics, sepsis, possible tubular injury. Renal function has improved in the last 24 to 48 hours. Continue c urrent treatment plan. Continue supportive care, renally dose all medications, continue IV hydration . 2. Hypernatremia. Continue free water flushes. Continue hypertonic fluid. Monitor closely. 3. Alkalosis secondary to acute kidney injury. Continue to monitor. 4. Anemia. Continue to monitor hemoglobin and hematocrit levels. 5. Mineral bone disorder. Monitor calcium and phosphorus levels. 6. Severe sepsis secondary to possible wounds. Continue current antibiotic regimen. Follow up cult ures. 7. Diabetes. Continue current insulin regimen. 8. Dysphagia. Continue tube feeding. 9. Acute encephalopathy on top of dementia, etiology is toxic metabolic. Continue to monitor. 10. History of cerebrovascular accident. Continue medical management. Dictated By: KACY DILLARD DO NR/NTS Conf#: [id number] DID#: [id number] CC: IKER FAM MD; GARY PETERSON MD;*EndCC*
--- NOTE | 2018-12-02 14:38 | CONS ---
Assessment/Plan Assessment/Plan Hospital Course (Demo Recall) Patient was transferred out of ICU he is laying comfortably in bed no fevers overnight WBC 12 platelets 271 neutrophils 81.5 BUN 33 creatinine 1.29 Microbiology: Blood cultures negative urine culture consistent with contaminant left foot wound culture growing gram-negative rods and staph aureus preliminary Antimicrobials: Zyvox cefepime Indwelling: Trach, PEG, [place]ynn Physical examination: Chronically ill-appearing elderly man who is in no distress. Head atraumatic normocephalic neck is supple chest rise symmetrical breath sounds diminished to bases heart: S1-S2 abdomen soft, bowel sounds present extremities contractured lower extremities Assessment: 1. Sepsis 2. UTI per UA 3. Multiple decubitus 4. Acute on chronic encephalopathy 5. Dysphagia 6. Hx prostate cancer Plan: Stable, WBC trending down, continue antibiotics, follow podiatry recommendations await for final wound cultures Consultation Date/Type/Reason Admit Date/Time December 01, 2018 at 01:35 Initial Consult Date Type of Consult id Requesting Provider: GARY PETERSON Date/Time of Note DATE: 12/02/18 TIME: 14:37 Exam/Review of Systems Exam Vitals Vital Signs Date Temp Pulse Resp B/P (MAP) Pulse Ox O2 O2 Flow FiO2 Time Delivery Rate 12/02/18 100 3.0 14:23 12/02/18 111 12:00 12/02/18 98.6 18 127/71 11:43 (89) 12/02/18 Nasal 08:00 Cannula Intake and Output 12/01/18 12/01/18 12/02/18 1515:00 23:00 07:00 IntakeIntake Total 700 ml 140 ml OutputOutput Total 400 ml 500 ml BalanceBalance 300 ml -360 ml Results Result Diagram: 12/02/18 0620 12/02/18 0620 Results 24hrs Laboratory Tests Test 12/01/18 17:33 12/01/18 18:30 12/01/18 21:15 12/01/18 23:10 Bedside Glucose 131 142 Urine Color YELLOW Urine Clarity CLEAR Urine pH 8.0 Urine Specific 1.012 [place] Urine Ketones NEGATIVE Urine Nitrite NEGATIVE Urine Bilirubin NEGATIVE Urine Urobilinogen NEGATIVE Urine Leukocyte NEGATIVE Esterase Urine Microscopic 1 RBC Urine Microscopic 1 WBC Urine Hemoglobin 1+ H Urine Random 38.64 Creatinine Urine Random Sodium 83 Urine Glucose NEGATIVE Urine Total Protein 92.0 H Sodium Level 148 H Potassium Level 3.5 Chloride Level 113 H Carbon Dioxide Level 32 H Anion Gap 3 L Blood Urea Nitrogen 32 H Creatinine 1.37 H Est Glomerular Filtrat Rate mL/min Glucose Level 168 Calcium Level 10.0 Phosphorus Level 3.6 Magnesium Level 2.0 Test 12/02/18 00:38 12/02/18 05:43 12/02/18 06:20 12/02/18 09:11 Bedside Glucose 160 154 166 White Blood Count 12.0 #H Red Blood Count 3.14 L Hemoglobin 8.5 L Hematocrit 28.8 L Mean Corpuscular 91.7 Volume Mean Corpuscular 27.1 L Hemoglobin Mean Corpuscular 29.5 L Hemoglobin Concent Red Cell 15.7 H Distribution Width Platelet Count 271 Mean Platelet Volume 12.3 H Immature 0.600 H Granulocytes % Neutrophils % 81.5 H Lymphocytes % 9.0 L Monocytes % 7.7 Eosinophils % 1.0 Basophils % 0.2 Nucleated Red Blood 0.0 Cells % Immature 0.070 H Granulocytes # Neutrophils # 9.8 H Lymphocytes # 1.1 Monocytes # 0.9 Eosinophils # 0.1 Basophils # 0.0 Nucleated Red Blood 0.0 Cells # Sodium Level 147 H Potassium Level 3.4 L Chloride Level 112 H Carbon Dioxide Level 31 Anion Gap 4 L Blood Urea Nitrogen 33 H Creatinine 1.29 H Est Glomerular Filtrat Rate mL/min Glucose Level 149 Calcium Level 10.3 H Total Bilirubin 0.3 Direct Bilirubin 0.00 Indirect Bilirubin 0.3 Aspartate Amino 66 H Transf (AST/SGOT) Alanine 22 Aminotransferase (AL T/SGPT) Alkaline Phosphatase 75 Total Protein 6.1 Albumin 2.7 L Globulin 3.40 H Albumin/Globulin 0.79 Ratio Test 12/02/18 13:34 Bedside Glucose 129 Medications Medication Current Medications IV Flush (NS 3 ml) 3 ml PER PROTOCOL IV ; Start 12/01/18 at 02:00 Ondansetron HCl (Zofran Inj) 4 mg Q6H PRN IV NAUSEA/VOMITING; Start 12/01/18 at 02:00 Acetaminophen (Tylenol Tab) 650 mg Q6H PRN GTB .PAIN 1-3 OR TEMP; Start 12/01/18 at 02:00 Cefepime HCl 50 ml @ 100 mls/hr Q12 IVPB Last administered on 12/02/18at 09:14; Admin Dose 100 MLS/HR; Start 12/01/18 at 09:00 Dextrose 1,000 ml @ 80 mls/hr [id number] IV Last administered on 12/02/18at 05:54; Admin Dose 80 MLS/HR; Start 12/01/18 at 02:30 Linezolid 300 ml @ 300 mls/hr Q12 IVPB Last administered on 12/02/18at 09:00; Admin Dose 300 MLS/HR; Start 12/01/18 at 09:00 Heparin Sodium (Porcine) (Heparin (5000 Units/1ml)) 5,000 unit Q8H SC Last administered on 12/02/18at 13:42; Admin Dose 5,000 UNIT; Start 12/01/18 at 05:00 Insulin Aspart (Novolog Insulin Pen) NOVOLOG *MILD* ALGORI... Q4 SC Last administered on 12/02/18at 09:22; Admin Dose 1 UNIT; Start 12/01/18 at 09:00 Miscellaneous Information 1 ea NOTE XX ; Start 12/01/18 at 07:00 Glucose (Glutose) 15 gm Q15M PRN PO DECREASED GLUCOSE; Start 12/01/18 at 07:00 Glucose (Glutose) 22.5 gm Q15M PRN PO DECREASED GLUCOSE; Start 12/01/18 at 07:00 Dextrose (D50w Syringe) 25 ml Q15M PRN IV DECREASED GLUCOSE; Start 12/01/18 at 07:00 Dextrose (D50w Syringe) 50 ml Q15M PRN IV DECREASED GLUCOSE; Start 12/01/18 at 07:00 Glucagon (Glucagen) 1 mg Q15M PRN IM DECREASED GLUCOSE; Start 12/01/18 at 07:00 Glucose (Glutose) 15 gm Q15M PRN BUCCAL DECREASED GLUCOSE; Start 12/01/18 at 07:00 Acetaminophen (Tylenol Liquid) 650 mg Q6H PRN GTB MILD PAIN(1-3)OR ELEVATED TEMP Last administered on 12/02/18at 00:43; Admin Dose 650 MG; Start 12/01/18 at 07:30 Insulin Glargine (Lantus) 20 units QHS SC Last administered on 12/01/18at 21:45; Admin Dose 20 UNITS; Start 12/01/18 at 21:00 Miscellaneous Information 1,000 mg DAILY XX ; Start 12/01/18 at 09:00; Status UNV Miscellaneous Information (Pending Santyl Order For Wound Care) This patient pritchard... PRN PRN XX WOUND CARE; Start 12/01/18 at 19:00 Chlorhexidine Gluconate (Peridex) 15 ml TID MT Last administered on 12/02/18at 13:36; Admin Dose 15 ML; Start 12/02/18 at 09:00 JAME DAN NP December 02, 2018 14:38
[2018-12-02] MEDS: ALBUTEROL 0.083% (NEB) 2.5 MG/3 ML AMP HHN SCH ×2 (17:52→21:41)
[2018-12-02] MEDS: ACETYLCYSTEINE 20% 4 ML VIAL NEB SCH ×2 (18:00→21:41)
[2018-12-02] MEDS: INSULIN GLARGINE [LANTus] (100 UNITS/ML) SYG SC SCH (21:51)
[2018-12-03] VITALS (10 sets, daily range): BP systolic 105–116; BP diastolic 49–59; PULSE 98–126; RESP 16–35
[2018-12-03] MEDS: ACETAMINOPHEN 650MG/20.3ML CUP GTB PRN ×2 (01:06→18:59)
[2018-12-03] MEDS: DEXTROSE 5% 1,000 ML IV SCH (01:06)
[2018-12-03] MEDS: INSULIN ASPART [NOVOLOG] 3 ML PEN SC SCH ×6 (01:28→21:00)
[2018-12-03] MEDS: ALBUTEROL 0.083% (NEB) 2.5 MG/3 ML AMP HHN SCH ×6 (02:01→20:05)
[2018-12-03] MEDS: ACETYLCYSTEINE 20% 4 ML VIAL NEB SCH ×6 (02:01→20:14)
[2018-12-03] MEDS: HEPARIN 5,000 UNIT/1 ML VIAL SC SCH ×3 (05:48→21:26)
[2018-12-03] MEDS: CHLORHEXIDINE GLUCONATE 15 ML UD CUP MT SCH ×3 (09:33→21:11)
[2018-12-03] MEDS: CEFEPIME 2GM/50 ML (PMX) 50 ML IVPB SCH (09:35)
[2018-12-03] MEDS: LINEZOLID 600 MG/300 ML (PMX) 300 ML IVPB SCH ×2 (09:37→21:11)
--- NOTE | 2018-12-03 09:51 | PN ---
DATE: 12/03/2018 SUBJECTIVE: The patient is stable, no acute events noted overnight. No hemoptysis, hematemesis or h ematochezia. The patient remains confused. The patient is on 5 liters nasal cannula. No other even ts noted. OBJECTIVE: VITAL SIGNS: Blood pressure is 111/50, respirations 16, pulse 104, temperature 98.3. HEENT: Head is normocephalic. NECK: Supple. HEART: Regular rate. LUNGS: Show diminished breath sounds at the base. ABDOMEN: Soft, nontender to palpation without rebound or guarding. EXTREMITIES: Negative for clubbing, cyanosis. Trace edema. DERMATOLOGIC: No rashes. MUSCULOSKELETAL: No joint effusion. NEUROLOGIC: No change in exam. MEDICATIONS: Reviewed. LABORATORY DATA: Reviewed. ASSESSMENT AND PLAN: 1. Nonoliguric acute kidney injury on top of chronic kidney disease with previous baseline creatinin e of 0.81 to 1.0 mg/dL. Etiology of acute kidney injury is secondary to hemodynamics, sepsis, possib le tubular injury. The patient's renal function has been stable in the last 24 hours. We will sona nue current treatment plan, supportive care, and renally dose all medications and discontinue IV flui ds. 2. Hypernatremia, improved. Continue free water flushes. 3. Alkalosis, improving. Continue to monitor. 4. Anemia. Monitor hemoglobin and hematocrit levels. 5. Mineral bone disorder, monitor calcium and phosphorus levels. 6. Severe sepsis. Continue current antibiotic regimen. Cultures have been reviewed. 7. Diabetes. Continue current insulin regimen. 8. Dysphagia. Continue tube feeding. 9. Acute encephalopathy on top of dementia, etiology is toxic metabolic. 10. History of cerebrovascular accident. Continue medical management. Dictated By: KACY DILLARD DO NR/NTS Conf#: [id number] DID#: [id number] CC: IKER FAM MD; GARY PETERSON MD;*EndCC*
[2018-12-03] MEDS: DAKINS 0.0125%(1/40) 473 ML SOLUTION TP SCH (10:50)
--- NOTE | 2018-12-03 14:19 | CONS ---
Assessment/Plan Assessment/Plan Hospital Course (Demo Recall) No events patient looks comfortable afebrile WBC 12.5 platelets 275 neutrophils 79.7 BUN 37 creatinine 1.44 Microbiology: Left foot wound culture grew staph aureus Corynebacterium group JK and ends Acinetobacter blood cultures remain negative Antimicrobials: Zyvox cefepime Indwelling: Trach, PEG, Wynn Physical examination: Chronically ill-appearing elderly man who is in no distress. Head atraumatic normocephalic neck is supple chest rise symmetrical breath sounds diminished to bases heart: S1-S2 abdomen soft, bowel sounds present extremities contractured lower extremities Assessment: 1. Sepsis 2. UTI per UA 3. Multiple decubitus ? L foot OM 4. Acute on chronic encephalopathy 5. Dysphagia 6. Hx prostate cancer Plan: Stable, change Cefepime to Colistin, follow podiatry recommendations, monitor renal f-n Consultation Date/Type/Reason Admit Date/Time December 01, 2018 at 01:35 Initial Consult Date Type of Consult id Requesting Provider: GARY PETERSON Date/Time of Note DATE: 12/03/18 TIME: 14:17 Exam/Review of Systems Exam Vitals Vital Signs Date Temp Pulse Resp B/P (MAP) Pulse Ox O2 O2 Flow FiO2 Time Delivery Rate 12/03/18 104 12:51 12/03/18 27 100 Nasal 4.0 12:35 Cannula 12/03/18 99.3 105/50 11:40 (68) 12/02/18 45 21:43 Intake and Output 12/02/18 12/02/18 12/03/18 1515:00 23:00 07:00 IntakeIntake Total 650 ml 350 ml 400 ml OutputOutput Total 600 ml 700 ml 450 ml BalanceBalance 50 ml -350 ml -50 ml Results Result Diagram: 12/03/18 0630 12/03/18 0630 Results 24hrs Laboratory Tests Test 12/02/18 17:51 12/02/18 21:24 12/03/18 01:18 12/03/18 05:38 Bedside Glucose 152 175 188 147 Test 12/03/18 06:30 12/03/18 09:34 12/03/18 13:15 White Blood Count 12.5 H Red Blood Count 2.90 L Hemoglobin 8.1 L Hematocrit 26.1 L Mean Corpuscular 90.0 Volume Mean Corpuscular 27.9 L Hemoglobin Mean Corpuscular 31.0 L Hemoglobin Concent Red Cell 15.6 H Distribution Width Platelet Count 275 Mean Platelet Volume 12.4 H Immature 0.600 H Granulocytes % Neutrophils % 79.7 H Lymphocytes % 11.0 L Monocytes % 8.2 Eosinophils % 0.3 Basophils % 0.2 Nucleated Red Blood 0.0 Cells % Immature 0.070 H Granulocytes # Neutrophils # 9.9 H Lymphocytes # 1.4 Monocytes # 1.0 H Eosinophils # 0.0 Basophils # 0.0 Nucleated Red Blood 0.0 Cells # Sodium Level 142 Potassium Level 3.5 Chloride Level 110 Carbon Dioxide Level 28 Anion Gap 4 L Blood Urea Nitrogen 37 H Creatinine 1.44 H Est Glomerular Filtrat Rate mL/min Glucose Level 145 Calcium Level 10.0 Total Bilirubin 0.4 Direct Bilirubin 0.00 Indirect Bilirubin 0.4 Aspartate Amino 41 Transf (AST/SGOT) Alanine 25 Aminotransferase (AL T/SGPT) Alkaline Phosphatase 75 Total Protein 6.0 L Albumin 2.7 L Globulin 3.30 H Albumin/Globulin 0.81 Ratio Bedside Glucose 157 189 Medications Medication Current Medications IV Flush (NS 3 ml) 3 ml PER PROTOCOL IV ; Start 12/01/18 at 02:00 Ondansetron HCl (Zofran Inj) 4 mg Q6H PRN IV NAUSEA/VOMITING; Start 12/01/18 at 02:00 Acetaminophen (Tylenol Tab) 650 mg Q6H PRN GTB .PAIN 1-3 OR TEMP; Start 12/01/18 at 02:00 Cefepime HCl 50 ml @ 100 mls/hr Q12 IVPB Last administered on 12/03/18at 09:35; Admin Dose 100 MLS/HR; Start 12/01/18 at 09:00 Linezolid 300 ml @ 300 mls/hr Q12 IVPB Last administered on 12/03/18 09:37; Admin Dose 300 MLS/HR; Start 12/01/18 at 09:00 Heparin Sodium (Porcine) (Heparin (5000 Units/1ml)) 5,000 unit Q8H SC Last administered on 12/03/18 13:25; Admin Dose 5,000 UNIT; Start 12/01/18 at 05:00 Insulin Aspart (Novolog Insulin Pen) NOVOLOG *MILD* ALGORI... Q4 SC Last administered on 12/03/18 13:25; Admin Dose 2 UNIT; Start 12/01/18 at 09:00 Miscellaneous Information 1 ea NOTE XX ; Start 12/01/18 at 07:00 Glucose (Glutose) 15 gm Q15M PRN PO DECREASED GLUCOSE; Start 12/01/18 at 07:00 Glucose (Glutose) 22.5 gm Q15M PRN PO DECREASED GLUCOSE; Start 12/01/18 at 07:00 Dextrose (D50w Syringe) 25 ml Q15M PRN IV DECREASED GLUCOSE; Start 12/01/18 at 07:00 Dextrose (D50w Syringe) 50 ml Q15M PRN IV DECREASED GLUCOSE; Start 12/01/18 at 07:00 Glucagon (Glucagen) 1 mg Q15M PRN IM DECREASED GLUCOSE; Start 12/01/18 at 07:00 Glucose (Glutose) 15 gm Q15M PRN BUCCAL DECREASED GLUCOSE; Start 12/01/18 at 07:00 Acetaminophen (Tylenol Liquid) 650 mg Q6H PRN GTB MILD PAIN(1-3)OR ELEVATED T EMP Last administered on 12/03/18at 01:06; Admin Dose 650 MG; Start 12/01/18 at 07:30 Insulin Glargine (Lantus) 20 units QHS SC Last administered on 12/02/18 21:51; Admin Dose 20 UNITS; Start 12/01/18 at 21:00 Miscellaneous Information (Pending [facility] Order For Wound Care) This patient pritchard... PRN PRN XX WOUND CARE; Start 12/01/18 at 19:00 Chlorhexidine Gluconate (Peridex) 15 ml TID MT Last administered on 12/03/18 13:16; Admin Dose 15 ML; Start 12/02/18 at 09:00 Albuterol (Proventil 0.083% (Neb)) 1.25 mg Q4H RESP THERAPY HHN Last administered on 12/03/18 12:28; Admin Dose 1.25 MG; Start 12/02/18 at 17:00 Acetylcysteine (Mucomyst) 2 ml Q4H RESP THERAPY NEB Last administered on 12/03/18 12:28; Admin Dose 2 ML; Start 12/02/18 at 17:00 Sodium Hypochlorite (Dakins Diluted ()) 1 applic DAILY TP Last administered on 12/03/18at 10:50; Admin Dose 1 APPLIC; Start 12/03/18 at 11:00 JAME DAN NP December 03, 2018 14:19
[2018-12-03] MEDS: COLISTIMETHATE 150 MG in SOD CHLORIDE 0.9% 100 ML IVPB SCH (16:08)
--- NOTE | 2018-12-03 16:19 | RADRPT ---
Vent Rate: 112 bpm RR Interval: 540 msec OK Interval: 137 msec QRS Duration: 85 msec QT Interval: 353 msec QTC Interval: 480 msec P-R-T [place]: 36 - -26 - 34 degrees Sinus tachycardia...rate> 99 Multiform ventricular premature complexes...short R-R, variable morphology Inferior infarct, old...Q >35mS, II III aVF Consider anterior infarct...Q >30mS in V2-V5 Electronically Signed By: Trevor Loya
[2018-12-03] MEDS: INSULIN GLARGINE [LANTus] (100 UNITS/ML) SYG SC SCH (21:27)
[2018-12-03] MEDS ORDERED: COLLAGENASE 5 GM (UD JAR) TOP PRN (22:30)
[2018-12-04] VITALS (12 sets, daily range): BP systolic 96–114; BP diastolic 44–67; PULSE 78–116; RESP 19–29
[2018-12-04] MEDS: ALBUTEROL 0.083% (NEB) 2.5 MG/3 ML AMP HHN SCH ×6 (00:26→21:21)
[2018-12-04] MEDS: INSULIN ASPART [NOVOLOG] 3 ML PEN SC SCH ×6 (01:00→21:00)
[2018-12-04] MEDS: ACETYLCYSTEINE 20% 4 ML VIAL NEB SCH ×6 (01:00→21:21)
[2018-12-04] MEDS: DEXTROSE 50% 50 ML SYRINGE IV PRN ×3 (05:17→21:24)
[2018-12-04] MEDS: HEPARIN 5,000 UNIT/1 ML VIAL SC SCH ×2 (05:33→17:56)
[2018-12-04] MEDS: ACETAMINOPHEN 650MG/20.3ML CUP GTB PRN (07:26)
[2018-12-04] MEDS: CHLORHEXIDINE GLUCONATE 15 ML UD CUP MT SCH ×3 (08:49→21:16)
[2018-12-04] MEDS: COLLAGENASE 5 GM (UD JAR) TOP SCH (08:49)
[2018-12-04] MEDS: DAKINS 0.0125%(1/40) 473 ML SOLUTION TP SCH (08:50)
[2018-12-04] MEDS: LINEZOLID 600 MG/300 ML (PMX) 300 ML IVPB SCH ×2 (09:08→21:15)
--- NOTE | 2018-12-04 09:10 | PN ---
DATE: 12/04/2018 SUBJECTIVE: The patient is stable. No acute events noted. No fever, chills, nausea or vomiting. OBJECTIVE: VITAL SIGNS: Blood pressure is 96/61, pulse 116, temperature of 102.2. HEENT: Head is normocephalic. NECK: Supple. HEART: Regular rate. LUNGS: Show diminished breath sounds at the base. ABDOMEN: Soft, nontender to palpation without rebound or guarding. EXTREMITIES: Negative for clubbing, cyanosis. Trace edema. DERMATOLOGIC: No rashes. MUSCULOSKELETAL: No joint effusion. NEUROLOGIC: No change in exam. MEDICATIONS: Reviewed. LABORATORY DATA: Reviewed. MICROBIOLOGY: The patient's cultures have been negative. ASSESSMENT AND PLAN: 1. Nonoliguric acute kidney injury with previous baseline creatinine of 0.8 to 1.0 mg/dL. Etiology of acute kidney injury is secondary to hemodynamics, tubular injury and sepsis. The patient's renal function has slowly been improving. We will continue to monitor. Follow up renal panel, monitor guicho sely as the patient is on colistin, which is nephrotoxic agent. 2. Hypernatremia, improved. Continue free water flushes. 3. Alkalosis, improving. 4. Anemia. Continue to monitor hemoglobin and hematocrit levels. 5. Mineral bone disorder, monitor calcium and phosphorus levels. 6. Severe sepsis. Continue current antibiotic regimen. 7. Diabetes. Continue current insulin regimen. 8. Dysphagia. Continue tube feeding. 9. Acute encephalopathy on top of dementia, etiology is toxic metabolic. 10. History of cerebrovascular accident. Continue medical management. Dictated By: KACY DILLARD DO NR/NTS Conf#: [id number] DID#: [id number] CC: IKER FAM MD; GARY PETERSON MD;*EndCC*
--- NOTE | 2018-12-04 09:51 | EN ---
Date/Time of Note Date/Time of Note DATE: 12/03/18 Event Note Medicine Medicine Event Note Subjective : continues to spike fevers objective : Constitutional: Barely verbal, will respond to name, can grunts yes or no in answer to questions, chronically contracted, does not like to be moved, otherwise looks comfortable when he is not stimulated Psych: other (unable to assess) Head: normocephalic, atraumatic Eyes: PERRL, No icteric ENMT: No mucosa pink and moist (dry) Neck: non-tender Respiratory: diminished breath sounds, gurgling No labored breathing Cardiovascular: regular rate and rhythm, No murmurs/extra sounds Gastrointestinal: soft, non-tender, bowel sounds, other (PEG tube noted with no cellulitis or discharge) Genitourinary -male: Wynn to bedside drainage Extremities: Chronically contracted with complete lower extremity paresis bilaterally?, Chronically flexed at the hip and knees Patient has fair rn cardiac rehab right upper extremity which is less left upper extremity left foot and ankle chronic ulcerations Neurological: lethargic, other (altered, eyes opening spontaneously but no tracking or following commands), No nl mental status, No nl speech, No nl strength Skin: other (Pictures of left ischial ulcer reviewed in the chart, it is about 8 cm in diameter, looks like it is healing well, there may be some purulence. Patient also has approximately 4-1/2 diameter ulcer in the sacrum but also looks like it is healing well, as well as multiple other smaller ulcers diffusely. Please see nursing notes for details.) assessment and plan: 78-year-old chronically debilitated male with functional quadriplegia and a history of prior CVA and prostate cancer who was sent to us from custodial facility because of fever and concern for urinary tract infection currently managed as follows: 1. Severe sepsis without septic shock: improving ? 2. Probable urinary tract infection: -Patient has had multiple episodes of urinary tract infection in the past with different organisms. -Last episode had VRE, Acinetobacter Melinda, Kat albicans -this time, urine culture consistent with contaminant 3. Bilateral sacroiliac decubiti 4. Hyponatremia likely related to dehydration 5. ROBBIE on CKD? 6. Chronic debility with functional quadriplegia, history of CVA -Barely verbal at baseline, can respond to name, moans a lot 7. Hypertension 8. Respiratory insufficiency: Chronic?, Not requiring oxygen via nasal cannula 3 L a minute 9. Left foot and ankle chronic ulcerations. Patient was seen in the past for the same ulceration and he is being planned for a hamstring tenotomy to assist with the knee flexion and attempt to do an angiogram subsequently with vascular surgery. -left foot wound culture growing gram-negative rods and staph aureus preliminary 10. RTI: aspiration versus tracheobronchitis assessment and plan: -continue IV abx per ID, repeat cultures? defer to ID -f/u podiatry inpatient plan for ulcers -surgical consult for sacral wounds? -Continue tube feeds and ,,supportive care -Continue to monitor kidney function -continue wound care and f/u final podiatry recs -poor prognosis in the manager terminal, continued aggressive care will not significantly change quality of life, recommend hospice care. Palliative care on board Exam/Review of Systems Exam Vitals Vital Signs Date Temp Pulse Resp B/P (MAP) Pulse Ox O2 O2 Flow FiO2 Time Delivery Rate 12/03/18 104 12:51 12/03/18 27 100 Nasal 4.0 12:35 Cannula 12/03/18 99.3 105/50 11:40 (68) 12/02/18 45 21:43 Intake and Output 12/02/18 12/02/18 12/03/18 1515:00 23:00 07:00 IntakeIntake Total 650 ml 350 ml 400 ml OutputOutput Total 600 ml 700 ml 450 ml BalanceBalance 50 ml -350 ml -50 ml Results Result Diagram: 12/03/18 0630 12/03/18 0630 Results 24hrs Laboratory Tests Test 12/02/18 17:51 12/02/18 21:24 12/03/18 01:18 12/03/18 05:38 Bedside Glucose 152 175 188 147 Test 12/03/18 06:30 12/03/18 09:34 12/03/18 13:15 White Blood Count 12.5 H Red Blood Count 2.90 L Hemoglobin 8.1 L Hematocrit 26.1 L Mean Corpuscular 90.0 Volume Mean Corpuscular 27.9 L Hemoglobin Mean Corpuscular 31.0 L Hemoglobin Concent Red Cell 15.6 H Distribution Width Platelet Count 275 Mean Platelet Volume 12.4 H Immature 0.600 H Granulocytes % Neutrophils % 79.7 H Lymphocytes % 11.0 L Monocytes % 8.2 Eosinophils % 0.3 Basophils % 0.2 Nucleated Red Blood 0.0 Cells % Immature 0.070 H Granulocytes # Neutrophils # 9.9 H Lymphocytes # 1.4 Monocytes # 1.0 H Eosinophils # 0.0 Basophils # 0.0 Nucleated Red Blood 0.0 Cells # Sodium Level 142 Potassium Level 3.5 Chloride Level 110 Carbon Dioxide Level 28 Anion Gap 4 L Blood Urea Nitrogen 37 H Creatinine 1.44 H Est Glomerular Filtrat Rate mL/min Glucose Level 145 Calcium Level 10.0 Total Bilirubin 0.4 Direct Bilirubin 0.00 Indirect Bilirubin 0.4 Aspartate Amino 41 Transf (AST/SGOT) Alanine 25 Aminotransferase (AL T/SGPT) Alkaline Phosphatase 75 Total Protein 6.0 L Albumin 2.7 L Globulin 3.30 H Albumin/Globulin 0.81 Ratio Bedside Glucose 157 189 Medications Medication Current Medications IV Flush (NS 3 ml) 3 ml PER PROTOCOL IV ; Start 12/01/18 at 02:00 Ondansetron HCl (Zofran Inj) 4 mg Q6H PRN IV NAUSEA/VOMITING; Start 12/01/18 at 02:00 Acetaminophen (Tylenol Tab) 650 mg Q6H PRN GTB .PAIN 1-3 OR TEMP; Start 12/01/18 at 02:00 Cefepime HCl 50 ml @ 100 mls/hr Q12 IVPB Last administered on 12/03/18at 09:35; Admin Dose 100 MLS/HR; Start 12/01/18 at 09:00 Linezolid 300 ml @ 300 mls/hr Q12 IVPB Last administered on 12/03/18at 09:37; Admin Dose 300 MLS/HR; Start 12/01/18 at 09:00 Heparin Sodium (Porcine) (Heparin (5000 Units/1ml)) 5,000 unit Q8H SC Last administered on 12/03/18 13:25; Admin Dose 5,000 UNIT; Start 12/01/18 at 05:00 Insulin Aspart (Novolog Insulin Pen) NOVOLOG *MILD* ALGORI... Q4 SC Last administered on 12/03/18 13:25; Admin Dose 2 UNIT; Start 12/01/18 at 09:00 Miscellaneous Information 1 ea NOTE XX ; Start 12/01/18 at 07:00 Glucose (Glutose) 15 gm Q15M PRN PO DECREASED GLUCOSE; Start 12/01/18 at 07:00 Glucose (Glutose) 22.5 gm Q15M PRN PO DECREASED GLUCOSE; Start 12/01/18 at 07:00 Dextrose (D50w Syringe) 25 ml Q15M PRN IV DECREASED GLUCOSE; Start 12/01/18 at 07:00 Dextrose (D50w Syringe) 50 ml Q15M PRN IV DECREASED GLUCOSE; Start 12/01/18 at 07:00 Glucagon (Glucagen) 1 mg Q15M PRN IM DECREASED GLUCOSE; Start 12/01/18 at 07:00 Glucose (Glutose) 15 gm Q15M PRN BUCCAL DECREASED GLUCOSE; Start 12/01/18 at 07:00 Acetaminophen (Tylenol Liquid) 650 mg Q6H PRN GTB MILD PAIN(1-3)OR ELEVATED TEMP Last administered on 12/03/18 01:06; Admin Dose 650 MG; Start 12/01/18 at 07:30 Insulin Glargine (Lantus) 20 units QHS SC Last administered on 12/02/18 21:51; Admin Dose 20 UNITS; Start 12/01/18 at 21:00 Miscellaneous Information ([facility] This patient pritchard... PRN PRN XX WOUND CARE; Start 12/01/18 at 19:00 Chlorhexidine Gluconate (Peridex) 15 ml TID MT Last administered on 12/03/18 13:16; Admin Dose 15 ML; Start 12/02/18 at 09:00 Albuterol (Proventil 0.083% (Neb)) 1.25 mg Q4H RESP THERAPY HHN Last administered on 12/03/18 12:28; Admin Dose 1.25 MG; Start 12/02/18 at 17:00 Acetylcysteine (Mucomyst) 2 ml Q4H RESP THERAPY NEB Last administered on 12/03/18 12:28; Admin Dose 2 ML; Start 12/02/18 at 17:00 Sodium Hypochlorite (Dakins Diluted (/40)) 1 applic DAILY TP Last administered on 12/03/18 10:50; Admin Dose 1 APPLIC; Start 12/03/18 at 11:00 GARY PETERSON December 04, 2018 09:51
--- NOTE | 2018-12-04 09:51 | EN ---
Date/Time of Note Date/Time of Note DATE: 12/02/18 Event Note Medicine Medicine Event Note Subjective : having lots of cough with concern for thick secretions objective : Constitutional: Barely verbal, will respond to name, can grunts yes or no in answer to questions, chronically contracted, does not like to be moved, otherwise looks comfortable when he is not stimulated Psych: other (unable to assess) Head: normocephalic, atraumatic Eyes: PERRL, No icteric ENMT: No mucosa pink and moist (dry) Neck: non-tender Respiratory: diminished breath sounds, gurgling No labored breathing Cardiovascular: regular rate and rhythm, No murmurs/extra sounds Gastrointestinal: soft, non-tender, bowel sounds, other (PEG tube noted with no cellulitis or discharge) Genitourinary -male: Wynn to bedside drainage Extremities: Chronically contracted with complete lower extremity paresis bilaterally?, Chronically flexed at the hip and knees 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 Patient also has approximately 4-1/2 diameter ulcer in the sacrum but also looks like it is healing well, as well as multiple other smaller ulcers diffusely. Please see nursing notes for details.) assessment and plan: 78-year-old chronically debilitated male with functional quadriplegia and a history of prior CVA and prostate cancer who was sent to us from [facility] facility because of fever and concern for urinary tract infection currently managed as follows: 1. Severe sepsis without septic shock: improving ? 2. Probable urinary tract infection: -Patient has had multiple episodes of urinary tract infection in the past with different organisms. -Last episode had VRE, Acinetobacter Melinda, Kat albicans -this time, urine culture consistent with contaminant 3. Bilateral sacroiliac decubiti 4. Hyponatremia likely related to dehydration 5. ROBBIE on CKD? 6. Chronic debility with functional quadriplegia, history of CVA -Barely verbal at baseline, can respond to name, moans a lot 7. Hypertension 8. Respiratory insufficiency: Chronic?, Not requiring oxygen via nasal cannula 3 L a minute 9. Left foot and ankle chronic ulcerations. Patient was seen in the past for the same ulceration and he is being planned for a hamstring tenotomy to assist with the knee flexion and attempt to do an angiogram subsequently with vascular surgery. -left foot wound culture growing gram-negative rods and staph aureus preliminary 10. RTI: aspiration versus tracheobronchitis assessment and plan: -continue IV abx per ID, f/u final cultures and final abx recs -Continue tube feeds and ,,supportive care -Continue to monitor kidney function -continue wound care and f/u final podiatry recs -poor prognosis in the custodial, continued aggressive care will not significantly change quality of life, recommend hospice care. Palliative care on board Vital Signs Date Temp Pulse Resp B/P (MAP) Pulse Ox O2 O2 Flow FiO2 Time Delivery Rate 12/02/18 100 3.0 14:23 12/02/18 111 12:00 12/02/18 98.6 18 127/71 11:43 (89) 12/02/18 Nasal 08:00 Cannula Intake and Output 12/01/18 12/01/18 12/02/18 1515:00 23:00 07:00 IntakeIntake Total 700 ml 140 ml OutputOutput Total 400 ml 500 ml BalanceBalance 300 ml -360 ml Results Result Diagram: 12/02/18 0620 12/02/18 0620 Results 24hrs Laboratory Tests Test 12/01/18 17:33 12/01/18 18:30 12/01/18 21:15 12/01/18 23:10 Bedside Glucose 131 142 Urine Color YELLOW Urine Clarity CLEAR Urine pH 8.0 Urine Specific 1.012 [place] Urine Ketones NEGATIVE Urine Nitrite NEGATIVE Urine Bilirubin NEGATIVE Urine Urobilinogen NEGATIVE Urine Leukocyte NEGATIVE Esterase Urine Microscopic 1 RBC Urine Microscopic 1 WBC Urine Hemoglobin 1+ H Urine Random 38.64 Creatinine Urine Random Sodium 83 Urine Glucose NEGATIVE Urine Total Protein 92.0 H Sodium Level 148 H Potassium Level 3.5 Chloride Level 113 H Carbon Dioxide Level 32 H Anion Gap 3 L Blood Urea Nitrogen 32 H Creatinine 1.37 H Est Glomerular Filtrat Rate mL/min Glucose Level 168 Calcium Level 10.0 Phosphorus Level 3.6 Magnesium Level 2.0 Test 12/02/18 00:38 12/02/18 05:43 12/02/18 06:20 12/02/18 09:11 Bedside Glucose 160 154 166 White Blood Count 12.0 #H Red Blood Count 3.14 L Hemoglobin 8.5 L Hematocrit 28.8 L Mean Corpuscular 91.7 Volume Mean Corpuscular 27.1 L Hemoglobin Mean Corpuscular 29.5 L Hemoglobin Concent Red Cell 15.7 H Distribution Width Platelet Count 271 Mean Platelet Volume 12.3 H Immature 0.600 H Granulocytes % Neutrophils % 81.5 H Lymphocytes % 9.0 L Monocytes % 7.7 Eosinophils % 1.0 Basophils % 0.2 Nucleated Red Blood 0.0 Cells % Immature 0.070 H Granulocytes # Neutrophils # 9.8 H Lymphocytes # 1.1 Monocytes # 0.9 Eosinophils # 0.1 Basophils # 0.0 Nucleated Red Blood 0.0 Cells # Sodium Level 147 H Potassium Level 3.4 L Chloride Level 112 H Carbon Dioxide Level 31 Anion Gap 4 L Blood Urea Nitrogen 33 H Creatinine 1.29 H Est Glomerular Filtrat Rate mL/min Glucose Level 149 Calcium Level 10.3 H Total Bilirubin 0.3 Direct Bilirubin 0.00 Indirect Bilirubin 0.3 Aspartate Amino 66 H Transf (AST/SGOT) Alanine 22 Aminotransferase (AL T/SGPT) Alkaline Phosphatase 75 Total Protein 6.1 Albumin 2.7 L Globulin 3.40 H Albumin/Globulin 0.79 Ratio Test 12/02/18 13:34 Bedside Glucose 129 Medications Medication Current Medications IV Flush (NS 3 ml) 3 ml PER PROTOCOL IV ; Start 12/01/18 at 02:00 Ondansetron HCl (Zofran Inj) 4 mg Q6H PRN IV NAUSEA/VOMITING; Start 12/01/18 at 02:00 Acetaminophen (Tylenol Tab) 650 mg Q6H PRN GTB .PAIN 1-3 OR TEMP; Start 12/01/18 at 02:00 Cefepime HCl 50 ml @ 100 mls/hr Q12 IVPB Last administered on 12/02/18at 09:14; Admin Dose 100 MLS/HR; Start 12/01/18 at 09:00 Dextrose 1,000 ml @ 80 mls/hr [id number] IV Last administered on 12/02/18at 05:54; Admin Dose 80 MLS/HR; Start 12/01/18 at 02:30 Linezolid 300 ml @ 300 mls/hr Q12 IVPB Last administered on 12/02/18at 09:00; Admin Dose 300 MLS/HR; Start 12/01/18 at 09:00 Heparin Sodium (Porcine) (Heparin (5000 Units/1ml)) 5,000 unit Q8H SC Last administered on 12/02/18at 13:42; Admin Dose 5,000 UNIT; Start 12/01/18 at 05:00 Insulin Aspart (Novolog Insulin Pen) NOVOLOG *MILD* ALGORI... Q4 SC Last administered on 12/02/18at 09:22; Admin Dose 1 UNIT; Start 12/01/18 at 09:00 Miscellaneous Information 1 ea NOTE XX ; Start 12/01/18 at 07:00 Glucose (Glutose) 15 gm Q15M PRN PO DECREASED GLUCOSE; Start 12/01/18 at 07:00 Glucose (Glutose) 22.5 gm Q15M PRN PO DECREASED GLUCOSE; Start 12/01/18 at 07:00 Dextrose (D50w Syringe) 25 ml Q15M PRN IV DECREASED GLUCOSE; Start 12/01/18 at 07:00 Dextrose (D50w Syringe) 50 ml Q15M PRN IV DECREASED GLUCOSE; Start 12/01/18 at 07:00 Glucagon (Glucagen) 1 mg Q15M PRN IM DECREASED GLUCOSE; Start 12/01/18 at 07:00 Glucose (Glutose) 15 gm Q15M PRN BUCCAL DECREASED GLUCOSE; Start 12/01/18 at 07:00 Acetaminophen (Tylenol Liquid) 650 mg Q6H PRN GTB MILD PAIN(1-3)OR ELEVATED TEMP Last administered on 12/02/18at 00:43; Admin Dose 650 MG; Start 12/01/18 at 07:30 Insulin Glargine (Lantus) 20 units QHS SC Last administered on 12/01/18at 21:45; Admin Dose 20 UNITS; Start 12/01/18 at 21:00 Miscellaneous Information 1,000 mg DAILY XX ; Start 12/01/18 at 09:00; Status UNV Miscellaneous Information (Pending [facility] Order For Wound Care) This patient pritchard... PRN PRN XX WOUND CARE; Start 12/01/18 at 19:00 Chlorhexidine Gluconate (Peridex) 15 ml TID MT Last administered on 12/02/18at 13:36; Admin Dose 15 ML; Start 12/02/18 at 09:00 GARY PETERSON December 04, 2018 09:51
[2018-12-04] MEDS: COLISTIMETHATE 150 MG in SOD CHLORIDE 0.9% 100 ML IVPB SCH (10:17)
--- NOTE | 2018-12-04 10:32 | PN ---
Date/Time of Note Date/Time of Note DATE: 12/04/18 TIME: 10:27 Assessment/Plan VTE Prophylaxis Risk score (from Ns)>0 risk: 6 SCD applied (from Ns): Yes Pharmacological prophylaxis: heparin Lines/Catheters IV Catheter Type (from Nrs): Saline Lock Urinary Cath still in place: Yes Reason Cath still needed: other (indicate) Assessment/Plan Hospital Course Subjective : no new complaints objective : Constitutional: Barely verbal, will respond to name, can grunts yes or no in answer to questions, chronically contracted, does not like to be moved, otherwise looks comfortable when he is not stimulated Psych: other (unable to assess) Head: normocephalic, atraumatic Eyes: PERRL, No icteric ENMT: No mucosa pink and moist (dry) Neck: non-tender Respiratory: diminished breath sounds, gurgling No labored breathing Cardiovascular: regular rate and rhythm, No murmurs/extra sounds Gastrointestinal: soft, non-tender, bowel sounds, other (PEG tube noted with no cellulitis or discharge) Genitourinary -male: Wynn to bedside drainage Extremities: Chronically contracted with complete lower extremity paresis bilaterally?, Chronically flexed at the hip and knees Patient has fair erp technical lead right upper extremity which is less left upper extremity left foot and ankle chronic ulcerations Neurological: lethargic, other (altered, eyes opening spontaneously but no tracking or following commands), No nl mental status, No nl speech, No nl strength Skin: other (Pictures of left ischial ulcer reviewed in the chart, it is about 8 cm in diameter, looks like it is healing well, there may be some purulence. Patient also has approximately 4-1/2 diameter ulcer in the sacrum but also looks like it is healing well, as well as multiple other smaller ulcers diffusely. Please see nursing notes for details.) assessment and plan: 78-year-old male who had coming sent from long term facility because of fever and a urinary tract infection and admitted with severe sepsis and hypernatremic dehydration with ROBBIE. He required transient ICU stay, currently managed as follows. 1. Severe sepsis likely related to the following 2. Recurrent urinary tract infection -Unsurprising as patient is chronically bedbound 3. Multiple decubiti, (sacroiliac / ischial/ lower extremities ) 4. Hypernatremic dehydration with ROBBIE on CKD: Improved 5. Respiratory tract infection, tracheobronchitis versus aspiration with acute on chronic respiratory failure requiring supplemental oxygen 6. Chronic debility with functional quadriplegia with history of CVA and Alzheimer's dementia -Patient is also chronically contracted at the hip and knees bilaterally. It is thought that this may be contributing to poor blood flow in the lower extremities precipitating gangrene and ulcer. 7. History of hypertension: -Borderline hypotensive at this time likely secondary to sepsis 8. History of insulin-dependent diabetes mellitus: -Has been having multiple episodes of hypoglycemia, insulin currently on hold -On tube feeds with diabetic source at 40 cc/h with 100 cc of free water every 4 hours 9. Chronic hypochromic anemia with history of iron deficiency: -Hemoglobin is dropping again, but no for transfusion at this time Disposition: -Spoke with podiatry as well as palliative care and the patient's daughter today. -It is in my opinion that further aggressive care is not going to signi ficantly improve this patient's quality of life. -Patient has bilateral lower extremity contractures with functional quadriplegia. Has had a history of a CVA and is barely verbal at baseline. He will open his eyes, follow commands, grounds even in answers to questions, but is unlikely that patient will have any significant improvements in his baseline status despite all aggressive care. -Patient is also significantly prone to recurrent infections and is requiring aggressive IV antibiotic therapy even now. -However family continues to want all aggressive care to be done at this time. Palliative care continues to work with them. -Podiatry will review again to see if patient would benefit from possible debridement to help with current septic state, they recommend surgical evaluation to see if sacral wounds also require debridement. -For persistent fevers, will also repeat all cultures, will get a CT of the chest to further define lung parenchyma and further interventions will depend on her his clinical course. -Also rule out DVT -Once patient is 24-hour fever free, he may be discharged back to long term facility. Result Diagram: 12/04/18 0740 12/04/18 0740 Results 24hrs Laboratory Tests Test 12/03/18 13:15 12/03/18 17:38 12/03/18 21:08 12/04/18 01:21 Bedside Glucose 189 121 128 92 Test 12/04/18 05:04 12/04/18 05:36 12/04/18 05:51 12/04/18 07:40 Bedside Glucose 54 L 114 106 White Blood Count 9.5 # Red Blood Count 2.84 L Hemoglobin 7.7 L Hematocrit 25.2 L Mean Corpuscular 88.7 Volume Mean Corpuscular 27.1 L Hemoglobin Mean Corpuscular 30.6 L Hemoglobin Concent Red Cell 15.8 H Distribution Width Platelet Count 314 Mean Platelet Volume 12.3 H Immature 1.300 H Granulocytes % Neutrophils % 71.8 Lymphocytes % 13.3 L Monocytes % 12.5 H Eosinophils % 0.9 Basophils % 0.2 Nucleated Red Blood 0.0 Cells % Immature 0.120 H Granulocytes # Neutrophils # 6.8 Lymphocytes # 1.3 Monocytes # 1.2 H Eosinophils # 0.1 Basophils # 0.0 Nucleated Red Blood 0.0 Cells # Sodium Level 144 Potassium Level 3.2 L Chloride Level 109 Carbon Dioxide Level 30 Anion Gap 5 Blood Urea Nitrogen 36 H Creatinine 1.34 H Est Glomerular Filtrat Rate mL/min Glucose Level 57 #L Calcium Level 10.0 Total Bilirubin 0.2 Direct Bilirubin 0.00 Indirect Bilirubin 0.2 Aspartate Amino 31 Transf (AST/SGOT) Alanine 22 Aminotransferase (AL T/SGPT) Alkaline Phosphatase 85 Total Protein 6.1 Albumin 2.6 L Globulin 3.50 H Albumin/Globulin 0.74 Ratio Test 12/04/18 08:55 12/04/18 09:16 Bedside Glucose 55 L 111 Exam/Review of Systems Exam Vitals Vital Signs Date Temp Pulse Resp B/P (MAP) Pulse Ox O2 O2 Flow FiO2 Time Delivery Rate 12/04/18 106 25 100 Nasal 3.0 09:53 Cannula 12/04/18 99.2 08:20 12/04/18 96/67 (77) 07:16 12/02/18 45 21:43 Intake and Output 12/03/18 12/03/18 12/04/18 1515:00 23:00 07:00 IntakeIntake Total 640 ml 540 ml OutputOutput Total 1100 ml 500 ml BalanceBalance -460 ml 40 ml Results Results 24hrs Laboratory Tests Test 12/03/18 13:15 12/03/18 17:38 12/03/18 21:08 12/04/18 01:21 Bedside Glucose 189 121 128 92 Test 12/04/18 05:04 12/04/18 05:36 12/04/18 05:51 12/04/18 07:40 Bedside Glucose 54 L 114 106 White Blood Count 9.5 # Red Blood Count 2.84 L Hemoglobin 7.7 L Hematocrit 25.2 L Mean Corpuscular 88.7 Volume Mean Corpuscular 27.1 L Hemoglobin Mean Corpuscular 30.6 L Hemoglobin Concent Red Cell 15.8 H Distribution Width Platelet Count 314 Mean Platelet Volume 12.3 H Immature 1.300 H Granulocytes % Neutrophils % 71.8 Lymphocytes % 13.3 L Monocytes % 12.5 H Eosinophils % 0.9 Basophils % 0.2 Nucleated Red Blood 0.0 Cells % Immature 0.120 H Granulocytes # Neutrophils # 6.8 Lymphocytes # 1.3 Monocytes # 1.2 H Eosinophils # 0.1 Basophils # 0.0 Nucleated Red Blood 0.0 Cells # Sodium Level 144 Potassium Level 3.2 L Chloride Level 109 Carbon Dioxide Level 30 Anion Gap 5 Blood Urea Nitrogen 36 H Creatinine 1.34 H Est Glomerular Filtrat Rate mL/min Glucose Level 57 #L Calcium Level 10.0 Total Bilirubin 0.2 Direct Bilirubin 0.00 Indirect Bilirubin 0.2 Aspartate Amino 31 Transf (AST/SGOT) Alanine 22 Aminotransferase (AL T/SGPT) Alkaline Phosphatase 85 Total Protein 6.1 Albumin 2.6 L Globulin 3.50 H Albumin/Globulin 0.74 Ratio Test 12/04/18 08:55 12/04/18 09:16 Bedside Glucose 55 L 111 Medications Medication Current Medications IV Flush (NS 3 ml) 3 ml PER PROTOCOL IV ; Start 12/01/18 at 02:00 Ondansetron HCl (Zofran Inj) 4 mg Q6H PRN IV NAUSEA/VOMITING; Start 12/01/18 at 02:00 Acetaminophen (Tylenol Tab) 650 mg Q6H PRN GTB .PAIN 1-3 OR TEMP; Start 12/01/18 at 02:00 Linezolid 300 ml @ 300 mls/hr Q12 IVPB Last administered on 12/04/18at 09:08; Admin Dose 300 MLS/HR; Start 12/01/18 at 09:00 Heparin Sodium (Porcine) (Heparin (5000 Units/1ml)) 5,000 unit Q8H SC Last administered on 12/04/18at 05:33; Admin Dose 5,000 UNIT; Start 12/01/18 at 05:00 Insulin Aspart (Novolog Insulin Pen) NOVOLOG *MILD* ALGORI... Q4 SC Last administered on 12/03/18at 13:25; Admin Dose 2 UNIT; Start 12/01/18 at 09:00 Miscellaneous Information 1 ea NOTE XX ; Start 12/01/18 at 07:00 Glucose (Glutose) 15 gm Q15M PRN PO DECREASED GLUCOSE; Start 12/01/18 at 07:00 Glucose (Glutose) 22.5 gm Q15M PRN PO DECREASED GLUCOSE; Start 12/01/18 at 07:00 Dextrose (D50w Syringe) 25 ml Q15M PRN IV DECREASED GLUCOSE Last administered on 12/04/18at 08:59; Admin Dose 25 ML; Start 12/01/18 at 07:00 Dextrose (D50w Syringe) 50 ml Q15M PRN IV DECREASED GLUCOSE; Start 12/01/18 at 07:00 Glucagon (Glucagen) 1 mg Q15M PRN IM DECREASED GLUCOSE; Start 12/01/18 at 07:00 Glucose (Glutose) 15 gm Q15M PRN BUCCAL DECREASED GLUCOSE; Start 12/01/18 at 07:00 Acetaminophen (Tylenol Liquid) 650 mg Q6H PRN GTB MILD PAIN(1-3)OR ELEVATED TEMP Last administered on 12/04/18at 07:26; Admin Dose 650 MG; Start 12/01/18 at 07:30 [facility]isc[facility] This patient pritchard... PRN PRN XX WOUND CARE; Start 12/01/18 at 19:00 Chlorhexidine Gluconate (Peridex) 15 ml TID MT Last administered on 12/04/18at 08:49; Admin Dose 15 ML; Start 12/02/18 at 09:00 Albuterol (Proventil 0.083% (Neb)) 1.25 mg Q4H RESP THERAPY HHN Last administered on 12/04/18at 09:39; Admin Dose 1.25 MG; Start 12/02/18 at 17:00 Acetylcysteine (Mucomyst) 2 ml Q4H RESP THERAPY NEB Last administered on 12/04/18 09:39; Admin Dose 2 ML; Start 12/02/18 at 17:00 Sodium Hypochlorite (Dakins Diluted (1/40)) 1 applic DAILY TP Last administered on 12/04/18 08:50; Admin Dose 1 APPLIC; Start 12/03/18 at 11:00 Colistimethate Sodium 150 mg/ Sodium Chloride 100 ml @ 200 mls/hr DAILY IVPB Last administered on 12/04/18at 10:17; Admin Dose 200 MLS/HR; Start 12/03/18 at 15:30 Collagenase (Santyl) 1 applic DAILY TOP Last administered on 12/04/18at 08:49; Admin Dose 1 APPLIC; Start 12/04/18 at 09:00 Collagenase (Santyl) 1 applic WHEN SOILED PRN TOP WOUND Last administered on 12/03/18at 23:58; Admin Dose 1 APPLIC; Start 12/03/18 at 22:30 Potassium Chloride 100 ml @ 50 mls/hr Q2H IVPB ; Start 12/04/18 at 10:30; Stop 12/04/18 at 14:29 GARY PETERSON December 04, 2018 10:32
[2018-12-04] MEDS: POTASSIUM CHLORIDE 100 ML IVPB SCH ×2 (12:03→14:30)
--- NOTE | 2018-12-04 14:28 | CONS ---
Assessment/Plan Assessment/Plan Assessment/Plan (Daily) Diabetic ulcer left lower extremity DM2 with peripheral neuropathy Dry gangrene PAD Knee contractures Alzheimer's Dementia Bed bound Hx of CVA UTI Sepsis Sacral decubitus ulcerations Plan: Continue with daily irrigation with dakins, betadine 4x4 gauze, and wrap with kerlix. Wound cultures enterococcus, acinetobacter, MRSA and corynebacterium. Recommend daily offloading with prevelon soft boots and pillows. Patient is planned with Dr. Granda for OR knee release and then subsequent angiogram. Patient's daughter wants to pursue limb salvage at this time. Reviewed X-rays and no sign of osteomyelitis. Ulcerations appear stable. Once vascular status is optimized would benefit from debridements and potential grafting. Continue with IV abx as recommended. Discussions for hospice care, however daughter is not amenable to this option at this time. Consultation Date/Type/Reason Admit Date/Time December 01, 2018 at 01:35 Initial Consult Date Requesting Provider: GARY PETERSON Date/Time of Note DATE: 12/04/18 TIME: 14:26 24 HR Interval Summary Free Text/Dictation No acute events overnight Exam/Review of Systems Exam Vitals Vital Signs Date Temp Pulse Resp B/P (MAP) Pulse Ox O2 O2 Flow FiO2 Time Delivery Rate 12/04/18 98.6 102 22 105/59 100 14:07 (74) 12/04/18 Nasal 3.0 13:26 Cannula 12/02/18 45 21:43 Intake and Output 12/03/18 12/03/18 12/04/18 1515:00 23:00 07:00 IntakeIntake Total 640 ml 540 ml OutputOutput Total 1100 ml 500 ml BalanceBalance -460 ml 40 ml Exam Unable to palpate pedal pulses Left lateral malleolus ulceration granular in nature which probes to bone 3 x 2 x 0.4cm, no purulence no proximal streaking or erythema Left lateral 5th metatarsal dry stable eschar, no drainage, no proximal streaking, 5 x 1.5cm indeterminate depth Absent protective sensations Pain with palpation to wound sites Knee contractures noted Results Result Diagram: 12/04/18 0740 12/04/18 0740 Results 24hrs Laboratory Tests Test 12/03/18 17:38 12/03/18 21:08 12/04/18 01:21 12/04/18 05:04 Bedside Glucose 121 128 92 54 L Test 12/04/18 05:36 12/04/18 05:51 12/04/18 07:40 12/04/18 08:55 Bedside Glucose 114 106 55 L White Blood Count 9.5 # Red Blood Count 2.84 L Hemoglobin 7.7 L Hematocrit 25.2 L Mean Corpuscular 88.7 Volume Mean Corpuscular 27.1 L Hemoglobin Mean Corpuscular 30.6 L Hemoglobin Concent Red Cell 15.8 H Distribution Width Platelet Count 314 Mean Platelet Volume 12.3 H Immature 1.300 H Granulocytes % Neutrophils % 71.8 Lymphocytes % 13.3 L Monocytes % 12.5 H Eosinophils % 0.9 Basophils % 0.2 Nucleated Red Blood 0.0 Cells % Immature 0.120 H Granulocytes # Neutrophils # 6.8 Lymphocytes # 1.3 Monocytes # 1.2 H Eosinophils # 0.1 Basophils # 0.0 Nucleated Red Blood 0.0 Cells # Sodium Level 144 Potassium Level 3.2 L Chloride Level 109 Carbon Dioxide Level 30 Anion Gap 5 Blood Urea Nitrogen 36 H Creatinine 1.34 H Est Glomerular Filtrat Rate mL/min Glucose Level 57 #L Calcium Level 10.0 Total Bilirubin 0.2 Direct Bilirubin 0.00 Indirect Bilirubin 0.2 Aspartate Amino 31 Transf (AST/SGOT) Alanine 22 Aminotransferase (AL T/SGPT) Alkaline Phosphatase 85 Total Protein 6.1 Albumin 2.6 L Globulin 3.50 H Albumin/Globulin 0.74 Ratio Test 12/04/18 09:16 Bedside Glucose 111 Medications Medication Current Medications IV Flush (NS 3 ml) 3 ml PER PROTOCOL IV ; Start 12/01/18 at 02:00 Ondansetron HCl (Zofran Inj) 4 mg Q6H PRN IV NAUSEA/VOMITING; Start 12/01/18 at 02:00 Acetaminophen (Tylenol Tab) 650 mg Q6H PRN GTB .PAIN 1-3 OR TEMP; Start 12/01/18 at 02:00 Linezolid 300 ml @ 300 mls/hr Q12 IVPB Last administered on 12/04/18at 09:08; Admin Dose 300 MLS/HR; Start 12/01/18 at 09:00 Insulin Aspart (Novolog Insulin Pen) NOVOLOG *MILD* ALGORI... Q4 SC Last administered on 12/03/18at 13:25; Admin Dose 2 UNIT; Start 12/01/18 at 09:00 Miscellaneous Information 1 ea NOTE XX ; Start 12/01/18 at 07:00 Glucose (Glutose) 15 gm Q15M PRN PO DECREASED GLUCOSE; Start 12/01/18 at 07:00 Glucose (Glutose) 22.5 gm Q15M PRN PO DECREASED GLUCOSE; Start 12/01/18 at 07:00 Dextrose (D50w Syringe) 25 ml Q15M PRN IV DECREASED GLUCOSE Last administered on 12/04/18at 08:59; Admin Dose 25 ML; Start 12/01/18 at 07:00 Dextrose (D50w Syringe) 50 ml Q15M PRN IV DECREASED GLUCOSE; Start 12/01/18 at 07:00 Glucagon (Glucagen) 1 mg Q15M PRN IM DECREASED GLUCOSE; Start 12/01/18 at 07:00 Glucose (Glutose) 15 gm Q15M PRN BUCCAL DECREASED GLUCOSE; Start 12/01/18 at 07:00 Acetaminophen (Tylenol Liquid) 650 mg Q6H PRN GTB MILD PAIN(1-3)OR ELEVATED TEMP Last administered on 12/04/18 07:26; Admin Dose 650 MG; Start 12/01/18 at 07:30 Miscellaneous Information (Pending [facility] Order For Wound Care) This patient pritchard... PRN PRN XX WOUND CARE; Start 12/01/18 at 19:00 Chlorhexidine Gluconate (Peridex) 15 ml TID MT Last administered on 12/04/18at 08:49; Admin Dose 15 ML; Start 12/02/18 at 09:00 Albuterol (Proventil 0.083% (Neb)) 1.25 mg Q4H RESP THERAPY HHN Last administered on 12/04/18 13:12; Admin Dose 1.25 MG; Start 12/02/18 at 17:00 Acetylcysteine (Mucomyst) 2 ml Q4H RESP THERAPY NEB Last administered on 12/04/18 13:12; Admin Dose 2 ML; Start 12/02/18 at 17:00 Sodium Hypochlorite (Dakins Diluted (40)) 1 applic DAILY TP Last administered on 12/04/18 08:50; Admin Dose 1 APPLIC; Start 12/03/18 at 11:00 Colistimethate Sodium 150 mg/ Sodium Chloride 100 ml @ 200 mls/hr DAILY IVPB Last administered on 12/04/18at 10:17; Admin Dose 200 MLS/HR; Start 12/03/18 at 15:30 Collagenase (Santyl) 1 applic DAILY TOP Last administered on 12/04/18at 08:49; Admin Dose 1 APPLIC; Start 12/04/18 at 09:00 Collagenase (Santyl) 1 applic WHEN SOILED PRN TOP WOUND Last administered on 12/03/18at 23:58; Admin Dose 1 APPLIC; Start 12/03/18 at 22:30 Potassium Chloride 100 ml @ 50 mls/hr Q2H IVPB Last administered on 12/04/18at 12:03; Admin Dose 50 MLS/HR; Start 12/04/18 at 10:30; Stop 12/04/18 at 14:29 Heparin Sodium (Porcine) (Heparin (5000 Units/1ml)) 5,000 unit Q12H SC ; Start 12/04/18 at 17:00 REIAN CASEY DPM December 04, 2018 14:28
[2018-12-04] MEDS: DEXTROSE 5%-0.45% NACL 1,000 ML IV SCH (15:12)
--- NOTE | 2018-12-04 15:19 | CONS ---
Assessment/Plan Assessment/Plan Hospital Course (Demo Recall) 1. Multiple wounds: -debridement -local care -frequent turning and off-loading -low air loss mattress -vitamin c -short term zinc -optimize nutrition -Left ischial culture -Lower extremity wounds per podiatry 2. Sepsis: Likely multifactorial: -Supportive -Antibiotics per sensitivity 3. UTI: -abx per sensitivity -frequent bladder emptying/cath care 4. Chronic encephalopathy: -Supportive -Treat infections 5. Severe contractures: -Possible knee release by Dr. Matamoros 6. ROBBIE: -Limit nephrotoxic meds -Renally dose meds -Per renal Thank you. Patient seen and examined in collaboration with Dr. Lico Perera. Consultation Date/Type/Reason Admit Date/Time December 01, 2018 at 01:35 Type of Consult Surgical Reason for Consultation Right ischial wound Requesting Provider: GARY PETERSON Date/Time of Note DATE: 12/04/18 TIME: 15:02 Hx of Present Illness Taran Perez is A 78-year-old man who is known to our service from outside hospital, Who presented to [facility] with reports of fevers, T-max of 102. Associated symptoms include hypotension and tachycardia noted at the nursing facility. He is currently being treated for severe sepsis with unclear etiology but most likely related to possible urine infection, multiple decubitus ulcers. Since admission, leukocytosis has since resolved, however continues to have fevers. Continues to have He was noted to have multiple wounds, general surgery was asked to evaluate. 12 point review of systems was reviewed is negative except as stated in HPI. Past Medical History 1. Diabetes mellitus type 2. 2. Advanced Alzheimer's dementia. 3. Dysphagia status post G-tube placement. 4. Dyslipidemia. 5. Osteoarthritis 6. Chronic bedridden status. 7. Prostate cancer. 8. Peripheral artery disease 9. Diabetic ulcer left lower extremity 10. Diabetic neuropathy 11. Multiple decubiti status post debridement 12. History of CVA 13. 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 ALKYLATION OPERATOR 11/12/18 Lansoprazole (Heartburn Treatment 24 Hour) 15 Mg Capsule., 15 MG GTB DAILY@06 for 30 Days Prov:NARCISO AVILEZ V. ALKYLATION OPERATOR 11/07/18 Amlodipine Besylate* (Amlodipine Besylate*) 10 Mg Tablet, 10 MG GTB DAILY for 30 Days, TAB Prov:NARCISO AVILEZ V. ALKYLATION OPERATOR 11/07/18 Reported Medications Acetaminophen* (Acetaminophen*) 325 Mg Tablet, 650 MG GTB Q6H PRN for MILD PAIN(1-3)OR ELEVATED TEMP, #30 TAB 10/30/18 Abiraterone Acetate (Zytiga) 500 Mg Tablet, 1000 MG GTB DAILY, TAB 10/30/18 Insulin Glargine* (Lantus*) 100 Unit/Ml Soln, 20 UNIT SC QHS, #1 VIAL 10/30/18 Glucagon,Human Recombinant (Glucagon Emergency Kit) 1 Mg Kit, 1 MG IJ NEEDED PRN for IF BLOOD GLUCOSE<70, KIT 10/30/18 Medications Current Medications IV Flush (NS 3 ml) 3 ml PER PROTOCOL IV ; Start 12/01/18 at 02:00 Ondansetron HCl (Zofran Inj) 4 mg Q6H PRN IV NAUSEA/VOMITING; Start 12/01/18 at 02:00 Acetaminophen (Tylenol Tab) 650 mg Q6H PRN GTB .PAIN 1-3 OR TEMP; Start 12/01/18 at 02:00 Linezolid 300 ml @ 300 mls/hr Q12 IVPB Last administered on 12/04/18at 09:08; Admin Dose 300 MLS/HR; Start 12/01/18 at 09:00 Insulin Aspart (Novolog Insulin Pen) NOVOLOG *MILD* ALGORI... Q4 SC Last administered on 12/03/18at 13:25; Admin Dose 2 UNIT; Start 12/01/18 at 09:00 Miscellaneous Information 1 ea NOTE XX ; Start 12/01/18 at 07:00 Glucose (Glutose) 15 gm Q15M PRN PO DECREASED GLUCOSE; Start 12/01/18 at 07:00 Glucose (Glutose) 22.5 gm Q15M PRN PO DECREASED GLUCOSE; Start 12/01/18 at 07:00 Dextrose (D50w Syringe) 25 ml Q15M PRN IV DECREASED GLUCOSE Last administered on 12/04/18at 08:59; Admin Dose 25 ML; Start 12/01/18 at 07:00 Dextrose (D50w Syringe) 50 ml Q15M PRN IV DECREASED GLUCOSE; Start 12/01/18 at 07:00 Glucagon (Glucagen) 1 mg Q15M PRN IM DECREASED GLUCOSE; Start 12/01/18 at 07:00 Glucose (Glutose) 15 gm Q15M PRN BUCCAL DECREASED GLUCOSE; Start 12/01/18 at 07:00 Acetaminophen (Tylenol Liquid) 650 mg Q6H PRN GTB MILD PAIN(1-3)OR ELEVATED TEMP Last administered on 12/04/18 07:26; Admin Dose 650 MG; Start 12/01/18 at 07:30 Miscellaneous Information (Pending Santyl Order For Wound Care) This patient pritchard... PRN PRN XX WOUND CARE; Start 12/01/18 at 19:00 Chlorhexidine Gluconate (Peridex) 15 ml TID MT Last administered on 12/04/18 13:00; Admin Dose 15 ML; Start 12/02/18 at 09:00 Albuterol (Proventil 0.083% (Neb)) 1.25 mg Q4H RESP THERAPY HHN Last administered on 12/04/18 13:12; Admin Dose 1.25 MG; Start 12/02/18 at 17:00 Acetylcysteine (Mucomyst) 2 ml Q4H RESP THERAPY NEB Last administered on 12/04/18 13:12; Admin Dose 2 ML; Start 12/02/18 at 17:00 Sodium Hypochlorite (Dakins Diluted (1/40)) 1 applic DAILY TP Last administered on 12/04/18at 08:50; Admin Dose 1 APPLIC; Start 12/03/18 at 11:00 Colistimethate Sodium 150 mg/ Sodium Chloride 100 ml @ 200 mls/hr DAILY IVPB Last administered on 12/04/18 10:17; Admin Dose 200 MLS/HR; Start 12/03/18 at 15:30 Collagenase (Santyl) 1 applic DAILY TOP Last administered on 12/04/18 08:49; Admin Dose 1 APPLIC; Start 12/04/18 at 09:00 Collagenase (Santyl) 1 applic WHEN SOILED PRN TOP WOUND Last administered on 12/03/18at 23:58; Admin Dose 1 APPLIC; Start 12/03/18 at 22:30 Heparin Sodium (Porcine) (Heparin (5000 Units/1ml)) 5,000 unit Q12H SC ; Start 12/04/18 at 17:00 Dextrose/Sodium Chloride 1,000 ml @ 75 mls/hr [id number] IV ; Start 12/04/18 at 15:00 Metoclopramide HCl (Reglan) 10 mg Q6 IV ; Start 12/04/18 at 18:00 Polyethylene Glycol (Miralax) 17 gm DAILY GTB ; Start 12/05/18 at 09:00 Allergies: Coded Allergies: No Known Allergy (Unverified , 10/30/18) Past Surgical History As above Family History Significant Family History: no pertinent family hx Social History Alcohol Use: other (Unknown) Smoking Status: Light tobacco smoker (Known) Exam/Review of Systems Exam Vitals Vital Signs Date Temp Pulse Resp B/P (MAP) Pulse Ox O2 O2 Flow FiO2 Time Delivery Rate 12/04/18 2.0 14:33 12/04/18 98.6 102 22 105/59 100 14:07 (74) 12/04/18 Nasal 13:26 Cannula 12/02/18 45 21:43 Intake and Output 12/03/18 12/03/18 12/04/18 1515:00 23:00 07:00 IntakeIntake Total 640 ml 540 ml OutputOutput Total 1100 ml 500 ml BalanceBalance -460 ml 40 ml Constitutional: alert; No oriented Psych: no complaints, nl mood/affect; No anxiety Head: normocephalic, atraumatic Eyes: nl conjunctiva, EOMI, nl lids, nl sclera ENMT: nl external ears & nose, nl lips & teeth, mucosa pink and moist Neck: supple, non-tender Respiratory: normal air movement; No congested cough Cardiovascular: regular rate and rhythm; No edema Gastrointestinal: soft; No distended, No tender Musculoskeletal: other (Contractures) Extremities: normal pulses; No edema Neurological: No nl mental status (Confused), No nl speech, No nl strength (Contractures, generalized weakness) Skin: other (Multiple wounds: Sacral (clean, scant drainage); left ischium: Eschar, green drainage); No rash or lesions Results Result Diagram: 12/04/18 0740 12/04/18 0740 Results 24hrs Laboratory Tests Test 12/03/18 17:38 12/03/18 21:08 12/04/18 01:21 12/04/18 05:04 Bedside Glucose 121 128 92 54 L Test 12/04/18 05:36 12/04/18 05:51 12/04/18 07:40 12/04/18 08:55 Bedside Glucose 114 106 55 L White Blood Count 9.5 # Red Blood Count 2.84 L Hemoglobin 7.7 L Hematocrit 25.2 L Mean Corpuscular 88.7 Volume Mean Corpuscular 27.1 L Hemoglobin Mean Corpuscular 30.6 L Hemoglobin Concent Red Cell 15.8 H Distribution Width Platelet Count 314 Mean Platelet Volume 12.3 H Immature 1.300 H Granulocytes % Neutrophils % 71.8 Lymphocytes % 13.3 L Monocytes % 12.5 H Eosinophils % 0.9 Basophils % 0.2 Nucleated Red Blood 0.0 Cells % Immature 0.120 H Granulocytes # Neutrophils # 6.8 Lymphocytes # 1.3 Monocytes # 1.2 H Eosinophils # 0.1 Basophils # 0.0 Nucleated Red Blood 0.0 Cells # Sodium Level 144 Potassium Level 3.2 L Chloride Level 109 Carbon Dioxide Level 30 Anion Gap 5 Blood Urea Nitrogen 36 H Creatinine 1.34 H Est Glomerular Filtrat Rate mL/min Glucose Level 57 #L Calcium Level 10.0 Total Bilirubin 0.2 Direct Bilirubin 0.00 Indirect Bilirubin 0.2 Aspartate Amino 31 Transf (AST/SGOT) Alanine 22 Aminotransferase (AL T/SGPT) Alkaline Phosphatase 85 Total Protein 6.1 Albumin 2.6 L Globulin 3.50 H Albumin/Globulin 0.74 Ratio Test 12/04/18 09:16 Bedside Glucose 111 Medications Medication Current Medications IV Flush (NS 3 ml) 3 ml PER PROTOCOL IV ; Start 12/01/18 at 02:00 Ondansetron HCl (Zofran Inj) 4 mg Q6H PRN IV NAUSEA/VOMITING; Start 12/01/18 at 02:00 Acetaminophen (Tylenol Tab) 650 mg Q6H PRN GTB .PAIN 1-3 OR TEMP; Start 12/01/18 at 02:00 Linezolid 300 ml @ 300 mls/hr Q12 IVPB Last administered on 12/04/18at 09:08; Admin Dose 300 MLS/HR; Start 12/01/18 at 09:00 Insulin Aspart (Novolog Insulin Pen) NOVOLOG *MILD* ALGORI... Q4 SC Last admi nistered on 12/03/18 13:25; Admin Dose 2 UNIT; Start 12/01/18 at 09:00 Miscellaneous Information 1 ea NOTE XX ; Start 12/01/18 at 07:00 Glucose (Glutose) 15 gm Q15M PRN PO DECREASED GLUCOSE; Start 12/01/18 at 07:00 Glucose (Glutose) 22.5 gm Q15M PRN PO DECREASED GLUCOSE; Start 12/01/18 at 07:00 Dextrose (D50w Syringe) 25 ml Q15M PRN IV DECREASED GLUCOSE Last administered on 12/04/18 08:59; Admin Dose 25 ML; Start 12/01/18 at 07:00 Dextrose (D50w Syringe) 50 ml Q15M PRN IV DECREASED GLUCOSE; Start 12/01/18 at 07:00 Glucagon (Glucagen) 1 mg Q15M PRN IM DECREASED GLUCOSE; Start 12/01/18 at 07:00 Glucose (Glutose) 15 gm Q15M PRN BUCCAL DECREASED GLUCOSE; Start 12/01/18 at 07:00 Acetaminophen (Tylenol Liquid) 650 mg Q6H PRN GTB MILD PAIN(1-3)OR ELEVATED TEMP Last administered on 12/04/18 07:26; Admin Dose 650 MG; Start 12/01/18 at 07:30 Miscellaneous Information (Pending [facility] Order For Wound Care) This patient pritchard... PRN PRN XX WOUND CARE; Start 12/01/18 at 19:00 Chlorhexidine Gluconate (Peridex) 15 ml TID MT Last administered on 12/04/18 13:00; Admin Dose 15 ML; Start 12/02/18 at 09:00 Albuterol (Proventil 0.083% (Neb)) 1.25 mg Q4H RESP THERAPY HHN Last administered on 12/04/18 13:12; Admin Dose 1.25 MG; Start 12/02/18 at 17:00 Acetylcysteine (Mucomyst) 2 ml Q4H RESP THERAPY NEB Last administered on 12/04/18 13:12; Admin Dose 2 ML; Start 12/02/18 at 17:00 Sodium Hypochlorite (Dakins Diluted ()) 1 applic DAILY TP Last administered on 5/23/19at 08:50; Admin Dose 1 APPLIC; Start 12/03/18 at 11:00 Colistimethate Sodium 150 mg/ Sodium Chloride 100 ml @ 200 mls/hr DAILY IVPB Last administered on 12/04/18at 10:17; Admin Dose 200 MLS/HR; Start 12/03/18 at 15:30 Collagenase (Santyl) 1 applic DAILY TOP Last administered on 12/04/18at 08:49; Admin Dose 1 APPLIC; Start 12/04/18 at 09:00 Collagenase (Santyl) 1 applic WHEN SOILED PRN TOP WOUND Last administered on 12/03/18at 23:58; Admin Dose 1 APPLIC; Start 12/03/18 at 22:30 Heparin Sodium (Porcine) (Heparin (5000 Units/1ml)) 5,000 unit Q12H SC ; Start 12/04/18 at 17:00 Dextrose/Sodium Chloride 1,000 ml @ 75 mls/hr [id number] IV ; Start 12/04/18 at 15:00 Metoclopramide HCl (Reglan) 10 mg Q6 IV ; Start 12/04/18 at 18:00 Polyethylene Glycol (Miralax) 17 gm DAILY GTB ; Start 12/05/18 at 09:00 DAQUAN HERNANDEZ NP December 04, 2018 15:15
--- NOTE | 2018-12-04 15:38 | CONS ---
Assessment/Plan Assessment/Plan Hospital Course (Demo Recall) No acute events patient looks comfortable no fevers overnight WBC 9.5 platelets 314 neutrophils 71.8 BUN 36 creatinine 1.34 Microbiology: Left foot wound culture grew MRSA, Corynebacterium group JK, enterococcus and Acinetobacter Antimicrobials: Zyvox colistin Indwelling: Trach, PEG, Wynn Physical examination: Chronically ill-appearing elderly man who is in no distress. Head atraumatic normocephalic neck is supple chest rise symmetrical breath sounds diminished to bases heart: S1-S2 abdomen soft, bowel sounds present extremities contractured lower extremities Assessment: 1. Sepsis 2. UTI per UA 3. Multiple decubitus ? L foot OM 4. Acute on chronic encephalopathy 5. Dysphagia 6. Hx prostate cancer Plan: Remains stable, continue antibiotics, wound management per podiatry, monitor renal function Consultation Date/Type/Reason Admit Date/Time December 01, 2018 at 01:35 Initial Consult Date Type of Consult id Requesting Provider: GARY PETERSON Date/Time of Note DATE: 12/04/18 TIME: 15:37 Exam/Review of Systems Exam Vitals Vital Signs Date Temp Pulse Resp B/P (MAP) Pulse Ox O2 O2 Flow FiO2 Time Delivery Rate 12/04/18 2.0 14:33 12/04/18 98.6 102 22 105/59 100 14:07 (74) 12/04/18 Nasal 13:26 Cannula 12/02/18 45 21:43 Intake and Output 12/03/18 12/03/18 12/04/18 1515:00 23:00 07:00 IntakeIntake Total 640 ml 540 ml OutputOutput Total 1100 ml 500 ml BalanceBalance -460 ml 40 ml Results Result Diagram: 12/04/18 0740 12/04/18 0740 Results 24hrs Laboratory Tests Test 12/03/18 17:38 12/03/18 21:08 12/04/18 01:21 12/04/18 05:04 Bedside Glucose 121 128 92 54 L Test 12/04/18 05:36 12/04/18 05:51 12/04/18 07:40 12/04/18 08:55 Bedside Glucose 114 106 55 L White Blood Count 9.5 # Red Blood Count 2.84 L Hemoglobin 7.7 L Hematocrit 25.2 L Mean Corpuscular 88.7 Volume Mean Corpuscular 27.1 L Hemoglobin Mean Corpuscular 30.6 L Hemoglobin Concent Red Cell 15.8 H Distribution Width Platelet Count 314 Mean Platelet Volume 12.3 H Immature 1.300 H Granulocytes % Neutrophils % 71.8 Lymphocytes % 13.3 L Monocytes % 12.5 H Eosinophils % 0.9 Basophils % 0.2 Nucleated Red Blood 0.0 Cells % Immature 0.120 H Granulocytes # Neutrophils # 6.8 Lymphocytes # 1.3 Monocytes # 1.2 H Eosinophils # 0.1 Basophils # 0.0 Nucleated Red Blood 0.0 Cells # Sodium Level 144 Potassium Level 3.2 L Chloride Level 109 Carbon Dioxide Level 30 Anion Gap 5 Blood Urea Nitrogen 36 H Creatinine 1.34 H Est Glomerular Filtrat Rate mL/min Glucose Level 57 #L Calcium Level 10.0 Total Bilirubin 0.2 Direct Bilirubin 0.00 Indirect Bilirubin 0.2 Aspartate Amino 31 Transf (AST/SGOT) Alanine 22 Aminotransferase (AL T/SGPT) Alkaline Phosphatase 85 Total Protein 6.1 Albumin 2.6 L Globulin 3.50 H Albumin/Globulin 0.74 Ratio Test 12/04/18 09:16 12/04/18 14:28 Bedside Glucose 111 75 Medications Medication Current Medications IV Flush (NS 3 ml) 3 ml PER PROTOCOL IV ; Start 12/01/18 at 02:00 Ondansetron HCl (Zofran Inj) 4 mg Q6H PRN IV NAUSEA/VOMITING; Start 12/01/18 at 02:00 Acetaminophen (Tylenol Tab) 650 mg Q6H PRN GTB .PAIN 1-3 OR TEMP; Start 12/01/18 at 02:00 Linezolid 300 ml @ 300 mls/hr Q12 IVPB Last administered on 12/04/18at 09:08; Admin Dose 300 MLS/HR; Start 12/01/18 at 09:00 Insulin Aspart (Novolog Insulin Pen) NOVOLOG *MILD* ALGORI... Q4 SC Last administered on 12/03/18at 13:25; Admin Dose 2 UNIT; Start 12/01/18 at 09:00 Miscellaneous Information 1 ea NOTE XX ; Start 12/01/18 at 07:00 Glucose (Glutose) 15 gm Q15M PRN PO DECREASED GLUCOSE; Start 12/01/18 at 07:00 Glucose (Glutose) 22.5 gm Q15M PRN PO DECREASED GLUCOSE; Start 12/01/18 at 07:00 Dextrose (D50w Syringe) 25 ml Q15M PRN IV DECREASED GLUCOSE Last administered on 12/04/18 08:59; Admin Dose 25 ML; Start 12/01/18 at 07:00 Dextrose (D50w Syringe) 50 ml Q15M PRN IV DECREASED GLUCOSE; Start 12/01/18 at 07:00 Glucagon (Glucagen) 1 mg Q15M PRN IM DECREASED GLUCOSE; Start 12/01/18 at 07:00 Glucose (Glutose) 15 gm Q15M PRN BUCCAL DECREASED GLUCOSE; Start 12/01/18 at 07:00 Acetaminophen (Tylenol Liquid) 650 mg Q6H PRN GTB MILD PAIN(1-3)OR ELEVATED TEMP Last administered on 12/04/18 07:26; Admin Dose 650 MG; Start 12/01/18 at 07:30 Miscellaneous Information (Pending Santyl Order For Wound Care) This patient pritchard... PRN PRN XX WOUND CARE; Start 12/01/18 at 19:00 Chlorhexidine Gluconate (Peridex) 15 ml TID MT Last administered on 12/04/18 13:00; Admin Dose 15 ML; Start 12/02/18 at 09:00 Albuterol (Proventil 0.083% (Neb)) 1.25 mg Q4H RESP THERAPY HHN Last administered on 12/04/18 13:12; Admin Dose 1.25 MG; Start 12/02/18 at 17:00 Acetylcysteine (Mucomyst) 2 ml Q4H RESP THERAPY NEB Last administered on 13:12; Admin Dose 2 ML; Start 12/02/18 at 17:00 Sodium Hypochlorite (Dakins Diluted (40)) 1 applic DAILY TP Last administered on 12/04/18 08:50; Admin Dose 1 APPLIC; Start 12/03/18 at 11:00 Colistimethate Sodium 150 mg/ Sodium Chloride 100 ml @ 200 mls/hr DAILY IVPB Last administered on 12/04/18 10:17; Admin Dose 200 MLS/HR; Start 12/03/18 at 15:30 Collagenase (Santyl) 1 applic DAILY TOP Last administered on 12/04/18 08:49; Admin Dose 1 APPLIC; Start 12/04/18 at 09:00 Collagenase (Santyl) 1 applic WHEN SOILED PRN TOP WOUND Last administered on 12/03/18at 23:58; Admin Dose 1 APPLIC; Start 12/03/18 at 22:30 Heparin Sodium (Porcine) (Heparin (5000 Units/1ml)) 5,000 unit Q12H SC ; Start 12/04/18 at 17:00 Dextrose/Sodium Chloride 1,000 ml @ 75 mls/hr [id number] IV Last administered on 12/04/18at 15:12; Admin Dose 75 MLS/HR; Start 12/04/18 at 15:00 Metoclopramide HCl (Reglan) 10 mg Q6 IV ; Start 12/04/18 at 18:00 Polyethylene Glycol (Miralax) 17 gm DAILY GTB ; Start 12/05/18 at 09:00 JAME DAN NP December 04, 2018 15:38
--- NOTE | 2018-12-04 17:09 | PREAC ---
Date/Time of Note Date/Time of Note DATE: 12/04/18 TIME: 17:08 Anesthesia Eval and Record Evaluation Time Pre-Procedure Interview DATE: 12/04/18 TIME: 17:08 Age 78 Sex male NPO: 8 hrs Preoperative diagnosis knee release / foot ulcerations Planned procedure BILATERAL HAMSTRING TENOTOMY , LEFT FOOT DEBRIDEMENT Past Medical History Past Medical History: Includes Cardio: HTN Endo: Diabetes Neuro: CVA Renal: ROBBIE Heme: Anemia, Other (sickle cell) Psych: Other (Dementia) Surgery & Anesthesia Issues No known issue Meds Anticoagulation: No Beta Morro within 24 hr: No Reason Beta Morro not given: Pt. not on B-Morro Active Scripts [Vancomycin Iv Per Pharmacy] 1 EA EACH No Conflict Check, 0 EA XX .PER PROTOCOL for 1 Day last dose 11/13 Prov:NARCISO AVILEZ V. CLIENT SUPPORT CONSULTANT 11/12/18 Lansoprazole (Heartburn Treatment 24 Hour) 15 Mg Capsule.dr, 15 MG GTB DAILY@06 for 30 Days Prov:NARCISO AVILEZ NP 11/07/18 Amlodipine Besylate* (Amlodipine Besylate*) 10 Mg Tablet, 10 MG GTB DAILY for 30 Days, TAB Prov:NARCISO AVILEZ V. CLIENT SUPPORT CONSULTANT 11/07/18 Reported Medications Acetaminophen* (Acetaminophen*) 325 Mg Tablet, 650 MG GTB Q6H PRN for MILD PAIN(1-3)OR ELEVATED TEMP, #30 TAB 10/30/18 Abiraterone Acetate (Zytiga) 500 Mg Tablet, 1000 MG GTB DAILY, TAB 10/30/18 Insulin Glargine* (Lantus*) 100 Unit/Ml Soln, 20 UNIT SC QHS, #1 VIAL 10/30/18 Glucagon,Human Recombinant (Glucagon Emergency Kit) 1 Mg Kit, 1 MG IJ NEEDED PRN for IF BLOOD GLUCOSE<70, KIT 10/30/18 Current Medications IV Flush (NS 3 ml) 3 ml PER PROTOCOL IV ; Start 12/01/18 at 02:00 Ondansetron HCl (Zofran Inj) 4 mg Q6H PRN IV NAUSEA/VOMITING; Start 12/01/18 at 02:00 Acetaminophen (Tylenol Tab) 650 mg Q6H PRN GTB .PAIN 1-3 OR TEMP; Start 12/01/18 at 02:00 Linezolid 300 ml @ 300 mls/hr Q12 IVPB Last administered on 12/04/18 09:08; Admin Dose 300 MLS/HR; Start 12/01/18 at 09:00 Insulin Aspart (Novolog Insulin Pen) NOVOLOG *MILD* ALGORI... Q4 SC Last administered on 12/03/18 13:25; Admin Dose 2 UNIT; Start 12/01/18 at 09:00 Miscellaneous Information 1 ea NOTE XX ; Start 12/01/18 at 07:00 Glucose (Glutose) 15 gm Q15M PRN PO DECREASED GLUCOSE; Start 12/01/18 at 07:00 Glucose (Glutose) 22.5 gm Q15M PRN PO DECREASED GLUCOSE; Start 12/01/18 at 07:00 Dextrose (D50w Syringe) 25 ml Q15M PRN IV DECREASED GLUCOSE Last administered on 12/04/18at 08:59; Admin Dose 25 ML; Start 12/01/18 at 07:00 Dextrose (D50w Syringe) 50 ml Q15M PRN IV DECREASED GLUCOSE; Start 12/01/18 at 07:00 Glucagon (Glucagen) 1 mg Q15M PRN IM DECREASED GLUCOSE; Start 12/01/18 at 07:00 Glucose (Glutose) 15 gm Q15M PRN BUCCAL DECREASED GLUCOSE; Start 12/01/18 at 07:00 Acetaminophen (Tylenol Liquid) 650 mg Q6H PRN GTB MILD PAIN(1-3)OR ELEVATED T EMP Last administered on 12/04/18 07:26; Admin Dose 650 MG; Start 12/01/18 at 07:30 Miscellaneous Information (Pending [facility] Order For Wound Care) This patient pritchard... PRN PRN XX WOUND CARE; Start 12/01/18 at 19:00 Chlorhexidine Gluconate (Peridex) 15 ml TID MT Last administered on 12/04/18 13:00; Admin Dose 15 ML; Start 12/02/18 at 09:00 Albuterol (Proventil 0.083% (Neb)) 1.25 mg Q4H RESP THERAPY HHN Last administered on 12/04/18 16:08; Admin Dose 1.25 MG; Start 12/02/18 at 17:00 Acetylcysteine (Mucomyst) 2 ml Q4H RESP THERAPY NEB Last administered on 5/23/19at 16:08; Admin Dose 2 ML; Start 12/02/18 at 17:00 Sodium Hypochlorite (Dakins Diluted (40)) 1 applic DAILY TP Last administered on 12/04/18at 08:50; Admin Dose 1 APPLIC; Start 12/03/18 at 11:00 Colistimethate Sodium 150 mg/ Sodium Chloride 100 ml @ 200 mls/hr DAILY IVPB Last administered on 12/04/18at 10:17; Admin Dose 200 MLS/HR; Start 12/03/18 at 15:30 Collagenase (Santyl) 1 applic DAILY TOP Last administered on 12/04/18at 08:49; Admin Dose 1 APPLIC; Start 12/04/18 at 09:00 Collagenase (Santyl) 1 applic WHEN SOILED PRN TOP WOUND Last administered on 12/03/18at 23:58; Admin Dose 1 APPLIC; Start 12/03/18 at 22:30 Heparin Sodium (Porcine) (Heparin (5000 Units/1ml)) 5,000 unit Q12H SC ; Start 12/04/18 at 17:00 Dextrose/Sodium Chloride 1,000 ml @ 75 mls/hr [id number] IV Last administered on 12/04/18at 15:12; Admin Dose 75 MLS/HR; Start 12/04/18 at 15:00 Metoclopramide HCl (Reglan) 10 mg Q6 IV ; Start 12/04/18 at 18:00 Polyethylene Glycol (Miralax) 17 gm DAILY GTB ; Start 12/05/18 at 09:00 Meds reviewed: Yes Allergies Coded Allergies: No Known Allergy (Unverified , 10/30/18) Allergies Reviewed: Yes Labs/Studies Labs Reviewed: Reviewed by anesthesiologist Result Diagram: 12/04/18 0740 12/04/18 0740 Laboratory Tests 12/04/18 07:40 test: N/A Studies: ECG Pre-procedure Exam Last vitals Vital Signs Date Temp Pulse Resp B/P (MAP) Pulse Ox O2 O2 Flow FiO2 Time Delivery Rate 12/04/18 105 10 100 Nasal 3.0 16:16 Cannula 12/04/18 99.0 100/44 15:54 (62) 12/02/18 45 21:43 Airway: Adequate mouth opening Mallampati: Mallampati II Teeth: Normal Lung: Normal Heart: Normal ASA Physical Status ASA physical status: 3 Emergency: None Pre-operative Attestations Prior to commencing anesthesia and surgery, the patient was re-evaluated, there was verification of: *The patient's identity *The results of appropriate recent lab work and preoperative vital signs *The above evaluation not changing prior to induction *Anesthetic plan, risk benefits, alternative and complications discussed with patient/family; questions answered; patient/family understands, accepts and wishes to proceed. CAROLA BUTTS December 04, 2018 17:08
[2018-12-04] MEDS: METOCLOPRAMIDE 10 MG INJ IV SCH (17:56)
[2018-12-05] VITALS (10 sets, daily range): BP systolic 107–118; BP diastolic 55–70; PULSE 84–120; RESP 16–22
[2018-12-05] MEDS: METOCLOPRAMIDE 10 MG INJ IV SCH ×4 (00:13→18:02)
[2018-12-05] MEDS: ACETAMINOPHEN 650MG/20.3ML CUP GTB PRN (00:14)
[2018-12-05] MEDS: ALBUTEROL 0.083% (NEB) 2.5 MG/3 ML AMP HHN SCH ×6 (00:35→21:37)
[2018-12-05] MEDS: ACETYLCYSTEINE 20% 4 ML VIAL NEB SCH ×6 (00:35→21:37)
[2018-12-05] MEDS: INSULIN ASPART [NOVOLOG] 3 ML PEN SC SCH ×6 (01:00→20:55)
[2018-12-05] MEDS: DEXTROSE 5%-0.45% NACL 1,000 ML IV SCH ×2 (05:14→17:40)
[2018-12-05] MEDS: HEPARIN 5,000 UNIT/1 ML VIAL SC SCH ×2 (05:41→18:12)
--- NOTE | 2018-12-05 06:02 | CONS ---
Assessment/Plan Assessment/Plan Assessment/Plan (Daily) Sepsis Altered mental status secondary to Alzheimer's dementia Nutrition Fluid electrolyte abnormalities Full code Dehydration Decubiti of the sacrum Multiple decubiti Ischemic lower extremity Discussed ongoing level of care with and agree that surgical intervention although indicated will not address this gentlemen's overall clinical condition and prognosis nor improve his general quality of life. I spoken to daughter on one occasion and she is still hopeful that he will improve unfortunately I believe that is an unrealistic expectation and level of care, interventions, CODE STATUS should be addressed with daughter and other family members once again. I agree that bioethics consultation is in order after podiatry speaks to the daughter once again. Consultation Date/Type/Reason Admit Date/Time December 01, 2018 at 01:35 Initial Consult Date Requesting Provider: GARY PETERSON Date/Time of Note DATE: 12/05/18 TIME: 06:00 Exam/Review of Systems Exam Vitals Vital Signs Date Temp Pulse Resp B/P (MAP) Pulse Ox O2 O2 Flow FiO2 Time Delivery Rate 12/05/18 111 24 100 Nasal 2.0 04:29 Cannula 12/05/18 118/55 04:00 (76) 12/05/18 100.5 01:30 12/02/18 45 21:43 Results Result Diagram: 12/04/18 0740 12/04/18 0740 Results 24hrs Laboratory Tests Test 12/04/18 07:40 12/04/18 08:55 12/04/18 09:16 12/04/18 14:28 White Blood Count 9.5 # Red Blood Count 2.84 L Hemoglobin 7.7 L Hematocrit 25.2 L Mean Corpuscular 88.7 Volume Mean Corpuscular 27.1 L Hemoglobin Mean Corpuscular 30.6 L Hemoglobin Concent Red Cell 15.8 H Distribution Width Platelet Count 314 Mean Platelet Volume 12.3 H Immature 1.300 H Granulocytes % Neutrophils % 71.8 Lymphocytes % 13.3 L Monocytes % 12.5 H Eosinophils % 0.9 Basophils % 0.2 Nucleated Red Blood 0.0 Cells % Immature 0.120 H Granulocytes # Neutrophils # 6.8 Lymphocytes # 1.3 Monocytes # 1.2 H Eosinophils # 0.1 Basophils # 0.0 Nucleated Red Blood 0.0 Cells # Sodium Level 144 Potassium Level 3.2 L Chloride Level 109 Carbon Dioxide Level 30 Anion Gap 5 Blood Urea Nitrogen 36 H Creatinine 1.34 H Est Glomerular Filtrat Rate mL/min Glucose Level 57 #L Calcium Level 10.0 Total Bilirubin 0.2 Direct Bilirubin 0.00 Indirect Bilirubin 0.2 Aspartate Amino 31 Transf (AST/SGOT) Alanine 22 Aminotransferase (AL T/SGPT) Alkaline Phosphatase 85 Total Protein 6.1 Albumin 2.6 L Globulin 3.50 H Albumin/Globulin 0.74 Ratio Bedside Glucose 55 L 111 75 Test 12/04/18 17:55 12/04/18 21:14 12/04/18 21:48 12/04/18 22:03 Bedside Glucose 75 66 L 112 113 Test 12/05/18 00:45 12/05/18 05:21 Bedside Glucose 132 83 Medications Medication Current Medications IV Flush (NS 3 ml) 3 ml PER PROTOCOL IV ; Start 12/01/18 at 02:00 Ondansetron HCl (Zofran Inj) 4 mg Q6H PRN IV NAUSEA/VOMITING; Start 12/01/18 at 02:00 Acetaminophen (Tylenol Tab) 650 mg Q6H PRN GTB .PAIN 1-3 OR TEMP; Start 12/01/18 at 02:00 Linezolid 300 ml @ 300 mls/hr Q12 IVPB Last administered on 12/04/18at 21:15; Admin Dose 300 MLS/HR; Start 12/01/18 at 09:00 Insulin Aspart (Novolog Insulin Pen) NOVOLOG *MILD* ALGORI... Q4 SC Last administered on 12/03/18at 13:25; Admin Dose 2 UNIT; Start 12/01/18 at 09:00 Miscellaneous Information 1 ea NOTE XX ; Start 12/01/18 at 07:00 Glucose (Glutose) 15 gm Q15M PRN PO DECREASED GLUCOSE; Start 12/01/18 at 07:00 Glucose (Glutose) 22.5 gm Q15M PRN PO DECREASED GLUCOSE; Start 12/01/18 at 07:00 Dextrose (D50w Syringe) 25 ml Q15M PRN IV DECREASED GLUCOSE Last administered on 12/04/18at 21:24; Admin Dose 25 ML; Start 12/01/18 at 07:00 Dextrose (D50w Syringe) 50 ml Q15M PRN IV DECREASED GLUCOSE; Start 12/01/18 at 07:00 Glucagon (Glucagen) 1 mg Q15M PRN IM DECREASED GLUCOSE; Start 12/01/18 at 07:00 Glucose (Glutose) 15 gm Q15M PRN BUCCAL DECREASED GLUCOSE; Start 12/01/18 at 07:00 Acetaminophen (Tylenol Liquid) 650 mg Q6H PRN GTB MILD PAIN(1-3)OR ELEVATED TEMP Last administered on 12/05/18 00:14; Admin Dose 650 MG; Start 12/01/18 at 07:30 Miscellaneous Information (Pending Santyl Order For Wound Care) This patient pritchard... PRN PRN XX WOUND CARE; Start 12/01/18 at 19:00 Chlorhexidine Gluconate (Peridex) 15 ml TID MT Last administered on 12/04/18 21:16; Admin Dose 15 ML; Start 12/02/18 at 09:00 Albuterol (Proventil 0.083% (Neb)) 1.25 mg Q4H RESP THERAPY HHN Last administered on 12/05/18 04:29; Admin Dose 1.25 MG; Start 12/02/18 at 17:00 Acetylcysteine (Mucomyst) 2 ml Q4H RESP THERAPY NEB Last administered on 12/05/18 04:29; Admin Dose 2 ML; Start 12/02/18 at 17:00 Sodium Hypochlorite (Dakins Diluted (40)) 1 applic DAILY TP Last administered on 12/04/18 08:50; Admin Dose 1 APPLIC; Start 12/03/18 at 11:00 Colistimethate Sodium 150 mg/ Sodium Chloride 100 ml @ 200 mls/hr DAILY IVPB Last administered on 12/04/18 10:17; Admin Dose 200 MLS/HR; Start 12/03/18 at 15:30 Collagenase (Santyl) 1 applic DAILY TOP Last administered on 12/04/18 08:49; Admin Dose 1 APPLIC; Start 12/04/18 at 09:00 Collagenase (Santyl) 1 applic WHEN SOILED PRN TOP WOUND Last administered on 12/03/18 23:58; Admin Dose 1 APPLIC; Start 12/03/18 at 22:30 Heparin Sodium (Porcine) (Heparin (5000 Units/1ml)) 5,000 unit Q12H SC Last administered on 5/24/19at 05:41; Admin Dose 5,000 UNIT; Start 12/04/18 at 17:00 Dextrose/Sodium Chloride 1,000 ml @ 75 mls/hr [id number] IV Last administered on 12/05/18at 05:14; Admin Dose 75 MLS/HR; Start 12/04/18 at 15:00 Metoclopramide HCl (Reglan) 10 mg Q6 IV Last administered on 12/05/18at 05:14; Admin Dose 10 MG; Start 12/04/18 at 18:00 Polyethylene Glycol (Miralax) 17 gm DAILY GTB ; Start 12/05/18 at 09:00 ANDRA ZAMORANO December 05, 2018 06:02
[2018-12-05] MEDS: POLYETHYLENE GLYCOL 17 GM PACKET GTB SCH (09:00)
[2018-12-05] MEDS: LINEZOLID 600 MG/300 ML (PMX) 300 ML IVPB SCH ×2 (09:12→20:52)
[2018-12-05] MEDS: CHLORHEXIDINE GLUCONATE 15 ML UD CUP MT SCH ×3 (09:12→20:51)
[2018-12-05] MEDS: COLISTIMETHATE 150 MG in SOD CHLORIDE 0.9% 100 ML IVPB SCH (09:12)
--- NOTE | 2018-12-05 09:19 | PN ---
DATE: 12/05/2018 SUBJECTIVE: The patient is stable, no events overnight. OBJECTIVE: VITAL SIGNS: Blood pressure is 111/58, pulse 113, respirations 18, temperature 99.5. HEENT: Head is normocephalic. NECK: Supple. HEART: Regular rate. LUNGS: Show diminished breath sounds at the base. ABDOMEN: Soft, nontender to palpation without rebound or guarding. EXTREMITIES: Negative for clubbing, cyanosis, no edema. DERMATOLOGIC: No rashes. MUSCULOSKELETAL: No joint effusion. NEUROLOGIC: No change in exam. MEDICATIONS: The patient's medications have been reviewed. LABORATORY DATA: From 12/05/2018 was reviewed. ASSESSMENT AND PLAN: 1. Nonoliguric acute kidney injury with previous baseline creatinine of 0.81 to 1.0 mg/dL. Etiology of acute kidney injury is secondary to hemodynamics. Renal function is improved. Continue current treatment plan, supportive care, renally dose all medications. 2. Hypernatremia, improved. Continue free water flushes. 3. Anemia with evidence of iron deficiency. The patient will be started on IV iron. Monitor hemogl obin and hematocrit levels. 4. Mineral bone disorder, monitor calcium and phosphorus levels. 5. Sepsis. The patient is completing antibiotic course. 6. Diabetes. Continue current insulin regimen. 7. Dysphagia. Continue tube feeding. 8. Acute encephalopathy and chronic dementia, etiology is toxic metabolic. 9. History of cerebrovascular accident. Continue medical management. Dictated By: KACY DLILARD DO NR/NTS Conf#: [id number] DID#: [id number] CC: GARY PETERSON MD; FRANCISCA DELUCA MD; IKER FAM MD;*EndCC*
[2018-12-05] MEDS: SOD FERRIC GLUC COMPLX 125 MG in SOD CHLORIDE 0.9% 100 ML IVPB SCH (12:53)
[2018-12-05] MEDS: COLLAGENASE 5 GM (UD JAR) TOP SCH (14:02)
[2018-12-05] MEDS: DAKINS 0.0125%(1/40) 473 ML SOLUTION TP SCH (14:03)
--- NOTE | 2018-12-05 15:28 | CONS ---
Assessment/Plan Assessment/Plan Hospital Course (Demo Recall) Patient looks comfortable no fevers overnight WBC 13 H&H 7.6 and 24.9 platelets 335 neutrophils 70.2 BUN 42 creatinine 1.56 Microbiology: Wound culture grew Acinetobacter VRE MRSA Corynebacterium group JK Antimicrobials: Zyvox colistin Indwelling: Trach, PEG, Wynn Physical examination: Chronically ill-appearing elderly man who is in no distress. Head atraumatic normocephalic neck is supple chest rise symmetrical breath sounds diminished to bases heart: S1-S2 abdomen soft, bowel sounds present extremities contractured lower extremities Assessment: 1. Sepsis 2. UTI per UA 3. Multiple decubitus ? L foot chronic wound 4. Acute on chronic encephalopathy 5. Dysphagia 6. Hx prostate cancer Plan: Remains unchanged, continue wound management per podiatry, monitor renal function. Per Dw Dr Irving wound cx possibly represent colonization, will keep on abx for now to complete 7 days, no surgery planned. Consultation Date/Type/Reason Admit Date/Time December 01, 2018 at 01:35 Initial Consult Date Type of Consult id Requesting Provider: GARY PETERSON Date/Time of Note DATE: 12/05/18 TIME: 15:27 Exam/Review of Systems Exam Vitals Vital Signs Date Temp Pulse Resp B/P (MAP) Pulse Ox O2 O2 Flow FiO2 Time Delivery Rate 12/05/18 99.4 84 16 109/70 96 Nasal 15:12 (83) Cannula 12/05/18 2.0 12:43 12/02/18 45 21:43 Intake and Output 12/04/18 12/04/18 12/05/18 1515:00 23:00 07:00 IntakeIntake Total 360 ml OutputOutput Total 850 ml BalanceBalance -490 ml Results Result Diagram: 12/05/18 0611 12/05/18 0611 Results 24hrs Laboratory Tests Test 12/04/18 17:55 12/04/18 21:14 12/04/18 21:48 12/04/18 22:03 Bedside Glucose 75 66 L 112 113 Test 12/05/18 00:45 12/05/18 05:21 12/05/18 06:10 12/05/18 06:11 Bedside Glucose 132 83 Hepatitis B Surface NEGATIVE Antigen White Blood Count 13.0 #H Red Blood Count 2.79 L Hemoglobin 7.6 L Hematocrit 24.9 L Mean Corpuscular 89.2 Volume Mean Corpuscular 27.2 L Hemoglobin Mean Corpuscular 30.5 L Hemoglobin Concent Red Cell 15.9 H Distribution Width Platelet Count 335 Mean Platelet Volume 11.1 H Immature 2.900 H Granulocytes % Neutrophils % 70.2 Lymphocytes % 12.3 L Monocytes % 13.1 H Eosinophils % 1.2 Basophils % 0.3 Nucleated Red Blood 0.0 Cells % Immature 0.380 H Granulocytes # Neutrophils # 9.1 H Lymphocytes # 1.6 Monocytes # 1.7 H Eosinophils # 0.2 Basophils # 0.0 Nucleated Red Blood 0.0 Cells # Sodium Level 143 Potassium Level 3.6 Chloride Level 108 Carbon Dioxide Level 28 Anion Gap 7 Blood Urea Nitrogen 42 H Creatinine 1.56 H Est Glomerular Filtrat Rate mL/min Glucose Level 85 Calcium Level 10.1 Phosphorus Level 3.2 Magnesium Level 1.8 Iron Level 13 L Total Iron Binding 136 L Capacity Percent Iron 10 L Saturation Total Bilirubin 0.3 Direct Bilirubin 0.00 Indirect Bilirubin 0.3 Aspartate Amino 33 Transf (AST/SGOT) Alanine 18 Aminotransferase (AL T/SGPT) Alkaline Phosphatase 91 Total Protein 6.2 Albumin 2.6 L Globulin 3.60 H Albumin/Globulin 0.72 Ratio Hepatitis C Antibody NEGATIVE HIV (1&2) Antibody NEGATIVE Test 12/05/18 09:13 12/05/18 14:01 Bedside Glucose 84 110 Medications Medication Current Medications IV Flush (NS 3 ml) 3 ml PER PROTOCOL IV ; Start 12/01/18 at 02:00 Ondansetron HCl (Zofran Inj) 4 mg Q6H PRN IV NAUSEA/VOMITING; Start 12/01/18 at 02:00 Acetaminophen (Tylenol Tab) 650 mg Q6H PRN GTB .PAIN 1-3 OR TEMP; Start 12/01/18 at 02:00 Linezolid 300 ml @ 300 mls/hr Q12 IVPB Last administered on 12/05/18at 09:12; Admin Dose 300 MLS/HR; Start 12/01/18 at 09:00 Insulin Aspart (Novolog Insulin Pen) NOVOLOG *MILD* ALGORI... Q4 SC Last administered on 12/03/18at 13:25; Admin Dose 2 UNIT; Start 12/01/18 at 09:00 Miscellaneous Information 1 ea NOTE XX ; Start 12/01/18 at 07:00 Glucose (Glutose) 15 gm Q15M PRN PO DECREASED GLUCOSE; Start 12/01/18 at 07:00 Glucose (Glutose) 22.5 gm Q15M PRN PO DECREASED GLUCOSE; Start 12/01/18 at 07:00 Dextrose (D50w Syringe) 25 ml Q15M PRN IV DECREASED GLUCOSE Last administered on 12/04/18 21:24; Admin Dose 25 ML; Start 12/01/18 at 07:00 Dextrose (D50w Syringe) 50 ml Q15M PRN IV DECREASED GLUCOSE; Start 12/01/18 at 07:00 Glucagon (Glucagen) 1 mg Q15M PRN IM DECREASED GLUCOSE; Start 12/01/18 at 07:00 Glucose (Glutose) 15 gm Q15M PRN BUCCAL DECREASED GLUCOSE; Start 12/01/18 at 07:00 Acetaminophen (Tylenol Liquid) 650 mg Q6H PRN GTB MILD PAIN(1-3)OR ELEVATED TEMP Last administered on 12/05/18 00:14; Admin Dose 650 MG; Start 12/01/18 at 07:30 Miscellaneous Information (Pending Santyl Order For Wound Care) This patient pritchard... PRN PRN XX WOUND CARE; Start 12/01/18 at 19:00 Chlorhexidine Gluconate (Peridex) 15 ml TID MT Last administered on 12/05/18 12:53; Admin Dose 15 ML; Start 12/02/18 at 09:00 Albuterol (Proventil 0.083% (Neb)) 1.25 mg Q4H RESP THERAPY HHN Last administered on 12/05/18 12:43; Admin Dose 1.25 MG; Start 12/02/18 at 17:00 Acetylcysteine (Mucomyst) 2 ml Q4H RESP THERAPY NEB Last administered on 12/05/18 12:43; Admin Dose 2 ML; Start 12/02/18 at 17:00 Sodium Hypochlorite (Dakins Diluted ()) 1 applic DAILY TP Last administered on 12/05/18 14:03; Admin Dose 1 APPLIC; Start 12/03/18 at 11:00 Colistimethate Sodium 150 mg/ Sodium Chloride 100 ml @ 200 mls/hr DAILY IVPB Last administered on 12/05/18 09:12; Admin Dose 200 MLS/HR; Start 12/03/18 at 15:30 Collagenase (Santyl) 1 applic DAILY TOP Last administered on 12/05/18 14:02; Admin Dose 1 APPLIC; Start 12/04/18 at 09:00 Collagenase (Santyl) 1 applic WHEN SOILED PRN TOP WOUND Last administered on 12/03/18 23:58; Admin Dose 1 APPLIC; Start 12/03/18 at 22:30 Heparin Sodium (Porcine) (Heparin (5000 Units/1ml)) 5,000 unit Q12H SC Last administered on 12/05/18 05:41; Admin Dose 5,000 UNIT; Start 12/04/18 at 17:00 Dextrose/Sodium Chloride 1,000 ml @ 75 mls/hr [id number] IV Last administered on 12/05/18 05:14; Admin Dose 75 MLS/HR; Start 12/04/18 at 15:00 Metoclopramide HCl (Reglan) 10 mg Q6 IV Last administered on 12/05/18 12:53; Admin Dose 10 MG; Start 12/04/18 at 18:00 Polyethylene Glycol (Miralax) 17 gm DAILY GTB ; Start 12/05/18 at 09:00 Ferric Sodium Gluconate Complex 125 mg/Sodium Chloride 110 ml @ 110 mls/hr DAILY@1300 IVPB Last administered on 12/05/18 12:53; Admin Dose 110 MLS/HR; S tart 12/05/18 at 13:00; Stop 12/09/18 at 13:59 JAME DAN NP December 05, 2018 15:28
--- NOTE | 2018-12-05 16:21 | PAC ---
Date/Time of Note Date/Time of Note DATE: 12/05/18 TIME: 16:21 Post-Anesthesia Notes Post-Anesthesia Note Last documented vital signs Vital Signs Date Temp Pulse Resp B/P (MAP) Pulse Ox O2 O2 Flow FiO2 Time Delivery Rate 12/05/18 98.8 84 16 109/70 96 Nasal 15:12 (83) Cannula 12/05/18 2.0 12:43 12/02/18 45 21:43 Activity: WNL Respiratory function: WNL Cardiovascular function: WNL Mental status: Baseline Pain reasonably controlled: Yes Hydration appropriate: Yes Nausea/Vomiting absent: Yes SHAUNNA STARR December 05, 2018 16:21
--- NOTE | 2018-12-05 18:23 | PN ---
Date/Time of Note Date/Time of Note DATE: 12/05/18 TIME: 18:15 Assessment/Plan Lines/Catheters IV Catheter Type (from [facility]): Saline Lock Wynn in Place (from [facility]): Yes Assessment/Plan Chief Complaint/Hosp Course 1. Multiple wounds: -debridement after bioethics consult -local care -frequent turning and off-loading -low air loss mattress -vitamin c -short term zinc -optimize nutrition -Left ischial culture -Lower extremity wounds per podiatry 2. Sepsis: Likely multifactorial: -Supportive -Antibiotics per sensitivity 3. UTI: -abx per sensitivity -frequent bladder emptying/cath care 4. Chronic encephalopathy: -Supportive -Treat infections 5. Severe contractures: -Possible knee release by Dr. Matamoros 6. ROBBIE: -Limit nephrotoxic meds -Renally dose meds -Per renal 7. Bilateral pleural effusions -Pulmonary toilet/fluid management -Per pulmonary Thank you. Patient seen and examined in collaboration with Dr. Lico Perera. Subjective 24 Hr Interval Summary fevers. appears comfortable. Nonverbal indicators of pain not present. No labored breathing, congested cough, vomiting, diarrhea, sz, rash, excessive wound drainage/odor. Exam/Review of Systems Vital Signs Vitals Vital Signs Date Temp Pulse Resp B/P (MAP) Pulse Ox O2 O2 Flow FiO2 Time Delivery Rate 12/05/18 95 21 98 Nasal 2.0 16:45 Cannula 12/05/18 98.8 109/70 15:12 (83) 12/02/18 45 21:43 Intake and Output 12/04/18 12/04/18 12/05/18 1515:00 23:00 07:00 IntakeIntake Total 360 ml OutputOutput Total 850 ml BalanceBalance -490 ml Exam Free Text/Dictation Constitutional: alert; No oriented Psych: no complaints, nl mood/affect; No anxiety Head: normocephalic, atraumatic Eyes: nl conjunctiva, EOMI, nl lids, nl sclera ENMT: nl external ears & nose, nl lips & teeth, mucosa pink and moist Neck: supple, non-tender Respiratory: normal air movement; No congested cough Cardiovascular: regular rate and rhythm; No edema Gastrointestinal: soft; No distended, No tender Musculoskeletal: other (Contractures) Extremities: normal pulses; No edema Neurological: No nl mental status (Confused), No nl speech, No nl strength (Contractures, generalized weakness) Skin: other (Multiple wounds: Sacral (clean, scant drainage); left ischium: Eschar, green drainage); No rash or lesions Results Result Diagram: 12/05/18 0611 12/05/18 0611 DAQUAN HERNANDEZ NP December 05, 2018 18:23
[2018-12-06] VITALS (9 sets, daily range): BP systolic 93–116; BP diastolic 49–59; PULSE 98–111; RESP 18–22
[2018-12-06] MEDS: INSULIN ASPART [NOVOLOG] 3 ML PEN SC SCH ×6 (01:00→20:19)
[2018-12-06] MEDS: METOCLOPRAMIDE 10 MG INJ IV SCH ×5 (01:07→23:45)
[2018-12-06] MEDS: DEXTROSE 5%-0.45% NACL 1,000 ML IV SCH ×3 (01:37→21:53)
[2018-12-06] MEDS: ALBUTEROL 0.083% (NEB) 2.5 MG/3 ML AMP HHN SCH ×6 (01:57→20:44)
[2018-12-06] MEDS: ACETYLCYSTEINE 20% 4 ML VIAL NEB SCH ×6 (01:57→20:44)
[2018-12-06] MEDS: HEPARIN 5,000 UNIT/1 ML VIAL SC SCH ×2 (05:57→17:47)
--- NOTE | 2018-12-06 08:33 | PN ---
DATE: 12/06/2018 SUBJECTIVE: The patient is stable. No events overnight. OBJECTIVE: VITAL SIGNS: Blood pressure is 101/53, pulse 109, respirations 18, temperature 99.3. HEENT: Head is normocephalic. NECK: Supple. HEART: Regular rate. LUNGS: Show diminished breath sounds at the base. ABDOMEN: Soft, nontender to palpation without rebound or guarding. EXTREMITIES: Negative for clubbing, cyanosis, no edema. DERMATOLOGIC: No rashes. MUSCULOSKELETAL: No joint effusion. NEUROLOGIC: No change in exam. MEDICATIONS: Reviewed. LABORATORY DATA: Reviewed. ASSESSMENT AND PLAN: 1. Nonoliguric acute kidney injury with previous baseline creatinine of 0.8 to 1.0 mg/dL. Etiology of acute kidney injury is secondary to hemodynamics. Renal function is improved. Continue current t reatment plans, supportive care, renally dose all medications. 2. Hypernatremia, improved. Continue free water flushes. 3. Anemia with iron deficiency. Continue IV iron. Monitor hemoglobin and hematocrit levels. 4. Mineral bone disorder. Monitor calcium and phosphorus levels. 5. Sepsis. The patient is completing antibiotic course. 6. Diabetes. Continue current insulin regimen. 7. Dysphagia. Continue tube feeding. 8. Acute encephalopathy on top of dementia, etiology is toxic metabolic. 9. History of cerebrovascular accident. Dictated By: KACY DILLARD DO NR/NTS Conf#: [id number] DID#: [id number] CC: FRANCISCA DELUCA MD; GARY PETERSON MD; IKER FAM MD;*End*
--- NOTE | 2018-12-06 08:59 | EN ---
Date/Time of Note Date/Time of Note DATE: 12/05/18 Event Note Medicine Medicine Event Note Subjective : no new issues, spoke at lenght with ex- at bedside objective : Constitutional: Barely verbal, will respond to name, can grunts yes or no in answer to questions, chronically contracted, does not like to be moved, otherwise looks comfortable when he is not stimulated Psych: other (unable to assess) Head: normocephalic, atraumatic Eyes: PERRL, No icteric ENMT: No mucosa pink and moist (dry) Neck: non-tender Respiratory: diminished breath sounds, gurgling No labored breathing Cardiovascular: regular rate and rhythm, No murmurs/extra sounds Gastrointestinal: soft, non-tender, bowel sounds, other (PEG tube noted with no cellulitis or discharge) Genitourinary -male: Wynn to bedside drainage Extremities: 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 Patient also has approximately 4-1/2 diameter ulcer in the sacrum but also looks like it is healing well, as well as multiple other smaller ulcers diffusely. Please see nursing notes for details.) assessment and plan: 78-year-old male who had coming sent from [facility] facility because of fever and a urinary tract infection and admitted with severe sepsis and hypernatremic dehydration with ROBBIE. He required transient ICU stay, currently managed as follows. 1. Severe sepsis likely related to the following 2. Recurrent urinary tract infection -Unsurprising as patient is chronically bedbound 3. Multiple decubiti, (sacroiliac / ischial/ lower extremities ) 4. Hypernatremic dehydration with ROBBIE on CKD: Improved 5. Respiratory tract infection, tracheobronchitis versus aspiration with acute on chronic respiratory failure requiring supplemental oxygen -CT showing Bilateral layering and partially loculated pleural effusions are seen of mild to moderate severity with bilateral pleural thickening and the presence of possible pleural plaques resulting in compressive atelectasis of the adjacent lungs. 6. Chronic debility with functional quadriplegia with history of CVA and Alzheimer's dementia -Patient is also chronically contracted at the hip and knees bilaterally. It is thought that this may be contributing to poor blood flow in the lower extremities precipitating gangrene and ulcer. 7. History of hypertension: -Borderline hypotensive at this time likely secondary to sepsis 8. History of insulin-dependent diabetes mellitus: -Has been having multiple episodes of hypoglycemia, insulin currently on hold -On tube feeds with diabetic source at 40 cc/h with 100 cc of free water every 4 hours 9. Chronic hypochromic anemia with history of iron deficiency: -Hemoglobin is dropping again, but no for transfusion at this time 10. Multinodular thyroid gland -check TSH and free T4 Disposition: -patient was planned for knee release today in the OR, but procedure was cancelled -spoke at length with patient's ex- on the lack of any probable ferry terminal agent benefit from any aggressive surgical intervention for his lower extremities and reiterated that patient would benefit from hospice care -It is in my opinion that further aggressive care is not going to significantly improve this patient's quality of life. -Patient has bilateral lower extremity contractures with functional quadriplegia. Has had a history of a CVA and is barely verbal at baseline. He will open his eyes, follow commands, grounds even in answers to questions, but is unlikely that patient will have any significant improvements in his baseline status despite all aggressive care. -Patient is also significantly prone to recurrent infections and is requiring aggressive IV antibiotic therapy even now. -However family continues to want all aggressive care to be done at this time. Palliative care continues to work with them. -Once patient is 24-hour fever free, he may be discharged back to [facility] facility or if family consents to hospice therapy, he may be discharged on hospice care. GARY PETERSON. December 06, 2018 08:59
[2018-12-06] MEDS: CHLORHEXIDINE GLUCONATE 15 ML UD CUP MT SCH ×3 (09:26→20:19)
[2018-12-06] MEDS: POLYETHYLENE GLYCOL 17 GM PACKET GTB SCH (09:26)
[2018-12-06] MEDS: COLLAGENASE 5 GM (UD JAR) TOP SCH (09:26)
[2018-12-06] MEDS: COLISTIMETHATE 150 MG in SOD CHLORIDE 0.9% 100 ML IVPB SCH (09:27)
[2018-12-06] MEDS: DAKINS 0.0125%(1/40) 473 ML SOLUTION TP SCH (09:29)
[2018-12-06] MEDS: LINEZOLID 600 MG/300 ML (PMX) 300 ML IVPB SCH ×2 (10:15→20:19)
--- NOTE | 2018-12-06 12:26 | PN ---
Date/Time of Note Date/Time of Note DATE: 12/06/18 TIME: 12:20 Assessment/Plan VTE Prophylaxis Risk score (from Ns)>0 risk: 8 SCD applied (from Ns): Yes Pharmacological prophylaxis: heparin Lines/Catheters IV Catheter Type (from [facility]): Saline [facility] Assessment/Plan Hospital Course 78-year-old male who had [facility] because of fever and a urinary tract infection and admitted with severe sepsis and hypernatremic dehydration with ROBBIE. He required transient ICU stay, currently managed as follows. 1. Severe sepsis secondary to UTI and decubitus ulcers Continue antibiotics Continue wound care 2. Recurrent urinary tract infection Unsurprising as patient is chronically bedbound 3. Multiple decubiti, (sacroiliac / ischial/ lower extremities ) Wound care and antibiotics 4. Hypernatremic dehydration with ROBBIE on CKD-Improved 5. Respiratory tract infection, tracheobronchitis versus aspiration with acute on chronic respiratory failure requiring supplemental oxygen CT showing Bilateral layering and partially loculated pleural effusions are seen of mild to moderate severity with bilateral pleural thickening and the presence of possible pleural plaques resulting in compressive atelectasis of the adjacent lungs 6. Chronic debility with functional quadriplegia with history of CVA and Alzheimer's dementia 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 It is thought that this may be contributing to poor blood flow in the lower extremities precipitating gangrene and ulcer Patient was scheduled for knee release but surgery was canceled 7. History of hypertension: Borderline hypotensive at this time likely secondary to sepsis 8. History of insulin-dependent diabetes mellitus: Has been having multiple episodes of hypoglycemia, insulin currently on hold On tube feeds with diabetic source at 40 cc/h with 100 cc of free water every 4 hours 9. Chronic hypochromic anemia with history of iron deficiency Monitor, no indication for transfusion at this time 10. Multinodular thyroid gland check TSH and free T4 Prophylaxis: Heparin DC planning: Patient with poor prognosis functional status, family wants aggressive care, anticipate DC back to facility tomorrow if afebrile for 24 hours Result Diagram: 12/05/18 0611 12/05/18 0611 Results 24hrs Laboratory Tests Test 12/05/18 14:01 12/05/18 18:01 12/05/18 20:55 12/06/18 01:18 Bedside Glucose 110 97 99 118 Test 12/06/18 05:50 12/06/18 09:26 Bedside Glucose 134 141 Subjective 24 Hr Interval Summary Subjective hx not possible: pt non-verbal Exam/Review of Systems Exam Vitals Vital Signs Date Temp Pulse Resp B/P (MAP) Pulse Ox O2 O2 Flow FiO2 Time Delivery Rate 12/06/18 99.8 110 22 116/59 100 Nasal 11:23 (78) Cannula 12/06/18 2.0 09:35 12/02/18 45 21:43 Intake and Output 12/05/18 12/05/18 12/06/18 1515:00 23:00 07:00 IntakeIntake Total 100 ml 600 ml OutputOutput Total 380 ml BalanceBalance 100 ml 220 ml Constitutional: non-verbal Respiratory: clear to auscultation Cardiovascular: regular rate and rhythm Gastrointestinal: soft; No distended Musculoskeletal: nl extremities to inspection Results Results 24hrs Laboratory Tests Test 12/05/18 14:01 12/05/18 18:01 12/05/18 20:55 12/06/18 01:18 Bedside Glucose 110 97 99 118 Test 12/06/18 05:50 12/06/18 09:26 Bedside Glucose 134 141 Medications Medication Current Medications IV Flush (NS 3 ml) 3 ml PER PROTOCOL IV ; Start 12/01/18 at 02:00 Ondansetron HCl (Zofran Inj) 4 mg Q6H PRN IV NAUSEA/VOMITING; Start 12/01/18 at 02:00 Acetaminophen (Tylenol Tab) 650 mg Q6H PRN GTB .PAIN 1-3 OR TEMP; Start 12/01/18 at 02:00 Linezolid 300 ml @ 300 mls/hr Q12 IVPB Last administered on 12/06/18at 10:15; Admin Dose 300 MLS/HR; Start 12/01/18 at 09:00 Insulin Aspart (Novolog Insulin Pen) NOVOLOG *MILD* ALGORI... Q4 SC Last administered on 12/03/18at 13:25; Admin Dose 2 UNIT; Start 12/01/18 at 09:00 Miscellaneous Information 1 ea NOTE XX ; Start 12/01/18 at 07:00 Glucose (Glutose) 15 gm Q15M PRN PO DECREASED GLUCOSE; Start 12/01/18 at 07:00 Glucose (Glutose) 22.5 gm Q15M PRN PO DECREASED GLUCOSE; Start 12/01/18 at 07:00 Dextrose (D50w Syringe) 25 ml Q15M PRN IV DECREASED GLUCOSE Last administered on 12/04/18 21:24; Admin Dose 25 ML; Start 12/01/18 at 07:00 Dextrose (D50w Syringe) 50 ml Q15M PRN IV DECREASED GLUCOSE; Start 12/01/18 at 07:00 Glucagon (Glucagen) 1 mg Q15M PRN IM DECREASED GLUCOSE; Start 12/01/18 at 07:00 Glucose (Glutose) 15 gm Q15M PRN BUCCAL DECREASED GLUCOSE; Start 12/01/18 at 07 :00 Acetaminophen (Tylenol Liquid) 650 mg Q6H PRN GTB MILD PAIN(1-3)OR ELEVATED TEMP Last administered on 12/05/18 00:14; Admin Dose 650 MG; Start 12/01/18 at 07:30 Miscellaneous Information (Pending Santyl Order For Wound Care) This patient pritchard... PRN PRN XX WOUND CARE; Start 12/01/18 at 19:00 Chlorhexidine Gluconate (Peridex) 15 ml TID MT Last administered on 12/06/18 09:26; Admin Dose 15 ML; Start 12/02/18 at 09:00 Albuterol (Proventil 0.083% (Neb)) 1.25 mg Q4H RESP THERAPY HHN Last adm inistered on 12/06/18 09:32; Admin Dose 1.25 MG; Start 12/02/18 at 17:00 Acetylcysteine (Mucomyst) 2 ml Q4H RESP THERAPY NEB Last administered on 12/06/18 09:33; Admin Dose 2 ML; Start 12/02/18 at 17:00 Sodium Hypochlorite (Dakins Diluted (140)) 1 applic DAILY TP Last administered on 12/06/18 09:29; Admin Dose 1 APPLIC; Start 12/03/18 at 11:00 Colistimethate Sodium 150 mg/ Sodium Chloride 100 ml @ 200 mls/hr DAILY IVPB Last administered on 12/06/18 09:27; Admin Dose 200 MLS/HR; Start 12/03/18 at 15:30 Collagenase (Santyl) 1 applic DAILY TOP Last administered on 12/06/18 09:26; Admin Dose 1 APPLIC; Start 12/04/18 at 09:00 Collagenase (Santyl) 1 applic WHEN SOILED PRN TOP WOUND Last administered on 12/03/18 23:58; Admin Dose 1 APPLIC; Start 12/03/18 at 22:30 Heparin Sodium (Porcine) (Heparin (5000 Units/1ml)) 5,000 unit Q12H SC Last administered on 12/06/18 05:57; Admin Dose 5,000 UNIT; Start 12/04/18 at 17:00 Dextrose/Sodium Chloride 1,000 ml @ 75 mls/hr [id number] IV Last administered on 12/06/18 01:37; Admin Dose 75 MLS/HR; Start 12/04/18 at 15:00 Metoclopramide HCl (Reglan) 10 mg Q6 IV Last administered on 12/06/18 05:43; Admin Dose 10 MG; Start 12/04/18 at 18:00 Polyethylene Glycol (Miralax) 17 gm DAILY GTB Last administered on 12/06/18 09:26; Admin Dose 17 GM; Start 12/05/18 at 09:00 Ferric Sodium Gluconate Complex 125 mg/Sodium Chloride 110 ml @ 110 mls/hr DAILY@1300 IVPB Last administered on 12/05/18 12:53; Admin Dose 110 MLS/HR; Start 12/05/18 at 13:00; Stop 12/09/18 at 13:59 JOY LOPEZ December 06, 2018 12:26
[2018-12-06] MEDS: ACETAMINOPHEN 650MG/20.3ML CUP GTB PRN (13:05)
[2018-12-06] MEDS: SOD FERRIC GLUC COMPLX 125 MG in SOD CHLORIDE 0.9% 100 ML IVPB SCH (13:17)
--- NOTE | 2018-12-06 19:06 | CONS ---
Assessment/Plan Assessment/Plan Hospital Course (Demo Recall) ID PROGRESS NOTE CURRENT ABX: DAY #=>Zyvox + Colistin 24H INTERVAL SUMMARY * Fever spike today -- now normalized, VSS, Looks comfortable * Indwelling: Trach, PEG, Wynn MICRO/OTHER * Microbiology: Wound culture grew Acinetobacter VRE MRSA Corynebacterium group JK PHYSICAL EXAMINATION: GENERAL: VSS, NAD, sleeping HEENT: AT, NC, NECK: WNL = Trach CHEST: Equal chest rise bilaterally without dyspnea on observation ABD: Soft, ND - peg EXTREMITIES: Warm, dry SKIN: No rash, no diaphoresis ID ASSESSMENT Assessment: 1. Sepsis w/ fevers, leukocytosis 2. UTI per UA 3. Multiple decubitus ? L foot chronic wound 4. Acute on chronic encephalopathy 5. Dysphagia 6. Hx prostate cancer ABX ALLERGIES: KNDA INVASIVES: PIV, Trach, Peg, FC CURRENT ABX: DAY # =Zyvox + Colistin ID RECOMMENDATIONS/PLAN: 1. Continue current aBX -- Add Flagyl for anaerobic coverage 2. f/u sputum cx pending . Consultation Date/Type/Reason Admit Date/Time December 01, 2018 at 01:35 Initial Consult Date Requesting Provider: GARY PETERSON Date/Time of Note DATE: 12/06/18 TIME: 19:06 Exam/Review of Systems Exam Vitals Vital Signs Date Temp Pulse Resp B/P (MAP) Pulse Ox O2 O2 Flow FiO2 Time Delivery Rate 12/06/18 105 16:00 12/06/18 99.0 20 102/52 98 Nasal 15:19 (69) Cannula 12/06/18 2.0 12:49 12/02/18 45 21:43 Intake and Output 12/05/18 12/05/18 12/06/18 1515:00 23:00 07:00 IntakeIntake Total 100 ml 600 ml OutputOutput Total 380 ml BalanceBalance 100 ml 220 ml Results Result Diagram: 12/05/18 0611 12/05/18 0611 Results 24hrs Laboratory Tests Test 12/05/18 20:55 12/06/18 01:18 12/06/18 05:50 12/06/18 09:26 Bedside Glucose 99 118 134 141 Test 12/06/18 09:41 12/06/18 12:51 12/06/18 17:18 Thyroid Stimulating 1.570 Hormone (TSH) Free Thyroxine 2.33 Bedside Glucose 164 132 Medications Medication Current Medications IV Flush (NS 3 ml) 3 ml PER PROTOCOL IV ; Start 12/01/18 at 02:00 Ondansetron HCl (Zofran Inj) 4 mg Q6H PRN IV NAUSEA/VOMITING; Start 12/01/18 at 02:00 Acetaminophen (Tylenol Tab) 650 mg Q6H PRN GTB .PAIN 1-3 OR TEMP; Start 12/01/18 at 02:00 Linezolid 300 ml @ 300 mls/hr Q12 IVPB Last administered on 12/06/18at 10:15; Admin Dose 300 MLS/HR; Start 12/01/18 at 09:00 Insulin Aspart (Novolog Insulin Pen) NOVOLOG *MILD* ALGORI... Q4 SC Last administered on 12/06/18at 13:06; Admin Dose 1 UNIT; Start 12/01/18 at 09:00 Miscellaneous Information 1 ea NOTE XX ; Start 12/01/18 at 07:00 Glucose (Glutose) 15 gm Q15M PRN PO DECREASED GLUCOSE; Start 12/01/18 at 07:00 Glucose (Glutose) 22.5 gm Q15M PRN PO DECREASED GLUCOSE; Start 12/01/18 at 07:00 Dextrose (D50w Syringe) 25 ml Q15M PRN IV DECREASED GLUCOSE Last administered on 12/04/18at 21:24; Admin Dose 25 ML; Start 12/01/18 at 07:00 Dextrose (D50w Syringe) 50 ml Q15M PRN IV DECREASED GLUCOSE; Start 12/01/18 at 07:00 Glucagon (Glucagen) 1 mg Q15M PRN IM DECREASED GLUCOSE; Start 12/01/18 at 07:00 Glucose (Glutose) 15 gm Q15M PRN BUCCAL DECREASED GLUCOSE; Start 12/01/18 at 07:00 Acetaminophen (Tylenol Liquid) 650 mg Q6H PRN GTB MILD PAIN(1-3)OR ELEVATED TEMP Last administered on 12/06/18at 13:05; Admin Dose 650 MG; Start 12/01/18 at 07:30 Miscellaneous Information (Pending [facility] Order For Wound Care) This patient pritchard... PRN PRN XX WOUND CARE; Start 12/01/18 at 19:00 Chlorhexidine Gluconate (Peridex) 15 ml TID MT Last administered on 12/06/18 13:07; Admin Dose 15 ML; Start 12/02/18 at 09:00 Albuterol (Proventil 0.083% (Neb)) 1.25 mg Q4H RESP THERAPY HHN Last administered on 12/06/18 16:40; Admin Dose 1.25 MG; Start 12/02/18 at 17:00 Acetylcysteine (Mucomyst) 2 ml Q4H RESP THERAPY NEB Last administered on 12/06/18 16:40; Admin Dose 2 ML; Start 12/02/18 at 17:00 Sodium Hypochlorite (Dakins Diluted ()) 1 applic DAILY TP Last administered on 12/06/18 09:29; Admin Dose 1 APPLIC; Start 12/03/18 at 11:00 Colistimethate Sodium 150 mg/ Sodium Chloride 100 ml @ 200 mls/hr DAILY IVPB Last administered on 12/06/18 09:27; Admin Dose 200 MLS/HR; Start 12/03/18 at 15:30 Collagenase (Santyl) 1 applic DAILY TOP Last administered on 12/06/18 09:26; Admin Dose 1 APPLIC; Start 12/04/18 at 09:00 Collagenase (Santyl) 1 applic WHEN SOILED PRN TOP WOUND Last administered on 12/03/18 23:58; Admin Dose 1 APPLIC; Start 12/03/18 at 22:30 Heparin Sodium (Porcine) (Heparin (5000 Units/1ml)) 5,000 unit Q12H SC Last administered on 12/06/18 17:47; Admin Dose 5,000 UNIT; Start 12/04/18 at 17:00 Dextrose/Sodium Chloride 1,000 ml @ 75 mls/hr [id number] IV Last administered on 12/06/18 01:37; Admin Dose 75 MLS/HR; Start 12/04/18 at 15:00 Metoclopramide HCl (Reglan) 10 mg Q6 IV Last administered on 12/06/18 17:38; Admin Dose 10 MG; Start 12/04/18 at 18:00 Polyethylene Glycol (Miralax) 17 gm DAILY GTB Last administered on 12/06/18 09:26; Admin Dose 17 GM; Start 12/05/18 at 09:00 Ferric Sodium Gluconate Complex 125 mg/Sodium Chloride 110 ml @ 110 mls/hr DAILY@1300 IVPB Last administered on 12/06/18at 13:17; Admin Dose 110 MLS/HR; Start 12/05/18 at 13:00; Stop 12/09/18 at 13:59 TJ FORBES NP December 06, 2018 19:06
[2018-12-06] MEDS: metroNIDAZOLE 250 MG TAB GTB SCH (23:45)
[2018-12-07] VITALS (13 sets, daily range): BP systolic 82–107; BP diastolic 47–56; PULSE 90–105; RESP 17–20
[2018-12-07] MEDS: INSULIN ASPART [NOVOLOG] 3 ML PEN SC SCH ×6 (01:00→21:00)
[2018-12-07] MEDS: ACETYLCYSTEINE 20% 4 ML VIAL NEB SCH ×5 (01:42→20:37)
[2018-12-07] MEDS: ALBUTEROL 0.083% (NEB) 2.5 MG/3 ML AMP HHN SCH ×6 (01:42→20:37)
[2018-12-07] MEDS: METOCLOPRAMIDE 10 MG INJ IV SCH ×3 (05:16→17:52)
[2018-12-07] MEDS: metroNIDAZOLE 250 MG TAB GTB SCH ×3 (05:16→21:06)
[2018-12-07] MEDS: HEPARIN 5,000 UNIT/1 ML VIAL SC SCH ×2 (05:33→17:09)
[2018-12-07] MEDS: POLYETHYLENE GLYCOL 17 GM PACKET GTB SCH (07:59)
[2018-12-07] MEDS: CHLORHEXIDINE GLUCONATE 15 ML UD CUP MT SCH ×3 (08:54→21:07)
[2018-12-07] MEDS: COLLAGENASE 5 GM (UD JAR) TOP SCH (08:54)
[2018-12-07] MEDS: LINEZOLID 600 MG/300 ML (PMX) 300 ML IVPB SCH ×2 (08:55→21:07)
[2018-12-07] MEDS: COLISTIMETHATE 150 MG in SOD CHLORIDE 0.9% 100 ML IVPB SCH (08:55)
[2018-12-07] MEDS: DAKINS 0.0125%(1/40) 473 ML SOLUTION TP SCH (08:56)
[2018-12-07] MEDS: DEXTROSE 5%-0.45% NACL 1,000 ML IV SCH (08:56)
--- NOTE | 2018-12-07 10:26 | PN ---
DATE: 12/07/2018 SUBJECTIVE: The patient is currently in respiratory distress on a non-rebreather facemask. No other events noted. OBJECTIVE: VITAL SIGNS: Blood pressure is 99/50, respiration 18, pulse 105, temperature 98.8. HEENT: Head is normocephalic. LUNGS: Show diminished breath sounds at the base. Positive rhonchi. ABDOMEN: Soft, nontender to palpation without rebound or guarding. EXTREMITIES: Negative for clubbing, cyanosis, no edema. DERMATOLOGIC: No rashes. MUSCULOSKELETAL: No joint effusion. NEUROLOGIC: No change in exam. MEDICATIONS: The patient's medications have been reviewed. LABORATORY DATA: Pending. ASSESSMENT AND PLAN: 1. Nonoliguric acute kidney injury with previous baseline creatinine 0.81 to 1.0 mg/dL. Etiology of ROBBIE is secondary to hemodynamics. Renal function has been improving. Continue to monitor. Follow up renal panel. 2. Hyponatremia, improved. Continue free water flushes. 3. Anemia with iron deficiency. Continue IV iron. Monitor H and H levels. 4. Mineral bone disorder. Monitor calcium and phosphorus levels. 5. Acute hypoxic respiratory failure, etiology unclear, questionable aspiration pneumonia, questiona ble CHF. The patient is currently on nonrebreather. Will check a chest x-ray. Followup ABG. Will give the patient one dose of Lasix, monitor closely. 6. Sepsis secondary to pneumonia. Continue current antibiotic regimen. 7. Diabetes. Continue current insulin regimen. 8. Dysphagia. Continue tube feeding. 9. Acute encephalopathy on top of vent management. Continue to monitor. 10. History of cerebrovascular accident. Dictated By: KACY CUETO/SAMANTHA Conf#: [id number] DID#: [id number]
[2018-12-07] MEDS: SOD FERRIC GLUC COMPLX 125 MG in SOD CHLORIDE 0.9% 100 ML IVPB SCH (12:07)
--- NOTE | 2018-12-07 13:54 | CONS ---
Assessment/Plan Assessment/Plan Hospital Course (Demo Recall) ID PROGRESS NOTE CURRENT ABX: DAY #=>Zyvox + Colistin + Flagyl + Start Diflucan 12/07/18 1143 12/07/18 1143 24H INTERVAL SUMMARY * Fever spike yesterday -- now normalized, VSS, Looks comfortable * Serum creatine rising on Colistin IV -- will DC today - wound is likely colonized with ACBA = treat topically * Chronic debility -- currently receiving RTx via face mask * Indwelling: Trach, PEG, Wynn MICRO/OTHER * 12/05/18 INDUCED SPUTUM: RESPIRATORY CULTURE Preliminary Organism 1 STAPHYLOCOCCUS AUREUS QUANTITY SCANT GROWTH Organism 2 NESSA ALBICANS QUANTITY SCANT GROWTH Organism 3 YEAST QUANTITY 3+ * Microbiology: Wound culture grew Acinetobacter VRE MRSA Corynebacterium group JK PHYSICAL EXAMINATION: GENERAL: VSS, NAD, sleeping HEENT: AT, NC, NECK: WNL = Trach CHEST: Equal chest rise bilaterally without dyspnea on observation ABD: Soft, ND - peg EXTREMITIES: Warm, dry SKIN: No rash, no diaphoresis ID ASSESSMENT Assessment: 1. Sepsis w/ fevers, leukocytosis 2. UTI per UA 3. Multiple decubitus ? L foot chronic wound 4. Acute on chronic encephalopathy 5. Dysphagia 6. Hx prostate cancer ABX ALLERGIES: KNDA INVASIVES: PIV, Trach, Peg, FC CURRENT ABX: DAY # =Zyvox + Flagyl + Start Diflucan Colistin-> DC 12/07 ID RECOMMENDATIONS/PLAN: 1. Serum creatine rising on Colistin IV -- will DC today - wound is likely colonized with ACBA = treat topically 2. Mutiple yeast organism growing in induced sputum -- Adding Diflucan today 3. Continue Zyvox and watch PLTS . Consultation Date/Type/Reason Admit Date/Time December 01, 2018 at 01:35 Initial Consult Date Requesting Provider: GARY PETERSON Date/Time of Note DATE: 12/07/18 TIME: 13:47 Exam/Review of Systems Exam Vitals Vital Signs Date Temp Pulse Resp B/P (MAP) Pulse Ox O2 O2 Flow FiO2 Time Delivery Rate 12/07/18 98 6.0 13:39 12/07/18 88 20 Nasal 13:37 Cannula 12/07/18 97.9 98/55 (69) 11:34 12/07/18 100 06:25 Intake and Output 12/06/18 12/06/18 12/07/18 1515:00 23:00 07:00 IntakeIntake Total 510 ml 470 ml 270 ml OutputOutput Total 1 ml 500 ml BalanceBalance 510 ml 469 ml -230 ml Results Result Diagram: 12/07/18 1143 12/07/18 1143 Results 24hrs Laboratory Tests Test 12/06/18 17:18 12/06/18 20:18 12/07/18 01:58 12/07/18 05:13 Bedside Glucose 132 139 133 149 Test 12/07/18 07:00 12/07/18 09:03 12/07/18 11:43 12/07/18 12:49 Blood Gas Blood arterial Specimen Source Arterial Blood 12/07/2018 7:55:0 Date Drawn 5 AM Arterial Blood pH 7.388 (Temp corrected) Arterial Blood 47.5 H pCO2 (Temp correct) Arterial Blood 310.9 H pO2 (Temp corrected) Arterial Blood 28.0 H HCO3 Arterial Blood 2.6 Base Excess Arterial Blood 99.4 Oxygen Saturation Jay Test N/A Arterial Blood Right Brachial Gas Puncture Site Arterial 0.3 Blood Carboxyhemo globin Arterial Blood 0.7 Methemoglobin Blood Gas A-a O2 354.6 H Differential Oxyhemoglobin 98.4 Percent Blood Gas 37.0 Temperature Blood Gas MASK - NRB Modality FiO2 100.0 Blood Gas CW Notified Whom Blood Gas 12/07/2018 8:19:5 Notified Time 8 AM Bedside Glucose 154 154 White Blood Count 9.8 # Red Blood Count 2.39 L Hemoglobin 6.5 *L Hematocrit 20.9 L Mean Corpuscular 87.4 Volume Mean Corpuscular 27.2 L Hemoglobin Mean Corpuscular 31.1 L Hemoglobin Concen t Red Cell 15.9 H Distribution Width Platelet Count 301 Mean Platelet 10.9 H Volume Immature 4.700 H Granulocytes % Neutrophils % 69.4 Lymphocytes % 12.0 L Monocytes % 12.2 H Eosinophils % 1.3 Basophils % 0.4 Nucleated Red 0.0 Blood Cells % Immature 0.460 H Granulocytes # Neutrophils # 6.8 Lymphocytes # 1.2 Monocytes # 1.2 H Eosinophils # 0.1 Basophils # 0.0 Nucleated Red 0.0 Blood Cells # Sodium Level 136 Potassium Level 3.1 L Chloride Level 105 Carbon Dioxide 28 Level Anion Gap 3 L Blood Urea 44 H Nitrogen Creatinine 1.81 H Est Glomerular Filtrat Rate mL/min Glucose Level 154 Calcium Level 9.7 Phosphorus Level 4.5 Magnesium Level 1.6 L Medications Medication Current Medications IV Flush (NS 3 ml) 3 ml PER PROTOCOL IV ; Start 12/01/18 at 02:00 Ondansetron HCl (Zofran Inj) 4 mg Q6H PRN IV NAUSEA/VOMITING; Start 12/01/18 at 02:00 Acetaminophen (Tylenol Tab) 650 mg Q6H PRN GTB .PAIN 1-3 OR TEMP; Start 12/01/18 at 02:00 Linezolid 300 ml @ 300 mls/hr Q12 IVPB Last administered on 12/07/18at 08:55; Admin Dose 300 MLS/HR; Start 12/01/18 at 09:00 Insulin Aspart (Novolog Insulin Pen) NOVOLOG *MILD* ALGORI... Q4 SC Last administered on 12/07/18at 12:52; Admin Dose 1 UNIT; Start 12/01/18 at 09:00 Miscellaneous Information 1 ea NOTE XX ; Start 12/01/18 at 07:00 Glucose (Glutose) 15 gm Q15M PRN PO DECREASED GLUCOSE; Start 12/01/18 at 07:00 Glucose (Glutose) 22.5 gm Q15M PRN PO DECREASED GLUCOSE; Start 12/01/18 at 07:00 Dextrose (D50w Syringe) 25 ml Q15M PRN IV DECREASED GLUCOSE Last administered on 12/04/18at 21:24; Admin Dose 25 ML; Start 12/01/18 at 07:00 Dextrose (D50w Syringe) 50 ml Q15M PRN IV DECREASED GLUCOSE; Start 12/01/18 at 07:00 Glucagon (Glucagen) 1 mg Q15M PRN IM DECREASED GLUCOSE; Start 12/01/18 at 07:00 Glucose (Glutose) 15 gm Q15M PRN BUCCAL DECREASED GLUCOSE; Start 12/01/18 at 07:00 Acetaminophen (Tylenol Liquid) 650 mg Q6H PRN GTB MILD PAIN(1-3)OR ELEVATED TEMP Last administered on 12/06/18at 13:05; Admin Dose 650 MG; Start 12/01/18 at 07:30 Miscellaneous Information (Pending [facility] Order For Wound Care) This patient pritchard... PRN PRN XX WOUND CARE; Start 12/01/18 at 19:00 Chlorhexidine Gluconate (Peridex) 15 ml TID MT Last administered on 12/07/18 12:09; Admin Dose 15 ML; Start 12/02/18 at 09:00 Albuterol (Proventil 0.083% (Neb)) 1.25 mg Q4H RESP THERAPY HHN Last administered on 12/07/18 13:24; Admin Dose 1.25 MG; Start 12/02/18 at 17:00 Acetylcysteine (Mucomyst) 2 ml Q4H RESP THERAPY NEB Last administered on 12/07/18 13:25; Admin Dose 2 ML; Start 12/02/18 at 17:00 Sodium Hypochlorite (Dakins Diluted ()) 1 applic DAILY TP Last administered on 12/07/18 08:56; Admin Dose 1 APPLIC; Start 12/03/18 at 11:00 Colistimethate Sodium 150 mg/ Sodium Chloride 100 ml @ 200 mls/hr DAILY IVPB Last administered on 12/07/18 08:55; Admin Dose 200 MLS/HR; Start 12/03/18 at 15:30 Collagenase (Santyl) 1 applic DAILY TOP Last administered on 12/07/18 08:54; Admin Dose 1 APPLIC; Start 12/04/18 at 09:00 Collagenase (Santyl) 1 applic WHEN SOILED PRN TOP WOUND Last administered on 12/03/18 23:58; Admin Dose 1 APPLIC; Start 12/03/18 at 22:30 Heparin Sodium (Porcine) (Heparin (5000 Units/1ml)) 5,000 unit Q12H SC Last administered on 12/07/18 05:33; Admin Dose 5,000 UNIT; Start 12/04/18 at 17:00 Dextrose/Sodium Chloride 1,000 ml @ 75 mls/hr [id number] IV Last administered on 12/07/18 08:56; Admin Dose 75 MLS/HR; Start 12/04/18 at 15:00 Metoclopramide HCl (Reglan) 10 mg Q6 IV Last administered on 12/07/18 12:09; Admin Dose 10 MG; Start 12/04/18 at 18:00 Polyethylene Glycol (Miralax) 17 gm DAILY GTB Last administered on 5/25/19at 09:26; Admin Dose 17 GM; Start 12/05/18 at 09:00 Ferric Sodium Gluconate Complex 125 mg/Sodium Chloride 110 ml @ 110 mls/hr DAILY@1300 IVPB Last administered on 12/07/18at 12:07; Admin Dose 110 MLS/HR; Start 12/05/18 at 13:00; Stop 12/09/18 at 13:59 Metronidazole (Flagyl) 250 mg Q8 GTB Last administered on 12/07/18at 05:16; Admin Dose 250 MG; Start 12/06/18 at 22:00 TJ FORBES NP December 07, 2018 13:54
[2018-12-07] MEDS ORDERED: POTASSIUM CHLORIDE 20 MEQ POWDER FOR ORAL SOLN GTB ONE (14:30)
[2018-12-07] MEDS ORDERED: FLUCONAZOLE 200 MG (PMX) 100 ML IVPB ONE (15:30)
--- NOTE | 2018-12-07 18:37 | PN ---
Date/Time of Note Date/Time of Note DATE: 12/07/18 TIME: 18:36 Assessment/Plan VTE Prophylaxis Risk score (from Nsg)>0 risk: 9 Pharmacological prophylaxis: heparin Lines/Catheters IV Catheter Type (from Nrsg): Peripheral IV Assessment/Plan Hospital Course 78-year-old male who had coming sent from [facility] facility because of fever and a urinary tract infection and admitted with severe sepsis and hypernatremic dehydration with ROBBIE. He required transient ICU stay, currently managed as follows. 1. Severe sepsis secondary to UTI and decubitus ulcers Continue antibiotics Continue wound care Patient with fever last night 2. Recurrent urinary tract infection Unsurprising as patient is chronically bedbound 3. Multiple decubiti, (sacroiliac / ischial/ lower extremities ) Wound care and antibiotics 4. Hypernatremic dehydration with ROBBIE on CKD-Improved 5. Respiratory tract infection, tracheobronchitis versus aspiration with acute on chronic respiratory failure requiring supplemental oxygen CT showing Bilateral layering and partially loculated pleural effusions are seen of mild to moderate severity with bilateral pleural thickening and the presence of possible pleural plaques resulting in compressive atelectasis of the adjacent lungs 6. Chronic debility with functional quadriplegia with history of CVA and Alzheimer's dementia 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 It is thought that this may be contributing to poor blood flow in the lower extremities precipitating gangrene and ulcer Patient was scheduled for knee release but surgery was canceled 7. History of hypertension: Borderline hypotensive at this time likely secondary to sepsis 8. History of insulin-dependent diabetes mellitus: Has been having multiple episodes of hypoglycemia, insulin currently on hold On tube feeds with diabetic source at 40 cc/h with 100 cc of free water every 4 hours 9. Chronic hypochromic anemia with history of iron deficiency Monitor, no indication for transfusion at this time 10. Multinodular thyroid gland check TSH and free T4 Prophylaxis: Heparin DC planning: Patient with poor prognosis functional status, family wants aggressive care, anticipate DC back to facility tomorrow if afebrile for 24 hours, patient was febrile last night Result Diagram: 12/07/18 1143 12/07/18 1143 Results 24hrs Laboratory Tests Test 12/06/18 20:18 12/07/18 01:58 12/07/18 05:13 12/07/18 07:00 Bedside Glucose 139 133 149 Blood Gas Blood arterial Specimen Source Arterial Blood 12/07/2018 7:55:0 Date Drawn 5 AM Arterial Blood pH 7.388 (Temp corrected) Arterial Blood 47.5 H pCO2 (Temp correct) Arterial Blood 310.9 H pO2 (Temp corrected) Arterial Blood 28.0 H HCO3 Arterial Blood 2.6 Base Excess Arterial Blood 99.4 Oxygen Saturation Jay Test N/A Arterial Blood Right Brachial Gas Puncture Site Arterial 0.3 Blood Carboxyhemo globin Arterial Blood 0.7 Methemoglobin Blood Gas A-a O2 354.6 H Differential Oxyhemoglobin 98.4 Percent Blood Gas 37.0 Temperature Blood Gas MASK - NRB Modality FiO2 100.0 Blood Gas CW Notified Whom Blood Gas 12/07/2018 8:19:5 Notified Time 8 AM Test 12/07/18 09:03 12/07/18 11:43 12/07/18 12:49 12/07/18 16:48 Bedside Glucose 154 154 127 White Blood Count 9.8 # Red Blood Count 2.39 L Hemoglobin 6.5 *L Hematocrit 20.9 L Mean Corpuscular 87.4 Volume Mean Corpuscular 27.2 L Hemoglobin Mean Corpuscular 31.1 L Hemoglobin Concen t Red Cell 15.9 H Distribution Width Platelet Count 301 Mean Platelet 10.9 H Volume Immature 4.700 H Granulocytes % Neutrophils % 69.4 Lymphocytes % 12.0 L Monocytes % 12.2 H Eosinophils % 1.3 Basophils % 0.4 Nucleated Red 0.0 Blood Cells % Immature 0.460 H Granulocytes # Neutrophils # 6.8 Lymphocytes # 1.2 Monocytes # 1.2 H Eosinophils # 0.1 Basophils # 0.0 Nucleated Red 0.0 Blood Cells # Sodium Level 136 Potassium Level 3.1 L Chloride Level 105 Carbon Dioxide 28 Level Anion Gap 3 L Blood Urea 44 H Nitrogen Creatinine 1.81 H Est Glomerular Filtrat Rate mL/min Glucose Level 154 Calcium Level 9.7 Phosphorus Level 4.5 Magnesium Level 1.6 L Subjective 24 Hr Interval Summary Subjective hx not possible: pt non-verbal Exam/Review of Systems Exam Vitals Vital Signs Date Temp Pulse Resp B/P (MAP) Pulse Ox O2 O2 Flow FiO2 Time Delivery Rate 12/07/18 89 24 98 Nasal 4.0 17:46 Cannula 12/07/18 98.3 96/55 (69) 15:09 12/07/18 100 06:25 Intake and Output 12/06/18 12/06/18 12/07/18 1515:00 23:00 07:00 IntakeIntake Total 510 ml 470 ml 270 ml OutputOutput Total 1 ml 500 ml BalanceBalance 510 ml 469 ml -230 ml Constitutional: non-verbal Respiratory: clear to auscultation Cardiovascular: regular rate and rhythm Gastrointestinal: soft; No distended Musculoskeletal: nl extremities to inspection Results Results 24hrs Laboratory Tests Test 12/06/18 20:18 12/07/18 01:58 12/07/18 05:13 12/07/18 07:00 Bedside Glucose 139 133 149 Blood Gas Blood arterial Specimen Source Arterial Blood 12/07/2018 7:55:0 Date Drawn 5 AM Arterial Blood pH 7.388 (Temp corrected) Arterial Blood 47.5 H pCO2 (Temp correct) Arterial Blood 310.9 H pO2 (Temp corrected) Arterial Blood 28.0 H HCO3 Arterial Blood 2.6 Base Excess Arterial Blood 99.4 Oxygen Saturation Jay Test N/A Arterial Blood Right Brachial Gas Puncture Site Arterial 0.3 Blood Carboxyhemo globin Arterial Blood 0.7 Methemoglobin Blood Gas A-a O2 354.6 H Differential Oxyhemoglobin 98.4 Percent Blood Gas 37.0 Temperature Blood Gas MASK - NRB Modality FiO2 100.0 Blood Gas CW Notified Whom Blood Gas 12/07/2018 8:19:5 Notified Time 8 AM Test 12/07/18 09:03 12/07/18 11:43 12/07/18 12:49 12/07/18 16:48 Bedside Glucose 154 154 127 White Blood Count 9.8 # Red Blood Count 2.39 L Hemoglobin 6.5 *L Hematocrit 20.9 L Mean Corpuscular 87.4 Volume Mean Corpuscular 27.2 L Hemoglobin Mean Corpuscular 31.1 L Hemoglobin Concen t Red Cell 15.9 H Distribution Width Platelet Count 301 Mean Platelet 10.9 H Volume Immature 4.700 H Granulocytes % Neutrophils % 69.4 Lymphocytes % 12.0 L Monocytes % 12.2 H Eosinophils % 1.3 Basophils % 0.4 Nucleated Red 0.0 Blood Cells % Immature 0.460 H Granulocytes # Neutrophils # 6.8 Lymphocytes # 1.2 Monocytes # 1.2 H Eosinophils # 0.1 Basophils # 0.0 Nucleated Red 0.0 Blood Cells # Sodium Level 136 Potassium Level 3.1 L Chloride Level 105 Carbon Dioxide 28 Level Anion Gap 3 L Blood Urea 44 H Nitrogen Creatinine 1.81 H Est Glomerular Filtrat Rate mL/min Glucose Level 154 Calcium Level 9.7 Phosphorus Level 4.5 Magnesium Level 1.6 L Medications Medication Current Medications IV Flush (NS 3 ml) 3 ml PER PROTOCOL IV ; Start 12/01/18 at 02:00 Ondansetron HCl (Zofran Inj) 4 mg Q6H PRN IV NAUSEA/VOMITING; Start 12/01/18 at 02:00 Acetaminophen (Tylenol Tab) 650 mg Q6H PRN GTB .PAIN 1-3 OR TEMP; Start 12/01/18 at 02:00 Linezolid 300 ml @ 300 mls/hr Q12 IVPB Last administered on 12/07/18at 08:55; Admin Dose 300 MLS/HR; Start 12/01/18 at 09:00 Insulin Aspart (Novolog Insulin Pen) NOVOLOG *MILD* ALGORI... Q4 SC Last administered on 12/07/18at 12:52; Admin Dose 1 UNIT; Start 12/01/18 at 09:00 Miscellaneous Information 1 ea NOTE XX ; Start 12/01/18 at 07:00 Glucose (Glutose) 15 gm Q15M PRN PO DECREASED GLUCOSE; Start 12/01/18 at 07:00 Glucose (Glutose) 22.5 gm Q15M PRN PO DECREASED GLUCOSE; Start 12/01/18 at 07:00 Dextrose (D50w Syringe) 25 ml Q15M PRN IV DECREASED GLUCOSE Last administered on 12/04/18at 21:24; Admin Dose 25 ML; Start 12/01/18 at 07:00 Dextrose (D50w Syringe) 50 ml Q15M PRN IV DECREASED GLUCOSE; Start 12/01/18 at 07:00 Glucagon (Glucagen) 1 mg Q15M PRN IM DECREASED GLUCOSE; Start 12/01/18 at 07:00 Glucose (Glutose) 15 gm Q15M PRN BUCCAL DECREASED GLUCOSE; Start 12/01/18 at 07:00 Acetaminophen (Tylenol Liquid) 650 mg Q6H PRN GTB MILD PAIN(1-3)OR ELEVATED TEMP Last administered on 12/06/18at 13:05; Admin Dose 650 MG; Start 12/01/18 at 07:30 Miscellaneous Information (Pending Santyl Order For Wound Care) This patient pritchard... PRN PRN XX WOUND CARE; Start 12/01/18 at 19:00 Chlorhexidine Gluconate (Peridex) 15 ml TID MT Last administered on 12/07/18 12:09; Admin Dose 15 ML; Start 12/02/18 at 09:00 Albuterol (Proventil 0.083% (Neb)) 1.25 mg Q4H RESP THERAPY HHN Last administered on 12/07/18 17:33; Admin Dose 1.25 MG; Start 12/02/18 at 17:00 Acetylcysteine (Mucomyst) 2 ml Q4H RESP THERAPY NEB Last administered on 13:25; Admin Dose 2 ML; Start 12/02/18 at 17:00 Sodium Hypochlorite (Dakins Diluted (40)) 1 applic DAILY TP Last administered on 12/07/18 08:56; Admin Dose 1 APPLIC; Start 12/03/18 at 11:00 Collagenase (Santyl) 1 applic DAILY TOP Last administered on 12/07/18 08:54; Admin Dose 1 APPLIC; Start 12/04/18 at 09:00 Collagenase (Santyl) 1 applic WHEN SOILED PRN TOP WOUND Last administered on 12/03/18 23:58; Admin Dose 1 APPLIC; Start 12/03/18 at 22:30 Heparin Sodium (Porcine) (Heparin (5000 Units/1ml)) 5,000 unit Q12H SC Last administered on 12/07/18 17:09; Admin Dose 5,000 UNIT; Start 12/04/18 at 17:00 Metoclopramide HCl (Reglan) 10 mg Q6 IV Last administered on 12/07/18 17:52; Admin Dose 10 MG; Start 12/04/18 at 18:00 Polyethylene Glycol (Miralax) 17 gm DAILY GTB Last administered on 12/06/18 09:26; Admin Dose 17 GM; Start 12/05/18 at 09:00 Ferric Sodium Gluconate Complex 125 mg/Sodium Chloride 110 ml @ 110 mls/hr DAILY@1300 IVPB Last administered on 12/07/18 12:07; Admin Dose 110 MLS/HR; Start 12/05/18 at 13:00; Stop 12/09/18 at 13:59 Metronidazole (Flagyl) 250 mg Q8 GTB Last administered on 12/07/18at 14:06; Admin Dose 250 MG; Start 12/06/18 at 22:00 Fluconazole (Diflucan) 100 mg DAILY PO ; Start 12/08/18 at 09:00 JOY LOPEZ December 07, 2018 18:37
[2018-12-08] VITALS (10 sets, daily range): BP systolic 98–109; BP diastolic 51–58; PULSE 51–100; RESP 18–21
[2018-12-08] MEDS: INSULIN ASPART [NOVOLOG] 3 ML PEN SC SCH ×6 (01:00→21:00)
[2018-12-08] MEDS: METOCLOPRAMIDE 10 MG INJ IV SCH ×4 (01:18→17:48)
[2018-12-08] MEDS: ALBUTEROL 0.083% (NEB) 2.5 MG/3 ML AMP HHN SCH ×6 (01:42→20:21)
[2018-12-08] MEDS: ACETYLCYSTEINE 20% 4 ML VIAL NEB SCH ×6 (01:42→20:21)
[2018-12-08] MEDS: metroNIDAZOLE 250 MG TAB GTB SCH ×3 (04:47→21:28)
[2018-12-08] MEDS: HEPARIN 5,000 UNIT/1 ML VIAL SC SCH ×2 (05:08→16:30)
--- NOTE | 2018-12-08 08:31 | PN ---
DATE: 12/08/2018 SUBJECTIVE: The patient is stable. No events overnight. Currently on 5 liters nasal cannula. OBJECTIVE: VITAL SIGNS: Blood pressure is 98/51, pulse 51, temperature 97.5. HEENT: Head is normocephalic. NECK: Supple. HEART: Regular rate. LUNGS: Show diminished breath sounds at the base. ABDOMEN: Soft, nontender to palpation without rebound or guarding. EXTREMITIES: Negative for clubbing, cyanosis, no edema. DERMATOLOGIC: No rashes. MUSCULOSKELETAL: No joint effusion. NEUROLOGIC: No change in exam. MEDICATIONS: Reviewed. LABORATORY DATA: From 12/08/2018 was reviewed. ASSESSMENT AND PLAN: 1. Nonoliguric acute kidney injury with previous baseline creatinine of 0.8 to 1.0 mg/dL. Etiology of acute kidney injury is secondary to hemodynamics. Renal function initially improved; however, dec lined in the last 48 hours likely due to hypertension and hemodynamics. Plan is to repeat UA with mi croanalysis. We would otherwise continue supportive care, renally dose all medications, monitor clos adriana. 2. Hypernatremia, improved. Continue free water flushes. 3. Anemia with iron deficiency. Continue IV iron. Monitor hemoglobin and hematocrit levels, transf use PRBCs as needed. 4. Mineral bone disorder, monitor calcium and phosphorus levels. 5. Acute hypoxemic respiratory failure, possibly due to aspiration pneumonia, pleural effusions cont inue to monitor. Repeat chest x-ray and ABG was reviewed. 6. Sepsis secondary to pneumonia. Continue current antibiotic regimen. 7. Diabetes. Continue current insulin regimen. 8. Dysphagia. Continue tube feeding. 9. Acute encephalopathy and chronic dementia. Continue to monitor. 10. History of cerebrovascular accident. Dictated By: KACY DILLARD DO NR/NTS Conf#: [id number] DID#: [id number] CC: IKER FAM MD; FRANCISCA DELUCA MD; JOY LOPEZ MD;*End*
[2018-12-08] MEDS: POLYETHYLENE GLYCOL 17 GM PACKET GTB SCH (08:59)
[2018-12-08] MEDS: LINEZOLID 600 MG/300 ML (PMX) 300 ML IVPB SCH ×2 (08:59→21:28)
[2018-12-08] MEDS: CHLORHEXIDINE GLUCONATE 15 ML UD CUP MT SCH ×3 (08:59→21:28)
[2018-12-08] MEDS: COLLAGENASE 5 GM (UD JAR) TOP SCH (09:00)
[2018-12-08] MEDS: FLUCONAZOLE 100 MG TAB PO SCH (09:00)
[2018-12-08] MEDS: DAKINS 0.0125%(1/40) 473 ML SOLUTION TP SCH (09:00)
[2018-12-08] MEDS: SOD FERRIC GLUC COMPLX 125 MG in SOD CHLORIDE 0.9% 100 ML IVPB SCH (12:18)
--- NOTE | 2018-12-08 13:25 | CONS ---
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 MULTI DRUG RESISTANT ORGANISM Organism 3 PROTEUS MIRABILIS QUANTITY 2+ Organism 4 ENTEROCOCCUS SPECIES QUANTITY ISOLATED FROM BROTH ONLY * * Microbiology: Wound culture grew Acinetobacter VRE MRSA Corynebacterium group JK PHYSICAL EXAMINATION: GENERAL: VSS, NAD, sleeping HEENT: AT, NC, NECK: WNL = Trach CHEST: Equal chest rise bilaterally without dyspnea on observation ABD: Soft, ND - peg EXTREMITIES: Warm, dry SKIN: No rash, no diaphoresis ID ASSESSMENT Assessment: 1. Sepsis w/ fevers, leukocytosis 2. UTI per UA 3. Multiple decubitus ? L foot chronic wound 4. Acute on chronic encephalopathy 5. Dysphagia 6. Hx prostate cancer ABX ALLERGIES: KNDA INVASIVES: PIV, Trach, Peg, FC CURRENT ABX: DAY # =Zyvox + Flagyl + Diflucan +START ERTAPENEM FOR E.COLI-ESBL Colistin-> DC 12/07 ID RECOMMENDATIONS/PLAN: 1. 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 Mutiple yeast organism growing in induced sputum -- Added Diflucan today 3. Continue Zyvox and watch PLTS 4. START ERTAPENEM FOR E.COLI-ESBL wound . Consultation Date/Type/Reason Admit Date/Time December 01, 2018 at 01:35 Initial Consult Date Requesting Provider: GARY PETERSON Date/Time of Note DATE: 12/08/18 TIME: 13:19 Exam/Review of Systems Exam Vitals Vital Signs Date Temp Pulse Resp B/P (MAP) Pulse Ox O2 O2 Flow FiO2 Time Delivery Rate 12/08/18 92 12:00 12/08/18 97.7 21 103/58 96 Nasal 11:24 (73) Cannula 12/08/18 5.0 09:00 12/08/18 33 05:40 Intake and Output 12/07/18 12/07/18 12/08/18 1515:00 23:00 07:00 IntakeIntake Total 1270 ml 1030 ml 210 ml OutputOutput Total 750 ml 900 ml BalanceBalance 1270 ml 280 ml -690 ml Results Result Diagram: 12/08/18 0621 12/08/18 0621 Results 24hrs Laboratory Tests Test 12/07/18 16:48 12/07/18 21:03 12/08/18 01:17 12/08/18 04:46 Bedside Glucose 127 133 139 167 Test 12/08/18 06:21 12/08/18 09:10 12/08/18 12:25 White Blood Count 11.6 H Red Blood Count 2.55 L Hemoglobin 7.1 L Hematocrit 22.8 L Mean Corpuscular 89.4 Volume Mean Corpuscular 27.8 L Hemoglobin Mean Corpuscular 31.1 L Hemoglobin Concent Red Cell 15.8 H Distribution Width Platelet Count 341 Mean Platelet Volume 10.8 H Immature 4.700 H Granulocytes % Neutrophils % 64.1 Lymphocytes % 17.3 Monocytes % 11.6 H Eosinophils % 1.7 Basophils % 0.6 Nucleated Red Blood 0.0 Cells % Immature 0.540 H Granulocytes # Neutrophils # 7.4 Lymphocytes # 2.0 Monocytes # 1.3 H Eosinophils # 0.2 Basophils # 0.1 Nucleated Red Blood 0.0 Cells # Sodium Level 138 Potassium Level 3.2 L Chloride Level 106 Carbon Dioxide Level 28 Anion Gap 4 L Blood Urea Nitrogen 41 H Creatinine 1.80 H Est Glomerular Filtrat Rate mL/min Glucose Level 116 Calcium Level 10.2 Phosphorus Level 4.5 Magnesium Level 1.6 L Bedside Glucose 129 155 Medications Medication Current Medications IV Flush (NS 3 ml) 3 ml PER PROTOCOL IV ; Start 12/01/18 at 02:00 Ondansetron HCl (Zofran Inj) 4 mg Q6H PRN IV NAUSEA/VOMITING; Start 12/01/18 at 02:00 Acetaminophen (Tylenol Tab) 650 mg Q6H PRN GTB .PAIN 1-3 OR TEMP Last administered on 12/08/18 11:31; Admin Dose 650 MG; Start 12/01/18 at 02:00 Linezolid 300 ml @ 300 mls/hr Q12 IVPB Last administered on 12/08/18 08:59; Admin Dose 300 MLS/HR; Start 12/01/18 at 09:00 Insulin Aspart (Novolog Insulin Pen) NOVOLOG *MILD* ALGORI... Q4 SC Last administered on 12/08/18 12:53; Admin Dose 1 UNIT; Start 12/01/18 at 09:00 Miscellaneous Information 1 ea NOTE XX ; Start 12/01/18 at 07:00 Glucose (Glutose) 15 gm Q15M PRN PO DECREASED GLUCOSE; Start 12/01/18 at 07:00 Glucose (Glutose) 22.5 gm Q15M PRN PO DECREASED GLUCOSE; Start 12/01/18 at 07:00 Dextrose (D50w Syringe) 25 ml Q15M PRN IV DECREASED GLUCOSE Last administered on 12/04/18 21:24; Admin Dose 25 ML; Start 12/01/18 at 07:00 Dextrose (D50w Syringe) 50 ml Q15M PRN IV DECREASED GLUCOSE; Start 12/01/18 at 07:00 Glucagon (Glucagen) 1 mg Q15M PRN IM DECREASED GLUCOSE; Start 12/01/18 at 07:00 Glucose (Glutose) 15 gm Q15M PRN BUCCAL DECREASED GLUCOSE; Start 12/01/18 at 07:00 Acetaminophen (Tylenol Liquid) 650 mg Q6H PRN GTB MILD PAIN(1-3)OR ELEVATED TEMP Last administered on 12/06/18 13:05; Admin Dose 650 MG; Start 12/01/18 at 07:30 [facility] This patient pritchard... PRN PRN XX WOUND CARE; Start 12/01/18 at 19:00 Chlorhexidine Gluconate (Peridex) 15 ml TID MT Last administered on 12/08/18 12:17; Admin Dose 15 ML; Start 12/02/18 at 09:00 Albuterol (Proventil 0.083% (Neb)) 1.25 mg Q4H RESP THERAPY HHN Last administered on 12/08/18 13:08; Admin Dose 1.25 MG; Start 12/02/18 at 17:00 Acetylcysteine (Mucomyst) 2 ml Q4H RESP THERAPY NEB Last administered on 12/08/18 13:09; Admin Dose 2 ML; Start 12/02/18 at 17:00 Sodium Hypochlorite (Dakins Diluted ()) 1 applic DAILY TP Last administered on 12/08/18 09:00; Admin Dose 1 APPLIC; Start 12/03/18 at 11:00 Collagenase (Santyl) 1 applic DAILY TOP Last administered on 12/08/18 09:00; Admin Dose 1 APPLIC; Start 12/04/18 at 09:00 Collagenase (Santyl) 1 applic WHEN SOILED PRN TOP WOUND Last administered on 12/03/18 23:58; Admin Dose 1 APPLIC; Start 12/03/18 at 22:30 Heparin Sodium (Porcine) (Heparin (5000 Units/1ml)) 5,000 unit Q12H SC Last administered on 12/08/18 05:08; Admin Dose 5,000 UNIT; Start 12/04/18 at 17:00 Metoclopramide HCl (Reglan) 10 mg Q6 IV Last administered on 12/08/18 11:31; Admin Dose 10 MG; Start 12/04/18 at 18:00 Polyethylene Glycol (Miralax) 17 gm DAILY GTB Last administered on 12/08/18 08:59; Admin Dose 17 GM; Start 12/05/18 at 09:00 Ferric Sodium Gluconate Complex 125 mg/Sodium Chloride 110 ml @ 110 mls/hr DAILY@1300 IVPB Last administered on 12/08/18 12:18; Admin Dose 110 MLS/HR; Start 12/05/18 at 13:00; Stop 12/09/18 at 13:59 Metronidazole (Flagyl) 250 mg Q8 GTB Last administered on 12/08/18 04:47; Admin Dose 250 MG; Start 12/06/18 at 22:00 Fluconazole (Diflucan) 100 mg DAILY PO Last administered on 5/27/19at 09:00; Admin Dose 100 MG; Start 12/08/18 at 09:00 TJ FORBES NP December 08, 2018 13:25
[2018-12-08] MEDS: ERTAPENEM SODIUM 1 GM in SOD CHLORIDE 0.9% 100 ML IVPB SCH (15:21)
[2018-12-08] MEDS ORDERED: POTASSIUM CHLORIDE 20 MEQ POWDER FOR ORAL SOLN GTB ONE (16:00)
--- NOTE | 2018-12-08 17:34 | PN ---
Date/Time of Note Date/Time of Note DATE: 12/08/18 TIME: 17:33 Assessment/Plan VTE Prophylaxis Risk score (from Ns)>0 risk: 9 SCD applied (from Ns): Yes Pharmacological prophylaxis: heparin Lines/Catheters IV Catheter Type (from [facility]): Peripheral IV Assessment/Plan Hospital Course 78-year-old male who had coming sent from [facility] facility because of fever and a urinary tract infection and admitted with severe sepsis and hypernatremic dehydration with ROBBIE. He required transient ICU stay, currently managed as follows. 1. Severe sepsis secondary to UTI and decubitus ulcers Continue antibiotics Continue wound care Patient with fever last night 2. Recurrent urinary tract infection Unsurprising as patient is chronically bedbound 3. Multiple decubiti, (sacroiliac / ischial/ lower extremities ) Wound care and antibiotics 4. Hypernatremic dehydration with ROBBIE on CKD-Improved 5. Respiratory tract infection, tracheobronchitis versus aspiration with acute on chronic respiratory failure requiring supplemental oxygen CT showing Bilateral layering and partially loculated pleural effusions are seen of mild to moderate severity with bilateral pleural thickening and the presence of possible pleural plaques resulting in compressive atelectasis of the adjacent lungs 6. Chronic debility with functional quadriplegia with history of CVA and Alzheimer's dementia 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 It is thought that this may be contributing to poor blood flow in the lower extremities precipitating gangrene and ulcer Patient was scheduled for knee release but surgery was canceled 7. History of hypertension: Borderline hypotensive at this time likely secondary to sepsis 8. History of insulin-dependent diabetes mellitus: Has been having multiple episodes of hypoglycemia, insulin currently on hold On tube feeds with diabetic source at 40 cc/h with 100 cc of free water every 4 hours 9. Chronic hypochromic anemia with history of iron deficiency Monitor, no indication for transfusion at this time 10. Multinodular thyroid gland check TSH and free T4 Prophylaxis: Heparin Result Diagram: 12/08/18 0621 12/08/18 0621 Results 24hrs Laboratory Tests Test 12/07/18 21:03 12/08/18 01:17 12/08/18 04:46 12/08/18 06:21 Bedside Glucose 133 139 167 White Blood Count 11.6 H Red Blood Count 2.55 L Hemoglobin 7.1 L Hematocrit 22.8 L Mean Corpuscular 89.4 Volume Mean Corpuscular 27.8 L Hemoglobin Mean Corpuscular 31.1 L Hemoglobin Concent Red Cell 15.8 H Distribution Width Platelet Count 341 Mean Platelet Volume 10.8 H Immature 4.700 H Granulocytes % Neutrophils % 64.1 Lymphocytes % 17.3 Monocytes % 11.6 H Eosinophils % 1.7 Basophils % 0.6 Nucleated Red Blood 0.0 Cells % Immature 0.540 H Granulocytes # Neutrophils # 7.4 Lymphocytes # 2.0 Monocytes # 1.3 H Eosinophils # 0.2 Basophils # 0.1 Nucleated Red Blood 0.0 Cells # Sodium Level 138 Potassium Level 3.2 L Chloride Level 106 Carbon Dioxide Level 28 Anion Gap 4 L Blood Urea Nitrogen 41 H Creatinine 1.80 H Est Glomerular Filtrat Rate mL/min Glucose Level 116 Calcium Level 10.2 Phosphorus Level 4.5 Magnesium Level 1.6 L Test 12/08/18 09:10 12/08/18 12:25 Bedside Glucose 129 155 Subjective 24 Hr Interval Summary Free Text/Dictation Afebrile Nonverbal Exam/Review of Systems Exam Vitals Vital Signs Date Temp Pulse Resp B/P (MAP) Pulse Ox O2 O2 Flow FiO2 Time Delivery Rate 12/08/18 93 20 97 3.0 16:32 12/08/18 98.0 109/55 Nasal 15:25 (73) Cannula 12/08/18 33 05:40 Intake and Output 12/07/18 12/07/18 12/08/18 1515:00 23:00 07:00 IntakeIntake Total 1270 ml 1030 ml 210 ml OutputOutput Total 750 ml 900 ml BalanceBalance 1270 ml 280 ml -690 ml Constitutional: alert, oriented, well developed Psych: no complaints, nl mood/affect Head: normocephalic, atraumatic Eyes: nl conjunctiva, EOMI, nl lids, nl sclera, PERRL ENMT: nl external ears & nose, nl lips & teeth, nl nasal mucosa & septum Neck: supple, non-tender Respiratory: clear to auscultation, normal air movement Cardiovascular: regular rate and rhythm, nl pulses Gastrointestinal: soft, nl liver, spleen, non-tender Musculoskeletal: nl extremities to inspection, nl gait and stance Extremities: normal pulses 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, nl mental status, nl speech, nl strength Skin: nl turgor; No rash or lesions Lymph: nl lymph nodes Results Results 24hrs Laboratory Tests Test 12/07/18 21:03 12/08/18 01:17 12/08/18 04:46 12/08/18 06:21 Bedside Glucose 133 139 167 White Blood Count 11.6 H Red Blood Count 2.55 L Hemoglobin 7.1 L Hematocrit 22.8 L Mean Corpuscular 89.4 Volume Mean Corpuscular 27.8 L Hemoglobin Mean Corpuscular 31.1 L Hemoglobin Concent Red Cell 15.8 H Distribution Width Platelet Count 341 Mean Platelet Volume 10.8 H Immature 4.700 H Granulocytes % Neutrophils % 64.1 Lymphocytes % 17.3 Monocytes % 11.6 H Eosinophils % 1.7 Basophils % 0.6 Nucleated Red Blood 0.0 Cells % Immature 0.540 H Granulocytes # Neutrophils # 7.4 Lymphocytes # 2.0 Monocytes # 1.3 H Eosinophils # 0.2 Basophils # 0.1 Nucleated Red Blood 0.0 Cells # Sodium Level 138 Potassium Level 3.2 L Chloride Level 106 Carbon Dioxide Level 28 Anion Gap 4 L Blood Urea Nitrogen 41 H Creatinine 1.80 H Est Glomerular Filtrat Rate mL/min Glucose Level 116 Calcium Level 10.2 Phosphorus Level 4.5 Magnesium Level 1.6 L Test 12/08/18 09:10 12/08/18 12:25 Bedside Glucose 129 155 Medications Medication Current Medications IV Flush (NS 3 ml) 3 ml PER PROTOCOL IV ; Start 12/01/18 at 02:00 Ondansetron HCl (Zofran Inj) 4 mg Q6H PRN IV NAUSEA/VOMITING; Start 12/01/18 at 02:00 Acetaminophen (Tylenol Tab) 650 mg Q6H PRN GTB .PAIN 1-3 OR TEMP Last admi nistered on 12/08/18at 11:31; Admin Dose 650 MG; Start 12/01/18 at 02:00 Linezolid 300 ml @ 300 mls/hr Q12 IVPB Last administered on 12/08/18at 08:59; Admin Dose 300 MLS/HR; Start 12/01/18 at 09:00 Insulin Aspart (Novolog Insulin Pen) NOVOLOG *MILD* ALGORI... Q4 SC Last administered on 12/08/18at 12:53; Admin Dose 1 UNIT; Start 12/01/18 at 09:00 Miscellaneous Information 1 ea NOTE XX ; Start 12/01/18 at 07:00 Glucose (Glutose) 15 gm Q15M PRN PO DECREASED GLUCOSE; Start 12/01/18 at 07:00 Glucose (Glutose) 22.5 gm Q15M PRN PO DECREASED GLUCOSE; Start 12/01/18 at 07:00 Dextrose (D50w Syringe) 25 ml Q15M PRN IV DECREASED GLUCOSE Last administered on 12/04/18 21:24; Admin Dose 25 ML; Start 12/01/18 at 07:00 Dextrose (D50w Syringe) 50 ml Q15M PRN IV DECREASED GLUCOSE; Start 12/01/18 at 07:00 Glucagon (Glucagen) 1 mg Q15M PRN IM DECREASED GLUCOSE; Start 12/01/18 at 07:00 Glucose (Glutose) 15 gm Q15M PRN BUCCAL DECREASED GLUCOSE; Start 12/01/18 at 07:00 Acetaminophen (Tylenol Liquid) 650 mg Q6H PRN GTB MILD PAIN(1-3)OR ELEVATED TEMP Last administered on 12/06/18 13:05; Admin Dose 650 MG; Start 12/01/18 at 07:30 Miscellaneous Information (Pending Santyl Order For Wound Care) This patient pritchard... PRN PRN XX WOUND CARE; Start 12/01/18 at 19:00 Chlorhexidine Gluconate (Peridex) 15 ml TID MT Last administered on 12/08/18 12:17; Admin Dose 15 ML; Start 12/02/18 at 09:00 Albuterol (Proventil 0.083% (Neb)) 1.25 mg Q4H RESP THERAPY HHN Last administered on 12/08/18 16:31; Admin Dose 1.25 MG; Start 12/02/18 at 17:00 Acetylcysteine (Mucomyst) 2 ml Q4H RESP THERAPY NEB Last administered on 12/08/18 16:32; Admin Dose 2 ML; Start 12/02/18 at 17:00 Sodium Hypochlorite (Dakins Diluted (40)) 1 applic DAILY TP Last administered on 12/08/18 09:00; Admin Dose 1 APPLIC; Start 12/03/18 at 11:00 Collagenase (Santyl) 1 applic DAILY TOP Last administered on 12/08/18 09:00; Admin Dose 1 APPLIC; Start 12/04/18 at 09:00 Collagenase (Santyl) 1 applic WHEN SOILED PRN TOP WOUND Last administered on 12/03/18 23:58; Admin Dose 1 APPLIC; Start 12/03/18 at 22:30 Heparin Sodium (Porcine) (Heparin (5000 Units/1ml)) 5,000 unit Q12H SC Last administered on 12/08/18 05:08; Admin Dose 5,000 UNIT; Start 12/04/18 at 17:00 Metoclopramide HCl (Reglan) 10 mg Q6 IV Last administered on 12/08/18 11:31; Admin Dose 10 MG; Start 12/04/18 at 18:00 Polyethylene Glycol (Miralax) 17 gm DAILY GTB Last administered on 12/08/18 08:59; Admin Dose 17 GM; Start 12/05/18 at 09:00 Ferric Sodium Gluconate Complex 125 mg/Sodium Chloride 110 ml @ 110 mls/hr DAILY@1300 IVPB Last administered on 12/08/18 12:18; Admin Dose 110 MLS/HR; Start 12/05/18 at 13:00; Stop 12/09/18 at 13:59 Metronidazole (Flagyl) 250 mg Q8 GTB Last administered on 12/08/18 14:08; Admin Dose 250 MG; Start 12/06/18 at 22:00 Fluconazole (Diflucan) 100 mg DAILY PO Last administered on 12/08/18 09:00; Admin Dose 100 MG; Start 12/08/18 at 09:00 Ertapenem 1 gm/ Sodium Chloride 100 ml @ 200 mls/hr Q24H IVPB Last admi nistered on 12/08/18 15:21; Admin Dose 200 MLS/HR; Start 12/08/18 at 14:30 PATRICIA MUÑOZ MD December 08, 2018 17:34
[2018-12-09] VITALS (13 sets, daily range): BP systolic 93–126; BP diastolic 49–77; PULSE 52–108; RESP 18–21
[2018-12-09] MEDS: INSULIN ASPART [NOVOLOG] 3 ML PEN SC SCH ×6 (00:10→21:16)
[2018-12-09] MEDS: METOCLOPRAMIDE 10 MG INJ IV SCH ×4 (00:10→18:03)
[2018-12-09] MEDS: ACETYLCYSTEINE 20% 4 ML VIAL NEB SCH ×3 (00:32→08:53)
[2018-12-09] MEDS: ALBUTEROL 0.083% (NEB) 2.5 MG/3 ML AMP HHN SCH ×6 (00:32→20:52)
[2018-12-09] MEDS: metroNIDAZOLE 250 MG TAB GTB SCH ×2 (05:34→14:29)
[2018-12-09] MEDS: HEPARIN 5,000 UNIT/1 ML VIAL SC SCH ×2 (05:53→17:00)
[2018-12-09] MEDS ORDERED: MAGNESIUM SULFATE 2 GM/50 ML 50 ML IVPB ONE (08:30)
[2018-12-09] MEDS ORDERED: POTASSIUM CHLORIDE 20 MEQ POWDER FOR ORAL SOLN GTB ONE (08:30)
[2018-12-09] MEDS ORDERED: FUROSEMIDE 20 MG INJ IV ONE (08:30)
--- NOTE | 2018-12-09 08:42 | PN ---
DATE: 12/09/2018 SUBJECTIVE: The patient is stable, no events overnight. OBJECTIVE: VITAL SIGNS: Blood pressure is 100/59, respirations 21, temperature 98.3. HEENT: Head is normocephalic. NECK: Supple. HEART: Regular rate. LUNGS: Show diminished breath sounds at the base. ABDOMEN: Soft, nontender to palpation without rebound or guarding. EXTREMITIES: Negative for clubbing, cyanosis. Trace edema. DERMATOLOGIC: No rashes. MUSCULOSKELETAL: No joint effusion. NEUROLOGIC: No change in exam. MEDICATIONS: Reviewed. LABORATORY DATA: From 12/09/2018 was reviewed. ASSESSMENT AND PLAN: 1. Nonoliguric acute kidney injury on top of chronic kidney disease with previous baseline creatinin e around 1.0 mg/dL. Etiology of acute kidney injury is secondary to hemodynamics, possible tubular i njury. The patient's renal function continues to fluctuate, although stable in last 48 hours. At th is point, continue current treatment plan, supportive care, renally dose all medications. 2. Hypernatremia, improved. Continue free water flushes. 3. Hypokalemia. Replete with potassium chloride. 4. Hypomagnesemia. We will replete with magnesium sulfate. 5. Anemia with iron deficiency. Continue IV iron. Monitor hemoglobin and hematocrit levels. 6. Mineral bone disorder. Continue to monitor calcium and phosphorus levels. 7. Acute hypoxemic respiratory failure secondary to aspiration pneumonia, pleural effusion. Continu e to monitor. X-ray was reviewed. 8. Sepsis secondary to pneumonia. Continue current antibiotic regimen. 9. Diabetes. Continue current insulin regimen. 10. Dysphagia. Continue tube feeding. 11. Chronic encephalopathy and dementia. Continue to monitor. 12. History of cerebrovascular accident. Dictated By: KACY DILLARD DO NR/NTS Conf#: [id number] DID#: [id number] CC: PATRICIA MUÑOZ MD; IKER FAM MD; FRANCISCA DELUCA MD;*End*
--- NOTE | 2018-12-09 09:23 | PN ---
Date/Time of Note Date/Time of Note DATE: 12/09/18 TIME: 09:20 Assessment/Plan Lines/Catheters IV Catheter Type (from [facility]): Saline Lock Wynn in Place (from [facility]): Yes Assessment/Plan Chief Complaint/Hosp Course 1. Multiple wounds: -debridement today> -local care -frequent turning and off-loading -low air loss mattress -vitamin c -short term zinc -optimize nutrition -Left ischial culture -Lower extremity wounds per podiatry 2. Sepsis: Likely multifactorial: improved -Supportive -Antibiotics per sensitivity 3. UTI: -abx per sensitivity -frequent bladder emptying/cath care 4. Chronic encephalopathy: -Supportive -Treat infections 5. Severe contractures: -Possible knee release by Dr. Matamoros 6. ROBBIE: improved -Limit nephrotoxic meds -Renally dose meds -Per renal 7. Bilateral pleural effusions w infiltrates; copious secretions -Pulmonary toilet/fluid management -Per pulmonary Thank you. Patient seen and examined in collaboration with Dr. Lico Perera. Subjective 24 Hr Interval Summary Copious secretions. Appears comfortable. Nonverbal indicators of pain not present. No fevers, labored breathing, vomiting, diarrhea, sz, rash. +bowel function. Exam/Review of Systems Vital Signs Vitals Vital Signs Date Temp Pulse Resp B/P (MAP) Pulse Ox O2 O2 Flow FiO2 Time Delivery Rate 12/09/18 102 28 98 Nasal 4.0 08:53 Cannula 12/09/18 98.3 100/59 07:21 (73) 12/08/18 33 05:40 Intake and Output 12/08/18 12/08/18 12/09/18 1515:00 23:00 07:00 IntakeIntake Total 410 ml 870 ml 930 ml OutputOutput Total 500 ml 750 ml BalanceBalance 410 ml 370 ml 180 ml Exam Free Text/Dictation Constitutional: alert; No oriented Psych: no complaints, nl mood/affect; No anxiety Head: normocephalic, atraumatic Eyes: nl conjunctiva, EOMI, nl lids, nl sclera ENMT: nl external ears & nose, nl lips & teeth, mucosa pink and moist Neck: supple, non-tender Respiratory: normal air movement; No congested cough Cardiovascular: regular rate and rhythm; No edema Gastrointestinal: soft; No distended, No tender Musculoskeletal: other (Contractures) Extremities: normal pulses; No edema Neurological: No nl mental status (Confused), No nl speech, No nl strength (Contractures, generalized weakness) Skin: other (Multiple wounds: Sacral (clean, scant drainage); left ischium: Eschar, scant drainage, no periwound erythema, no odor); No rash or lesions Results Result Diagram: 12/09/18 0600 12/09/18 0600 DAQUAN HERNANDEZ NP December 09, 2018 09:23
[2018-12-09] MEDS: DAKINS 0.0125%(1/40) 473 ML SOLUTION TP SCH (09:37)
--- NOTE | 2018-12-09 09:40 | OPR ---
Date/Time of Note Date/Time of Note DATE: 12/09/18 TIME: 09:29 Operative Report Preoperative Diagnosis Left ischial pressure ulcer, unstageable Postoperative Diagnosis Left ischial stage IV pressure ulcer, including skin, subcutaneous, fascia/muscle, 8 x 6 cm Operation/Procedure Performed Excisional debridement of left ischial skin, subcutaneous, fascia/muscle Surgeon see signature line Scrap Baller none Anesthesia Type: other (None) Estimated Blood Loss: 0 - 10 ml's Transfusion none Specimen None Grafts/Implants none Complications none Procedure Description Risks, benefits, alternatives discussed with and agreed upon with decision maker. Patient right lateral decubitus in his own bed. Area was prepped and draped in sterile fashion. Timeout was performed. Using curette and scalpel, the necrotic tissue of the left ischial skin, subcutaneous, muscle/fascia were debrided to healthier tissue. Hemostasis was obtained using direct applied pressure. Wound was irrigated with Betadine solution and packed with Betadine moistened Kerlix. Area was covered with dry dressing. DAQUAN HERNANDEZ NP December 09, 2018 09:40
[2018-12-09] MEDS: COLLAGENASE 5 GM (UD JAR) TOP SCH (09:46)
[2018-12-09] MEDS: FLUCONAZOLE 100 MG TAB PO SCH (09:46)
[2018-12-09] MEDS: LINEZOLID 600 MG/300 ML (PMX) 300 ML IVPB SCH ×2 (09:46→22:20)
[2018-12-09] MEDS: CHLORHEXIDINE GLUCONATE 15 ML UD CUP MT SCH ×3 (09:46→22:20)
[2018-12-09] MEDS: POLYETHYLENE GLYCOL 17 GM PACKET GTB SCH (09:47)
[2018-12-09] MEDS: ERTAPENEM SODIUM 1 GM in SOD CHLORIDE 0.9% 100 ML IVPB SCH (14:29)
--- NOTE | 2018-12-09 14:43 | CONS ---
Assessment/Plan Assessment/Plan Hospital Course (Demo Recall) Patient is in no distress awake, looks comfortable, no fevers. WBC today 10.4 neutrophils 69.6 BUN 40 creatinine 1.71 Microbiology: Wound culture grew Proteus, E coli ESBL, PSA VRE Antimicrobials: Invanz fluconazole Flagyl Zyvox Indwelling: Trach, PEG, Wynn Physical examination: Chronically ill-appearing elderly man who is in no distress. Head atraumatic normocephalic neck is supple chest rise symmetrical breath sounds diminished to bases heart: S1-S2 abdomen soft, bowel sounds pres ent extremities contractured lower extremities Assessment: 1. Sepsis, present on admission 2. Acute on chronic kidney disease 3. Multiple decubitus status post left initial wound debridement 4. Acute on chronic encephalopathy 5. Dysphagia 6. Hx prostate cancer 7. 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 +/-PNA Plan: Remains unchanged, change Invanz to Merrem to cover PSA, add Diflucan, continue local wound care per surgical team Consultation Date/Type/Reason Admit Date/Time December 01, 2018 at 01:35 Initial Consult Date Type of Consult id Requesting Provider: GARY PETERSON Date/Time of Note DATE: 12/09/18 TIME: 14:38 Exam/Review of Systems Exam Vitals Vital Signs Date Temp Pulse Resp B/P (MAP) Pulse Ox O2 O2 Flow FiO2 Time Delivery Rate 12/09/18 52 93/49 (64) 13:15 12/09/18 30 98 Nasal 3.0 12:47 Cannula 12/09/18 98.3 11:25 12/08/18 33 05:40 Intake and Output 12/08/18 12/08/18 12/09/18 1515:00 23:00 07:00 IntakeIntake Total 410 ml 870 ml 930 ml OutputOutput Total 500 ml 750 ml BalanceBalance 410 ml 370 ml 180 ml Results Result Diagram: 12/09/18 0600 12/09/18 0600 Results 24hrs Laboratory Tests Test 12/08/18 17:33 12/08/18 21:27 12/09/18 00:02 12/09/18 04:13 Bedside Glucose 124 120 135 124 Test 12/09/18 06:00 12/09/18 09:36 12/09/18 13:17 White Blood Count 10.4 Red Blood Count 2.55 L Hemoglobin 7.1 L Hematocrit 22.6 L Mean Corpuscular 88.6 Volume Mean Corpuscular 27.8 L Hemoglobin Mean Corpuscular 31.4 L Hemoglobin Concent Red Cell 16.1 H Distribution Width Platelet Count 346 Mean Platelet Volume 10.3 Immature 5.200 H Granulocytes % Neutrophils % 69.6 Segmented 71 Neutrophils % (Manual) Band Neutrophils % 6 H (Manual) Lymphocytes % 11.8 L Lymphocytes % 9 L (Manual) Reactive Lymphocytes 1 H % (Manual) Monocytes % 11.0 Monocytes % (Manual) 9 Eosinophils % 1.9 Eosinophils % 2 (Manual) Basophils % 0.5 Metamyelocytes % 1 H (manual) Myelocytes % 1 H (Manual) Nucleated Red Blood 0.0 Cells % Immature 0.540 H Granulocytes # Neutrophils # 7.2 Neutrophils # 7.4 (Manual) Band Neutrophils # 0.6 Lymphocytes (Manual) 0.9 Lymphocytes # 1.2 Reactive Lymphocytes 0.1 H # Monocytes # 1.1 H Monocytes # (Manual) 0.9 Eosinophils # 0.2 Basophils # 0.1 Metamyelocytes # 0.1 H Myelocytes # 0.1 H Nucleated Red Blood 0.0 Cells # Platelet Estimate NORMAL Giant Platelets 2 H Polychromasia 1+ Anisocytosis 1+ Microcytosis 1+ Sodium Level 140 Potassium Level 3.4 L Chloride Level 105 Carbon Dioxide Level 31 Anion Gap 4 L Blood Urea Nitrogen 40 H Creatinine 1.71 H Est Glomerular Filtrat Rate mL/min Glucose Level 119 Calcium Level 9.9 Phosphorus Level 4.4 Magnesium Level 1.5 L Bedside Glucose 129 152 Medications Medication Current Medications IV Flush (NS 3 ml) 3 ml PER PROTOCOL IV ; Start 12/01/18 at 02:00 Ondansetron HCl (Zofran Inj) 4 mg Q6H PRN IV NAUSEA/VOMITING; Start 12/01/18 at 02:00 Acetaminophen (Tylenol Tab) 650 mg Q6H PRN GTB .PAIN 1-3 OR TEMP Last administered on 12/08/18at 11:31; Admin Dose 650 MG; Start 12/01/18 at 02:00 Linezolid 300 ml @ 300 mls/hr Q12 IVPB Last administered on 12/09/18at 09:46; Admin Dose 300 MLS/HR; Start 12/01/18 at 09:00 Insulin Aspart (Novolog Insulin Pen) NOVOLOG *MILD* ALGORI... Q4 SC Last administered on 12/09/18 13:34; Admin Dose 1 UNIT; Start 12/01/18 at 09:00 Miscellaneous Information 1 ea NOTE XX ; Start 12/01/18 at 07:00 Glucose (Glutose) 15 gm Q15M PRN PO DECREASED GLUCOSE; Start 12/01/18 at 07:00 Glucose (Glutose) 22.5 gm Q15M PRN PO DECREASED GLUCOSE; Start 12/01/18 at 07:00 Dextrose (D50w Syringe) 25 ml Q15M PRN IV DECREASED GLUCOSE Last administered on 12/04/18 21:24; Admin Dose 25 ML; Start 12/01/18 at 07:00 Dextrose (D50w Syringe) 50 ml Q15M PRN IV DECREASED GLUCOSE; Start 12/01/18 at 07:00 Glucagon (Glucagen) 1 mg Q15M PRN IM DECREASED GLUCOSE; Start 12/01/18 at 07:00 Glucose (Glutose) 15 gm Q15M PRN BUCCAL DECREASED GLUCOSE; Start 12/01/18 at 07:00 Acetaminophen (Tylenol Liquid) 650 mg Q6H PRN GTB MILD PAIN(1-3)OR ELEVATED TEMP Last administered on 12/06/18 13:05; Admin Dose 650 MG; Start 12/01/18 at 07:30 Miscellaneous Information (Pending Santyl Order For Wound Care) This patient pritchard... PRN PRN XX WOUND CARE; Start 12/01/18 at 19:00 Chlorhexidine Gluconate (Peridex) 15 ml TID MT Last administered on 12/09/18 13:20; Admin Dose 15 ML; Start 12/02/18 at 09:00 Albuterol (Proventil 0.083% (Neb)) 1.25 mg Q4H RESP THERAPY HHN Last administered on 12/09/18 12:47; Admin Dose 1.25 MG; Start 12/02/18 at 17:00 Sodium Hypochlorite (Dakins Diluted ()) 1 applic DAILY TP Last administered on 12/09/18 09:37; Admin Dose 1 APPLIC; Start 12/03/18 at 11:00 Collagenase (Santyl) 1 applic DAILY TOP Last administered on 12/09/18 09:46; Admin Dose 1 APPLIC; Start 12/04/18 at 09:00 Collagenase (Santyl) 1 applic WHEN SOILED PRN TOP WOUND Last administered on 12/03/18 23:58; Admin Dose 1 APPLIC; Start 12/03/18 at 22:30 Heparin Sodium (Porcine) (Heparin (5000 Units/1ml)) 5,000 unit Q12H SC Last administered on 12/09/18 05:53; Admin Dose 5,000 UNIT; Start 12/04/18 at 17:00 Metoclopramide HCl (Reglan) 10 mg Q6 IV Last administered on 12/09/18 11:40; Admin Dose 10 MG; Start 12/04/18 at 18:00 Polyethylene Glycol (Miralax) 17 gm DAILY GTB Last administered on 12/09/18 09:47; Admin Dose 17 GM; Start 12/05/18 at 09:00 Metronidazole (Flagyl) 250 mg Q8 GTB Last administered on 12/09/18 14:29; Admin Dose 250 MG; Start 12/06/18 at 22:00 Fluconazole (Diflucan) 100 mg DAILY PO Last administered on 12/09/18 09:46; Admin Dose 100 MG; Start 12/08/18 at 09:00 Ertapenem 1 gm/ Sodium Chloride 100 ml @ 200 mls/hr Q24H IVPB Last administered on 12/09/18 14:29; Admin Dose 200 MLS/HR; Start 12/08/18 at 14:30 Collagenase (Santyl) 1 applic DAILY TOP ; Start 12/10/18 at 09:00 Folic Acid (Folic Acid) 1 mg DAILY GTB ; Start 12/10/18 at 09:00 Ascorbic Acid (Vitamin C) 250 mg DAILY GTB ; Start 12/10/18 at 09:00 Zinc Sulfate (Zinc Sulfate) 220 mg DAILY GTB ; Start 12/10/18 at 09:00 JAME DAN NP December 09, 2018 14:43
[2018-12-09] MEDS: SOD FERRIC GLUC COMPLX 125 MG in SOD CHLORIDE 0.9% 100 ML IVPB SCH (15:06)
--- NOTE | 2018-12-09 16:14 | PN ---
Date/Time of Note Date/Time of Note DATE: 12/09/18 TIME: 16:14 Assessment/Plan VTE Prophylaxis Risk score (from Ns)>0 risk: 7 SCD applied (from Ns): Yes Pharmacological prophylaxis: heparin Lines/Catheters IV Catheter Type (from Nrs): Saline Lock Urinary Cath still in place: Yes Reason Cath still needed: urinary retention Assessment/Plan Hospital Course 78-year-old male who had coming sent from group home facility because of fever and a urinary tract infection and admitted with severe sepsis and hypernatremic dehydration with ROBBIE. He required transient ICU stay, currently managed as follows. 1. Severe sepsis secondary to UTI and decubitus ulcers Continue antibiotics Continue wound care Patient with fever last night 2. Recurrent urinary tract infection Unsurprising as patient is chronically bedbound 3. Multiple decubiti, (sacroiliac / ischial/ lower extremities ) Wound care and antibiotics 4. Hypernatremic dehydration with ROBBIE on CKD-Improved 5. Respiratory tract infection, tracheobronchitis versus aspiration with acute on chronic respiratory failure requiring supplemental oxygen CT showing Bilateral layering and partially loculated pleural effusions are seen of mild to moderate severity with bilateral pleural thickening and the presence of possible pleural plaques resulting in compressive atelectasis of the adjacent lungs 6. Chronic debility with functional quadriplegia with history of CVA and Alzheimer's dementia 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 It is thought that this may be contributing to poor blood flow in the lower extremities precipitating gangrene and ulcer Patient was scheduled for knee release but surgery was canceled 7. History of hypertension: Borderline hypotensive at this time likely secondary to sepsis 8. History of insulin-dependent diabetes mellitus: Has been having multiple episodes of hypoglycemia, insulin currently on hold On tube feeds with diabetic source at 40 cc/h with 100 cc of free water every 4 hours 9. Chronic hypochromic anemia with history of iron deficiency Monitor, no indication for transfusion at this time 10. Multinodular thyroid gland check TSH and free T4 Prophylaxis: Heparin Result Diagram: 12/09/18 0600 12/09/18 0600 Results 24hrs Laboratory Tests Test 12/08/18 17:33 12/08/18 21:27 12/09/18 00:02 12/09/18 04:13 Bedside Glucose 124 120 135 124 Test 12/09/18 06:00 12/09/18 09:36 12/09/18 13:17 White Blood Count 10.4 Red Blood Count 2.55 L Hemoglobin 7.1 L Hematocrit 22.6 L Mean Corpuscular 88.6 Volume Mean Corpuscular 27.8 L Hemoglobin Mean Corpuscular 31.4 L Hemoglobin Concent Red Cell 16.1 H Distribution Width Platelet Count 346 Mean Platelet Volume 10.3 Immature 5.200 H Granulocytes % Neutrophils % 69.6 Segmented 71 Neutrophils % (Manual) Band Neutrophils % 6 H (Manual) Lymphocytes % 11.8 L Lymphocytes % 9 L (Manual) Reactive Lymphocytes 1 H % (Manual) Monocytes % 11.0 Monocytes % (Manual) 9 Eosinophils % 1.9 Eosinophils % 2 (Manual) Basophils % 0.5 Metamyelocytes % 1 H (manual) Myelocytes % 1 H (Manual) Nucleated Red Blood 0.0 Cells % Immature 0.540 H Granulocytes # Neutrophils # 7.2 Neutrophils # 7.4 (Manual) Band Neutrophils # 0.6 Lymphocytes (Manual) 0.9 Lymphocytes # 1.2 Reactive Lymphocytes 0.1 H # Monocytes # 1.1 H Monocytes # (Manual) 0.9 Eosinophils # 0.2 Basophils # 0.1 Metamyelocytes # 0.1 H Myelocytes # 0.1 H Nucleated Red Blood 0.0 Cells # Platelet Estimate NORMAL Giant Platelets 2 H Polychromasia 1+ Anisocytosis 1+ Microcytosis 1+ Sodium Level 140 Potassium Level 3.4 L Chloride Level 105 Carbon Dioxide Level 31 Anion Gap 4 L Blood Urea Nitrogen 40 H Creatinine 1.71 H Est Glomerular Filtrat Rate mL/min Glucose Level 119 Calcium Level 9.9 Phosphorus Level 4.4 Magnesium Level 1.5 L Bedside Glucose 129 152 Subjective 24 Hr Interval Summary Free Text/Dictation Stable Sacral wound debrided Exam/Review of Systems Exam Vitals Vital Signs Date Temp Pulse Resp B/P (MAP) Pulse Ox O2 O2 Flow FiO2 Time Delivery Rate 12/09/18 98.3 103 19 115/57 99 Nasal 15:15 (76) Cannula 12/09/18 3.0 12:47 12/08/18 33 05:40 Intake and Output 12/08/18 12/08/18 12/09/18 1515:00 23:00 07:00 IntakeIntake Total 410 ml 870 ml 930 ml OutputOutput Total 500 ml 750 ml BalanceBalance 410 ml 370 ml 180 ml Constitutional: alert, oriented, well developed Psych: no complaints, nl mood/affect Head: normocephalic, atraumatic Eyes: nl conjunctiva, EOMI, nl lids, nl sclera, PERRL ENMT: nl external ears & nose, nl lips & teeth, nl nasal mucosa & septum Neck: supple, non-tender Respiratory: clear to auscultation, normal air movement Cardiovascular: regular rate and rhythm, nl pulses Gastrointestinal: soft, nl liver, spleen, non-tender Musculoskeletal: nl extremities to inspection, nl gait and stance Extremities: normal pulses Neurological: MEDICAL DRIVER II-XII intact, nl mental status, nl speech, nl strength Skin: nl turgor; No rash or lesions Lymph: nl lymph nodes Results Results 24hrs Laboratory Tests Test 12/08/18 17:33 12/08/18 21:27 12/09/18 00:02 12/09/18 04:13 Bedside Glucose 124 120 135 124 Test 12/09/18 06:00 12/09/18 09:36 12/09/18 13:17 White Blood Count 10.4 Red Blood Count 2.55 L Hemoglobin 7.1 L Hematocrit 22.6 L Mean Corpuscular 88.6 Volume Mean Corpuscular 27.8 L Hemoglobin Mean Corpuscular 31.4 L Hemoglobin Concent Red Cell 16.1 H Distribution Width Platelet Count 346 Mean Platelet Volume 10.3 Immature 5.200 H Granulocytes % Neutrophils % 69.6 Segmented 71 Neutrophils % (Manual) Band Neutrophils % 6 H (Manual) Lymphocytes % 11.8 L Lymphocytes % 9 L (Manual) Reactive Lymphocytes 1 H % (Manual) Monocytes % 11.0 Monocytes % (Manual) 9 Eosinophils % 1.9 Eosinophils % 2 (Manual) Basophils % 0.5 Metamyelocytes % 1 H (manual) Myelocytes % 1 H (Manual) Nucleated Red Blood 0.0 Cells % Immature 0.540 H Granulocytes # Neutrophils # 7.2 Neutrophils # 7.4 (Manual) Band Neutrophils # 0.6 Lymphocytes (Manual) 0.9 Lymphocytes # 1.2 Reactive Lymphocytes 0.1 H # Monocytes # 1.1 H Monocytes # (Manual) 0.9 Eosinophils # 0.2 Basophils # 0.1 Metamyelocytes # 0.1 H Myelocytes # 0.1 H Nucleated Red Blood 0.0 Cells # Platelet Estimate NORMAL Giant Platelets 2 H Polychromasia 1+ Anisocytosis 1+ Microcytosis 1+ Sodium Level 140 Potassium Level 3.4 L Chloride Level 105 Carbon Dioxide Level 31 Anion Gap 4 L Blood Urea Nitrogen 40 H Creatinine 1.71 H Est Glomerular Filtrat Rate mL/min Glucose Level 119 Calcium Level 9.9 Phosphorus Level 4.4 Magnesium Level 1.5 L Bedside Glucose 129 152 Medications Medication Current Medications IV Flush (NS 3 ml) 3 ml PER PROTOCOL IV ; Start 12/01/18 at 02:00 Ondansetron HCl (Zofran Inj) 4 mg Q6H PRN IV NAUSEA/VOMITING; Start 12/01/18 at 02:00 Acetaminophen (Tylenol Tab) 650 mg Q6H PRN GTB .PAIN 1-3 OR TEMP Last administered on 12/08/18at 11:31; Admin Dose 650 MG; Start 12/01/18 at 02:00 Linezolid 300 ml @ 300 mls/hr Q12 IVPB Last administered on 12/09/18at 09:46; Admin Dose 300 MLS/HR; Start 12/01/18 at 09:00 Insulin Aspart (Novolog Insulin Pen) NOVOLOG *MILD* ALGORI... Q4 SC Last administered on 12/09/18at 13:34; Admin Dose 1 UNIT; Start 12/01/18 at 09:00 Miscellaneous Information 1 ea NOTE XX ; Start 12/01/18 at 07:00 Glucose (Glutose) 15 gm Q15M PRN PO DECREASED GLUCOSE; Start 12/01/18 at 07:00 Glucose (Glutose) 22.5 gm Q15M PRN PO DECREASED GLUCOSE; Start 12/01/18 at 07:00 Dextrose (D50w Syringe) 25 ml Q15M PRN IV DECREASED GLUCOSE Last administered on 12/04/18at 21:24; Admin Dose 25 ML; Start 12/01/18 at 07:00 Dextrose (D50w Syringe) 50 ml Q15M PRN IV DECREASED GLUCOSE; Start 12/01/18 at 07:00 Glucagon (Glucagen) 1 mg Q15M PRN IM DECREASED GLUCOSE; Start 12/01/18 at 07:00 Glucose (Glutose) 15 gm Q15M PRN BUCCAL DECREASED GLUCOSE; Start 12/01/18 at 07:00 Acetaminophen (Tylenol Liquid) 650 mg Q6H PRN GTB MILD PAIN(1-3)OR ELEVATED TEMP Last administered on 12/06/18 13:05; Admin Dose 650 MG; Start 12/01/18 at 07:30 Miscellaneous Information (Pending Santyl Order For Wound Care) This patient pritchard... PRN PRN XX WOUND CARE; Start 12/01/18 at 19:00 Chlorhexidine Gluconate (Peridex) 15 ml TID MT Last administered on 12/09/18 13:20; Admin Dose 15 ML; Start 12/02/18 at 09:00 Albuterol (Proventil 0.083% (Neb)) 1.25 mg Q4H RESP THERAPY HHN Last administ ered on 12/09/18 12:47; Admin Dose 1.25 MG; Start 12/02/18 at 17:00 Sodium Hypochlorite (Dakins Diluted ()) 1 applic DAILY TP Last administered on 12/09/18 09:37; Admin Dose 1 APPLIC; Start 12/03/18 at 11:00 Collagenase (Santyl) 1 applic DAILY TOP Last administered on 12/09/18 09:46; Admin Dose 1 APPLIC; Start 12/04/18 at 09:00 Collagenase (Santyl) 1 applic WHEN SOILED PRN TOP WOUND Last administered on 12/03/18 23:58; Admin Dose 1 APPLIC; Start 12/03/18 at 22:30 Heparin Sodium (Porcine) (Heparin (5000 Units/1ml)) 5,000 unit Q12H SC Last administered on 12/09/18 05:53; Admin Dose 5,000 UNIT; Start 12/04/18 at 17:00 Metoclopramide HCl (Reglan) 10 mg Q6 IV Last administered on 12/09/18 11:40; Admin Dose 10 MG; Start 12/04/18 at 18:00 Polyethylene Glycol (Miralax) 17 gm DAILY GTB Last administered on 12/09/18 09:47; Admin Dose 17 GM; Start 12/05/18 at 09:00 Fluconazole (Diflucan) 100 mg DAILY PO Last administered on 12/09/18 09:46; Admin Dose 100 MG; Start 12/08/18 at 09:00 Collagenase (Santyl) 1 applic DAILY TOP ; Start 12/10/18 at 09:00 Folic Acid (Folic Acid) 1 mg DAILY GTB ; Start 12/10/18 at 09:00 Ascorbic Acid (Vitamin C) 250 mg DAILY GTB ; Start 12/10/18 at 09:00 Zinc Sulfate (Zinc Sulfate) 220 mg DAILY GTB ; Start 12/10/18 at 09:00 Meropenem/Sodium Chloride 50 ml @ 100 mls/hr Q12 IVPB ; Start 12/09/18 at 21:00 PATRICIA MUÑOZ MD December 09, 2018 16:14
[2018-12-09] MEDS: FUROSEMIDE 20 MG TAB NGT SCH (18:03)
[2018-12-09] MEDS: MEROPENEM 500MG/50 ML (PMX) 50 ML IVPB SCH (22:20)
[2018-12-10] VITALS (12 sets, daily range): BP systolic 81–135; BP diastolic 44–83; PULSE 76–105; RESP 17–22
[2018-12-10] MEDS: METOCLOPRAMIDE 10 MG INJ IV SCH ×3 (00:32→12:36)
[2018-12-10] MEDS: INSULIN ASPART [NOVOLOG] 3 ML PEN SC SCH ×6 (00:39→20:43)
[2018-12-10] MEDS: ALBUTEROL 0.083% (NEB) 2.5 MG/3 ML AMP HHN SCH ×6 (01:30→20:26)
[2018-12-10] MEDS: FUROSEMIDE 20 MG TAB NGT SCH ×2 (06:15→18:00)
[2018-12-10] MEDS: HEPARIN 5,000 UNIT/1 ML VIAL SC SCH ×2 (06:49→18:19)
[2018-12-10] MEDS ORDERED: POTASSIUM CHLORIDE 20 MEQ POWDER FOR ORAL SOLN GTB ONE (08:00)
[2018-12-10] MEDS: CHLORHEXIDINE GLUCONATE 15 ML UD CUP MT SCH ×3 (08:55→20:33)
[2018-12-10] MEDS: ZINC SULFATE 220 MG CAP GTB SCH (08:55)
[2018-12-10] MEDS: FLUCONAZOLE 100 MG TAB PO SCH (08:55)
[2018-12-10] MEDS: ASCORBIC ACID 250 MG TAB GTB SCH (08:55)
[2018-12-10] MEDS: POLYETHYLENE GLYCOL 17 GM PACKET GTB SCH (08:55)
[2018-12-10] MEDS: FOLIC ACID 1 MG TAB GTB SCH (08:55)
[2018-12-10] MEDS: COLLAGENASE 5 GM (UD JAR) TOP SCH ×2 (08:59)
[2018-12-10] MEDS: DAKINS 0.0125%(1/40) 473 ML SOLUTION TP SCH (08:59)
[2018-12-10] MEDS: MEROPENEM 500MG/50 ML (PMX) 50 ML IVPB SCH ×2 (08:59→20:33)
--- NOTE | 2018-12-10 09:19 | PN ---
DATE: 12/10/2018 SUBJECTIVE: The patient remains in serious, but stable condition. No other acute events noted. OBJECTIVE: VITAL SIGNS: Blood pressure is 135/83, pulse 83, respirations 22, temperature 98.6. HEENT: Head is normocephalic. NECK: Supple. HEART: Regular rate. LUNGS: Show diminished breath sounds at the base. ABDOMEN: Soft, nontender to palpation without rebound or guarding. EXTREMITIES: Negative for clubbing, cyanosis. Trace edema. DERMATOLOGIC: No rashes. MUSCULOSKELETAL: No joint effusion. NEUROLOGIC: No change in exam. MEDICATIONS: Reviewed. LABORATORY DATA: Reviewed. ASSESSMENT AND PLAN: 1. Nonoliguric acute kidney injury on top of chronic kidney disease with previous baseline creatinin e 1.0 mg/dL. Etiology of acute kidney injury is secondary to hemodynamics, tubular injury. Renal fu nction is fluctuating. Continue to monitor. Continue current treatment plans, supportive care, jordana millery dose all medications. 2. Hypernatremia, improved. Continue free water flushes. 3. Hypokalemia. Continue to monitor and replete. 4. Volume overload. The patient is status post Lasix yesterday x1. Continue to monitor, give diure tic therapy as needed. 5. Hypomagnesemia. Continue to monitor and replete as needed. 6. Anemia with iron deficiency. The patient is completing course of IV iron. 7. Mineral bone disorder, monitor calcium and phosphorus levels. 8. Acute hypoxemic respiratory failure secondary to pneumonia, congestive heart failure and pleural effusion. Continue medical management. Continue intermittent diuretic therapy as needed. 9. Sepsis secondary to pneumonia. Continue current antibiotic regimen, followup with infectious dis ease. 10. Decubitus wound, status post debridement. Continue wound care. 11. Diabetes. Continue current insulin regimen. 12. Dysphagia. Continue tube feeding. 13. Chronic encephalopathy and dementia. 14. History of cerebrovascular accident. Dictated By: KACY DILLARD DO NR/NTS Conf#: [id number] DID#: [id number] CC: FRANCISCA DELUCA MD; IKER FAM MD; PATRICIA MUÑOZ MD;*EndCC*
--- NOTE | 2018-12-10 09:26 | PN ---
Date/Time of Note Date/Time of Note DATE: 12/10/18 TIME: 09:22 Assessment/Plan Lines/Catheters IV Catheter Type (from [facility]): Saline Lock Wynn in Place (from [facility]): Yes Assessment/Plan Chief Complaint/Hosp Course 1. Multiple wounds: Status post left ischial wound debridement 12/09/2018 -debridement as needed -local care -frequent turning and off-loading -low air loss mattress -vitamin c -short term zinc -optimize nutrition -Left ischial culture> will repeat -Lower extremity wounds per podiatry 2. Sepsis: Likely multifactorial: improved; WBC uptick (afebrile however tachycardic) -Supportive -Antibiotics per sensitivity -Trend 3. UTI: -abx per sensitivity -frequent bladder emptying/cath care 4. Chronic encephalopathy: -Supportive -Treat infections 5. Severe contractures: -Possible knee release by Dr. Matamorso 6. ROBBIE: improved -Limit nephrotoxic meds -Renally dose meds -Per renal 7. Bilateral pleural effusions w infiltrates; copious secretions -Pulmonary toilet/fluid management -Per pulmonary Thank you. Patient seen and examined in collaboration with Dr. Lico Perera. Subjective 24 Hr Interval Summary Status post left ischial wound debridement. WBC uptick. H&H stable. Tachycardia. Continues to have copious amounts of secretions. No fevers, labored breathing, vomiting, diarrhea, seizure, rash. Exam/Review of Systems Vital Signs Vitals Vital Signs Date Temp Pulse Resp B/P (MAP) Pulse Ox O2 O2 Flow FiO2 Time Delivery Rate 12/10/18 3.0 08:45 12/10/18 109 26 94 Nasal 08:45 Cannula 12/10/18 98.6 135/83 07:45 (100) 12/08/18 33 05:40 Intake and Output 12/09/18 12/09/18 12/10/18 1515:00 23:00 07:00 IntakeIntake Total 450 ml 710 ml 930 ml OutputOutput Total 550 ml 1400 ml BalanceBalance 450 ml 160 ml -470 ml Exam Free Text/Dictation Constitutional: alert; No oriented Psych: no complaints, nl mood/affect; No anxiety Head: normocephalic, atraumatic Eyes: nl conjunctiva, EOMI, nl lids, nl sclera ENMT: nl external ears & nose, nl lips & teeth, mucosa pink and moist Neck: supple, non-tender Respiratory: normal air movement; No congested cough Cardiovascular: regular rate and rhythm; No edema Gastrointestinal: soft; No distended, No tender Musculoskeletal: other (Contractures) Extremities: normal pulses; No edema Neurological: No nl mental status (Confused), No nl speech, No nl strength (Contractures, generalized weakness) Skin: other (Multiple wounds: Sacral (clean, scant drainage); left ischium: scant drainage, no periwound erythema, no odor, packed); No rash or lesions Results Result Diagram: 12/10/18 0604 12/10/18 0604 DAQUAN HERNANDEZ NP December 10, 2018 09:26
[2018-12-10] MEDS: LINEZOLID 600 MG/300 ML (PMX) 300 ML IVPB SCH ×2 (09:36→20:41)
--- NOTE | 2018-12-10 13:32 | CONS ---
Assessment/Plan Assessment/Plan Hospital Course (Demo Recall) No acute events patient is noncommunicative in no distress afebrile. BUN 36 creatinine 1.52. WBC 16.7 H&H 7.5 and 24 platelets 341 neutrophils 80.7 Microbiology: Initial wound culture grew Pseudomonas, E. coli ESBL, Proteus mirabilis, VRE. Sputum culture grew MRSA, Kat albicans and Kat glabrata. Antimicrobials: Patient is on meropenem, Zyvox, fluconazole Indwelling: Trach, PEG, Wynn Physical examination: Chronically ill-appearing elderly man who is in no distress. Head atraumatic normocephalic neck is supple chest rise symmetrical breath sounds diminished to bases heart: S1-S2 abdomen soft, bowel sounds present extremities contractured lower extremities Assessment: 1. Sepsis, present on admission 2. Acute on chronic kidney disease 3. Multiple decubitus status post left initial wound debridement 4. Acute on chronic encephalopathy 5. Dysphagia 6. Hx prostate cancer 7. 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 +/-PNA Plan: Remains unchanged, continue abx, local wound care per surgical team Consultation Date/Type/Reason Admit Date/Time December 01, 2018 at 01:35 Initial Consult Date Type of Consult id Requesting Provider: GARY PETERSON Date/Time of Note DATE: 12/10/18 TIME: 13:31 Exam/Review of Systems Exam Vitals Vital Signs Date Temp Pulse Resp B/P (MAP) Pulse Ox O2 O2 Flow FiO2 Time Delivery Rate 12/10/18 101 12:00 12/10/18 98.3 22 91/56 (68) 96 Room Air 11:33 12/10/18 3.0 08:45 12/08/18 33 05:40 Intake and Output 12/09/18 12/09/18 12/10/18 1515:00 23:00 07:00 IntakeIntake Total 450 ml 710 ml 930 ml OutputOutput Total 550 ml 1400 ml BalanceBalance 450 ml 160 ml -470 ml Results Result Diagram: 12/10/18 0604 12/10/18 0604 Results 24hrs Laboratory Tests Test 12/09/18 17:16 12/09/18 20:38 12/10/18 00:31 12/10/18 04:10 Bedside Glucose 140 147 186 139 Test 12/10/18 06:04 12/10/18 08:53 12/10/18 12:37 White Blood Count 16.7 #H Red Blood Count 2.68 L Hemoglobin 7.5 L Hematocrit 24.0 L Mean Corpuscular 89.6 Volume Mean Corpuscular 28.0 L Hemoglobin Mean Corpuscular 31.3 L Hemoglobin Concent Red Cell 16.3 H Distribution Width Platelet Count 341 Mean Platelet Volume 10.7 H Immature 2.200 H Granulocytes % Neutrophils % 80.7 H Lymphocytes % 8.7 L Monocytes % 7.2 Eosinophils % 0.8 Basophils % 0.4 Nucleated Red Blood 0.0 Cells % Immature 0.370 H Granulocytes # Neutrophils # 13.5 H Lymphocytes # 1.5 Monocytes # 1.2 H Eosinophils # 0.1 Basophils # 0.1 Nucleated Red Blood 0.0 Cells # Sodium Level 142 Potassium Level 3.4 L Chloride Level 105 Carbon Dioxide Level 33 H Anion Gap 4 L Blood Urea Nitrogen 36 H Creatinine 1.52 H Est Glomerular Filtrat Rate mL/min Glucose Level 136 Calcium Level 10.1 Phosphorus Level 4.0 Magnesium Level 1.7 Bedside Glucose 168 183 Medications Medication Current Medications IV Flush (NS 3 ml) 3 ml PER PROTOCOL IV ; Start 12/01/18 at 02:00 Ondansetron HCl (Zofran Inj) 4 mg Q6H PRN IV NAUSEA/VOMITING; Start 12/01/18 at 02:00 Acetaminophen (Tylenol Tab) 650 mg Q6H PRN GTB .PAIN 1-3 OR TEMP Last administered on 12/08/18at 11:31; Admin Dose 650 MG; Start 12/01/18 at 02:00 Linezolid 300 ml @ 300 mls/hr Q12 IVPB Last administered on 12/10/18at 09:36; Admin Dose 300 MLS/HR; Start 12/01/18 at 09:00 Insulin Aspart (Novolog Insulin Pen) NOVOLOG *MILD* ALGORI... Q4 SC Last admini stered on 12/10/18at 12:50; Admin Dose 2 UNIT; Start 12/01/18 at 09:00 Miscellaneous Information 1 ea NOTE XX ; Start 12/01/18 at 07:00 Glucose (Glutose) 15 gm Q15M PRN PO DECREASED GLUCOSE; Start 12/01/18 at 07:00 Glucose (Glutose) 22.5 gm Q15M PRN PO DECREASED GLUCOSE; Start 12/01/18 at 07:00 Dextrose (D50w Syringe) 25 ml Q15M PRN IV DECREASED GLUCOSE Last administered on 12/04/18 21:24; Admin Dose 25 ML; Start 12/01/18 at 07:00 Dextrose (D50w Syringe) 50 ml Q15M PRN IV DECREASED GLUCOSE; Start 12/01/18 at 07:00 Glucagon (Glucagen) 1 mg Q15M PRN IM DECREASED GLUCOSE; Start 12/01/18 at 07:00 Glucose (Glutose) 15 gm Q15M PRN BUCCAL DECREASED GLUCOSE; Start 12/01/18 at 07:00 Acetaminophen (Tylenol Liquid) 650 mg Q6H PRN GTB MILD PAIN(1-3)OR ELEVATED TEMP Last administered on 12/06/18 13:05; Admin Dose 650 MG; Start 12/01/18 at 07:30 Miscellaneous Information (Pending Santyl Order For Wound Care) This patient pritchard... PRN PRN XX WOUND CARE; Start 12/01/18 at 19:00 Chlorhexidine Gluconate (Peridex) 15 ml TID MT Last administered on 12/10/18 12:36; Admin Dose 15 ML; Start 12/02/18 at 09:00 Albuterol (Proventil 0.083% (Neb)) 1.25 mg Q4H RESP THERAPY HHN Last administered on 12/10/18 08:45; Admin Dose 1.25 MG; Start 12/02/18 at 17:00 Sodium Hypochlorite (Dakins Diluted (/40)) 1 applic DAILY TP Last administered on 12/10/18 08:59; Admin Dose 1 APPLIC; Start 12/03/18 at 11:00 Collagenase (Santyl) 1 applic DAILY TOP Last administered on 12/10/18 08:59; Admin Dose 1 APPLIC; Start 12/04/18 at 09:00 Collagenase (Santyl) 1 applic WHEN SOILED PRN TOP WOUND Last administered on 12/03/18 23:58; Admin Dose 1 APPLIC; Start 12/03/18 at 22:30 Heparin Sodium (Porcine) (Heparin (5000 Units/1ml)) 5,000 unit Q12H SC Last administered on 12/10/18 06:49; Admin Dose 5,000 UNIT; Start 12/04/18 at 17:00 Metoclopramide HCl (Reglan) 10 mg Q6 IV Last administered on 12/10/18 12:36; Admin Dose 10 MG; Start 12/04/18 at 18:00 Polyethylene Glycol (Miralax) 17 gm DAILY GTB Last administered on 12/10/18 08:55; Admin Dose 17 GM; Start 12/05/18 at 09:00 Fluconazole (Diflucan) 100 mg DAILY PO Last administered on 12/10/18 08:55; Admin Dose 100 MG; Start 12/08/18 at 09:00 Collagenase (Santyl) 1 applic DAILY TOP Last administered on 12/10/18 08:59; Admin Dose 1 APPLIC; Start 12/10/18 at 09:00 Folic Acid (Folic Acid) 1 mg DAILY GTB Last administered on 12/10/18 08:55; Admin Dose 1 MG; Start 12/10/18 at 09:00 Ascorbic Acid (Vitamin C) 250 mg DAILY GTB Last administered on 12/10/18 08:55; Admin Dose 250 MG; Start 12/10/18 at 09:00 Zinc Sulfate (Zinc Sulfate) 220 mg DAILY GTB Last administered on 12/10/18 08:55; Admin Dose 220 MG; Start 12/10/18 at 09:00 Meropenem/Sodium Chloride 50 ml @ 100 mls/hr Q12 IVPB Last administered on 12/10/18 08:59; Admin Dose 100 MLS/HR; Start 12/09/18 at 21:00 Furosemide (Lasix) 20 mg BID DIURETICS NGT Last administered on 12/10/18 06:15; Admin Dose 20 MG; Start 12/09/18 at 18:00 JAME DAN NP December 10, 2018 13:32
--- NOTE | 2018-12-10 13:55 | PN ---
Date/Time of Note Date/Time of Note DATE: 12/10/18 TIME: 13:50 Assessment/Plan VTE Prophylaxis Risk score (from Ns)>0 risk: 7 SCD applied (from Ns): Yes Pharmacological prophylaxis: heparin Lines/Catheters IV Catheter Type (from Nrsg): Saline Lock Urinary Cath still in place: Yes Reason Cath still needed: urinary retention Assessment/Plan Hospital Course 78-year-old male who had coming [facility] because of fever and a urinary tract infection and admitted with severe sepsis and hypernatremic dehydration with ROBBIE. He required transient ICU stay, currently managed as follows. Severe sepsis - Resolved Recurrent urinary tract infection - complete abx per ID Multiple decubiti, (sacroiliac / ischial/ lower extremities ) Wound care, debridement, and antibiotics Hypernatremic dehydration with ROBBIE on CKD-Improved Chronic hypoxic respiratory failure: - CT showing Bilateral layering and partially loculated pleural effusions are seen of mild to moderate severity with bilateral pleural thickening and the presence of possible pleural plaques resulting in compressive atelectasis of the adjacent lungs - Will start on PO lasix 6. Chronic debility with functional quadriplegia with history of CVA and Alzheimer's dementia 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 It is thought that this may be contributing to poor blood flow in the lower extremities precipitating gangrene and ulcer Patient was scheduled for knee release but surgery was canceled as deemed not in line with goals fo care History of insulin-dependent diabetes mellitus: Has been having multiple episodes of hypoglycemia, insulin currently on hold On tube feeds with diabetic source at 40 cc/h with 100 cc of free water every 4 hours 9. Chronic hypochromic anemia with history of iron deficiency Monitor, no indication for transfusion at this time 10. Multinodular thyroid gland check TSH and free T4 Prophylaxis: Heparin Ready for dc back to SNF Result Diagram: 12/10/18 0604 12/10/18 0604 Results 24hrs Laboratory Tests Test 12/09/18 17:16 12/09/18 20:38 12/10/18 00:31 12/10/18 04:10 Bedside Glucose 140 147 186 139 Test 12/10/18 06:04 12/10/18 08:53 12/10/18 12:37 White Blood Count 16.7 #H Red Blood Count 2.68 L Hemoglobin 7.5 L Hematocrit 24.0 L Mean Corpuscular 89.6 Volume Mean Corpuscular 28.0 L Hemoglobin Mean Corpuscular 31.3 L Hemoglobin Concent Red Cell 16.3 H Distribution Width Platelet Count 341 Mean Platelet Volume 10.7 H Immature 2.200 H Granulocytes % Neutrophils % 80.7 H Lymphocytes % 8.7 L Monocytes % 7.2 Eosinophils % 0.8 Basophils % 0.4 Nucleated Red Blood 0.0 Cells % Immature 0.370 H Granulocytes # Neutrophils # 13.5 H Lymphocytes # 1.5 Monocytes # 1.2 H Eosinophils # 0.1 Basophils # 0.1 Nucleated Red Blood 0.0 Cells # Sodium Level 142 Potassium Level 3.4 L Chloride Level 105 Carbon Dioxide Level 33 H Anion Gap 4 L Blood Urea Nitrogen 36 H Creatinine 1.52 H Est Glomerular Filtrat Rate mL/min Glucose Level 136 Calcium Level 10.1 Phosphorus Level 4.0 Magnesium Level 1.7 Bedside Glucose 168 183 Subjective 24 Hr Interval Summary Free Text/Dictation No change to clinical status Appears comfortable Exam/Review of Systems Exam Vitals Vital Signs Date Temp Pulse Resp B/P (MAP) Pulse Ox O2 O2 Flow FiO2 Time Delivery Rate 12/10/18 101 12:00 12/10/18 98.3 22 91/56 (68) 96 Room Air 11:33 12/10/18 3.0 08:45 12/08/18 33 05:40 Intake and Output 12/09/18 12/09/18 12/10/18 1515:00 23:00 07:00 IntakeIntake Total 450 ml 710 ml 930 ml OutputOutput Total 550 ml 1400 ml BalanceBalance 450 ml 160 ml -470 ml Constitutional: alert, oriented, well developed Psych: no complaints, nl mood/affect Head: normocephalic, atraumatic Eyes: nl conjunctiva, EOMI, nl lids, nl sclera, PERRL ENMT: nl external ears & nose, nl lips & teeth, nl nasal mucosa & septum Neck: supple, non-tender Respiratory: clear to auscultation, normal air movement Cardiovascular: regular rate and rhythm, nl pulses Gastrointestinal: soft, nl liver, spleen, non-tender Musculoskeletal: nl extremities to inspection, nl gait and stance Extremities: normal pulses Neurological: RELAY WORKER II-XII intact, nl mental status, nl speech, nl strength Skin: nl turgor; No rash or lesions Lymph: nl lymph nodes Results Results 24hrs Laboratory Tests Test 12/09/18 17:16 12/09/18 20:38 12/10/18 00:31 12/10/18 04:10 Bedside Glucose 140 147 186 139 Test 12/10/18 06:04 12/10/18 08:53 12/10/18 12:37 White Blood Count 16.7 #H Red Blood Count 2.68 L Hemoglobin 7.5 L Hematocrit 24.0 L Mean Corpuscular 89.6 Volume Mean Corpuscular 28.0 L Hemoglobin Mean Corpuscular 31.3 L Hemoglobin Concent Red Cell 16.3 H Distribution Width Platelet Count 341 Mean Platelet Volume 10.7 H Immature 2.200 H Granulocytes % Neutrophils % 80.7 H Lymphocytes % 8.7 L Monocytes % 7.2 Eosinophils % 0.8 Basophils % 0.4 Nucleated Red Blood 0.0 Cells % Immature 0.370 H Granulocytes # Neutrophils # 13.5 H Lymphocytes # 1.5 Monocytes # 1.2 H Eosinophils # 0.1 Basophils # 0.1 Nucleated Red Blood 0.0 Cells # Sodium Level 142 Potassium Level 3.4 L Chloride Level 105 Carbon Dioxide Level 33 H Anion Gap 4 L Blood Urea Nitrogen 36 H Creatinine 1.52 H Est Glomerular Filtrat Rate mL/min Glucose Level 136 Calcium Level 10.1 Phosphorus Level 4.0 Magnesium Level 1.7 Bedside Glucose 168 183 Medications Medication Current Medications IV Flush (NS 3 ml) 3 ml PER PROTOCOL IV ; Start 12/01/18 at 02:00 Ondansetron HCl (Zofran Inj) 4 mg Q6H PRN IV NAUSEA/VOMITING; Start 12/01/18 at 02:00 Acetaminophen (Tylenol Tab) 650 mg Q6H PRN GTB .PAIN 1-3 OR TEMP Last administered on 12/08/18at 11:31; Admin Dose 650 MG; Start 12/01/18 at 02:00 Linezolid 300 ml @ 300 mls/hr Q12 IVPB Last administered on 12/10/18at 09:36; Admin Dose 300 MLS/HR; Start 12/01/18 at 09:00 Insulin Aspart (Novolog Insulin Pen) NOVOLOG *MILD* ALGORI... Q4 SC Last administered on 12/10/18at 12:50; Admin Dose 2 UNIT; Start 12/01/18 at 09:00 Miscellaneous Information 1 ea NOTE XX ; Start 12/01/18 at 07:00 Glucose (Glutose) 15 gm Q15M PRN PO DECREASED GLUCOSE; Start 12/01/18 at 07:00 Glucose (Glutose) 22.5 gm Q15M PRN PO DECREASED GLUCOSE; Start 12/01/18 at 07:00 Dextrose (D50w Syringe) 25 ml Q15M PRN IV DECREASED GLUCOSE Last administered on 12/04/18 21:24; Admin Dose 25 ML; Start 12/01/18 at 07:00 Dextrose (D50w Syringe) 50 ml Q15M PRN IV DECREASED GLUCOSE; Start 12/01/18 at 07:00 Glucagon (Glucagen) 1 mg Q15M PRN IM DECREASED GLUCOSE; Start 12/01/18 at 07:00 Glucose (Glutose) 15 gm Q15M PRN BUCCAL DECREASED GLUCOSE; Start 12/01/18 at 07:00 Acetaminophen (Tylenol Liquid) 650 mg Q6H PRN GTB MILD PAIN(1-3)OR ELEVATED TEMP Last administered on 12/06/18 13:05; Admin Dose 650 MG; Start 12/01/18 at 07:30 Miscellaneous Information (Pending Santyl Order For Wound Care) This patient pritchard... PRN PRN XX WOUND CARE; Start 12/01/18 at 19:00 Chlorhexidine Gluconate (Peridex) 15 ml TID MT Last administered on 12/10/18 12:36; Admin Dose 15 ML; Start 12/02/18 at 09:00 Albuterol (Proventil 0.083% (Neb)) 1.25 mg Q4H RESP THERAPY HHN Last administered on 12/10/18 08:45; Admin Dose 1.25 MG; Start 12/02/18 at 17:00 Sodium Hypochlorite (Dakins Diluted (40)) 1 applic DAILY TP Last administered on 12/10/18 08:59; Admin Dose 1 APPLIC; Start 12/03/18 at 11:00 Collagenase (Santyl) 1 applic DAILY TOP Last administered on 12/10/18 08:59; Admin Dose 1 APPLIC; Start 12/04/18 at 09:00 Collagenase (Santyl) 1 applic WHEN SOILED PRN TOP WOUND Last administered on 12/03/18 23:58; Admin Dose 1 APPLIC; Start 12/03/18 at 22:30 Heparin Sodium (Porcine) (Heparin (5000 Units/1ml)) 5,000 unit Q12H SC Last administered on 12/10/18 06:49; Admin Dose 5,000 UNIT; Start 12/04/18 at 17:00 Metoclopramide HCl (Reglan) 10 mg Q6 IV Last administered on 12/10/18 12:36; Admin Dose 10 MG; Start 12/04/18 at 18:00 Polyethylene Glycol (Miralax) 17 gm DAILY GTB Last administered on 12/10/18 08:55; Admin Dose 17 GM; Start 12/05/18 at 09:00 Fluconazole (Diflucan) 100 mg DAILY PO Last administered on 12/10/18 08:55; Admin Dose 100 MG; Start 12/08/18 at 09:00 Collagenase (Santyl) 1 applic DAILY TOP Last administered on 12/10/18 08:59; Admin Dose 1 APPLIC; Start 12/10/18 at 09:00 Folic Acid (Folic Acid) 1 mg DAILY GTB Last administered on 12/10/18 08:55; Admin Dose 1 MG; Start 12/10/18 at 09:00 Ascorbic Acid (Vitamin C) 250 mg DAILY GTB Last administered on 12/10/18 08:55; Admin Dose 250 MG; Start 12/10/18 at 09:00 Zinc Sulfate (Zinc Sulfate) 220 mg DAILY GTB Last administered on 12/10/18 08:55; Admin Dose 220 MG; Start 12/10/18 at 09:00 Meropenem/Sodium Chloride 50 ml @ 100 mls/hr Q12 IVPB Last administered on 12/10/18 08:59; Admin Dose 100 MLS/HR; Start 12/09/18 at 21:00 Furosemide (Lasix) 20 mg BID DIURETICS NGT Last administered on 12/10/18 06:15; Admin Dose 20 MG; Start 12/09/18 at 18:00 PATRICIA MUÑOZ MD December 10, 2018 13:55
--- NOTE | 2018-12-10 17:38 | CONS ---
Assessment/Plan Assessment/Plan Assessment/Plan (Daily) Diabetic ulcer left lower extremity DM2 with peripheral neuropathy Dry gangrene PAD Knee contractures Alzheimer's Dementia Bed bound Hx of CVA UTI Sepsis Sacral decubitus ulcerations Plan: Continue with daily irrigation with dakins, betadine 4x4 gauze, and wrap with kerlix. Wound cultures enterococcus, acinetobacter, MRSA and corynebacterium. Recommend daily offloading with prevelon soft boots and pillows. Discussed with patient's daughter and stated that surgical intervention for knee release and aggressive therapy at this time is not ideal and would need to be more stable. Recommend local wound care at this time and discussed with patient's daughter to follow up in outpatient clinic upon discharge. Patient has Patient's daughter wants to pursue limb salvage at this time. Reviewed X-rays and no sign of osteomyelitis. Ulcerations appear stable. Once vascular status is optimized would benefit from debridements and potential grafting. Continue with IV abx as recommended. Discussions for hospice care, however daughter is not amenable to this option and wants to pursue full treatment. Consultation Date/Type/Reason Admit Date/Time December 01, 2018 at 01:35 Initial Consult Date Requesting Provider: GARY PETERSON Date/Time of Note DATE: 12/10/18 TIME: 17:38 24 HR Interval Summary Free Text/Dictation No acute events overnight. Exam/Review of Systems Exam Vitals Vital Signs Date Temp Pulse Resp B/P (MAP) Pulse Ox O2 O2 Flow FiO2 Time Delivery Rate 12/10/18 97.9 94 18 81/44 (56) 94 Nasal 4.0 17:27 Cannula 12/08/18 33 05:40 Intake and Output 12/09/18 12/09/18 12/10/18 1515:00 23:00 07:00 IntakeIntake Total 450 ml 710 ml 930 ml OutputOutput Total 550 ml 1400 ml BalanceBalance 450 ml 160 ml -470 ml Exam Unable to palpate pedal pulses Left lateral malleolus ulceration granular in nature which probes to bone 3 x 2 x 0.4cm, no purulence no proximal streaking or erythema Left lateral 5th metatarsal stable eschar, no drainage, no proximal streaking, 5 x 1.5cm indeterminate depth Absent protective sensations Pain with palpation to wound sites Knee contractures noted Results Result Diagram: 12/10/18 0604 12/10/18 0604 Results 24hrs Laboratory Tests Test 12/09/18 20:38 12/10/18 00:31 12/10/18 04:10 12/10/18 06:04 Bedside Glucose 147 186 139 White Blood Count 16.7 #H Red Blood Count 2.68 L Hemoglobin 7.5 L Hematocrit 24.0 L Mean Corpuscular 89.6 Volume Mean Corpuscular 28.0 L Hemoglobin Mean Corpuscular 31.3 L Hemoglobin Concent Red Cell 16.3 H Distribution Width Platelet Count 341 Mean Platelet Volume 10.7 H Immature 2.200 H Granulocytes % Neutrophils % 80.7 H Lymphocytes % 8.7 L Monocytes % 7.2 Eosinophils % 0.8 Basophils % 0.4 Nucleated Red Blood 0.0 Cells % Immature 0.370 H Granulocytes # Neutrophils # 13.5 H Lymphocytes # 1.5 Monocytes # 1.2 H Eosinophils # 0.1 Basophils # 0.1 Nucleated Red Blood 0.0 Cells # Sodium Level 142 Potassium Level 3.4 L Chloride Level 105 Carbon Dioxide Level 33 H Anion Gap 4 L Blood Urea Nitrogen 36 H Creatinine 1.52 H Est Glomerular Filtrat Rate mL/min Glucose Level 136 Calcium Level 10.1 Phosphorus Level 4.0 Magnesium Level 1.7 Test 12/10/18 08:53 12/10/18 12:37 12/10/18 17:03 Bedside Glucose 168 183 158 Medications Medication Current Medications IV Flush (NS 3 ml) 3 ml PER PROTOCOL IV ; Start 12/01/18 at 02:00 Ondansetron HCl (Zofran Inj) 4 mg Q6H PRN IV NAUSEA/VOMITING; Start 12/01/18 at 02:00 Acetaminophen (Tylenol Tab) 650 mg Q6H PRN GTB .PAIN 1-3 OR TEMP Last administered on 12/08/18at 11:31; Admin Dose 650 MG; Start 12/01/18 at 02:00 Linezolid 300 ml @ 300 mls/hr Q12 IVPB Last administered on 12/10/18at 09:36; Admin Dose 300 MLS/HR; Start 12/01/18 at 09:00 Insulin Aspart (Novolog Insulin Pen) NOVOLOG *MILD* ALGORI... Q4 SC Last admin istered on 12/10/18at 12:50; Admin Dose 2 UNIT; Start 12/01/18 at 09:00 Miscellaneous Information 1 ea NOTE XX ; Start 12/01/18 at 07:00 Glucose (Glutose) 15 gm Q15M PRN PO DECREASED GLUCOSE; Start 12/01/18 at 07:00 Glucose (Glutose) 22.5 gm Q15M PRN PO DECREASED GLUCOSE; Start 12/01/18 at 07:00 Dextrose (D50w Syringe) 25 ml Q15M PRN IV DECREASED GLUCOSE Last administered on 12/04/18 21:24; Admin Dose 25 ML; Start 12/01/18 at 07:00 Dextrose (D50w Syringe) 50 ml Q15M PRN IV DECREASED GLUCOSE; Start 12/01/18 at 07:00 Glucagon (Glucagen) 1 mg Q15M PRN IM DECREASED GLUCOSE; Start 12/01/18 at 07:00 Glucose (Glutose) 15 gm Q15M PRN BUCCAL DECREASED GLUCOSE; Start 12/01/18 at 07:00 Acetaminophen (Tylenol Liquid) 650 mg Q6H PRN GTB MILD PAIN(1-3)OR ELEVATED TEMP Last administered on 12/06/18 13:05; Admin Dose 650 MG; Start 12/01/18 at 07:30 Miscellaneous Information (Pending Santyl Order For Wound Care) This patient pritchard... PRN PRN XX WOUND CARE; Start 12/01/18 at 19:00 Chlorhexidine Gluconate (Peridex) 15 ml TID MT Last administered on 12/10/18 12:36; Admin Dose 15 ML; Start 12/02/18 at 09:00 Albuterol (Proventil 0.083% (Neb)) 1.25 mg Q4H RESP THERAPY HHN Last administered on 12/10/18 13:59; Admin Dose 1.25 MG; Start 12/02/18 at 17:00 Sodium Hypochlorite (Dakins Diluted (40)) 1 applic DAILY TP Last administered on 12/10/18 08:59; Admin Dose 1 APPLIC; Start 12/03/18 at 11:00 Collagenase (Santyl) 1 applic DAILY TOP Last administered on 12/10/18 08:59; Admin Dose 1 APPLIC; Start 12/04/18 at 09:00 Collagenase (Santyl) 1 applic WHEN SOILED PRN TOP WOUND Last administered on 12/03/18 23:58; Admin Dose 1 APPLIC; Start 12/03/18 at 22:30 Heparin Sodium (Porcine) (Heparin (5000 Units/1ml)) 5,000 unit Q12H SC Last administered on 12/10/18 06:49; Admin Dose 5,000 UNIT; Start 12/04/18 at 17:00 Polyethylene Glycol (Miralax) 17 gm DAILY GTB Last administered on 12/10/18 08:55; Admin Dose 17 GM; Start 12/05/18 at 09:00 Fluconazole (Diflucan) 100 mg DAILY PO Last administered on 12/10/18 08:55; Admin Dose 100 MG; Start 12/08/18 at 09:00 Collagenase (Santyl) 1 applic DAILY TOP Last administered on 12/10/18 08:59; Admin Dose 1 APPLIC; Start 12/10/18 at 09:00 Folic Acid (Folic Acid) 1 mg DAILY GTB Last administered on 12/10/18 08:55; Admin Dose 1 MG; Start 12/10/18 at 09:00 Ascorbic Acid (Vitamin C) 250 mg DAILY GTB Last administered on 12/10/18 08:55; Admin Dose 250 MG; Start 12/10/18 at 09:00 Zinc Sulfate (Zinc Sulfate) 220 mg DAILY GTB Last administered on 12/10/18 08:55; Admin Dose 220 MG; Start 12/10/18 at 09:00 Meropenem/Sodium Chloride 50 ml @ 100 mls/hr Q12 IVPB Last administered on 12/10/18 08:59; Admin Dose 100 MLS/HR; Start 12/09/18 at 21:00 Furosemide (Lasix) 20 mg BID DIURETICS NGT Last administered on 12/10/18 06:15; Admin Dose 20 MG; Start 12/09/18 at 18:00 REINA CASEY DPCass December 10, 2018 17:38
[2018-12-11] VITALS (10 sets, daily range): BP systolic 97–119; BP diastolic 50–56; PULSE 60–104; RESP 18–19
[2018-12-11] MEDS: ALBUTEROL 0.083% (NEB) 2.5 MG/3 ML AMP HHN SCH ×6 (00:51→20:49)
[2018-12-11] MEDS: INSULIN ASPART [NOVOLOG] 3 ML PEN SC SCH ×6 (01:51→21:12)
[2018-12-11] MEDS: FUROSEMIDE 20 MG TAB NGT SCH ×2 (05:38→17:22)
[2018-12-11] MEDS: HEPARIN 5,000 UNIT/1 ML VIAL SC SCH ×2 (05:44→17:28)
[2018-12-11] MEDS: DAKINS 0.0125%(1/40) 473 ML SOLUTION TP SCH (09:00)
[2018-12-11] MEDS: COLLAGENASE 5 GM (UD JAR) TOP SCH ×2 (09:00)
[2018-12-11] MEDS: MEROPENEM 500MG/50 ML (PMX) 50 ML IVPB SCH ×2 (09:55→21:02)
[2018-12-11] MEDS: ACETAMINOPHEN 650MG/20.3ML CUP GTB PRN (09:55)
[2018-12-11] MEDS: POLYETHYLENE GLYCOL 17 GM PACKET GTB SCH (09:55)
[2018-12-11] MEDS: CHLORHEXIDINE GLUCONATE 15 ML UD CUP MT SCH ×3 (09:55→21:03)
[2018-12-11] MEDS: FLUCONAZOLE 100 MG TAB PO SCH (09:56)
[2018-12-11] MEDS: FOLIC ACID 1 MG TAB GTB SCH (09:56)
[2018-12-11] MEDS: ZINC SULFATE 220 MG CAP GTB SCH (09:56)
[2018-12-11] MEDS: ASCORBIC ACID 250 MG TAB GTB SCH (09:56)
--- NOTE | 2018-12-11 10:31 | PN ---
DATE: 12/11/2018 SUBJECTIVE: The patient is stable. No events overnight. No fever, chills, nausea or vomiting. OBJECTIVE: VITAL SIGNS: Blood pressure is 108/54, respirations 18, pulse 99, temperature 99.1. HEENT: Head is normocephalic. NECK: Supple. HEART: Regular rate. LUNGS: Show diminished breath sounds at the base. ABDOMEN: Soft, nontender to palpation without rebound or guarding. EXTREMITIES: Negative for clubbing, cyanosis. Trace edema. DERMATOLOGIC: No rashes. MUSCULOSKELETAL: No joint effusion. NEUROLOGIC: No change in exam. MEDICATIONS: Reviewed. LABORATORY DATA: Reviewed. ASSESSMENT AND PLAN: 1. Nonoliguric acute kidney injury with previous baseline creatinine of 1.0 mg/dL. Etiology of acut e kidney injury is secondary to hemodynamics, tubular injury. The patient's renal function is fluctu ating, but improved in the last 24 hours. At this point, continue current treatment plan, supportive care, renally dose all meds. 2. Volume overload. Continue low-dose diuretic therapy and monitor closely. 3. Hypomagnesemia and hypokalemia. Continue to monitor and replete as needed. 4. Anemia with iron deficiency. The patient is completing course of IV iron. 5. Mineral bone disorder, monitor calcium and phosphorus levels. 6. Acute hypoxemic respiratory failure secondary to pneumonia and congestive heart failure. Continu e medical management. Continue diuretic therapy. 7. Sepsis secondary to pneumonia. Continue current antibiotic regimen. 8. Decubitus wound. Continue wound care. 9. Diabetes. Continue current insulin regimen. 10. Dysphagia. Continue tube feeding. 11. History of acute encephalopathy on dementia. 12. History of cerebrovascular accident. Dictated By: KACY DILLARD DO NR/NTS Conf#: [id number] DID#: [id number] CC: PATRICIA MUÑOZ MD; IKER FAM MD; FRANCISCA DELUCA MD;*End*
--- NOTE | 2018-12-11 10:36 | PN ---
Date/Time of Note Date/Time of Note DATE: 12/11/18 TIME: 10:32 Assessment/Plan Lines/Catheters IV Catheter Type (from [facility]): Saline Lock [place] in Place (from [facility]): Yes Assessment/Plan Chief Complaint/Hosp Course 1. Multiple wounds: Status post left ischial wound debridement 12/09/2018 -Further debridement as needed -local care -frequent turning and off-loading -low air loss mattress -vitamin c -short term zinc -optimize nutrition -Left ischial culture> pending results WBC normalized -Lower extremity wounds per podiatry 2. Sepsis: Likely multifactorial: improved; WBC normalized -Supportive -Antibiotics per sensitivity -Trend 3. UTI: -abx per sensitivity -frequent bladder emptying/cath care 4. Chronic encephalopathy: -Supportive -Treat infections 5. Severe contractures: -Possible knee release by Dr. Matamoros 6. ROBBIE: improved -Limit nephrotoxic meds -Renally dose meds -Per renal 7. Bilateral pleural effusions w infiltrates; copious secretions -Pulmonary toilet/fluid management -Per pulmonary Thank you. Patient seen and examined in collaboration with Dr. Lico Perera. Subjective 24 Hr Interval Summary WBC normalized. Appears comfortable. Nonverbal indicators of pain not present. No fevers, labored breathing, vomiting, diarrhea, seizure, rash. moderate secretions. No overt bleeding noted. Exam/Review of Systems Vital Signs Vitals Vital Signs Date Temp Pulse Resp B/P (MAP) Pulse Ox O2 O2 Flow FiO2 Time Delivery Rate 12/11/18 68 26 98 Nasal 3.0 08:58 Cannula 12/11/18 99.1 108/54 07:29 (72) 12/08/18 33 05:40 Intake and Output 12/10/18 12/10/18 12/11/18 1515:00 23:00 07:00 IntakeIntake Total 350 ml 980 ml 390 ml OutputOutput Total 600 ml 1850 ml BalanceBalance 350 ml 380 ml -1460 ml Exam Free Text/Dictation Constitutional: alert; No oriented Psych: no complaints, nl mood/affect; No anxiety Head: normocephalic, atraumatic Eyes: nl conjunctiva, EOMI, nl lids, nl sclera ENMT: nl external ears & nose, nl lips & teeth, mucosa pink and moist Neck: supple, non-tender Respiratory: normal air movement; congested cough Cardiovascular: regular rate and rhythm; No edema Gastrointestinal: soft; No distended, No tender Musculoskeletal: other (Contractures) Extremities: normal pulses; No edema Neurological: No nl mental status (Confused), No nl speech, No nl strength (Contractures, generalized weakness) Skin: other (Multiple wounds: Sacral (clean, scant drainage); left ischium: scant drainage, no periwound erythema, no odor, packed, no bleeding); No rash or lesions Results Result Diagram: 12/11/18 0715 12/11/18 0715 DAQUAN HERNANDEZ NP December 11, 2018 10:36
--- NOTE | 2018-12-11 13:50 | CONS ---
Assessment/Plan Assessment/Plan Hospital Course (Demo Recall) No acute events, patient is noncommunicative in no distress afebrile. Microbiology: Initial wound culture grew Pseudomonas, E. coli ESBL, Proteus mirabilis, VRE. Sputum culture grew MRSA, Kat albicans and Kat glabrata. Antimicrobials: Meropenem, Zyvox, fluconazole Indwelling: Trach, PEG, Wynn Physical examination: Chronically ill-appearing elderly man who is in no distress. Head atraumatic normocephalic neck is supple chest rise symmetrical breath sounds diminished to bases heart: S1-S2 abdomen soft, bowel sounds present extremities contractured lower extremities Assessment: 1. Sepsis, present on admission 2. Acute on chronic kidney disease 3. Multiple decubitus status post left initial wound debridement 4. Acute on chronic encephalopathy 5. Dysphagia 6. Hx prostate cancer 7. 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 +/-PNA Plan: Remains unchanged, continue abx to complete 2 weeks, local wound care per surgical team ? dc planning Consultation Date/Type/Reason Admit Date/Time December 01, 2018 at 01:35 Initial Consult Date Type of Consult id Requesting Provider: GARY PETERSON Date/Time of Note DATE: 12/11/18 TIME: 13:48 Exam/Review of Systems Exam Vitals Vital Signs Date Temp Pulse Resp B/P (MAP) Pulse Ox O2 O2 Flow FiO2 Time Delivery Rate 12/11/18 Nasal 3.0 12:24 Cannula 12/11/18 98.2 12:20 12/11/18 97 12:00 12/11/18 18 105/54 94 11:07 (71) 12/08/18 33 05:40 Intake and Output 12/10/18 12/10/18 12/11/18 1414:59 22:59 06:59 IntakeIntake Total 350 ml 980 ml 390 ml OutputOutput Total 600 ml 1850 ml BalanceBalance 350 ml 380 ml -1460 ml Results Result Diagram: 12/11/18 0715 12/11/18 0715 Results 24hrs Laboratory Tests Test 12/10/18 17:03 12/10/18 20:34 12/11/18 01:46 12/11/18 05:34 Bedside Glucose 158 141 179 160 Test 12/11/18 07:15 12/11/18 10:00 12/11/18 12:57 12/11/18 12:59 White Blood Count 10.5 # Red Blood Count 2.45 L Hemoglobin 6.7 *L Hematocrit 22.1 L Mean Corpuscular 90.2 Volume Mean Corpuscular 27.3 L Hemoglobin Mean Corpuscular 30.3 L Hemoglobin Concent Red Cell 16.3 H Distribution Width Platelet Count 289 Mean Platelet Volume 9.9 Immature 1.400 H Granulocytes % Neutrophils % 76.8 Segmented 75 Neutrophils % (Manual) Band Neutrophils % 2 (Manual) Lymphocytes % 12.4 L Lymphocytes % 11 L (Manual) Monocytes % 8.1 Monocytes % (Manual) 7 Eosinophils % 1.0 Eosinophils % 2 (Manual) Basophils % 0.3 Myelocytes % 3 H (Manual) Nucleated Red Blood 0.0 Cells % Immature 0.150 H Granulocytes # Neutrophils # 8.1 H Neutrophils # 7.9 H (Manual) Band Neutrophils # 0.2 Lymphocytes (Manual) 1.1 Lymphocytes # 1.3 Monocytes # 0.9 Monocytes # (Manual) 0.7 Eosinophils # 0.1 Basophils # 0.0 Myelocytes # 0.3 H Nucleated Red Blood 0.0 Cells # Pathologist YES Review (Hematology) Platelet Estimate NORMAL Polychromasia 3+ Poikilocytosis 1+ Anisocytosis 1+ Microcytosis 1+ Sodium Level 143 Potassium Level 3.4 L Chloride Level 106 Carbon Dioxide Level 34 H Anion Gap 3 L Blood Urea Nitrogen 35 H Creatinine 1.43 H Est Glomerular Filtrat Rate mL/min Glucose Level 131 Calcium Level 9.8 Phosphorus Level 3.7 Magnesium Level 1.5 L Bedside Glucose 129 161 179 Medications Medication Current Medications IV Flush (NS 3 ml) 3 ml PER PROTOCOL IV ; Start 12/01/18 at 02:00 Ondansetron HCl (Zofran Inj) 4 mg Q6H PRN IV NAUSEA/VOMITING Last administered on 12/11/18 09:56; Admin Dose 4 MG; Start 12/01/18 at 02:00 Acetaminophen (Tylenol Tab) 650 mg Q6H PRN GTB .PAIN 1-3 OR TEMP Last adm inistered on 12/08/18 11:31; Admin Dose 650 MG; Start 12/01/18 at 02:00 Insulin Aspart (Novolog Insulin Pen) NOVOLOG *MILD* ALGORI... Q4 SC Last administered on 12/11/18 13:15; Admin Dose 1 UNIT; Start 12/01/18 at 09:00 Miscellaneous Information 1 ea NOTE XX ; Start 12/01/18 at 07:00 Glucose (Glutose) 15 gm Q15M PRN PO DECREASED GLUCOSE; Start 12/01/18 at 07:00 Glucose (Glutose) 22.5 gm Q15M PRN PO DECREASED GLUCOSE; Start 12/01/18 at 07:00 Dextrose (D50w Syringe) 25 ml Q15M PRN IV DECREASED GLUCOSE Last administered on 12/04/18at 21:24; Admin Dose 25 ML; Start 12/01/18 at 07:00 Dextrose (D50w Syringe) 50 ml Q15M PRN IV DECREASED GLUCOSE; Start 12/01/18 at 07:00 Glucagon (Glucagen) 1 mg Q15M PRN IM DECREASED GLUCOSE; Start 12/01/18 at 07:00 Glucose (Glutose) 15 gm Q15M PRN BUCCAL DECREASED GLUCOSE; Start 12/01/18 at 07:00 Acetaminophen (Tylenol Liquid) 650 mg Q6H PRN GTB MILD PAIN(1-3)OR ELEVATED TEMP Last administered on 12/11/18 09:55; Admin Dose 650 MG; Start 12/01/18 at 07:30 Miscellaneous Information (Pending Santyl Order For Wound Care) This patient pritchard... PRN PRN XX WOUND CARE; Start 12/01/18 at 19:00 Chlorhexidine Gluconate (Peridex) 15 ml TID MT Last administered on 12/11/18 13:09; Admin Dose 15 ML; Start 12/02/18 at 09:00 Albuterol (Proventil 0.083% (Neb)) 1.25 mg Q4H RESP THERAPY HHN Last administered on 12/11/18 13:39; Admin Dose 1.25 MG; Start 12/02/18 at 17:00 Sodium Hypochlorite (Dakins Diluted ()) 1 applic DAILY TP Last administered on 12/10/18 08:59; Admin Dose 1 APPLIC; Start 12/03/18 at 11:00 Collagenase (Santyl) 1 applic DAILY TOP Last administered on 12/10/18 08:59; Admin Dose 1 APPLIC; Start 12/04/18 at 09:00 Collagenase (Santyl) 1 applic WHEN SOILED PRN TOP WOUND Last administered on 12/03/18 23:58; Admin Dose 1 APPLIC; Start 12/03/18 at 22:30 Heparin Sodium (Porcine) (Heparin (5000 Units/1ml)) 5,000 unit Q12H SC Last a dministered on 12/11/18 05:44; Admin Dose 5,000 UNIT; Start 12/04/18 at 17:00 Polyethylene Glycol (Miralax) 17 gm DAILY GTB Last administered on 12/11/18 09:55; Admin Dose 17 GM; Start 12/05/18 at 09:00 Fluconazole (Diflucan) 100 mg DAILY PO Last administered on 12/11/18 09:56; Admin Dose 100 MG; Start 12/08/18 at 09:00 Collagenase (Santyl) 1 applic DAILY TOP Last administered on 12/10/18 08:59; Admin Dose 1 APPLIC; Start 12/10/18 at 09:00 Folic Acid (Folic Acid) 1 mg DAILY GTB Last administered on 12/11/18 09:56; Admin Dose 1 MG; Start 12/10/18 at 09:00 Ascorbic Acid (Vitamin C) 250 mg DAILY GTB Last administered on 12/11/18 09:56; Admin Dose 250 MG; Start 12/10/18 at 09:00 Zinc Sulfate (Zinc Sulfate) 220 mg DAILY GTB Last administered on 12/11/18 09:56; Admin Dose 220 MG; Start 12/10/18 at 09:00 Meropenem/Sodium Chloride 50 ml @ 100 mls/hr Q12 IVPB Last administered on 09:55; Admin Dose 100 MLS/HR; Start 12/09/18 at 21:00 Furosemide (Lasix) 20 mg BID DIURETICS NGT Last administered on 12/11/18 05:38; Admin Dose 20 MG; Start 12/09/18 at 18:00 JAME DAN NP December 11, 2018 13:49
--- NOTE | 2018-12-11 15:14 | DS ---
Date/Time of Note Date/Time of Note DATE: 12/11/18 TIME: 15:12 Discharge Summary Admission/Discharge Info Admit Date/Time December 01, 2018 at 01:35 Discharge Date/Time Discharge Diagnosis Sepsis Dementia Patient Condition: Stable Hospital Course 78-year-old male who had coming sent from long term facility because of fever and a urinary tract infection and admitted with severe sepsis and hypernatremic dehydration with ROBBIE. He required transient ICU stay, and was managed as follows. Severe sepsis - Treated with IV antibiotics per ID service, symptoms resolved Recurrent urinary tract infection - completed abx per ID Multiple decubiti, (sacroiliac / ischial/ lower extremities ) Wound care, debridement was performed by general, and antibiotics were given for above issues Hypernatremic dehydration with ROBBIE on CKD-Improved with IV fluids and water Chronic hypoxic respiratory failure: - CT showing Bilateral layering and partially loculated pleural effusions are seen of mild to moderate severity with bilateral pleural thickening and the presence of possible pleural plaques resulting in compressive atelectasis of the adjacent lungs - He was started on PO lasix to be taken chronically Chronic debility with functional quadriplegia with history of CVA and Alzheimer's dementia 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 It is thought that this may be contributing to poor blood flow in the lower extremities precipitating gangrene and ulcer Patient was considered for knee release but surgery was canceled as deemed not in line with goals fo care Chronic hypochromic anemia with history of iron deficiency - He was transfused 2 units or PRBCs for chronic anemia Home Meds Active Scripts [Vancomycin Iv Per Pharmacy] 1 EA EACH No Conflict Check, 0 EA XX .PER PROTOCOL for 1 Day last dose 11/13 Prov:NARCISO AVILEZ NP 11/12/18 Lansoprazole (Heartburn Treatment 24 Hour) 15 Mg Capsule., 15 MG GTB DAILY@06 for 30 Days Prov:NARCISO AVILEZ NP 11/07/18 Amlodipine Besylate* (Amlodipine Besylate*) 10 Mg Tablet, 10 MG GTB DAILY for 30 Days, TAB Prov:NARCISO AVILEZ NP 11/07/18 Reported Medications Acetaminophen* (Acetaminophen*) 325 Mg Tablet, 650 MG GTB Q6H PRN for MILD PAIN(1-3)OR ELEVATED TEMP, #30 TAB 10/30/18 Abiraterone Acetate (Zytiga) 500 Mg Tablet, 1000 MG GTB DAILY, TAB 10/30/18 Insulin Glargine* (Lantus*) 100 Unit/Ml Soln, 20 UNIT SC QHS, #1 VIAL 10/30/18 Glucagon,Human Recombinant (Glucagon Emergency Kit) 1 Mg Kit, 1 MG IJ NEEDED PRN for IF BLOOD GLUCOSE<70, KIT 10/30/18 Primary Care Provider Care Physician No Primary Pending Labs Laboratory Tests Test 12/10/18 17:03 12/10/18 20:34 12/11/18 01:46 12/11/18 05:34 Bedside 158 141 179 160 Glucose mg/dL (70-220) mg/dL (70-220) mg/dL (70-220) mg/dL (70-220) Test 12/11/18 07:15 12/11/18 10:00 12/11/18 12:57 12/11/18 12:59 White Blood 10.5 Count 10^3/ul (4.8-10 .8) Red Blood 2.45 Count 10^6/ul (4.70-6 .10) Hemoglobin 6.7 g/dl (14.0-18.0 ) Hematocrit 22.1 % (42.0-52.0) Mean 90.2 Corpuscular fl (82.0-101.0) Volume Mean 27.3 Corpuscular pg (29.0-33.0) Hemoglobin Mean 30.3 Corpuscular g/dl (32.0-37.0 Hemoglobin Conc ) ent Red Cell 16.3 Distribution % (11.5-14.5) Width Platelet Count 289 10^3/UL (140-41 5) Mean Platelet 9.9 Volume fl (7.4-10.4) Immature 1.400 Granulocytes % % (0.001-0.429) Neutrophils % 76.8 % (39.0-77.0) Segmented 75 % (39-77) Neutrophils % (Manual) Band 2 % (0-4) Neutrophils % (Manual) Lymphocytes % 12.4 % (15.0-51.0) Lymphocytes % 11 % (15-51) (Manual) Monocytes % 8.1 % (0.0-11.0) Monocytes % 7 % (0-11) (Manual) Eosinophils % 1.0 % (0.0-7.0) Eosinophils % 2 % (0-7) (Manual) Basophils % 0.3 % (0.0-2.0) Myelocytes % 3 % (0-0) (Manual) Nucleated Red 0.0 Blood Cells % /100WBC (0.0-0. 0) Immature 0.150 Granulocytes # 10^3/ul (0.0-0. 031) Neutrophils # 8.1 10^3/ul (1.6-7. 5) Neutrophils # 7.9 (Manual) 10^3/ul (1.6-7. 5) Band 0.2 Neutrophils # 10^3/ul (0.0-0. 6) Lymphocytes 1.1 (Manual) 10^3/ul (0.8-2. 9) Lymphocytes # 1.3 10^3/ul (0.8-2. 9) Monocytes # 0.9 10^3/ul (0.3-0. 9) Monocytes # 0.7 (Manual) 10^3/ul (0.3-0. 9) Eosinophils # 0.1 10^3/ul (0.0-0. 5) Basophils # 0.0 10^3/ul (0.0-0. 1) Myelocytes # 0.3 10^3/ul (0.0-0. 0) Nucleated Red 0.0 Blood Cells # 10^3/ul (0.0-0. 0) Pathologist YES Review (Hematol ogy) Platelet NORMAL Estimate Polychromasia 3+ (0-0) Poikilocytosis 1+ (0-0) Anisocytosis 1+ (0-0) Microcytosis 1+ (0-0) Sodium Level 143 mmol/L (135-144 ) Potassium 3.4 Level mmol/L (3.5-5.1 ) Chloride Level 106 mmol/L (97-110) Carbon Dioxide 34 Level mmol/L (21-31) Anion Gap 3 (5-13) Blood Urea 35 mg/dl (7-20) Nitrogen Creatinine 1.43 mg/dl (0.61-1.2 4) Est Glomerular mL/min (>60) Filtrat Rate mL/min Glucose Level 131 mg/dl (70-220) Calcium Level 9.8 mg/dl (8.4-10.2 ) Phosphorus 3.7 Level mg/dl (2.5-4.9) Magnesium 1.5 Level mg/dl (1.7-2.5) Bedside 129 161 179 Glucose mg/dL (70-220) mg/dL (70-220) mg/dL (70-220) Microbiology Date/Time Source Procedure Growth Status 12/10/18 16:00 Ischium Gram Stain - Final Resulted 12/10/18 16:00 Ischium Wound Culture - Preliminary Resulted PATRICIA MUÑOZ MD December 11, 2018 15:14
--- NOTE | 2018-12-15 14:21 | RADRPT ---
Vent Rate: 124 bpm RR Interval: 0 msec MI Interval: 128 msec QRS Duration: 58 msec QT Interval: 304 msec QTC Interval: 436 msec P-R-T [place]: 111 - -9 - 67 degrees Probabale sinus rhythm Low voltage QRS Nonspecific ST and T wave abnormality PVC's Baseline artifact affecting accurate interpretation Abnormal ECG Electronically Signed By: Trevor Loya
== END 2018-12-11 23:08 | DRG 853 ==
LOC: E/R 00:13 → ICU 01:35 → EDBEDREQSVC 02:28 → TEL 14:10
PROVIDERS: ADMIT Family Medicine; ATTEND Internal Medicine
PROC: 0KBP0ZZ Excision of Left Hip Muscle, Open Approach (ICD-10-PCS; principal; 2018-12-09)
PROC: 30233N1 Transfusion of Nonautologous Red Blood Cells into Peripheral Vein, Percutaneous Approach (ICD-10-PCS; 2018-12-11)
DX: A41.9 Sepsis, unspecified organism (principal); L89.324 Pressure ulcer of left buttock, stage 4; L89.153 Pressure ulcer of sacral region, stage 3; L89.523 Pressure ulcer of left ankle, stage 3; L89.893 Pressure ulcer of other site, stage 3; R65.21 Severe sepsis with septic shock; G92 Toxic encephalopathy; R53.2 Functional quadriplegia; J96.21 Acute and chronic respiratory failure with hypoxia; J18.9 Pneumonia, unspecified organism; N39.0 Urinary tract infection, site not specified; N17.9 Acute kidney failure, unspecified; E11.52 Type 2 diabetes mellitus with diabetic peripheral angiopathy with gangrene; I96 Gangrene, not elsewhere classified; E87.0 Hyperosmolality and hypernatremia; E87.3 Alkalosis; E87.1 Hypo-osmolality and hyponatremia; I13.0 Hypertensive heart and chronic kidney disease with heart failure and stage 1 through stage 4 chronic kidney disease, or unspecified chronic kidney disease; L97.329 Non-pressure chronic ulcer of left ankle with unspecified severity; E11.22 Type 2 diabetes mellitus with diabetic chronic kidney disease; I12.9 Hypertensive chronic kidney disease with stage 1 through stage 4 chronic kidney disease, or unspecified chronic kidney disease; N18.9 Chronic kidney disease, unspecified; F02.80 Dementia in other diseases classified elsewhere, unspecified severity, without behavioral disturbance, psychotic disturbance, mood disturbance, and anxiety; E86.0 Dehydration; D50.9 Iron deficiency anemia, unspecified; G30.9 Alzheimer's disease, unspecified; R13.10 Dysphagia, unspecified; L98.499 Non-pressure chronic ulcer of skin of other sites with unspecified severity; E11.40 Type 2 diabetes mellitus with diabetic neuropathy, unspecified; E11.621 Type 2 diabetes mellitus with foot ulcer; L97.529 Non-pressure chronic ulcer of other part of left foot with unspecified severity; R65.20 Severe sepsis without septic shock; E87.6 Hypokalemia; E83.42 Hypomagnesemia; E11.649 Type 2 diabetes mellitus with hypoglycemia without coma; I50.9 Heart failure, unspecified; M24.562 Contracture, left knee; M24.561 Contracture, right knee; M24.552 Contracture, left hip; M24.551 Contracture, right hip; C61 Malignant neoplasm of prostate; Z74.01 Bed confinement status; Z86.73 Personal history of transient ischemic attack (TIA), and cerebral infarction without residual deficits
CPT/HCPCS: 36415; 36430; 36600; 71045; 71250; 73610; 80048; 80053; 81001; 81003; 82043; 82803; 82962; 83540; 83605; 83735; 84100; 84155; 84300; 84439; 84443; 84484; 85025; 85610; 85730; 86703; 86803; 86850; 86900; 86901; 86920; 87070; 87086; 87340; 89220; 93005; 93970; 94640; 94664; J0692; J1335; J1644; J1815; J1940; J2185; J2405; J2765; J2916; J3370; J3475; J3480; J7030; J7042; J7070; P9016

== ENCOUNTER 2019-03-07 11:21 | Inpatient (IN) | payer MEDICARE, OTHER ==
[~2019-03-07] VITALS: Ht 172.7 cm; Wt 64.5 kg
[~2019-03-07 11:21] MED LIST changes: +AMIN30LI GTB; +ASC500 PO; +BISA10SU55 RC; +DOCU-144 GTB; +FAMO40TA5 GTB; +FERR220S13 GTB; +HYDR20TA GTB; +HYDR5TAB GTB; +IPRA3AMP29 INHALATION; +LACT1CAP72 GTB; +LEVEM SQ; +MAGN400O19 GTB; +MINE133E23 PR; +SENN-120 GTB; +ZINC220C5 GTB; +[UNRECOGNIZED DRUG - CODE] GTB
[2019-03-07] MEDS ORDERED: IPRATROPIUM (NEB) 0.5 MG/2.5 ML AMP INH STA (11:27)
[2019-03-07] MEDS ORDERED: ALBUTEROL 0.083% (NEB) 2.5 MG/3 ML AMP INH STA (11:27)
[2019-03-07] MEDS ORDERED: CEFTRIAXONE 1 GM/50 ML (PMX) 50 ML IVPB STA (11:54)
[2019-03-07] MEDS ORDERED: AZITHROMYCIN 500MG/NS (PMX) 250 ML IV STA (11:54)
[2019-03-07] MEDS ORDERED: SODIUM CHLORIDE 0.9% 1L BAG IV* STA (12:27)
[2019-03-07] MEDS ORDERED: ACETAMINOPHEN 325 MG TAB PO PRN (13:30)
[2019-03-07] MEDS ORDERED: ONDANSETRON 4 MG INJ IV PRN ×2 (13:30→15:00)
[2019-03-07] MEDS ORDERED: VANCOMYCIN IV PER PHARMACY XX SCH (15:00)
[2019-03-07] MEDS ORDERED: NACL 0.9% 3 ML SYG IV SCH (15:00)
[2019-03-07] MEDS: SOD CHLORIDE 0.9% 1,000 ML IV SCH (15:14)
[2019-03-07] MEDS ORDERED: VANCOMYCIN 1.25 GM IN 0.9 % SOD CHLORIDE 250 ML IVPB SCH (15:30)
[2019-03-07] MEDS ORDERED: ACETAMINOPHEN 650MG/20.3ML CUP GTB PRN (15:30)
[2019-03-07 16:20] VITALS: BP 115/57; PULSE 102; RESP 18
[2019-03-07 17:00] VITALS: Ht 172.7 cm; Wt 64.5 kg
[2019-03-07] MEDS: PIPER-TAZO 3.375 GM IV (PMX) 100 ML IVPB SCH ×2 (17:16→22:07)
[2019-03-07] MEDS: LEVALBUTEROL (NEB) 0.63 MG/3 ML AMP HHN SCH ×2 (17:54→20:13)
[2019-03-07] MEDS: INSULIN ASPART [NOVOLOG] 3 ML PEN SC SCH ×2 (18:29→21:36)
[2019-03-07 19:57] VITALS: BP 127/71; PULSE 99; RESP 20
[2019-03-07] MEDS ORDERED: HEPARIN 5,000 UNIT/1 ML VIAL SC SCH (21:00)
[2019-03-07] MEDS: SENNA TAB GTB SCH (21:11)
[2019-03-07] MEDS: FERROUS SULFATE 60 MG/ML 5ML CUP GTB SCH (21:11)
[2019-03-07] MEDS: INSULIN GLARGINE [LANTus] (100 UNITS/ML) SYG SC SCH (21:33)
[2019-03-08] VITALS (7 sets, daily range): BP systolic 118–136; BP diastolic 56–77; PULSE 72–96; RESP 18–20
[2019-03-08] MEDS: INSULIN ASPART [NOVOLOG] 3 ML PEN SC SCH ×6 (01:20→20:56)
[2019-03-08] MEDS: LEVALBUTEROL (NEB) 0.63 MG/3 ML AMP HHN SCH ×6 (02:02→20:38)
[2019-03-08] MEDS: SOD CHLORIDE 0.9% 1,000 ML IV SCH (03:17)
[2019-03-08] MEDS: PIPER-TAZO 3.375 GM IV (PMX) 100 ML IVPB SCH (05:35)
[2019-03-08] MEDS: DEXTROSE 5% 1,000 ML IV SCH ×2 (07:49→16:52)
[2019-03-08] MEDS ORDERED: SOD CHLORIDE 0.9% 250 ML IV* ONE (09:05)
[2019-03-08] MEDS: FERROUS SULFATE 60 MG/ML 5ML CUP GTB SCH ×3 (09:22→20:27)
[2019-03-08] MEDS: COLLAGENASE 5 GM (UD JAR) TOP SCH (09:22)
[2019-03-08] MEDS: ZINC SULFATE 220 MG CAP GTB SCH (09:22)
[2019-03-08] MEDS ORDERED: MEROPENEM 1 GM/50ML(PMX) 50 ML IVPB SCH (11:30)
[2019-03-08] MEDS ORDERED: LINEZOLID 600 MG/300 ML (PMX) 300 ML IVPB SCH (12:30)
[2019-03-08] MEDS: MEROPENEM 1 GM/50ML(PMX) 50 ML IVPB SCH (16:48)
[2019-03-08] MEDS: LINEZOLID 600 MG/300 ML (PMX) 300 ML IVPB SCH (18:00)
[2019-03-08] MEDS: SENNA TAB GTB SCH (20:27)
[2019-03-08] MEDS: INSULIN GLARGINE [LANTus] (100 UNITS/ML) SYG SC SCH (20:55)
[2019-03-09] MEDS: MEROPENEM 1 GM/50ML(PMX) 50 ML IVPB SCH ×3 (00:24→20:42)
[2019-03-09] MEDS: INSULIN ASPART [NOVOLOG] 3 ML PEN SC SCH ×6 (01:00→20:41)
[2019-03-09] MEDS: DEXTROSE 5% 1,000 ML IV SCH ×3 (01:15→23:00)
[2019-03-09] MEDS: LEVALBUTEROL (NEB) 0.63 MG/3 ML AMP HHN SCH ×6 (01:25→20:12)
[2019-03-09 03:56] VITALS: BP 127/67; PULSE 93; RESP 18
[2019-03-09 07:25] VITALS: BP 144/74; PULSE 96; RESP 20
[2019-03-09] MEDS ORDERED: POTASSIUM CHLORIDE 20 MEQ POWDER FOR ORAL SOLN GTB ONE (08:30)
[2019-03-09] MEDS: COLLAGENASE 5 GM (UD JAR) TOP SCH ×2 (09:24→20:43)
[2019-03-09] MEDS: FERROUS SULFATE 60 MG/ML 5ML CUP GTB SCH ×3 (09:24→20:42)
[2019-03-09] MEDS: ZINC SULFATE 220 MG CAP GTB SCH (09:25)
[2019-03-09] MEDS: LINEZOLID 600 MG/300 ML (PMX) 300 ML IVPB SCH ×2 (10:06→20:43)
[2019-03-09 11:36] VITALS: BP 131/83; PULSE 105; RESP 19
[2019-03-09] MEDS ORDERED: VANCOMYCIN 1 GM 250 ML IVPB SCH (14:00)
[2019-03-09 20:00] VITALS: BP 115/56; PULSE 115; RESP 18
[2019-03-09] MEDS: SENNA TAB GTB SCH (20:42)
[2019-03-09] MEDS: BALSAM PERU/CASTOR OIL 60 GM TUBE TOP SCH (20:42)
[2019-03-09] MEDS: MUPIROCIN 2% 22 GM OINT TOP SCH (20:42)
[2019-03-09] MEDS: DAKINS 0.0125%(1/40) 473 ML SOLUTION TP SCH (20:47)
[2019-03-09] MEDS: INSULIN GLARGINE [LANTus] (100 UNITS/ML) SYG SC SCH (20:53)
[2019-03-10] VITALS: BP 128/63; PULSE 112; RESP 19
[2019-03-10] MEDS: LEVALBUTEROL (NEB) 0.63 MG/3 ML AMP HHN SCH ×6 (00:38→21:17)
[2019-03-10] MEDS: INSULIN ASPART [NOVOLOG] 3 ML PEN SC SCH ×6 (01:59→21:13)
[2019-03-10 04:00] VITALS: BP 121/62; PULSE 105; RESP 20
[2019-03-10 07:10] VITALS: BP 102/63; PULSE 104; RESP 18
[2019-03-10] MEDS ORDERED: METOLAZONE 2.5 MG TAB PO ONE (08:00)
[2019-03-10] MEDS: ZINC SULFATE 220 MG CAP GTB SCH (08:46)
[2019-03-10] MEDS: FERROUS SULFATE 60 MG/ML 5ML CUP GTB SCH ×3 (08:46→21:02)
[2019-03-10] MEDS: MEROPENEM 1 GM/50ML(PMX) 50 ML IVPB SCH ×2 (08:47→21:01)
[2019-03-10] MEDS: MUPIROCIN 2% 22 GM OINT TOP SCH ×4 (09:12→21:00)
[2019-03-10] MEDS: LINEZOLID 600 MG/300 ML (PMX) 300 ML IVPB SCH ×2 (10:21→21:01)
[2019-03-10 11:33] VITALS: BP 120/57; PULSE 102; RESP 21
[2019-03-10] MEDS: ASCORBIC ACID 500 MG TAB PO SCH (13:24)
[2019-03-10] MEDS ORDERED: POTASSIUM PHOSPHATE 15 MM in SOD CHLORIDE 0.9% 250 ML IVPB ONE (13:30)
[2019-03-10] MEDS ORDERED: IOHEXOL 100 ML ONE (14:13)
[2019-03-10] MEDS ORDERED: SOD CHLORIDE 0.9% 100 ML ONE (14:13)
[2019-03-10] MEDS: COLLAGENASE 5 GM (UD JAR) TOP SCH ×2 (14:58→21:00)
[2019-03-10] MEDS: BALSAM PERU/CASTOR OIL 60 GM TUBE TOP SCH ×2 (14:59→21:01)
[2019-03-10] MEDS: DAKINS 0.0125%(1/40) 473 ML SOLUTION TP SCH ×2 (14:59→21:01)
[2019-03-10 16:58] VITALS: BP 136/65; PULSE 101; RESP 20
[2019-03-10 19:09] VITALS: BP 133/76; PULSE 102; RESP 19
[2019-03-10] MEDS: SENNA TAB GTB SCH (21:02)
[2019-03-10] MEDS: INSULIN GLARGINE [LANTus] (100 UNITS/ML) SYG SC SCH (21:13)
[2019-03-11 00:02] VITALS: BP_SYST 121; BP_SYST 154; BP_DIAS 63; BP_DIAS 81; PULSE 92; RESP 18; RESP 24
[2019-03-11] MEDS: LEVALBUTEROL (NEB) 0.63 MG/3 ML AMP HHN SCH ×6 (01:28→21:20)
[2019-03-11] MEDS: INSULIN ASPART [NOVOLOG] 3 ML PEN SC SCH ×6 (01:34→20:13)
[2019-03-11 03:58] VITALS: BP 101/59; PULSE 108; RESP 24
[2019-03-11] MEDS ORDERED: LEVOFLOXACIN 500 MG TAB PO SCH (06:00)
[2019-03-11 06:55] VITALS: BP 107/53; PULSE 104; RESP 40
[2019-03-11] MEDS: MEROPENEM 1 GM/50ML(PMX) 50 ML IVPB SCH (09:16)
[2019-03-11] MEDS: ASCORBIC ACID 500 MG TAB PO SCH (09:24)
[2019-03-11] MEDS: FERROUS SULFATE 60 MG/ML 5ML CUP GTB SCH ×3 (09:24→20:14)
[2019-03-11] MEDS: ZINC SULFATE 220 MG CAP GTB SCH (09:24)
[2019-03-11] MEDS: DAKINS 0.0125%(1/40) 473 ML SOLUTION TP SCH (11:03)
[2019-03-11] MEDS: BALSAM PERU/CASTOR OIL 60 GM TUBE TOP SCH (11:04)
[2019-03-11] MEDS: COLLAGENASE 5 GM (UD JAR) TOP SCH (11:04)
[2019-03-11] MEDS: MUPIROCIN 2% 22 GM OINT TOP SCH ×2 (11:41)
[2019-03-11] MEDS: LINEZOLID 600 MG/300 ML (PMX) 300 ML IVPB SCH (11:42)
[2019-03-11 11:47] VITALS: BP 119/58; PULSE 110; RESP 40
[2019-03-11] MEDS ORDERED: SOD CHLORIDE 0.9% 100 ML ONE (13:36)
[2019-03-11] MEDS ORDERED: IOHEXOL 100 ML ONE (13:36)
[2019-03-11 15:08] VITALS: BP 115/57; PULSE 109; RESP 40
[2019-03-11] MEDS ORDERED: FUROSEMIDE 40 MG INJ IV ONE (17:00)
[2019-03-11 20:00] VITALS: BP 128/63; PULSE 117; RESP 20
[2019-03-11] MEDS: SENNA TAB GTB SCH (20:14)
[2019-03-11] MEDS: INSULIN GLARGINE [LANTus] (100 UNITS/ML) SYG SC SCH (20:35)
== END 2019-03-11 22:00 | DRG 871 ==
LOC: E/R 11:21 → 6WM 13:19
PROVIDERS: ADMIT Internal Medicine; ATTEND Family Medicine
PROC: 30233N1 Transfusion of Nonautologous Red Blood Cells into Peripheral Vein, Percutaneous Approach (ICD-10-PCS; principal; 2019-03-08)
DX: A41.50 Gram-negative sepsis, unspecified (principal); L89.224 Pressure ulcer of left hip, stage 4; L89.154 Pressure ulcer of sacral region, stage 4; L89.523 Pressure ulcer of left ankle, stage 3; L89.893 Pressure ulcer of other site, stage 3; J96.01 Acute respiratory failure with hypoxia; G82.50 Quadriplegia, unspecified; J69.0 Pneumonitis due to inhalation of food and vomit; G93.40 Encephalopathy, unspecified; E87.3 Alkalosis; N17.9 Acute kidney failure, unspecified; E87.0 Hyperosmolality and hypernatremia; N39.0 Urinary tract infection, site not specified; D62 Acute posthemorrhagic anemia; J44.9 Chronic obstructive pulmonary disease, unspecified; E11.8 Type 2 diabetes mellitus with unspecified complications; E86.0 Dehydration; E11.22 Type 2 diabetes mellitus with diabetic chronic kidney disease; R13.10 Dysphagia, unspecified; Z93.1 Gastrostomy status; G30.1 Alzheimer's disease with late onset; F02.80 Dementia in other diseases classified elsewhere, unspecified severity, without behavioral disturbance, psychotic disturbance, mood disturbance, and anxiety; C61 Malignant neoplasm of prostate; D63.8 Anemia in other chronic diseases classified elsewhere; I12.9 Hypertensive chronic kidney disease with stage 1 through stage 4 chronic kidney disease, or unspecified chronic kidney disease; E78.5 Hyperlipidemia, unspecified; M19.90 Unspecified osteoarthritis, unspecified site; N18.9 Chronic kidney disease, unspecified; R00.0 Tachycardia, unspecified; Z79.4 Long term (current) use of insulin; Z87.891 Personal history of nicotine dependence; Z74.01 Bed confinement status
CPT/HCPCS: 36430; 36600; 71045; 80048; 80053; 80061; 81001; 82436; 82803; 82962; 83036; 83605; 83735; 83935; 84100; 84133; 84300; 84484; 85025; 85610; 85730; 86644; 86850; 86900; 86901; 86920; 87070; 87081; 87086; 89220; 93005; 93970; 94640; 94664; 96365; 96368; J0456; J0696; J1644; J1815; J1940; J2185; J2543; J3370; J7030; J7040; J7050; J7070; P9016; Q9967